=== PATIENT | female | born 1940 | race Caucasian/White ===

== ENCOUNTER 2019-07-31 16:14 | Emergency (ER) | payer MEDICARE, OTHER, SELFPAY ==
[2019-07-31 16:15] VITALS: BP 145/74; PULSE 68; RESP 13; TEMP 36.9; O2SAT 99; BMI 22.2
--- NOTE | 2019-07-31 16:33 | ED.VISSUMM ---
- ER Visit Summary Date of Service: 07/31/19 Chief Complaint: Right ankle injury History of Present Illness: The patient is a 78 F who presents with right ankle injury that occurred today. Patient states she stood up and inverted her ankle. Patient states she felt a snap. Patient states the pain is worse over the lateral aspect of the right ankle. Patient denies any weakness but admits to some tingling in her toes. Patient denies any pain currently. Patient has not tried to ambulate since the fall. Patient admits to some tingling in her toes but denies any weakness. Physical Examination: Vital signs are stable. Patient is afebrile. Patient is in no acute distress. Musculoskeletal exam reveals tenderness, edema, and ecchymosis over the lateral malleolus. There is no bony crepitance or step-off. Range of motion was slightly limited in all motions of the right ankle secondary to pain. There is a strong pedal pulse. Sensation was intact to light touch in all digits. Capillary refill is less than 2 seconds in all digits. There is no tenderness over the fifth metatarsal or proximal fibula. Test Results: Trays of the right ankle were obtained. There is a nondisplaced fracture of the distal fibula below the level of the joint line. This was interpreted by the radiologist and myself. Emergency Department Course and Treatment: Patient declined anything for analgesia. Patient was given a boot orthosis. Patient was given crutches. Patient was instructed to ice and elevate the right ankle. Patient states she has seen Dr. Williamson in the past and wants to follow-up with him. Patient was instructed to follow-up with him in 5 to 7 days. Patient and family understood and were agreeable with the plan. All questions were answered. Disposition: Discharge home Impression: 1. Right distal fibula fracture This note was generated with [employer] dictation software. It may contain incorrect words, spelling, and punctuation that were not noted in review of the chart prior to signing ED Disposition - Plan for ED Patient: Disposition: Home or Assisted Living Diagnosis: Closed fracture of right distal fibula Instructions: FRACTURE, Lower Extremity Referrals: Vangie Arriaga MD [STAFF PHYSICIAN] - 5-7 Days Toni Williamson MD [STAFF PHYSICIAN] - 3-5 Days
--- NOTE | 2019-07-31 16:50 | RAD_ITS ---
STUDY: X-RAY - RIGHT ANKLE REASON FOR EXAM: Female, 78 years old. Pain and swelling TECHNIQUE: 3 view(s) of the ankle. COMPARISON: None. FINDINGS: There is a minimally displaced fracture of the lateral malleolus. There is marked overlying soft tissue swelling. There are no significant degenerative changes. There are no radiodense foreign bodies. RAD/Ankle min 3 Views IMPRESSION: Minimally displaced fracture of the lateral malleolus with marked overlying soft tissue swelling. Electronically Signed: Ayan Zavala, at 17:07 EDT Tel , Service support ,
[2019-07-31 17:40] VITALS: PULSE 72; RESP 16; O2SAT 98
== END 2019-07-31 17:41 | disposition home or self-care (01) ==
PROVIDERS: Emergency Provider Emergency Medicine; Family Provider Student in an Organized Health Care Education/Training Program; PCP Student in an Organized Health Care Education/Training Program
DX: S82.64XA Nondisplaced fracture of lateral malleolus of right fibula, initial encounter for closed fracture (principal); W19.XXXA Unspecified fall, initial encounter; Y93.89 Activity, other specified
CPT/HCPCS: 73610; 99284

== ENCOUNTER 2025-03-16 11:00 | Outpatient (RCR) | payer MEDICARE, OTHER, SELFPAY ==
--- NOTE | 2025-03-03 11:14 | HP.PTEVAL_ITS ---
Patient's Visit Information Visit Information Visit Information: JUAN GERONIMO is a 84 year old F referred to Physical Therapy by Dr. Keith Romero DO with a diagnosis of Balance disorder. Date of Evaluation: 03/03/25 Physical Therapist: George Baxter, REGIT, OCS, CSCS Visit Plan Frequency: 2x /Week Duration: 4-6 Weeks Plan: 2x/week for 2-6 weeks IE HEP given VOR seated H and V 60 sec 3x/day with pics and reviewed balance safety HO Pt has decent balance for age but needs more confidence, please treat with... 1. teach progression of VOR to standing and dynamic as safety allows via HEP 2. weight shift Fw and lateral confidence ex to HEP 3. combination strength /balance ex to I HEP pics and progressions please. All to HEP(4 visits to start) Subjective Subjective: Dr. romero PA sent over. balance is not like it used to be. Fell one time. Has hugged feldman for a long time. Does well next to someone but does not feel secure on own. Home is good. has been ill and she is taking care of him. She needs to take care of herself. Last fall was two weeks ago and face planted on slippery grass and picking up sticks, bent over and did slipped on grass and face planted. Had black eye. Not in any pain. No spinning but has to stand up slowly some times. No neuropathy. Does not use cane or walker. Sleep is OK No regular exercise. Does not like to exercise adn never will Takes care of 3 story house and . Steps have handrails and are no problem and has chairlift for . 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 Enjoys reading and puzzles. Bathtub has bars. Basic ADLs all I at this point. Objective Objective: Walks into PT I without gait deviations. Trasnfer chair without UE 2 attempts but I. Bed trasnfer I. Steps are reciprocal with one rail. Good balance demonstrated on FGA without AD. Fear is noticed when doing tandem walk and ec walk but good balance. Lumbar and LE AROM WFL , some mild tightness in HS and gastroc at -15 90/90 and 0 DF but functional. Hesitant to shift weight with ambulation and out of chair and on steps. strength LE 4-/5 hips and knees and ankles , funcitonal reflexes 2/3 patella adn achilles B . sensation to gross light touch WNL B LE coordination to reciprocal toe and heel tap is good, heel mcdonnell test is good. UE AROM wFL and strength at 4-/5. Balance/Special Test Scores Functional Gait Assessment Score: 26 % Disability: 13.3400 CATSIB Score (Max score 120 seconds): 102 Lower Extremity Functional Score: 47 Goals Goal 1:: I appropriate HEP for weight shifts, vestibular and strength to minimize future problems Goal Time Frame: 4-6 Weeks Goal 2:: Pt feel 75% more confidence in balance and ability to get around and take care of house and . Goal Time Frame: 4-6 Weeks Goal 3:: 20+ sec on foam ec romberg test. Goal Time Frame: 4-6 Weeks Rehabilitation Potential Physical Therapy Diagnosis: Diminshed confidence and weakness vestibular balance system leading to hesitation and fear with ambulation. Rehabilitation Potential: Good Anticipated Interventions Patient/Client Instruction: Educate patient on: Condition and Risk Factors For the Purpose of:: To increase tolerance to activity/condition/position, To improve ability of physical actions for home/community/work/leisure, To improve gait and locomotor functions and To improve safety Therapeutic Exercise to Include: Strength training, Balance training and Coord ination Comment: vestibular ex adn dyanmic balance For the Purpose of:: To improve muscle performance and motor function, To increase tolerance to activity/condition/position, To improve ability of physical actions for home/community/work/leisure, To improve gait and locomotor functions and To improve safety Text: Thank you for the opportunity to evaluate your patient. For Medicare and Medicare HMO plans, please review the plan of care and approve it. It will need to be FAXED BACK to us at [phone] for Medicare purposes. For Medicare only, by signing this I certify the plan of care. Please let me know if there are questions or concerns regarding this plan of care. Physician Signature: Date:
--- NOTE | 2025-04-26 15:33 | HP.PT.NRP ---
Patient Information Patient Information: JUAN GERONIMO was seen in my office for initial evaluation on 03/03/25. The following Plan of Care was established for this patient: POC Established Initial Frequency: 2x /Week Initial Duration: 4-6 Weeks Anticipated Interventions Patient/Client Instruction: Educate patient on: Condition and Risk Factors For the Purpose of:: To increase tolerance to activity/condition/position, To improve ability of physical actions for home/community/work/leisure, To improve gait and locomotor functions and To improve safety Therapeutic Exercise to Include: Strength training, Balance training and Coordination For the Purpose of:: To improve muscle performance and motor function, To increase tolerance to activity/condition/position, To improve ability of physical actions for home/community/work/leisure, To improve gait and locomotor functions and To improve safety Last Seen Last Seen: This patient was last seen in our office 03/16/25. Pertinent comments regarding their Physical therapy will appear below: Pt seen 4 visits of HEP instruct for balance and was to f/u two weeks later but did not schedule or attend. At this point, it has been over 5 weeks and i will discontinue from my care. At this point I will be discontinuing this patient from physical therapy. I would be happy to see this patient again in the future if found appropriate by the physician. Thank you! George Baxter, DPT, OCS, CSCS Balance/Gait/Functional tests Balance/Special Test Scores Functional Gait Assessment Score: 26 % Disability: 13.3400 CATSIB Score (Max score 120 seconds): 102 Lower Extremity Functional Score: 47
== END 2025-03-16 19:00 | disposition home or self-care (01) ==
LOC: PT 11:00
PROVIDERS: PCP Student in an Organized Health Care Education/Training Program; Referring Provider Student in an Organized Health Care Education/Training Program; Visit Provider Student in an Organized Health Care Education/Training Program
DX: R26.89 Other abnormalities of gait and mobility (principal)
CPT/HCPCS: 97110; 97161

== ENCOUNTER 2025-09-12 07:39 | Emergency (ER) | payer MEDICARE, OTHER, SELFPAY ==
[2025-09-12 07:42] VITALS: BP 156/77; PULSE 80; RESP 18; TEMP 36.6; O2SAT 99; BMI 21.8
--- NOTE | 2025-09-12 07:46 | CT_ITS ---
PROCEDURE: SPINE CERVICAL WITHOUT CONTRAS 09/12/2025 REASON FOR EXAM: TRAUMA TECHNIQUE: Procedure Code: CTSPC Modality: CT Procedure: SPINE CERVICAL WITHOUT CONTRAS Coronal and Sagittal reconstruction series were provided. One or more dose reduction techniques were used (e.g., Automated exposure control, adjustment of the mA and/or kV according to patient size, use of iterative reconstruction technique. RADIATION DOSE SUMMARY: CTDlvol: 12.49 mGy DLP: 1055.84 mGycm COMPARISON: None. FINDINGS: Alignment: Anterolisthesis C3 on C4 by 2 mm and C4 on C5 by 2 mm. Vertebrae: No acute bony abnormalities. Soft Tissues: No soft tissue abnormalities. The visualized lungs are clear. Disc levels: Multilevel degenerate changes predominantly for facet joints arthropathy and severe left and moderate right foramina stenosis at C3-C4. No significant canal stenosis. CT/Spine Cervical without Contras IMPRESSION: No acute injury to the cervical spine. Reading Location: [id number]
--- NOTE | 2025-09-12 07:46 | CT_ITS ---
PROCEDURE: BRAIN/HEAD WITHOUT CONTRAST 09/12/2025 REASON FOR EXAM: TRAUMA TECHNIQUE: Procedure Code: CTBR Modality: CT Procedure: BRAIN/HEAD WITHOUT CONTRAST Coronal and Sagittal reconstruction series were provided. One or more dose reduction techniques were used (e.g., Automated exposure control, adjustment of the mA and/or kV according to patient size, use of iterative reconstruction technique. RADIATION DOSE SUMMARY: CTDlvol: N/A mGy DLP: N/A mGycm COMPARISON: None FINDINGS: Brain: Within normal limits for age CSF Spaces: Mild generalized cerebral atrophy Sinuses/Mastoids: Clear at visualized levels Bones: There is no evidence of a fracture. Soft tissues: Brad there is a scalp laceration at the posterior occipital region. CT/Brain/Head without Contrast IMPRESSION: Occipital scalp laceration, no other evidence of an acute process. Reading Location: [id number]
--- NOTE | 2025-09-12 07:58 | ED.VIS.FALL ---
HPI HPI - Fall History of Present Illness Chief Complaint: Fall Narrative Narrative: 85-year-old female past medical history of frequent falls secondary to balance problems for which she has been through physical therapy presents with fall that she sustained this morning prior to arrival. She does not take blood thinners. She states she was in the downstairs half bathroom and bent over to clean the cat box. She lost her balance, spun around and fell and struck her head. She denies any loss of consciousness, no neck pain. She sustained a skin tear to her right forearm, and has dried blood on the left side of her head but complains of pain mainly in the occipital area. She was not wearing her glasses at the time. She denies any nausea or vomiting but states she has a headache and that her head hurts in the back of her skull. No exacerbating or alleviating factors. Unsure of last tetanus immunization. PFSH PFS Medical History no medical history Home Medications Medication Instructions Recorded Last Taken Type alendronate 70 mg tablet 70 mg PO QWEEK 07/31/19 Unknown History estradiol 0.5 mg tablet 0.5 mg PO QODAY 07/31/19 Unknown History Allergy/AdvReac Type Severity Reaction Status Date / Time Latex, Natural Rubber Allergy Rash Verified 07/31/19 16:16 meperidine (From Demerol) Allergy Rash Verified 07/31/19 16:16 amoxicillin AdvReac Nausea/Vom/ Verified 07/31/19 16:16 Diarrhea codeine AdvReac Nausea/Vom/ Verified 07/31/19 16:16 Diarrhea tramadol (From Ultram) AdvReac Nausea/Vom/ Verified 07/31/19 16:16 Diarrhea Social History Smoking Status: Never smoker ROS ROS ED ROS Narrative Review of systems positive for headache and wound to occipital area. Skin tear to right forearm. Denies any neck pain. No loss of consciousness. No nausea or vomiting. Denies other injury. EXAM Physical Exam Narrative Exam Narrative: GCS 15. ABCs intact. HEENT examination does show dried blood with tenderness to palpation in the occipital area. There is small amount of dried blood with questionable abrasion underlying on the left parietal area. PERRL, EOMI. small hematoma noted with less than 1 cm superficial laceration without active bleeding noted on the occiput. Neck soft and supple without vertebral point tenderness or bony step-off. Full range of motion without pain. Cardiovascular examination regular rate and rhythm. Lungs are clear to auscultation bilaterally. The abdomen is soft and nontender with positive bowel sounds. Moves all extremities. Pelvis stable. Right distal forearm wrapped with gauze, not saturated with blood. After unwrapping, she does have a 1.5 cm flap-like skin avulsion/tear without active bleeding. Const Vital Signs: 09/12/25 07:42 09/12/25 07:48 09/12/25 09:13 Temperature 98 F 98 F Temperature Source Oral Pulse Rate 80 74 Respiratory Rate 18 16 Respiratory Effort Normal Blood Pressure 156/77 H 161/88 H Blood Pressure Mean 103 112 Pulse Ox 99 99 Oxygen Delivery Method Room Air MDM MDM MDM Narrative Medical decision making narrative: The differential diagnosis includes but not limited to intracranial hemorrhage versus closed head injury versus occipital laceration versus contusion/abrasion. Her right forearm will be unwrapped to examine probable skin tear. She was given a Boostrix immunization. I do feel that she requires imaging although she does not take blood thinners. CT of the brain and CT of the C-spine will be obtained prior to analgesics. Her family is at the bedside currently. There is concern that the patient is having frequent falls again as she fell 2 days ago as well. I reviewed the radiology report of the CT of the cervical spine and there is no evidence of acute fracture. On review of the CT of the brain radiology report, no acute intracranial hemorrhage or process. She does have the occipital scalp laceration noted. After cleansing, the occipital scalp laceration is approximately 1 cm khan without active bleeding. I do not feel that it requires closure currently. In discussion with the patient and her family, I discussed with them admission versus observation for PT/OT eval, and possible placement in rehab even if temporarily. Patient declined and her family is in agreements with her wishes. She wants to follow-up with her primary care provider tomorrow to see about more intensive physical therapy as an outpatient or home physical therapy. I feel she can be discharged safely home with follow-up. She can take [id number] medications for analgesia. Return instructions to the emergency department were reviewed. Disposition is discharged home in stable condition. History & Record Review Discussion w/independent historian: Patient and Family Radiography Diagnostic Testing: Clinical Impression(s) from Imaging Studies Brain CT 09/12/25 07:46 IMPRESSION: Occipital scalp laceration, no other evidence of an acute process. Reading Location: [id number] Cervical Spine CT 09/12/25 07:46 IMPRESSION: No acute injury to the cervical spine. Reading Location: [facility] Discharge Plan Triage Chief Complaint: Fall ED Provider: Juan Carlos Johns Dx/Rx/DC Orders Clinical Impression: Balance problems, Occipital scalp laceration, Closed head injury, Hematoma of occipital region of scalp, Skin tear of forearm without complication Instructions: ED Scalp Contusion, ED Head Injury (Adult), ED Laceration Superficial No Stitch, ED Skin Tear (Skin Avulsion) Prescriptions: No Action alendronate 70 MG tablet 70 mg PO QWEEK estradiol 0.5 MG tablet 0.5 mg PO QODAY Patient Comments: TAKE 1 TABLET BY MOUTH EVERY OTHER DAY Primary Care Provider: Keith Romero Referrals: Keith Romero DO [Primary Care Provider, Medical] - 1 Day Activity Restrictions/Additional Instructions: Follow-up with your primary care provider tomorrow. Discussed with them physical therapy more frequently for your balance issues versus home physical therapy. Return with new or worsening symptoms. [id number] medications as needed for pain. Print Language: Kyrgyz Disposition Disposition: Home, Self Care
--- OUTSIDE RECORDS SUMMARY | 2025-09-12 08:44 | XMS RPT_ITS | CCD ---
Author Organization [facility] ion Partnership [facility] Care Team Providers Care Overweaver Name Role Phone Keith Romero DO Primary Care Provider Keith Romero DO Primary Care Provider Osbaldo EMPLOYEE'S REPRESENTATIVE.SHAKER REPAIRERJohanan Unavailable Clary EMPLOYEE'S REPRESENTATIVE.Dionne BURNHAM Unavailable Brandy EMPLOYEE'S REPRESENTATIVE.Jerica BURNHAM Unavailable Dr. Keith Romero DO Primary Care Provider Dr. Keith Romero DO Attending Provider Dr. Keith Romero DO Referring Provider Keith Romero Attending Unavailable Keith Romero Referring Unavailable Keith Romero Primary Care Unavailable KEITH ROMERO Primary Care Unavailable NICHOLAS LEONE Attending Unavailable SELF Referring Unavailable KEITH ROMERO Primary Care Unavailable KEITH ROMERO Referring Unavailable KEITH ROMERO Primary Care Unavailable KEITH ROMERO Attending Unavailable KEITH ROMERO Primary Care Unavailable KEITH ROMERO L Referring Unavailable KEITH ROMERO L Primary Care Unavailable BRAXTON LOCKE Referring Unavailable KEITH ROMERO Attending Unavailable KEITH ROMERO Primary Care Unavailable KEITH ROMERO Primary Care Unavailable PARESH NGO Attending Unavailable JOSEE LI Referring Unavailable KEITH ROMERO L Primary Care Unavailable KEITH ROMERO L Primary Care Unavailable Allergies Allergy Classification Reported Allergen(s) Allergy Type Date of Onset Reaction(s) Facility (20 sources) Amoxicillin; Translations: [AMOXICILLIN] Drug Allergy 9 [facility] Work Phone: (20 sources) Codeine; Translations: [CODEINE] Drug Allergy 5 GI Upset [facility] (20 sources) Latex Propensity to adverse reactions 9 [facility] Work Phone: (20 sources) traMADol; Translations: [TRAMADOL HCL] Drug Allergy 9 Intolerance [facility] Work Phone: (20 sources) demoral [Other] Propensity to adverse reactions 5 [facility] (1 source) Meperidine Drug Allergy 9 [facility] (1 source) natural latex rubber Allergy to substance 9 [facility] (1 source) traMADol Drug Allergy 9 Nausea/Vom/Diar anastasiya [facility] (1 source) Amoxicillin Drug Allergy 9 [facility] (1 source) Codeine Drug Allergy 9 [facility] (1 source) Meperidine Drug Allergy 9 [facility] (1 source) natural latex rubber Drug allergy (disorder) 9 [facility] (1 source) traMADol Drug Allergy 9 [facility] Medications Current Medications Medication Drug Class(es) Dates Sig (Normalized) Sig (Original) 8 hr acetaminophen 650 mg extended release oral tablet (20 sources) Start: 02-13-2016 take 1 tablet by mouth every eight hours as needed acetaminophen 650 mg CR tablet Take 1 tablet by mouth every 8 hours as needed. 0 02/13/2016 Active Comment on above: Take 1 tablet by fabien every 8 hours as needed. alendronic acid 70 mg oral tablet (20 sources) Bisphosphonate Start: 07-31-2019 End: 07-01-2024 take 1 tablet by mouth every week alendronate (FOSAMAX) 70 mg tablet Indications: Age-related osteoporosis without current pathological fracture Take 1 tablet by mouth one time a week. Take with a full glass of water, on an empty stomach; do NOT lie down for 30minutes. 12 tablet 3 07/01/2024 Active Comment on above: Take 1 tablet by fabien th one time a week. Take with a full glass of water, on an empty stomach; do NOT lie down for 30minutes. aspirin 81 mg chewable tablet (20 sources) Platelet Aggregation Inhibitor, Nonsteroidal Anti-inflammatory Drug take 1 tablet by mouth once daily aspirin 81 mg chewable tablet Take 81 mg by mouth once daily. Active Comment on above: Take 81 mg by mouth once daily. baclofen 10 mg oral tablet (2 sources) gamma-Aminobutyric Acid-ergic Agonist Start: 07-27-2022 End: 08-26-2022 take 1 tablet by mouth once daily baclofen (LIORESAL) 10 mg tablet Take 1 tablet by mouth once daily. 30 tablet 2 07/27/2022 08/26/2022 Active Comment on above: Take 1 tablet by fabien once daily. Biotin (20 sources) take 1000 ug by mouth once daily BIOTIN ORAL Take 1,000 mcg by mouth once daily. Active take 1000 ug by mouth once daily BIOTIN ORAL Take 1,000 mcg by mouth once daily. 0 Active Comment on above: Take 1,000 mcg by mo [facility] once daily. cholecalciferol 0.025 mg oral capsule (20 sources) Vitamin D Start: 020 take 2 capsules by mouth once daily Cholecalciferol, Vitamin D3, 25 mcg (1,000 unit) cap Take 2 capsules by mouth once daily. 0 04/27/2020 Active Comment on above: Take 2 capsules by [facility] once daily. docusate sodium 100 mg oral capsule (17 sources) Start: End: take 1 capsule by mouth twice daily as needed for constipation docusate sodium (COLACE) 100 mg capsule Indications: Hemorrhoids, unspecified hemorrhoid type Take 1 capsule by mouth two times a day as needed for constipation. 60 capsule 2 07/01/2024 09/29/2024 Active levothyroxine sodium 0.088 mg oral tablet (20 sources) l-Thyroxine Start: 023 End: levothyroxine (LEVOXYL) 88 mcg tablet Indications: Hypothyroidism, acquired Take 1 tablet daily except for Tues and Thurs and Sat take 2 tablets. Take on empty stomach. For Thyroid 130 tablet 3 07/01/2024 Active Start: 02-25-2023 End: 04-02-2023 take 1 tablet by mouth once daily for thyroid dysfunction levothyroxine (LEVOXYL) 75 mcg tablet Indications: Hypothyroidism, acquired Take 1 tablet by mouth once daily. Take on empty stomach. For thyroid. 90 tablet 1 02/25/2023 04/02/2023 Discontinued Start: 06-22-2022 End: 02-25-2023 take 1 tablet by mouth once daily for thyroid dysfunction levothyroxine (LEVOXYL) 50 mcg tablet Indications: Hypothyroidism, acquired Take 1 tablet by mouth once daily. Take on empty stomach. For Thyroid 30 tablet 5 06/22/2022 11/07/2022 Discontinued Start: 04-27-2022 End: 06-22-2022 take 1 tablet by mouth once daily for thyroid dysfunction levothyroxine (LEVOXYL) 25 mcg tablet Indications: Hypothyroidism, acquired Take 1 tablet by mouth once daily. Take on empty stomach. For Thyroid 30 tablet 2 04/27/2022 06/22/2022 Discontinued (Dosage adjustment) Comment on above: Take 1 tablet by fabien th once daily. Take on empty stomach. For Thyroid Take 1 tablet by fabien th once daily. Take on empty stomach. For thyroid. mecobalamin (20 sources) take 1 tablet by mouth once daily mecobalamin (B12 ACTIVE ORAL) Take 1 tablet by mouth once daily. Active take 1 tablet by mouth once [facility] mecobalamin (B12 ACTIVE ORAL) Take 1 tablet by mouth once daily. 0 Active Comment on above: Take 1 tablet by fabien th once daily. 24 hr verapamil hydrochloride 120 mg extended release oral capsule (20 sources) Calcium Channel [place] Start: 03-15-2023 End: 05-19-2025 take 1 capsule by mouth once daily at bedtime verapamil ER (VERELAN) 120 mg 24 hr capsule Indications: SVT (supraventricular tachycardia) (HCC) Take 1 capsule by mouth once daily at bedtime 90 capsule 3 05/19/2025 Active Start: 02-21-2023 take 1 capsule by mo uth once daily at bedtime verapamil ER (VERELAN) 120 mg 24 hr capsule Take 1 capsule by mouth daily at bedtime. 90 capsule 3 02/21/2023 Active Comment on above: Take 1 capsule by mo uth daily at bedtime. Completed/Discontinued Medications Medication Drug Class(es) Dates Sig (Normalized) Sig (Original) estradiol 0.5 mg oral tablet (15 sources) Estrogen Start: 04-24-2022 End: 02-21-2023 take 1 tablet by mouth every other day Estradiol (ESTRACE) 0.5 mg tablet Indications: Postmenopausal symptoms Take 1 tablet by mouth every other day. 45 tablet 3 04/24/2022 02/21/2023 Discontinued Start: 07-31-2019 take 1 tablet by fabien th every other day Estradiol (ESTRACE) 0.5 mg tablet Indications: Postmenopausal symptoms Take 1 tablet by mouth every other day. 45 tablet 3 04/21/2021 Active Comment on above: Take 1 tablet by fabien th every other day. mupirocin 0.02 mg/mg topical ointment (11 sources) RNA Synthetase Inhibitor Antibacterial Start: 07-01-20 End: 03-01-20 mupirocin (BACTROBAN) 2 % ointment Indications: Skin lesion of face Apply to affected area every 12 hours as needed (for skin wound). 30 g 1 07/01/2024 03/01/2025 Discontinued (Course of therapy completed) perflutren lipid microspheres 1.3 mL in NaCl (PF) 0.9% 10 mL injection (DEFINRivalSoft) (9 sources) Start: 04-21-20 End: 07-21-20 perflutren lipid microspheres 1.3 mL in NaCl (PF) 0.9% 10 mL injection (Skycatch) pramoxine hydrochloride 10 mg/ml rectal foam (12 sources) Start: 05-13-20 End: 08-11-20 Pramoxine (PROCTOFOAM) 1 % foam Indications: Hemorrhoids, unspecified hemorrhoid type 1 Applicator by RECTAL route every 2 hours as needed. 15 g 2 05/13/2024 07/01/2024 Discontinued predniSONE 20 mg oral tablet (2 sources) Start: 07-08-20 End: 07-13-20 take 2 tablets by mouth once daily predniSONE (DELTASONE) 20 mg tablet Take 2 tablets by mouth once daily for 5 days. 10 tablet 07/08/2022 07/13/2022 Comment on above: Take 2 tablets by mo ut once daily for 5 days. 125 ml sodium chloride 9 mg/ml prefilled syringe (9 sources) Start: 04-21-20 End: 07-21-20 sodium chloride 0.9 % (flush) 10 mL (BD POSIFLUSH) triamcinolone acetonide 0.46350 mg/mg topical ointment (19 sources) Corticosteroid Start: 04-22-20 End: 04-30-20 triamcinolone (KENALOG) 0.025 % ointment Apply to affected area BID x 6-8 weeks then use weekly for maintenance 30 g 1 04/22/2019 04/30/2023 Discontinued (Course of therapy completed) Comment on above: Apply to affected ar ea BID x 6-8 weeks then use weekly for maintenance Problems Active Problems Problem Classification Problem Date Documented Date Episodic/Chronic Cardiac dysrhythmias (20 sources) Supraventricular tachycardia; Translations: [Supraventricular tachycardia] Onset: 06-22-2021 06-22-2021 Chronic Chronic kidney disease (1 source) Chronic kidney disease stage 3B ; Translations: [Stage 3b chronic kidney disease (HCC)] Chronic Disorders of lipid metabolism (20 sources) Hyperlipidemia; Translations: [Hyperlipidemia, unspecified] Onset: 05-28-2007 Resolved: 02-13-2016 02-13-2016 Chronic Esophageal disorders (20 sources) Gastroesophageal reflux disease; Translations: [Gastro-esophageal reflux disease without esophagitis] Onset: 05-28-2007 10-16-2021 Chronic Fracture of lower limb (1 source) Closed fracture of distal fibula ; Translations: [Other fracture of upper and lower end of right fibula, initial encounter for closed fracture] 08-01-2019 Episodic Hemorrhoids (7 sources) Hemorrhoids; Translations: [Unspecified hemorrhoids] 05-13-2024 Episodic Immunizations and screening for infectious disease (3 sources) Vaccination needed; Translations: [Encounter for immunization] Episodic Menopausal disorders (20 sources) Menopausal and postmenopausal disorders; Translations: [Unspecified menopausal and perimenopausal disorder] Onset: 04-15-2018 04-15-2018 Chronic Nutritional deficiencies (9 sources) Vitamin D deficiency; Translations: [Vitamin D deficiency, unspecified] Onset: 02-23-2025 02-16-2025 Chronic Osteoarthritis (20 sources) Degenerative joint disease involving multiple joints; Translations: [Polyosteoarthritis, unspecified] Onset: 05-28-2007 05-28-2007 Chronic Osteoporosis (20 sources) Senile osteoporosis; Translations: [Age-related osteoporosis without current pathological fracture] Onset: 04-15-2018 04-15-2018 Chronic Other connective tissue disease (1 source) Pain in right hand; Translations: [Pain in right hand] Episodic Other hematologic conditions (1 source) Other abnormality of red blood cells; Translations: [Abnormal RBC] Onset: 08-27-2025 Episodic Other inflammatory condition of skin (20 sources) Psoriasis; Translations: [Other psoriasis] Onset: 05-28-2007 05-28-2007 Chronic Other nutritional; endocrine; and metabolic disorders (1 source) Abnormal weight loss; Translations: [Weight loss] Onset: 08-27-2025 Episodic Other screening for suspected conditions (not mental disorders or infectious disease) (3 sources) Other specified abnormal findings of blood chemistry; Translations: [Encounter for screening mammogram for malignant neoplasm of breast] Onset: 06-15-2025 Episodic Other skin disorders (1 source) Lesion of skin of face; Translations: [Disorder of the skin and subcutaneous tissue, unspecified] 07-01-2024 Episodic Residual codes; unclassified (3 sources) Pain; Translations: [Pain, unspecified] Episodic Spondylosis; intervertebral disc disorders; other back problems (20 sources) Cervical spondylosis; Translations: [Spondylosis without myelopathy or radiculopathy, cervical region] Onset: 07-20-2010 Resolved: 02-09-2015 Chronic Thyroid disorders (20 sources) Acquired hypothyroidism; Translations: [Hypothyroidism, unspecified] Onset: 02-25-2023 Chronic Unclassified (1 source) Patient encounter status 04-20-2025 Unclassified (1 source) Consult Onset: 08-04-2025 Past or Other Problems Problem Classification Problem Date Documented Da te Episodic/Chronic Acute and unspecified renal failure (20 sources) [id number] renal failure; Translations: [Acute kidney failure, unspecified] Onset: 02-25-2023 Episodic Administrative/social admission (20 sources) Patient encounter status; Translations: [Other specified counseling] Onset: 04-24-2022 04-24-2022 Episodic Deficiency and other anemia (20 sources) Anemia; Translations: [Anemia, unspecified] Onset: 02-25-2023 Episodic Deficiency and other anemia (1 source) Anemia, unspecified; Translations: [Anemia, unspecified type] Onset: 02-25-2023 Episodic E Codes: Fall (8 sources) Fall; Translations: [Unspecified fall, initial encounter] Onset: 02-23-2025 02-23-2025 Episodic Nutritional deficiencies (8 sources) Cobalamin deficiency; Translations: [Deficiency of other specified B group vitamins] Onset: 02-23-2025 02-23-2025 Episodic Other bone disease and musculoskeletal deformities (20 sources) Disorder of skeletal system; Translations: [Disorder of bone, unspecified] Onset: 05-28-2007 10-16-2021 Episodic Other circulatory disease (20 sources) Elevated blood-pressure reading without diagnosis of hypertension; Translations: [Elevated blood-pressure reading, without diagnosis of hypertension] Onset: 02-25-2017 02-25-2017 Episodic Other connective tissue disease (20 sources) Spasm of cervical paraspinous muscle; Translations: [Other muscle spasm] Onset: 07-27-2022 Episodic Other connective tissue disease (20 sources) Contracture of palmar fascia; 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]] Onset: 07-13-2008 Resolved: 02-25-2017 02-25-2017 Episodic Other nervous system disorders (8 sources) Impairment of balance; Translations: [Other abnormalities of gait and mobility] Onset: 02-23-2025 02-23-2025 Episodic Other nervous system disorders (1 source) Other abnormalities of gait and mobility; Translations: [Balance disorder] Onset: 02-23-2025 Episodic Spondylosis; intervertebral disc disorders; other back problems (20 sources) Spinal stenosis; Translations: [Spinal stenosis, site unspecified] Onset: 07-20-2010 10-16-2021 Episodic Syncope (20 sources) Syncope; Translations: [Syncope and collapse] Onset: 06-22-2021 06-22-2021 Episodic Results Test Name Value Interpretation Reference Range Facility [facility] 08-31-2025 [facility] Telephone (FAMPWS) -------- JUAN GERONIMO ([id number]) 1940 F Date Time Provider Department 08/31/25 KEITH ROMERO ASHLEY During your visit today, we recorded the following information about you: Keith RomeroDO 08/31/2025 9:39 AM Signed Please let her know that her labs are overall stable Her vitamin D is a little too high. Needs to cut back to every other day for vitamin D supplement Her renal function continues to be mildly abnormal in the chronic kidney disease stage 3 mild range. Very minimal protein in her urine. Continue to avoid NSAIDs and needs to be drinking at least 60 oz of water a day DO Sanju Phipps Linda M, LPN 09/01/2025 9:10 AM Signed Left message to return call. Anh Garcia RN 09/01/2025 9:18 AM Signed Patient notified of results and provider's instructions. Patient verbalizes understanding. Anh Garcia RN Allergies As of Date: 08/31/2025 Noted Allergy Reaction AMOXIL (AMOXICILLIN) 07/13/2009 4 - Hives CODEINE 07/04/2005 8 - GI Upset ULTRAM (TRAMADOL HCL) 07/13/2009 5 - Intolerance Date Reviewed: 08/27/2025 Reviewed by: Fannie Carr LPN - Fully Assessed Reason for Visit: Results [95] Prescriptions as of 09/01/2025 - levothyroxine (LEVOXYL) 88 mcg tablet Take 1 tablet daily except for Tues and Thurs and Sat take 2 tablets. Take on empty stomach. For Thyroid - verapamil ER (VERELAN) 120 mg 24 hr capsule Take 1 capsule by mouth once daily at bedtime - alendronate (FOSAMAX) 70 mg tablet Take 1 tablet by mouth one time a week. Take with a full glass of water, on an empty stomach; do NOT lie down for 30minutes. - mecobalamin (B12 ACTIVE ORAL) Take 1 tablet by mouth once daily. - aspirin 81 mg chewable tablet Take 81 mg by mouth once daily. - BIOTIN ORAL Take 1,000 mcg by mouth once daily. - Cholecalciferol, Vitamin D3, 25 mcg (1,000 unit) cap Take 2 capsules by mouth once daily. - acetaminophen 650 mg CR tablet Take 1 tablet by mouth every 8 hours as needed. 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] 07/13/2008 02/25/2017 Spinal stenosis [M48.00] 07/20/2010 Bulging disc [IVA8132] 07/20/2010 02/09/2015 Hyperlipidemia [E78.5] 02/13/2016 Elevated systolic blood pressure reading withou*02/25/2017 Age-related osteoporosis without current pathol*04/15/2018 Medicare annual wellness visit, subsequent [Z00*04/15/2018 Postmenopausal symptoms [N95.9] 04/15/2018 SVT (supraventricular tachycardia) (HCC), parox*06/22/2021 Syncope [R55] 06/22/2021 Advance care planning [Z71.89] 02/25/2023 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] 07/27/2022 Cervical spondylosis [M47.812] 07/27/2022 Anemia [D64.9] 02/25/2023 Acute renal failure superimposed on stage 3a ch*02/25/2023 Hypothyroidism, acquired [E03.9] 02/25/2023 Hyperlipidemia, mixed [E78.2] 02/25/2023 Balance disorder [R26.89] 02/23/2025 Fall [W19.XXXA] 02/23/2025 Vitamin D deficiency [E55.9] 02/23/2025 Vitamin B12 deficiency [E53.8] 02/23/2025 Weight loss [R63.4] 08/27/2025 Low TSH level [R79.89] 08/27/2025 Encounter Status:Closed by ANH GARCIA on 09/01/25 Normal [facility] 25(OH)D3 Gay-Usha 2024 25-hydroxyvitamin D3 [Mass/Vol] 87.4 ng/mL High 31.0-80.0 [facility] Comment on above: Order Comment: Speci men Type: BLOOD SPECIMENOrdering Facility: [facility] Address: [address] [place] [address] Result Comment: Clas sification of 25 [place] Vitamin D status: Deficiency/Insufficiency: < or = 30 ng/ml. Sufficiency/Optimal Levels: 31-80 ng/mL Toxicity: > 100 ng/mL. Test performed by chemiluminescent immunoassay. Performed By: #### 1 [id number] ####[facility] LABCLIA [id number] [place] [address] [place] ALBUMIN/CREATININE RATIO, UR INEon 08-27-2025 Albumin DL <= 20 mg/L (U) [Mass/Vol] 23.8 mg/L Normal [facility] Comment on above: Order Comment: Speci men Type: URINE SPECIMENOrdering Facility: [facility] Address: [address] [place] [address] Performed By: #### U ACR ####[facility] LABCLIA [id number] [place] [address] [place] Albumin/Creatinine (U) [Mass ratio] 13 mg/g Normal <30 [facility] Comment on above: Order Comment: Speci men Type: URINE SPECIMENOrdering Facility: [facility] Address: [address] [place] [address] Result Comment: Adul t Male and Female Nephrotic Criteria: <30 mg/g is considered normal to mildly increased 30-300 mg/g is considered moderately increased >300 mg/g is considered severely increased KDIGO. (2013). KDIGO 2012 Clinical Practice Guideline for the Evaluation and Management of Chronic Kidney Disease. Official Journal of the International Society of Nephrology, 3(1), 1-150. Performed By: #### U ACR ####[facility] LABCLIA [id number] [place] [address] [place] Creatinine (U) [Mass/Vol] 176.5 mg/dL Normal 20.0-300.0 [facility] Comment on above: Order Comment: Speci men Type: URINE SPECIMENOrdering Facility: [facility] Address: [address] [place] [address] Performed By: #### U ACR ####[facility] LABCLIA [id number] [place] [address] [place] KALYANIOVmichael 08-27-2025 [facility] Office Visit (FAMPWS ) -------- JUAN GERONIMO ([id number]) 1940 F Date Time Provider Department 08/27/25 9:00 AM [facility] your visit today, we recorded the following information about you: Temperature Pulse Respiration Blood pressure 96.2 degrees 60/minute 16/minute 130/70 Weight Height 56.2 kg 1.66 m Keith Romero, 08/27/2025 9:46 AM Signed Juan Mejia Belem is a 84 year old female here for a Medicare Wellness visit. Medicare Health Risk Assessment General Health Good Exercise: Minutes/Day Patient declined Exercise: Days/Week Patient declined Alcohol: Daily Use 2-4 times a month Alcohol: Drinks/Day Patient declined Alcohol: 6 or more drinks Never Feel off balance No Concerns: Teeth/Dentures No Concerns: Sexual function No Troubled by feelings None of the above Frequency: Eating healthy diet More than half the days ADLs requiring help None of the above Safety precautions in home/vehicle Yes Smoke, vape, chews tobacco No Difficulty hearing Yes, I wear a hearing aid Difficulty seeing No Current Providers Specialists: I have reviewed specialist-related care of the patient in the medical record. Medical/Family history review Reviewed and updated problem list, medical/surgical/family/ social history, medications, and allergies. Opioid use review Prescribed: No opioid use on file in the last 90 days Patient-reported: No opioid use on file in the last 90 days Depression screening PHQ-2 Score: 0 PHQ-9 Score: 1 Anxiety screening MALLORIE-2 Score: 0 MALLORIE-7 Score: 0 Cognitive screening Mini Cog Score: 4 Cognitive screening reviewed and No further action needed (score 3-5). Functional Observation Was the patient's Timed Up AND Go test unsteady or >= 12 seconds? No Advance Directives Surrogate decision maker and/or advance care plan documented Measurements BP 130/70 Pulse 60 Temp (!) 35.7 ?C (96.2 ?F) (Right Tympanic) Resp 16 Ht 166 cm (5' 5.35") Wt 56.2 kg (124 lb) BMI 20.41 kg/m? Vision Screening: Follows with optometry/ophthalmology Assessment/Plan Medicare annual wellness visit, subsequent (Z00.00) - Counseled on healthy diet and regular exercise - Fall avoidance information provided - Personalized prevention plan provided DO Nick Phipps Jordan L, DO 08/27/2025 9:46 AM Signed CC: Juan Geronimo is a 84 year old female who presents to the office for follow up HPI: + hair thinning, hair loss Recently with unintentional weight loss as well. She has had a lot of stress with helping her that has recently had a lot of health issues. Is taking her levothyroxine 1 tablet a day and on , and Sat taking 2 tablets. HPL, diet controlled. 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 Follows with [facility] SVT (supraventricular tachycardia) ([facility]) 02/03/2023 Unspecified hemorrhoids without mention of complication PAST SURGICAL HISTORY Procedure Laterality Date APPENDECTOMY COLONOSCOPY FLX DX W/COLLJ SPEC WHEN PFRMD 11/23/2002 Colonoscopy COLONOSCOPY FLX DX W/COLLJ SPEC WHEN PFRMD 05/05/2018 Colonoscopy HEMORRHOIDECTOMY INTERNAL RUBBER BAND LIGATIONS PAST SURGICAL HISTORY OF 1982 hysterectomy for prolapse - ovaries remain PAST SURGICAL HISTORY OF 06/19/1977 vericose vein stripping PAST SURGICAL HISTORY OF 10/2001 Dr. Wheeler [facility] - partial wrist fusion left - ganglion cyst removed at same time PAST SURGICAL HISTORY OF 05/2005 - left hand dupuytren's contracture release. PAST SURGICAL HISTORY OF 05/2006 right hand repair small and ring fingers SIGMOIDOSCOPY FLX DX W/COLLJ SPEC BR/WA IF PFRMD 09/1998 Sigmoidoscopy TONSILLECTOMY AND ADENOIDECTOMY T/A (under age 12 years) Social History: SOCIAL HISTORY[1] FAMILY HISTORY Problem Relation Age of Onset Cancer Mother ovarian and colon Cancer Father prostate - glaucoma Colon Cancer Father Cancer Brother skin - glaucoma Alzheimer's Disease Brother Current Outpatient prescriptions: levothyroxine (LEVOXYL) 88 mcg tablet Take 1 tablet daily except for Tues and Thurs and Sat take 2 tablets. Take on empty stomach. For Thyroid verapamil ER (VERELAN) 120 mg 24 hr capsule Take 1 capsule by mouth once daily at bedtime alendronate (FOSAMAX) 70 mg tablet Take 1 tablet by mouth one time a week. Take with a full glass of water (more content not included)... Normal [facility] Ferritin SerPl-mCncon 2024 Ferritin [Mass/Vol] 82.9 ng/mL Normal 14.7-205.1 [facility] Comment on above: Order Comment: Speci men Type: BLOOD SPECIMENOrdering Facility: [facility] Address: [address] [place] [address] Performed By: #### 2 276-4 ####[facility] [id number] [place] [address] [place] Folate SerPl-ncon 08-27-20 25 Folate [Mass/Vol] 11.2 ng/mL Normal >4.7 [facility] Comment on above: Order Comment: Speci men Type: BLOOD SPECIMENOrdering Facility: [facility] Address: [address] [place] [address] Performed By: #### 1 4338-8, 2885-2, 2132-9, 2284-8 ####[facility] LABCLIA [id number] [place] [address] [place] Iron and Iron binding capaci ty panelon 08-27-2025 Iron [Mass/Vol] 90 ug/dL Normal 41-186 [facility] Comment on above: Order Comment: Speci men Type: BLOOD SPECIMENOrdering Facility: [facility] Address: [address] [place] [address] Performed By: #### 5 0190-8, 25980-3, 3051-0, 3024-7 ####[facility] LABCLIA [id number] [place] [id number] [place] Iron binding capacity [Mass/Vol] 293 ug/dL Normal 232-386 [facility] Comment on above: Order Comment: Speci men Type: BLOOD SPECIMENOrdering Facility: [facility] Address: [address] [place] [address] Performed By: #### 5 0190-8, 94944-0, 3051-0, 3024-7 ####[facility] LABCLIA [id number] [place] [id number] [place] Iron/TIBC [Molar ratio] 30.7 % Normal 15.0-57.0 [facility] Comment on above: Order Comment: Speci men Type: BLOOD SPECIMENOrdering Facility: [facility] Address: [address] [place] [address] Performed By: #### 5 0190-8, 27752-7, 3051-0, 3024-7 ####[facility] LABIA [id number] [place] [id number] [place] PROTEIN ELECTROPHORESIS SERU M (P)on 08-27-2025 Albumin [Mass/Vol] 4.26 g/dL Normal 3.43-5.41 [facility] Comment on above: Order Comment: Speci men Type: BLOOD SPECIMENOrdering Facility: [facility] Address: [address] [place] [address] Performed By: #### L [id number] ####[facility] LABCLIA [id number] [place] [id number] [place] Alpha 1 globulin Elph [Mass/Vol] 0.32 g/dL Normal 0.18-0.43 [facility] Comment on above: Order Comment: Speci men Type: BLOOD SPECIMENOrdering Facility: [facility] Address: [address] [place] [address] Performed By: #### L [id number] ####[facility] LABCLIA [id number] [place] [address] [place] Alpha 2 globulin Elph [Mass/Vol] 0.64 g/dL Normal 0.42-0.98 [facility] Comment on above: Order Comment: Speci men Type: BLOOD SPECIMENOrdering Facility: [facility] Address: [address] [place] [address] Performed By: #### L [id number] ####[facility] LABCLIA [id number] [place] [address] [place] Beta globulin Elph [Mass/Vol] 0.63 g/dL Normal 0.61-1.17 [facility] Comment on above: Order Comment: Speci men Type: BLOOD SPECIMENOrdering Facility: [facility] Address: [address] [place] [address] Performed By: #### L [id number] ####[facility] LABCLIA [id number] [place] [address] [place] Gamma globulin Elph [Mass/Vol] 0.75 g/dL Normal 0.53-1.51 [facility] Comment on above: Order Comment: Speci men Type: BLOOD SPECIMENOrdering Facility: [facility] Address: [address] [place] [address] Performed By: #### L [id number] ####[facility] LABCLIA [id number] [place] [address] [place] M-PROTEIN LOCATION Normal [facility] Comment on above: Order Comment: Speci men Type: BLOOD SPECIMENOrdering Facility: [facility] Address: [address] [place] [address] Result Comment: Not Applicable. Performed By: #### L [id number] ####[facility] LABCLIA [id number] [place] [address] [place] Protein Fractions [Interp] No definitive M protein is identified on protein electrophoresis. Normal No definitive M protein is identified on protein electrophoresi s. [facility] Comment on above: Order Comment: Speci men Type: BLOOD SPECIMENOrdering Facility: [facility] Address: [address] [place] [address] Performed By: #### L [id number] ####[facility] LABCLIA [id number] [place] [address] [place] Protein.monoclonal Elph [Mass/Vol] 0.00 g/dL Normal <=0.00 [facility] Comment on above: Order Comment: Speci men Type: BLOOD SPECIMENOrdering Facility: [facility] Address: [address] [place] [address] Performed By: #### L [id number] ####[facility] LABCLIA [id number] [place] [address] [place] SPE STAFF REVIEW Reviewed by Dr. Luis Carson MD [facility] Comment on above: Order Comment: Speci men Type: BLOOD SPECIMENOrdering Facility: [facility] Address: [address] [place] [address] Performed By: #### L [id number] ####[facility] LABCLIA [id number] [place] [address] [place] Prealb SerPl-mCncon 08-27-20 Prealbumin [Mass/Vol] 18 mg/dL Normal 17-36 [facility] Comment on above: Order Comment: Speci men Type: BLOOD SPECIMENOrdering Facility: [facility] Address: [address] [place] [address] Performed By: #### 1 4338-8, 2885-2, 2132-9, 2284-8 ####[facility] LABCLIA [id number] [place] [address] [place] Prot SerPl-mCncon 08-27-2025 Protein [Mass/Vol] 6.6 g/dL Normal 6.3-8.0 [facility] Comment on above: Order Comment: Speci men Type: BLOOD SPECIMENOrdering Facility: [facility] Address: [address] [place] [address] Performed By: #### 1 4338-8, 2885-2, 2132-9, 2284-8 ####[facility] LABCLIA [id number] [place] [id number] [place] Renal function 2000 panelon 08-27-2025 Albumin [Mass/Vol] 4.3 g/dL Normal 3.9-4.9 [facility] Comment on above: Order Comment: Speci men Type: BLOOD SPECIMENOrdering Facility: [facility] Address: [address] [place] [address] Performed By: #### 5 0190-8, 94826-4, 3051-0, 3024-7 ####[facility] LABCLIA [id number] [place] [address] [place] Anion gap [Moles/Vol] 10 mmol/L Normal 8-15 [facility] Comment on above: Order Comment: Speci men Type: BLOOD SPECIMENOrdering Facility: [facility] Address: [address] [place] [address] Performed By: #### 5 0190-8, 49854-2, 3051-0, 3024-7 ####[facility] LABCLIA [id number] [place] [id number] [place] Calcium [Mass/Vol] 9.9 mg/dL Normal 8.5-10.2 [facility] Comment on above: Order Comment: Speci men Type: BLOOD SPECIMENOrdering Facility: [facility] Address: [address] [place], [place] [address] Performed By: #### 5 0190-8, 60085-9, 3051-0, 3024-7 ####[facility] LABCLIA [id number] [place] [id number] [place] Chloride [Moles/Vol] 107 mmol/L Normal 98-107 [facility] Comment on above: Order Comment: Speci men Type: BLOOD SPECIMENOrdering Facility: [facility] Address: [address] [place] [address] Performed By: #### 5 0190-8, 93485-8, 3051-0, 302-7 ####[facility] LABIA [id number] [place] [address] [place] CO2 [Moles/Vol] 24 mmol/L Normal 22-30 [facility] Comment on above: Order Comment: Speci men Type: BLOOD SPECIMENOrdering Facility: [facility] Address: [address] [place] [address] Performed By: #### 5 0190-8, 65061-8, 3051-0, 302-7 ####[facility] LABIA [id number] [place] [address] [place] Creatinine [Mass/Vol] 1.13 mg/dL High 0.58-0.96 [facility] Comment on above: Order Comment: Speci men Type: BLOOD SPECIMENOrdering Facility: [facility] Address: [address] [place] [address] Performed By: #### 5 0190-8, 19915-1, 305-0, 7 ####[facility] [id number] [place] [address] [place] eGFRcr SerPlBld CKD-EPI 2020 47 mL/min/1.73m??? Low >=60 [facility] Comment on above: Order Comment: Speci men Type: BLOOD SPECIMENOrdering Facility: [facility] Address: [address] [place] [address] Result Comment: Isabell mated Glomerular Filtration Rate (eGFR) is calculated using the 2020 CKD-EPI creatinine equation. This equation utilizes serum creatinine, sex, and age as parameters. The creatinine assay has traceable calibration to isotope dilution-mass spectrometry. Refer to KDIGO guidelines for clinical interpretation. In patients with unstable renal function, e.g. those with acute kidney injury, the eGFR may not accurately reflect actual GFR. Performed By: #### 5 0190-8, 05057-9, 3051-0, 302-7 ####[facility] LABIA [id number] [place] [id number] [place] Glucose [Mass/Vol] 75 mg/dL Normal 74-99 [facility] Comment on above: Order Comment: Speci men Type: BLOOD SPECIMENOrdering Facility: [facility] Address: [address] [place] [address] Result Comment: The [place] Diabetes Association (ADA) provides guidance for cutoff values for fasting glucose and random glucose. The ADA defines fasting as no caloric intake for at least 8 hours. Fasting plasma glucose results between 100 to 125 mg/dL indicate increased risk for diabetes (prediabetes). Fasting plasma glucose results greater than or equal to 126 mg/dL meet the criteria for diagnosis of diabetes. In the absence of unequivocal hyperglycemia, results should be confirmed by repeat testing. In a patient with classic symptoms of hyperglycemia or hyperglycemic crisis, random plasma glucose results greater than or equal to 200 mg/dL meet the criteria for diagnosis of diabetes. Reference: Standards of Medical Care in Diabetes 2016, [place] [employer] Association. Diabetes Care. 2016.39(Suppl 1). Performed By: #### 5 0190-8, 66434-7, 3051-0, 302-7 ####[facility] LABCLIA [id number] [place] [address] [place] Phosphate [Mass/Vol] 3.3 mg/dL Normal 2.7-4.8 [facility] Comment on above: Order Comment: Meagani men Type: BLOOD SPECIMENOrdering Facility: [facility] Address: [address] [place] [address] Performed By: #### 5 0190-8, 01481-0, 3051-0, 7 ####[facility] LABCLIA [id number] [place] [address] [place] Potassium [Moles/Vol] 5.4 mmol/L High 3.7-5.1 [facility] Comment on above: Order Comment: Speci men Type: BLOOD SPECIMENOrdering Facility: [facility] Address: [address] [place] [address] Performed By: #### 5 0190-8, 61136-0, 3051-0, 302-7 ####[facility] LABCLIA [id number] [place] [address] [place] Sodium [Moles/Vol] 141 mmol/L Normal 136-144 [facility] Comment on above: Order Comment: Speci men Type: BLOOD SPECIMENOrdering Facility: [facility] Address: [address] [place] [address] Performed By: #### 5 0190-8, 94815-2, 305-0, 7 ####[facility] LABCLIA [id number] [place] [address] [place] Urea nitrogen [Mass/Vol] 17 mg/dL Normal 7-21 [facility] Comment on above: Order Comment: Speci men Type: BLOOD SPECIMENOrdering Facility: [facility] Address: [address] [place] [address] Performed By: #### 5 0190-8, 59640-0, 305-0, 3024-04 ####[facility] LABCLIA [id number] [place] [id number] [place] T3Free SerPl-mCncon 08-27-20 25 Free T3 [Mass/Vol] 2.8 pg/mL Normal 2.3-4.1 [facility] Comment on above: Order Comment: Speci men Type: BLOOD SPECIMENOrdering Facility: [facility] Address: [address] [place] [address] Performed By: #### 5 0190-8, 11180-9, 3050, 3024-04 ####[facility] LABIA [id number] [place] [id number] [place] T4 Free SerPl-mCncon 025 Free T4 [Mass/Vol] 1.7 ng/dL Normal 0.9-1.7 [facility] Comment on above: Order Comment: Speci men Type: BLOOD SPECIMENOrdering Facility: [facility] Address: [address] [place] [address] Performed By: #### 5 0190-8, 69521-1, 3051-0, 3024-7 ####[facility] LABCLIA [id number] [place] [address] [place] Urinalysis complete panel (U )on 08-27-2025 Bacteria LM.HPF (Urine sed) [#/Area] Negative Normal Negative [facility] Comment on above: Order Comment: Speci men Type: URINE SPECIMENOrdering Facility: [facility] Address: [address] [place] [address] Performed By: #### 2 4356-8 ####[facility] LABCLIA [id number] [place] [address] [place] Bilirubin Ql (U) Negative Normal Negative [facility] Comment on above: Order Comment: Speci men Type: URINE SPECIMENOrdering Facility: [facility] Address: [address] [place] [address] Performed By: #### 2 4356-8 ####[facility] LABCLIA [id number] [place] [address] [place] CALCIUM OXALATE CRYSTALS (UA) Few Abnormal None Seen [facility] Comment on above: Order Comment: Speci men Type: URINE SPECIMENOrdering Facility: [facility] Address: [address] [place] [address] Performed By: #### 2 4356-8 ####[facility] LABCLIA [id number] [place] [address] [place] Clarity (Unsp spec) Clear Normal Clear [facility] Comment on above: Order Comment: Speci men Type: URINE SPECIMENOrdering Facility: [facility] Address: [address] [place] [address] Performed By: #### 2 4356-8 ####[facility] LABCLIA [id number] [place] [address] [place] Color (U) Yellow Normal Yellow [facility] Comment on above: Order Comment: Speci men Type: URINE SPECIMENOrdering Facility: [facility] Address: [address] [place] [address] Performed By: #### 2 4356-8 ####[facility] LABCLIA [id number] [place] [address] [place] Epithelial cells LM.HPF (Urine sed) [#/Area] Few Normal [facility] Comment on above: Order Comment: Speci men Type: URINE SPECIMENOrdering Facility: [facility] Address: [address] [place] [address] Performed By: #### 2 4356-8 ####[facility] LABCLIA [id number] [place] [address] [place] Glucose Test strip (U) [Mass/Vol] Negative Normal Negative [facility] Comment on above: Order Comment: Speci men Type: URINE SPECIMENOrdering Facility: [facility] Address: [address] [place] [address] Performed By: #### 2 4356-8 ####[facility] LABCLIA [id number] [place] [address] [place] Hemoglobin Ql (U) Negative Normal Negative [facility] Comment on above: Order Comment: Speci men Type: URINE SPECIMENOrdering Facility: [facility] Address: [address] [place] [address] Performed By: #### 2 4356-8 ####[facility] LABCLIA [id number] [place] [address] [place] Hyaline casts (Urine sed) [#/Area] 0 /[LPF] Normal 0 /LPF [facility] Comment on above: Order Comment: Speci men Type: URINE SPECIMENOrdering Facility: [facility] Address: [address] [place] [address] Performed By: #### 2 4356-8 ####[facility] LABCLIA [id number] [address] [place] Ketones Ql (U) Negative Normal Negative [facility] Comment on above: Order Comment: Speci men Type: URINE SPECIMENOrdering Facility: [facility] Address: [address] [place] [address] Performed By: #### 2 4356-8 ####[facility] LABCLIA [id number] [place] [address] [place] Leukocyte esterase Test strip Ql (U) Negative Normal Negative [facility] Comment on above: Order Comment: Speci men Type: URINE SPECIMENOrdering Facility: [facility] Address: [address] [place] [address] Performed By: #### 2 4356-8 ####[facility] LABCLIA [id number] [place] [address] [place] Nitrite Ql (U) Negative Normal Negative [facility] Comment on above: Order Comment: Speci men Type: URINE SPECIMENOrdering Facility: [facility] Address: [address] [place] [address] Performed By: #### 2 4356-8 ####[facility] LABCLIA [id number] [place] [address] [place] pH (U) 5.5 [pH] Normal 5.0-8.0 [facility] Comment on above: Order Comment: Speci men Type: URINE SPECIMENOrdering Facility: [facility] Address: [address] [place] [address] Performed By: #### 2 4356-8 ####[facility] LABCLIA [id number] [place] [address] [place] Protein (U) [Mass/Vol] Trace Abnormal Negative [facility] Comment on above: Order Comment: Speci men Type: URINE SPECIMENOrdering Facility: [facility] Address: [address] [place] [address] Performed By: #### 2 4356-8 ####[facility] LABCLIA [id number] [place] [address] [place] RBC LM.HPF (Urine sed) [#/Area] 0-2 /HPF Normal 0-2 /HPF [facility] Comment on above: Order Comment: Speci men Type: URINE SPECIMENOrdering Facility: [facility] Address: [address] [place] [address] Performed By: #### 2 4356-8 ####[facility] LABIA [id number] [place] [address] [place] Specific gravity (U) [Rel density] 1.024 Normal 1.005-1.030 [facility] Comment on above: Order Comment: Speci men Type: URINE SPECIMENOrdering Facility: [facility] Address: [address] [place] [address] Performed By: #### 2 4356-8 ####[facility] LABIA [id number] [place] [address] [place] Urobilinogen Ql (U) 0.2 EU/dL Normal 0.2-1.0 EU/dL [facility] Comment on above: Order Comment: Speci men Type: URINE SPECIMENOrdering Facility: [facility] Address: [address] [place] [address] Performed By: #### 2 4356-8 ####[facility] [id number] [place] [address] [place] WBC LM.HPF (Urine sed) [#/Area] 0-5 /HPF Normal 0-5 /HPF [facility] Comment on above: Order Comment: Speci men Type: URINE SPECIMENOrdering Facility: [facility] Address: [address] [place] [address] Performed By: #### 2 4356-8 ####[facility] [id number] [place] [address] [place] Vit B12 [facility] 025 Cobalamin (Vitamin B12) [Mass/Vol] 1095 pg/mL Normal 232-1245 [facility] Comment on above: Order Comment: Speci men Type: BLOOD SPECIMENOrdering Facility: [facility] Address: [address] [place] [address] Performed By: #### 1 4338-8, 2885-2, 2132-9, 2284-8 ####[facility] LABCLIA [id number] [place] [address] [place] Mar 08-24-2025 CNPN Telephone (FAMPWS) -------- JUAN GERONIMO ([id number]) 1940 F Date Time Provider Department 08/24/25 [facility], we recorded the following information about you: Keith Romero DO 08/24/2025 9:50 AM Signed Please inform patient that her recent labs show that her RBC is slightly low and MCV is slightly high, this can indicate iron or vitamin B12 concerns. Recommend that these levels are tested as ordered with labs Also her serum creatinine remains a little high. Recommend urine albumin and UA testing and repeat renal panel labs DO Yovanny Phipps Susan LPN 08/24/2025 10:36 AM Signed Pt. informed via My Chart. Allergies As of Date: 08/24/2025 Noted Allergy Reaction AMOXIL (AMOXICILLIN) 07/13/2009 4 - Hives CODEINE 07/04/2005 8 - GI Upset ULTRAM (TRAMADOL HCL) 07/13/2009 5 - Intolerance Date Reviewed: 08/04/2025 Reviewed by: William Deutsch, SANGEETHA - Fully Assessed Primary Visit Diagnosis:Abnormal RBC [R71.8] Other Visit Diagnosis:Elevated serum creatinine [R79.89] Order(s):IRON AND TIBC [SQIRON] Order #: [id number] FUTURE VITAMIN B12 [SQB12] Order #: [id number] FUTURE RENAL FUNCTION PANEL [SQRFP] Order #: [id number] FUTURE URINALYSIS, WITH MICROSCOPIC [SQUAWMIC] Order #: [id number] FUTURE ALBUMIN/CREATININE RATIO, URINE [SQUACR] Order #: [id number] FUTURE Prescriptions as of 08/24/2025 - levothyroxine (LEVOXYL) 88 mcg tablet Take 1 tablet daily except for Tues and Thurs and Sat take 2 tablets. Take on empty stomach. For Thyroid - verapamil ER (VERELAN) 120 mg 24 hr capsule Take 1 capsule by mouth once daily at bedtime - alendronate (FOSAMAX) 70 mg tablet Take 1 tablet by mouth one time a week. Take with a full glass of water, on an empty stomach; do NOT lie down for 30minutes. - mecobalamin (B12 ACTIVE ORAL) Take 1 tablet by mouth once daily. - aspirin 81 mg chewable tablet Take 81 mg by mouth once daily. - BIOTIN ORAL Take 1,000 mcg by mouth once daily. - Cholecalciferol, Vitamin D3, 25 mcg (1,000 unit) cap Take 2 capsules by mouth once daily. - acetaminophen 650 mg CR tablet Take 1 tablet by mouth every 8 hours as needed. 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] 07/13/2008 02/25/2017 Spinal stenosis [M48.00] 07/20/2010 Bulging disc [[id number]] 07/20/2010 02/09/2015 Hyperlipidemia [E78.5] 02/13/2016 Elevated systolic blood pressure reading withou*02/25/2017 Age-related osteoporosis without current pathol*04/15/2018 Medicare annual wellness visit, subsequent [Z00*04/15/2018 Postmenopausal symptoms [N95.9] 04/15/2018 SVT (supraventricular tachycardia) (HCC), parox*06/22/2021 Syncope [R55] 06/22/2021 Advance care planning [Z71.89] 02/25/2023 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] 07/27/2022 Cervical spondylosis [M47.812] 07/27/2022 Anemia [D64.9] 02/25/2023 Acute renal failure superimposed on stage 3a ch*02/25/2023 Hypothyroidism, acquired [E03.9] 02/25/2023 Hyperlipidemia, mixed [E78.2] 02/25/2023 Balance disorder [R26.89] 02/23/2025 Fall [W19.XXXA] 02/23/2025 Vitamin D deficiency [E55.9] 02/23/2025 Vitamin B12 deficiency [E53.8] 02/23/2025 Encounter Status:Closed by FANNIE CARR LPN on 08/24/25 Normal [facility] CBC W Auto Differential pane l (Bld)on 08-23-2025 Basophils (Bld) [#/Vol] 10*3/uL Normal <0.11 [facility] Comment on above: Order Comment: Speci men Type: BLOOD SPECIMENOrdering Facility: [facility] Address: [address] [place] [address] Performed By: #### 5 7021-8 ####[facility] LABCLIA [id number] [place] [address] [place] Basophils/100 WBC (Bld) 0.3 % Normal [facility] Comment on above: Order Comment: Speci men Type: BLOOD SPECIMENOrdering Facility: [facility] Address: [address] [place] [address] Performed By: #### 5 7021-8 ####[facility] LABCLIA [id number] [place] [address] [place] Differential cell count method Nom (Bld) Auto Normal [facility] Comment on above: Order Comment: Speci men Type: BLOOD SPECIMENOrdering Facility: [facility] Address: [address] [place] [address] Performed By: #### 5 7021-8 ####[facility] LABCLIA [id number] [place] [address] [place] Eosinophils (Bld) [#/Vol] 0.07 10*3/uL Normal <0.46 [facility] Comment on above: Order Comment: Speci men Type: BLOOD SPECIMENOrdering Facility: [facility] Address: [facility] [place] [address] Performed By: #### 5 7021-8 ####[facility] LABCLIA [id number] [place] [address] [place] Eosinophils/100 WBC (Bld) 1.1 % Normal [facility] Comment on above: Order Comment: Speci men Type: BLOOD SPECIMENOrdering Facility: [facility] Address: [address] [place] [address] Performed By: #### 5 7021-8 ####[facility] LABCLIA [id number] [place] [address] [place] Erythrocyte distribution width (RBC) [Ratio] 13.1 % Normal 11.5-15.0 [facility] Comment on above: Order Comment: Speci men Type: BLOOD SPECIMENOrdering Facility: [facility] Address: [address] [place] [address] Performed By: #### 5 7021-8 ####[facility] LABCLIA [id number] [place] [address] [place] Hematocrit (Bld) [Volume fraction] 38.4 % Normal 36.0-46.0 [facility] Comment on above: Order Comment: Speci men Type: BLOOD SPECIMENOrdering Facility: [facility] Address: [address] [place] [address] Performed By: #### 5 7021-8 ####[facility] LABCLIA [id number] [place] [address] [place] Hemoglobin (Bld) [Mass/Vol] 12.0 g/dL Normal 11.5-15.5 [facility] Comment on above: Order Comment: Speci men Type: BLOOD SPECIMENOrdering Facility: [facility] Address: [address] [place] [address] Performed By: #### 5 7021-8 ####[facility] LABCLIA [id number] [place] [address] [place] Immature granulocytes (Bld) [#/Vol] 10*3/uL Normal <0.10 [facility] Comment on above: Order Comment: Speci men Type: BLOOD SPECIMENOrdering Facility: [facility] Address: [address] [place] [address] Performed By: #### 5 7021-8 ####[facility] LABCLIA [id number] [place] [address] [place] Immature granulocytes/100 WBC (Bld) 0.2 % Normal [facility] Comment on above: Order Comment: Speci men Type: BLOOD SPECIMENOrdering Facility: [facility] Address: [address] [place] [address] Performed By: #### 5 7021-8 ####[facility] LABCLIA [id number] [place] [address] [place] Lymphocytes (Bld) [#/Vol] 1.92 10*3/uL Normal 1.00-4.00 [facility] Comment on above: Order Comment: Speci men Type: BLOOD SPECIMENOrdering Facility: [facility] Address: [address] [place] [address] Performed By: #### 5 7021-8 ####[facility] LABCLIA [id number] [place] [address] [place] Lymphocytes/100 WBC (Bld) 31.5 % Normal [facility] Comment on above: Order Comment: Speci men Type: BLOOD SPECIMENOrdering Facility: [facility] Address: [address] [place] [address] Performed By: #### 5 7021-8 ####[facility] LABCLIA [id number] [place] [address] [place] MCH (RBC) [Entitic mass] 32.4 pg Normal 26.0-34.0 [facility] Comment on above: Order Comment: Speci men Type: BLOOD SPECIMENOrdering Facility: [facility] Address: [address] [place] [address] Performed By: #### 5 7021-8 ####[facility] LABCLIA [id number] [place] [address] [place] MCHC (RBC) [Mass/Vol] 31.3 g/dL Normal 30.5-36.0 [facility] Comment on above: Order Comment: Speci men Type: BLOOD SPECIMENOrdering Facility: [facility] Address: [address] [place] [address] Performed By: #### 5 7021-8 ####[facility] LABCLIA [id number] [place] [address] [place] MCV (RBC) [Entitic vol] 103.8 fL High 80.0-100.0 [facility] Comment on above: Order Comment: Speci men Type: BLOOD SPECIMENOrdering Facility: [facility] Address: [address] [place] [address] Performed By: #### 5 7021-8 ####[facility] LABCLIA [id number] [place] [address] [place] Monocytes (Bld) [#/Vol] 0.57 10*3/uL Normal <0.87 [facility] Comment on above: Order Comment: Speci men Type: BLOOD SPECIMENOrdering Facility: [facility] Address: [address] [place] [address] Performed By: #### 5 7021-8 ####[facility] LABCLIA [id number] [place] [address] [place] Monocytes/100 WBC (Bld) 9.3 % Normal [facility] Comment on above: Order Comment: Speci men Type: BLOOD SPECIMENOrdering Facility: [facility] Address: [address] [place] [address] Performed By: #### 5 7021-8 ####[facility] LABCLIA [id number] [place] [address] [place] Neutrophils (Bld) [#/Vol] 3.51 10*3/uL Normal 1.45-7.50 [facility] Comment on above: Order Comment: Speci men Type: BLOOD SPECIMENOrdering Facility: [facility] Address: [address] [place] [address] Performed By: #### 5 7021-8 ####[facility] LABCLIA [id number] [place] [address] [place] Neutrophils/100 WBC (Bld) 57.6 % Normal [facility] Comment on above: Order Comment: Speci men Type: BLOOD SPECIMENOrdering Facility: [facility] Address: [address] [place] [address] Performed By: #### 5 7021-8 ####[facility] LABCLIA [id number] [place] [address] [place] Nucleated RBC (Bld) [#/Vol] 10*3/uL Normal <0.01 [facility] Comment on above: Order Comment: Speci men Type: BLOOD SPECIMENOrdering Facility: [facility] Address: [address] [place] [address] Performed By: #### 5 7021-8 ####[facility] LABIA [id number] [place] [address] [place] Nucleated RBC/100 WBC (Bld) [Ratio] 0.0 /100 WBC Normal [facility] Comment on above: Order Comment: Speci men Type: BLOOD SPECIMENOrdering Facility: [facility] Address: [address] [place] [address] Performed By: #### 5 7021-8 ####[facility] LABIA [id number] [place] [address] [place] Platelet mean volume (Bld) [Entitic vol] 12.4 fL Normal 9.0-12.7 [facility] Comment on above: Order Comment: Speci men Type: BLOOD SPECIMENOrdering Facility: [facility] Address: [address] [place] [address] Performed By: #### 5 7021-8 ####[facility] LABCLIA [id number] [place] [address] [place] Platelets (Bld) [#/Vol] 278 10*3/uL Normal 150-400 [facility] Comment on above: Order Comment: Speci men Type: BLOOD SPECIMENOrdering Facility: [facility] Address: [address] [place] [address] Performed By: #### 5 7021-8 ####[facility] LABCLIA [id number] [place] [address] [place] RBC (Bld) [#/Vol] 3.70 10*6/uL Low 3.90-5.20 [facility] Comment on above: Order Comment: Speci men Type: BLOOD SPECIMENOrdering Facility: [facility] Address: [address] [place] [address] Performed By: #### 5 7021-8 ####[facility] LABCLIA [id number] [place] [address] [place] WBC (Bld) [#/Vol] 6.10 10*3/uL Normal 3.70-11.00 [facility] Comment on above: Order Comment: Speci men Type: BLOOD SPECIMENOrdering Facility: [facility] Address: [address] [place] [address] Performed By: #### 5 7021-8 ####[facility] LABCLIA [id number] [place] [address] [place] [facility] -------- JUAN GERONIMO ([id number]) 1940 F Date Time Provider Department 08[facility]23[facility] today, we recorded the following information about you: Harriett Prado LPN 08/23/2025 10:28 AM Signed Patient calling she has medicare wellness scheduled for 08/27 with PCP, asking if she needs to have lab work done prior? Patient had labs done 02/18/2025, lipids, thyroids, CMP, CBC. Did not pend any orders. Please advise Johanna Roblero APRN.TEJ 08/23/2025 11:40 AM Signed Repeat TSH, CMP, and CBC reordered due to abnormalities. Have these done a few days prior to upcoming appointment. Additional labs may be ordered based on discussion at visit. Thank you, Johanna Roblero APRN.TEJ RosasBooTaylorFannie Cline MARVIN 08/23/2025 1:35 PM Signed Pt. informed. Allergies As of Date: 08/23/2025 Noted Allergy Reaction AMOXIL (AMOXICILLIN) 07/13/2009 4 - Hives CODEINE 07/04/2005 8 - GI Upset ULTRAM (TRAMADOL HCL) 07/13/2009 5 - Intolerance Date Reviewed: 08/04/2025 Reviewed by: William Deutsch RN - Fully Assessed Reason for Visit: lab work orders [Other] Primary Visit Diagnosis:Hypothyroidism , acquired [E03.9] Other Visit Diagnosis:Hyperlipidemia , unspecified hyperlipidemia type [E78.5] Order(s):THYROID STIMULATING HORMONE [SQTSH] Order #: [id number] FUTURE COMPREHENSIVE METABOLIC PANEL [SQCMP] Order #: [id number] FUTURE COMPLETE BLOOD COUNT AND DIFFERENTIAL [SQCBCDIF] Order #: [id number] FUTURE Prescriptions as of 08/23/2025 - levothyroxine (LEVOXYL) 88 mcg tablet Take 1 tablet daily except for Tues and Thurs and Sat take 2 tablets. Take on empty stomach. For Thyroid - verapamil ER (VERELAN) 120 mg 24 hr capsule Take 1 capsule by mouth once daily at bedtime - alendronate (FOSAMAX) 70 mg tablet Take 1 tablet by mouth one time a week. Take with a full glass of water, on an empty stomach; do NOT lie down for 30minutes. - mecobalamin (B12 ACTIVE ORAL) Take 1 tablet by mouth once daily. - aspirin 81 mg chewable tablet Take 81 mg by mouth once daily. - BIOTIN ORAL Take 1,000 mcg by mouth once daily. - Cholecalciferol, Vitamin D3, 25 mcg (1,000 unit) cap Take 2 capsules by mouth once daily. - acetaminophen 650 mg CR tablet Take 1 tablet by mouth every 8 hours as needed. 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] 07/13/2008 02/25/2017 Spinal stenosis [M48.00] 07/20/2010 Bulging disc [CEB8538] 07/20/2010 02/09/2015 Hyperlipidemia [E78.5] 02/13/2016 Elevated systolic blood pressure reading withou*02/25/2017 Age-related osteoporosis without current pathol*04/15/2018 Medicare annual wellness visit, subsequent [Z00*04/15/2018 Postmenopausal symptoms [N95.9] 04/15/2018 SVT (supraventricular tachycardia) (HCC), parox*06/22/2021 Syncope [R55] 06/22/2021 Advance care planning [Z71.89] 02/25/2023 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] 07/27/2022 Cervical spondylosis [M47.812] 07/27/2022 Anemia [D64.9] 02/25/2023 Acute renal failure superimposed on stage 3a ch*02/25/2023 Hypothyroidism, acquired [E03.9] 02/25/2023 Hyperlipidemia, mixed [E78.2] 02/25/2023 Balance disorder [R26.89] 02/23/2025 Fall [W19.XXXA] 02/23/2025 Vitamin D deficiency [E55.9] 02/23/2025 Vitamin B12 deficiency [E53.8] 02/23/2025 Encounter Status:Closed by FANNIE CARR LPN on 08/23/25 Normal [facility] Comprehensive metabolic 2000 panelon 08-23-2025 Albumin [Mass/Vol] 4.1 g/dL Normal 3.9-4.9 [facility] Comment on above: Order Comment: Speci men Type: BLOOD SPECIMENOrdering Facility: [facility] Address: [address] [place] [address] Performed By: #### 2 4323-8, 6-3 ####[facility] LABCLIA [id number] [place] [address] [place] ALP [Catalytic activity/Vol] 75 U/L Normal 34-123 [facility] Comment on above: Order Comment: Speci men Type: BLOOD SPECIMENOrdering Facility: [facility] Address: [address] [place] [address] Performed By: #### 2 4323-8, 3015-3 ####[facility] LABCLIA [id number] [place] [address] [place] ALT [Catalytic activity/Vol] 6 U/L Low 7-38 [facility] Comment on above: Order Comment: Speci men Type: BLOOD SPECIMENOrdering Facility: [facility] Address: [address] [place] [address] Performed By: #### 2 4323-8, 3015-3 ####[facility] LABCLIA [id number] [place] [address] [place] Anion gap [Moles/Vol] 12 mmol/L Normal 8-15 [facility] Comment on above: Order Comment: Speci men Type: BLOOD SPECIMENOrdering Facility: [facility] Address: [address] [place] [address] Performed By: #### 2 4323-8, 3015-3 ####[facility] LABCLIA [id number] [place] [id number] [place] AST [Catalytic activity/Vol] 22 U/L Normal 13-35 [facility] Comment on above: Order Comment: Speci men Type: BLOOD SPECIMENOrdering Facility: [facility] Address: [address] [place] [address] Performed By: #### 2 4323-8, 6-3 ####[facility] LABCLIA [id number] [place] [address] [place] Bilirubin [Mass/Vol] 0.4 mg/dL Normal 0.2-1.3 [facility] Comment on above: Order Comment: Speci men Type: BLOOD SPECIMENOrdering Facility: [facility] Address: [address] [place] [address] Performed By: #### 2 4323-8, 6-3 ####[facility] LABCLIA [id number] [place] [address] [place] Calcium [Mass/Vol] 9.4 mg/dL Normal 8.5-10.2 [facility] Comment on above: Order Comment: Speci men Type: BLOOD SPECIMENOrdering Facility: [facility] Address: [address] [place] [address] Performed By: #### 2 4323-8, 6-3 ####[facility] LABCLIA [id number] [place] [address] [place] Chloride [Moles/Vol] 108 mmol/L High 98-107 [facility] Comment on above: Order Comment: Speci men Type: BLOOD SPECIMENOrdering Facility: [facility] Address: [address] [place] [address] Performed By: #### 2 4323-8, 6-3 ####[facility] LABCLIA [id number] [place] [address] [place] CO2 [Moles/Vol] 22 mmol/L Normal 22-30 [facility] Comment on above: Order Comment: Speci men Type: BLOOD SPECIMENOrdering Facility: [facility] Address: [address] [place] [address] Performed By: #### 2 4323-8, 6-3 ####[facility] LABCLIA [id number] [place] [id number] [place] Creatinine [Mass/Vol] 1.15 mg/dL High 0.58-0.96 [facility] Comment on above: Order Comment: Speci men Type: BLOOD SPECIMENOrdering Facility: [facility] Address: [address] [place] [address] Performed By: #### 2 4323-8, 3015-3 ####[facility] LABCLIA [id number] [place] [address] [place] eGFRcr SerPlBld CKD-EPI 2020 46 mL/min/1.73m??? Low >=60 [facility] Comment on above: Order Comment: Jaxon moncada Type: BLOOD SPECIMENOrdering Facility: [facility] Address: [address] [place] [address] Result Comment: Isabell mated Glomerular Filtration Rate (eGFR) is calculated using the 2020 CKD-EPI creatinine equation. This equation utilizes serum creatinine, sex, and age as parameters. The creatinine assay has traceable calibration to isotope dilution-mass spectrometry. Refer to KDIGO guidelines for clinical interpretation. In patients with unstable renal function, e.g. those with acute kidney injury, the eGFR may not accurately reflect actual GFR. Performed By: #### 2 4323-8, 3 ####[facility] LABCLIA [id number] [place] [address] [place] Glucose [Mass/Vol] 80 mg/dL Normal 74-99 [facility] Comment on above: Order Comment: Jaxon moncada Type: BLOOD SPECIMENOrdering Facility: [facility] Address: [address] [place] [address] Result Comment: The [place] Diabetes Association (ADA) provides guidance for cutoff values for fasting glucose and random glucose. The ADA defines fasting as no caloric intake for at least 8 hours. Fasting plasma glucose results between 100 to 125 mg/dL indicate increased risk for diabetes (prediabetes). Fasting plasma glucose results greater than or equal to 126 mg/dL meet the criteria for diagnosis of diabetes. In the absence of unequivocal hyperglycemia, results should be confirmed by repeat testing. In a patient with classic symptoms of hyperglycemia or hyperglycemic crisis, random plasma glucose results greater than or equal to 200 mg/dL meet the criteria for diagnosis of diabetes. Reference: Standards of Medical Care in Diabetes 2016, [place] [employer]. Diabetes Care. 2016.39(Suppl 1). Performed By: #### 2 4323-8, 3016-3 ####[facility] LABCLIA [id number] [place] [address] [place] Potassium [Moles/Vol] 4.4 mmol/L Normal 3.7-5.1 [facility] Comment on above: Order Comment: Speci men Type: BLOOD SPECIMENOrdering Facility: [facility] Address: [address] [place] [address] Performed By: #### 2 4323-8, 3 ####[facility] LABCLIA [id number] [place] [address] [place] Protein [Mass/Vol] 6.3 g/dL Normal 6.3-8.0 [facility] Comment on above: Order Comment: Speci men Type: BLOOD SPECIMENOrdering Facility: [facility] Address: [address] [place] [address] Performed By: #### 2 43238, 3 ####[facility] LABCLIA [id number] [place] [address] [place] Sodium [Moles/Vol] 142 mmol/L Normal 136-144 [facility] Comment on above: Order Comment: Speci men Type: BLOOD SPECIMENOrdering Facility: [facility] Address: [address] [place] [address] Performed By: #### 2 4323-8, 3 ####[facility] LABCLIA [id number] [place] [address] [place] Urea nitrogen [Mass/Vol] 19 mg/dL Normal 7-21 [facility] Comment on above: Order Comment: Speci men Type: BLOOD SPECIMENOrdering Facility: [facility] Address: [address] [place] [address] Performed By: #### 2 4323-8, 63 ####[facility] LABCLIA [id number] [place] [id number] [place] TSH SerPl-aCncon 08-23-2025 TSH Qn 0.134 m[IU]/L Low 0.270-4.200 [facility] Comment on above: Order Comment: Speci men Type: BLOOD SPECIMENOrdering Facility: [facility] Address: [address] [place] [address] Performed By: #### 2 4323-8, 3016-3 ####[facility] LABCLIA [id number] [address] CNOVon 08-04-2025 CNOV Office Visit (GENSWS ) -------- JUAN GERONIMO ([id number]) 1940 F Date Time Provider Department 08/04/25 1:15 PM NICHOLAS LEONE GENSWS During your visit today, we recorded the following information about you: Pulse Respiration Blood pressure Weight 90/minute 14/minute 143/87 57 kg Nicholas Leone MD 08/05/2025 7:00 AM Signed FOLLOW UP VISIT - HEMORRHOIDS NAME: Juan Mejia [facility] NO.: [id number] DATE OF SERVICE August 04, 2025 : 1940 REFERRING PHYSICIAN: Keith Romero DO Juan is a patient I am following for symptomatic internal hemorrhoids. I had seen the patient initially and the patient was having some prolapsing of the mixed hemorrhoidal complex which appeared to be more likely than true rectal prolapse. She has been banded 3 times. The last time evaluated her was last fall before she was traveling to [place]. At that time, she still noted some prolapsing tissue but she notes overall improvement in her symptoms of anal discomfort she can now sleep at night. She feels that her perianal irritation is improving I discussed with the patient that she still has some external irritation and there is still the external components which do not seem to have changed appreciably. Since she is planning to leave for [place] for 6 months on August 12 I offered to do an operative hemorrhoidectomy next week expecting this would have taking care of her issues completely and had her recover before leaving for [place]. The patient states she had many things to take care of before leaving to [place] I did not wish to consider that at this time. She wished to continue with banding and if this failed to improve her symptoms completely she would consider operative hemorrhoidectomy when she returns from [place]. She also noted that she has been more or less satisfied about the degree of hemorrhoidal tissue amenable to band she does note overall that her symptoms are improving she denies pain at night and can sleep now. The patient notes that her has had medical issues and has been in the hospital for protracted period of time most recently with what sounds like a percutaneous cholecystostomy tube. She notes this is stressed to her and while she denied irregular bowel activities she noted that she had itching from her hemorrhoids the day previously and then a significant bleeding she has noted no bleeding since that time. VITALS: Blood pressure 143/87, pulse 90, resp. rate 14, weight 57 kg (125 lb 9.6 oz), SpO2 99%. Body mass index is 20.9 kg/m?. On examination, the patient has minimal perianal irritation. She has no prolapsing internal hemorrhoidal today. On digital exam, she still has a very small right anterior internal hemorrhoidal complex and a somewhat larger palpable left lateral complex Assessment IMPRESSION: Status post right posterior interal hemorrhoidal banding PLAN: I again recommended she continue to be careful with her bowel habits maintaining soft normal easily passable bowel movements. If she notes additional bleeding she should return for hemorrhoidal banding. I am seeing her next Saturday. We will discuss at that time if she is having any more bleeding or other symptoms which would likely require banding. Diagnoses: (K64.9) Hemorrhoids, unspecified hemorrhoid type (primary encounter diagnosis) Return to Clinic: The patient is instructed to follow-up with me as noted. ___ Nicholas Leone MD Referring Provider: SELF [200] Allergies As of Date: 08/04/2025 Noted Allergy Reaction AMOXIL (AMOXICILLIN) 07/13/2009 4 - Hives CODEINE 07/04/2005 8 - GI Upset ULTRAM (TRAMADOL HCL) 07/13/2009 5 - Intolerance Date Reviewed: 08/04/2025 Reviewed by: William Deutsch RN - Fully Assessed Reason for Visit: Consult [173] Cmt: hemorrhoids Primary Visit Diagnosis:Hemorrhoids, unspecified hemorrhoid type [K64.9] Prescriptions as of 08/05/2025 - verapamil ER (VERELAN) 120 mg 24 hr capsule Take 1 capsule by mouth once daily at bedtime - alendronate (FOSAMAX) 70 mg tablet Take 1 tablet by mouth one time a week. Take with a full glass of water, on an empty stomach; do NOT lie down for 30minutes. - levothyroxine (LEVOXYL) 88 mcg tablet Take 1 tablet daily except for Tues and Thurs and Sat take 2 tablets. Take on empty stomach. For Thyroid - mecobalamin (B12 ACTIVE ORAL) Take 1 tablet by mouth once daily. - aspirin 81 mg chewable tablet Take 81 mg by mouth once daily. - BIOTIN ORAL Take 1,000 mcg by mouth once daily. - Cholecalciferol, Vitamin D3, 25 mcg (1,000 unit) cap Take 2 capsules by mouth once daily. - acetaminophen 650 mg CR tablet Take 1 tablet by mouth every 8 hours as needed. Problem List As Of Date 08/04/2025 Noted Resolved Esophageal reflux [K21.9] 05/28/2007 GENERAL OSTEOARTHROSIS [M15.9] 05/28/2007 (more content not included)... Normal [facility] DBT Breast - bilateral scree geegon 06-15-2025 IMPRESSION: There is no mammographic evidence of malignancy in either breast. Routine screening mammogram is recommended. Annual mammogram will be due in 1 year. BI-RADS Category 1: Negative Interpreting Radiologist: Josee Heath M.D. Electronically signed on: 06/15/2025 Project Management: LILIA Transcribe Date/Time: Jun 15 2025 9:29A Dictated by: JOSEE HEATH MD This examination was interpreted and the report reviewed and electronically signed by: JOSEE HEATH MD on Jun 15 2025 2:41PM [facility] DIVISION OF RADIOLOGY * * *Final Report* * * DATE OF EXAM: Jun 15 2025 9:59AM [facility] [id number] - [facility] SCREENING W JALEESA / PROCEDURE REASON: Screening mammogram for breast cancer * * * * Physician Interpretation * * * * RESULT: [facility] [address] [place] [address] #[id number] - [facility] [place] HISTORY: 84 year-old patient presents for screening. Patient is asymptomatic in both breasts. Patient states no personal history of breast cancer. The patient has a family history of breast cancer. COMPARISON STUDIES: The present examination has been compared to prior imaging studies dated 06/02/2021 (mammogram), 07/04/2021 (mammogram), 06/06/2022 (mammogram), 06/10/2023 (mammogram) and 06/11/2024 (mammogram). MAMMOGRAM TECHNIQUE: The study was acquired using full field digital technology and interpreted from soft copy. Digital Breast Tomosynthesis (DBT) images were obtained and used to assist in the interpretation of this examination. MAMMOGRAM FINDINGS: There are scattered areas of fibroglandular density. No suspicious masses, calcifications or other abnormalities are seen in either breast. There are no significant interval changes. DIVISION OF RADIOLOGY Provider, [facility] - 06/15/2025 * * *Final Report* * * DATE OF EXAM: Jun 15 2025 9:59AM [facility]82 - [facility] [place] / PROCEDURE REASON: Screening mammogram for breast cancer * * * * Physician Interpretation * * * * RESULT: [facility] [address] [id number] #[id number] - [facility] [place] HISTORY: 84 year-old patient presents for screening. Patient is asymptomatic in both breasts. Patient states no personal history of breast cancer. The patient has a family history of breast cancer. COMPARISON STUDIES: The present examination has been compared to prior imaging studies dated 06/02/2021 (mammogram), 07/04/2021 (mammogram), 06/06/2022 (mammogram), 06/10/2023 (mammogram) and 06/11/2024 (mammogram). MAMMOGRAM TECHNIQUE: The study was acquired using full field digital technology and interpreted from soft copy. Digital Breast Tomosynthesis (DBT) images were obtained and used to assist in the interpretation of this examination. MAMMOGRAM FINDINGS: There are scattered areas of fibroglandular density. No suspicious masses, calcifications or other abnormalities are seen in either breast. There are no significant interval changes. IMPRESSION IMPRESSION: There is no mammographic evidence of malignancy in either breast. Routine screening mammogram is recommended. Annual mammogram will be due in 1 year. BI-RADS Category 1: Negative Interpreting Radiologist: Josee Heath M.D. Electronically signed on: 06/15/2025 Project Management: LILIA Transcribe Date/Time: Jun 15 2025 9:29A Dictated by: JOSEE HEATH MD This examination was interpreted and the report reviewed and electronically signed by: JOSEE HEATH MD on Jun 15 2025 2:41PM EST [facility] Radiology Study observation (narrative) [facility] DBT Breast - bilateral scree ningOrdered By: [facility] Provider on 06-15-2025 [facility] ANTONIO SCREENING W TOMOon 06-15 [facility] SCREENING W JALEESA * * *Final Report* * * DATE OF EXAM: Jun 15 2025 9:59AM [facility] 0582 - [facility] SCREENING W JALEESA / PROCEDURE REASON: Screening mammogram for breast cancer * * * * Physician Interpretation * * * * RESULT: [place] [address] #[id number] - [facility] SCREENING W JALEESA HISTORY: 84 year-old patient presents for screening. Patient is asymptomatic in both breasts. Patient states no personal history of breast cancer. The patient has a family history of breast cancer. COMPARISON STUDIES: The present examination has been compared to prior imaging studies dated 06/02/2021 (mammogram), 07/04/2021 (mammogram), 06/06/2022 (mammogram), 06/10/2023 (mammogram) and 06/11/2024 (mammogram). MAMMOGRAM TECHNIQUE: The study was acquired using full field digital technology and interpreted from soft copy. Digital Breast Tomosynthesis (DBT) images were obtained and used to assist in the interpretation of this examination. MAMMOGRAM FINDINGS: There are scattered areas of fibroglandular density. No suspicious masses, calcifications or other abnormalities are seen in either breast. There are no significant interval changes. IMPRESSION: There is no mammographic evidence of malignancy in either breast. Routine screening mammogram is recommended. Annual mammogram will be due in 1 year. BI-RADS Category 1: Negative Interpreting Radiologist: Josee Heath M.D. Electronically signed on: 06/15/2025 Project Management: LILIA Transcribe Date/Time: Jun 15 2025 9:29A Dictated by: JOSEE HEATH MD This examination was interpreted and the report reviewed and electronically signed by: JOSEE HEATH MD on Jun 15 2025 2:41PM EST [id number] Normal [facility] -------- JUAN GERONIMO ([id number]) 1940 F Date Time Provider Department [facility]/19[facility]25 [facility] During your visit today, we recorded the following information about you: Anh Garcia RN 04/19/2025 3:54 PM Signed Patient calls and states that she just received letter that it is time for yearly mammogram. Please place order so that patient can get this scheduled. SANGEETHA GuerralogJosee funez APRN.CNP 04/20/2025 7:31 AM Signed Order for mammogram placed. Please let patient know she can schedule. SHAZIA Soliman Stephanie 04/20/2025 9:12 AM Signed Patient already scheduled. Allergies As of Date: 04/19/2025 Noted Allergy Reaction AMOXIL (AMOXICILLIN) 07/13/2009 4 - Hives CODEINE 07/04/2005 8 - GI Upset ULTRAM (TRAMADOL HCL) 07/13/2009 5 - Intolerance Date Reviewed: 03/01/2025 Reviewed by: Paresh Ngo MD - Fully Assessed Reason for Visit: Orders [681] Primary Visit Diagnosis:Screening mammogram for breast cancer [Z12.31] Order(s):[facility] [place] [[id number]] Order #: [id number] FUTURE Prescriptions as of 04/20/2025 - alendronate (FOSAMAX) 70 mg tablet Take 1 tablet by mouth one time a week. Take with a full glass of water, on an empty stomach; do NOT lie down for 30minutes. - levothyroxine (LEVOXYL) 88 mcg tablet Take 1 tablet daily except for Tues and Thurs and Sat take 2 tablets. Take on empty stomach. For Thyroid - verapamil ER (VERELAN) 120 mg 24 hr capsule Take 1 capsule by mouth daily at bedtime. - mecobalamin (B12 ACTIVE ORAL) Take 1 tablet by mouth once daily. - aspirin 81 mg chewable tablet Take 81 mg by mouth once daily. - BIOTIN ORAL Take 1,000 mcg by mouth once daily. - Cholecalciferol, Vitamin D3, 25 mcg (1,000 unit) cap Take 2 capsules by mouth once daily. - acetaminophen 650 mg CR tablet Take 1 tablet by mouth every 8 hours as needed. 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] 07/13/2008 02/25/2017 Spinal stenosis [M48.00] 07/20/2010 Bulging disc [CHY1862] 07/20/2010 02/09/2015 Hyperlipidemia [E78.5] 02/13/2016 Elevated systolic blood pressure reading withou*02/25/2017 Age-related osteoporosis without current pathol*04/15/2018 Medicare annual wellness visit, subsequent [Z00*04/15/2018 Postmenopausal symptoms [N95.9] 04/15/2018 SVT (supraventricular tachycardia) (HCC), parox*06/22/2021 Syncope [R55] 06/22/2021 Advance care planning [Z71.89] 02/25/2023 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] 07/27/2022 Cervical spondylosis [M47.812] 07/27/2022 Anemia [D64.9] 02/25/2023 Acute renal failure superimposed on stage 3a ch*02/25/2023 Hypothyroidism, acquired [E03.9] 02/25/2023 Hyperlipidemia, mixed [E78.2] 02/25/2023 Balance disorder [R26.89] 02/23/2025 Fall [W19.XXXA] 02/23/2025 Vitamin D deficiency [E55.9] 02/23/2025 Vitamin B12 deficiency [E53.8] 02/23/2025 Encounter Status:Closed by ANH TUCKER on 04/20/25 Normal [facility] Inital Evaluation (1) - PTon 03-03-2025 Inital Evaluation (1) - PT [facility] [address] [place] [address] [address] [place] [address] / REHABILITATION SERVICES INITIAL EVALUATION MR#: [id number] Acct: [id number] Name: JUAN GERONIMO Rep #: [id number] : 1940 84 From: George Baxter DPT, OCS, CSCS Referring Dr.: Dr. Keith Romero DO Status: REG RCR Insurance: MEDICARE PART A B [facility] Patient's Visit Information Visit Information Visit Information: JUAN GERONIMO is a 84 year old F referred to Physical Therapy by Dr. Keith Romero DO with a diagnosis of Balance disorder. Date of Evaluation: 03/03/25 Physical Therapist: George Baxter DPT, OCS, CSCS Visit Plan Frequency: 2x /Week Duration: 4-6 Weeks Plan: 2x/week for 2-6 weeks IE HEP given VOR seated H and V 60 sec 3x/day with pics and reviewed balance safety HO Pt has decent balance for age but needs more confidence, please treat with... 1. teach progression of VOR to standing and dynamic as safety allows via HEP 2. weight shift Fw and lateral confidence ex to HEP 3. combination strength /balance ex to I HEP pics and progressions please. All to HEP(4 visits to start) Subjective Subjective: Dr. nick PINO sent over. balance is not like it used to be. Fell one time. Has hugged feldman for a long time. Does well next to someone but does not feel secure on own. Home is good. has been ill and she is taking care of him. She needs to take care of herself. Last fall was two weeks ago and face planted on slippery grass and picking up sticks, bent over and did slipped on grass and face planted. Had black eye. Not in any pain. No spinning but has to stand up slowly some times. No neuropathy. Does not use cane or walker. Sleep is OK No regular exercise. Does not like to exercise adn never will Takes care of 3 story house and . Steps have handrails and are no problem and has chairlift for . Outdoor work done by others but likes to peanut picker sticks. Enjoys reading and puzzles. Bathtub has bars. Basic ADLs all I at this point. Objective Objective: Walks into PT I without gait deviations. Trasnfer chair without UE 2 attempts but I. Bed trasnfer I. Steps are reciprocal with one rail. Good balance demonstrated on FGA without AD. Fear is noticed when doing tandem walk and ec walk but good balance. Lumbar and LE AROM WFL , some mild tightness in HS and gastroc at -15 90/90 and 0 DF but functional. Hesitant to shift weight with ambulation and out of chair and on steps. strength LE 4-/5 hips and knees and ankles , funcitonal reflexes 2/3 patella adn achilles B . sensation to gross light touch WNL B LE coordination to reciprocal toe and heel tap is good, heel mcdonnell test is good. UE AROM wFL and strength at 4-/5. Balance/Special Test Scores Functional Gait Assessment Score: 26 % Disability: 13.3400 CATSIB Score (Max score 120 seconds): 102 Lower Extremity Functional Score: 47 Goals Goal 1:: I appropriate HEP for weight shifts, vestibular and strength to minimize future problems Goal Time Frame: 4-6 Weeks Goal 2:: Pt feel 75% more confidence in balance and ability to get around and take care of house and . Goal Time Frame: 4-6 Weeks Goal 3:: 20+ sec on foam ec romberg test. Goal Time Frame: 4-6 Weeks Rehabilitation Potential Physical Therapy Diagnosis: Diminshed confidence and weakness vestibular balance system leading to hesitation and fear with ambulation. Rehabilitation Potential: Good Anticipated Interventions Patient/Client Instruction: Educate patient on: Condition and Risk Factors For the Purpose of:: To increase tolerance to activity/condition/posit ion, To improve ability of physical actions for home/community/work/leis ure, To improve gait and locomotor functions and To improve safety Therapeutic Exercise to Include: Strength training, Balance training and Coordination Comment: vestibular ex adn dyanmic balance For the Purpose of:: To improve muscle performance and motor function, To increase tolerance to activity/condition/posit ion, To improve ability of physical actions for home/community/work/leis ure, To improve gait and locomotor functions and To improve safety Text: Thank you for the opportunity to evaluate your patient. For Medicare and Medicare HMO plans, please review the plan of care and approve it. It will need to be FAXED BACK to us at [phone] for Medicare purposes. For Medicare only, by signing this I certify the plan of care. Please let me know if there are questions or concerns regarding this plan of care. Physician Signature: Date: ____ 03/03/25 1114 CC: Dr. Keith Romero DO EB Signed Normal [facility] CNOVon 03-01-2025 OV Office Visit (CARDWS ) -------- JUAN GERONIMO ([id number]) 1940 F Date Time Provider Department 03/01/25 3:20 PM PARESH NGO During your visit today, we recorded the following information about you: Pulse Respiration Blood pressure Weight 85/minute 12/minute 172/70 60.8 kg Height 1.651 m Paresh Ngo MD 03/01/2025 4:05 PM Signed Paresh Ngo MD Interventional Cardiology [address] [address] [id number] Chief Complaint Patient presents with: Follow Up: one year follow up HISTORY OF PRESENT ILLNESS: Ms. Geronimo is a 84 year old female seen in my office today for assessment and management for follow-up prior history of supraventricular tachycardia and hyperlipidemia maintained on verapamil patient is doing well from the cardiac point of view 2 episodes of short-lived episodes of SVT doing well no angina no signs or symptoms of congestive heart failure Cardiac Risk Factors age (male over 45, female over 55), hypertension, family history of CAD PAST MEDICAL HISTORY Diagnosis Date Advance care planning 02/25/2023 Supa Anemia Disorder of bone and cartilage, unspecified DUPUYTREN'S CONTRACTURE 07/13/2008 Esophageal reflux Generalized osteoarthrosis, unspecified site 05/28/2007 Hyperlipidemia 02/13/2016 Hypothyroidism Osteoarthritis of multiple joints Osteopenia Other psoriasis Pure hypercholesterolemia Spinal stenosis 07/20/20102008 L45 epidural injections. Follows with [facility] SVT (supraventricular tachycardia) (HCC) 02/03/2023 Unspecified hemorrhoids without mention of complication PAST SURGICAL HISTORY Procedure Laterality Date APPENDECTOMY COLONOSCOPY FLX DX W/COLLJ SPEC WHEN PFRMD 11/23/2002 Colonoscopy COLONOSCOPY FLX DX W/COLLJ SPEC WHEN PFRMD 05/05/2018 Colonoscopy HEMORRHOIDECTOMY INTERNAL RUBBER BAND LIGATIONS PAST SURGICAL HISTORY OF 1982 hysterectomy for prolapse - ovaries remain PAST SURGICAL HISTORY OF 06/19/1977 vericose vein stripping PAST SURGICAL HISTORY OF 10/2001 Dr. Wheeler [facility] - partial wrist fusion left - ganglion cyst removed at same time PAST SURGICAL HISTORY OF 05/2005 - left hand dupuytren's contracture release. PAST SURGICAL HISTORY OF 05/2006 right hand repair small and ring fingers SIGMOIDOSCOPY FLX DX W/COLLJ SPEC BR/WA IF PFRMD 09/1998 Sigmoidoscopy TONSILLECTOMY AND ADENOIDECTOMY T/A (under age 12 years) FAMILY HISTORY Problem Relation Age of Onset Cancer Mother ovarian and colon Cancer Father prostate - glaucoma Colon Cancer Father Cancer Brother skin - glaucoma Alzheimer's Disease Brother Social History Tobacco Use Smoking status: Never Smokeless tobacco: Never Vaping Use Vaping status: Never Used Substance Use Topics Alcohol use: Yes Alcohol/week: 3.0 standard drinks of alcohol Types: 2 Standard drinks or equivalent, 1 Glasses of Wine (5oz) per week Comment: few times a week Drug use: No ALLERGIES Allergen Reactions Amoxil [Amoxicillin] Hives Codeine GI Upset Ultram [Tramadol Hc* Intolerance Medications: Current Outpatient Medications Medication Sig Dispense Refill alendronate (FOSAMAX) 70 mg tablet Take 1 tablet by mouth one time a week. Take with a full glass of water, on an empty stomach; do NOT lie down for 30minutes. 12 tablet 3 levothyroxine (LEVOXYL) 88 mcg tablet Take 1 tablet daily except for Tues and Thurs and Sat take 2 tablets. Take on empty stomach. For Thyroid 130 tablet 3 verapamil ER (VERELAN) 120 mg 24 hr capsule Take 1 capsule by mouth daily at bedtime. 90 capsule 3 mecobalamin (B12 ACTIVE ORAL) Take 1 tablet by mouth once daily. aspirin 81 mg chewable tablet Take 81 mg by mouth once daily. BIOTIN ORAL Take 1,000 mcg by mouth once daily. Cholecalciferol, Vitamin D3, 25 mcg (1,000 unit) cap Take 2 capsules by mouth once daily. 0 acetaminophen 650 mg CR tablet Take 1 tablet by mouth every 8 hours as needed. 0 mupirocin (BACTROBAN) 2 % ointment Apply to affected area every 12 hours as needed (for skin wound). 30 g 1 No current facility-administered medications for this visit. Review of Systems Constitutional: Negative for chills, diaphoresis, fever, malaise/fatigue and weight loss. HENT: Negative for congestion, ear discharge, ear pain, hearing loss, nosebleeds, sinus pain, sore throat and tinnitus. Eyes: Negative for blurred vision, double vision, photophobia, pain, discharge and redness. Respiratory: Negative for cough, hemoptysis, sputum production, shortness of breath, wheezing and stridor. Cardiovascular: Positive for palpitations. Negative for chest pain, orthopnea, claudication, leg swelling and PND. Gastrointestinal: Negative for abdominal pain, blood in stool, constipation, diarrhea, heartburn, melena, nausea and vomiting. Genitourinary: (more content not included)... Normal [facility] CNOVon 02-23-2025 CNOV Office Visit (FAMPWS ) -------- JUAN GERONIMO ([id number]) 1940 F Date Time Provider Department 02/23/25 7:40 AM [facility] During your visit today, we recorded the following information about you: Temperature Pulse Respiration Blood pressure 97 degrees 76/minute 16/minute 130/76 Weight 60.8 kg Keith Romero DO 02/23/2025 8:37 AM Signed CC: Juan Geronimo is a 84 year old female who presents to the office for follow up HPI: Overall she is doing okay, she has had a lot of recent stressors with her 's health issues and ICU stay for 1 week after respiratory failure secondary to influenza and pneumonia. She will likely no longer be wintering in [place] as they were previously. HPL, diet controlled, not on statin therapy Osteopenia/osteoporosis. Admits to difficulty with her strength in her legs and hips and is noticing balance issues and concerns. She is concerned for risk of falls. She is willing to consider PHYSICAL THERAPY to help her with this. Did have 1 fall when she slipped on wet grass 1-2 weeks ago. No major injury. 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 Follows with [facility] SVT (supraventricular tachycardia) ([facility]) 02/03/2023 Unspecified hemorrhoids without mention of complication PAST SURGICAL HISTORY Procedure Laterality Date APPENDECTOMY COLONOSCOPY FLX DX W/COLLJ SPEC WHEN PFRMD 11/23/2002 Colonoscopy COLONOSCOPY FLX DX W/COLLJ SPEC WHEN PFRMD 05/05/2018 Colonoscopy HEMORRHOIDECTOMY INTERNAL RUBBER BAND LIGATIONS PAST SURGICAL HISTORY OF 1982 hysterectomy for prolapse - ovaries remain PAST SURGICAL HISTORY OF 06/19/1977 vericose vein stripping PAST SURGICAL HISTORY OF 10/2001 Dr. Wheeler [facility] - partial wrist fusion left - ganglion cyst removed at same time PAST SURGICAL HISTORY OF 05/2005 - left hand dupuytren's contracture release. PAST SURGICAL HISTORY OF 05/2006 right hand repair small and ring fingers SIGMOIDOSCOPY FLX DX W/COLLJ SPEC BR/WA IF PFRMD 09/1998 Sigmoidoscopy TONSILLECTOMY AND ADENOIDECTOMY T/A (under age 12 years) Current Outpatient Medications Medication Sig alendronate (FOSAMAX) 70 mg tablet Take 1 tablet by mouth one time a week. Take with a full glass of water, on an empty stomach; do NOT lie down for 30minutes. levothyroxine (LEVOXYL) 88 mcg tablet Take 1 tablet daily except for Tues and Thurs and Sat take 2 tablets. Take on empty stomach. For Thyroid mupirocin (BACTROBAN) 2 % ointment Apply to affected area every 12 hours as needed (for skin wound). verapamil ER (VERELAN) 120 mg 24 hr capsule Take 1 capsule by mouth daily at bedtime. mecobalamin (B12 ACTIVE ORAL) Take 1 tablet by mouth once daily. aspirin 81 mg chewable tablet Take 81 mg by mouth once daily. BIOTIN ORAL Take 1,000 mcg by mouth once daily. Cholecalciferol, Vitamin D3, 25 mcg (1,000 unit) cap Take 2 capsules by mouth once daily. acetaminophen 650 mg CR tablet Take 1 tablet by mouth every 8 hours as needed. No current facility-administered medications for this visit. ALLERGIES Allergen Reactions Amoxil [Amoxicillin] Hives Codeine GI Upset Ultram [Tramadol Hc* Intolerance , Social History Tobacco Use Smoking status: Never Smokeless tobacco: Never Vaping Use Vaping status: Never Used Substance Use Topics Alcohol use: Yes Alcohol/week: 3.0 standard drinks of alcohol Types: 2 Standard drinks or equivalent, 1 Glasses of Wine (5oz) per week Comment: few times a week Drug use: No ROS: See HPI PE: BP 130/76 Pulse 76 Temp (Src) 97 (Right Tympanic) Resp 16 Wt 134 lb (60.8kg) Gen: AANDOX3, NAD, non-toxic appearing HEENT: PERRLA, wearing glasses, EOMs intact b/l, nares without drainage, pharynx without erythema, exudate, lesions, or drainage. Uvula midline. MMM Neck: No LAD, no thyromegaly, no meningismus. CV: RRR, no murmur, normal s1s2 Lungs: CTA b/l, no wheezing Abd: soft, NT, ND, normal BS, no masses Normal pulses No edema legs Skin: No rashes, lesions, or wounds on exposed skin. Weakness in legs and hip and CORE ASSESSMENT/PLAN: 1. Balance disorder - ICD9: 781.99, ICD10: R26.89 (primary diagnosis) Order for PHYSICAL THERAPY referral for evaluation, weakness of CORE strength and thigh and hip strength, need for fall prevention and balance improvement - (more content not included)... Normal [facility] CBC panel Auto (Bld)on 02-18 Erythrocyte distribution width (RBC) [Ratio] 13.2 % Normal 11.5-15.0 [facility] Comment on above: Order Comment: Speci men Type: BLOOD SPECIMENOrdering Facility: [facility] Address: [address] [place] [address] Performed By: #### 5 8410-2 ####[facility] LABCLIA [id number] [place] [address] [place] Hematocrit (Bld) [Volume fraction] 40.3 % Normal 36.0-46.0 [facility] Comment on above: Order Comment: Speci men Type: BLOOD SPECIMENOrdering Facility: [facility] Address: [address] [place] [address] Performed By: #### 5 8410-2 ####[facility] LABCLIA [id number] [place] [address] [place] Hemoglobin (Bld) [Mass/Vol] 13.1 g/dL Normal 11.5-15.5 [facility] Comment on above: Order Comment: Speci men Type: BLOOD SPECIMENOrdering Facility: [facility] Address: [address] [place] [address] Performed By: #### 5 8410-2 ####[facility] LABIA [id number] [place] [address] [place] MCH (RBC) [Entitic mass] 32.8 pg Normal 26.0-34.0 [facility] Comment on above: Order Comment: Speci men Type: BLOOD SPECIMENOrdering Facility: [facility] Address: [address] [place] [address] Performed By: #### 5 8410-2 ####[facility] LABIA [id number] [place] [address] [place] MCHC (RBC) [Mass/Vol] 32.5 g/dL Normal 30.5-36.0 [facility] Comment on above: Order Comment: Speci men Type: BLOOD SPECIMENOrdering Facility: [facility] Address: [address] [place] [address] Performed By: #### 5 8410-2 ####[facility] LABIA [id number] [place] [address] [place] MCV (RBC) [Entitic vol] 101.0 fL High 80.0-100.0 [facility] Comment on above: Order Comment: Speci men Type: BLOOD SPECIMENOrdering Facility: [facility] Address: [address] [place] [address] Performed By: #### 5 8410-2 ####[facility] LABIA [id number] [place] [address] [place] Nucleated RBC (Bld) [#/Vol] 10*3/uL Normal <0.01 [facility] Comment on above: Order Comment: Speci men Type: BLOOD SPECIMENOrdering Facility: [facility] Address: [address] [place] [address] Performed By: #### 5 8410-2 ####[facility] LABCLIA [id number] [place] [address] [place] Platelet mean volume (Bld) [Entitic vol] 11.9 fL Normal 9.0-12.7 [facility] Comment on above: Order Comment: Speci men Type: BLOOD SPECIMENOrdering Facility: [facility] Address: [address] [place] [address] Performed By: #### 5 8410-2 ####[facility] LABIA [id number] [place] [address] [place] Platelets (Bld) [#/Vol] 250 10*3/uL Normal 150-400 [facility] Comment on above: Order Comment: Speci men Type: BLOOD SPECIMENOrdering Facility: [facility] Address: [address] [place] [address] Performed By: #### 5 8410-2 ####[facility] LABIA [id number] [place] [address] [place] RBC (Bld) [#/Vol] 3.99 10*6/uL Normal 3.90-5.20 [facility] Comment on above: Order Comment: Speci men Type: BLOOD SPECIMENOrdering Facility: [facility] Address: [address] [place] [address] Performed By: #### 5 8410-2 ####[facility] LABCLIA [id number] [place] [id number] [place] WBC (Bld) [#/Vol] 5.78 10*3/uL Normal 3.70-11.00 [facility] Comment on above: Order Comment: Speci men Type: BLOOD SPECIMENOrdering Facility: [facility] Address: [address] [place] [address] Performed By: #### 5 8410-2 ####[facility] LABIA [id number] [address] [address] [place] Comprehensive metabolic 2000 panelon 02-18-2025 Albumin [Mass/Vol] 4.1 g/dL Normal 3.9-4.9 [facility] Comment on above: Order Comment: Speci men Type: BLOOD SPECIMENOrdering Facility: [facility] Address: [address] [place] [address] Performed By: #### 2 4331-1, 93448-8, 3023-7, 6-3 ####[facility] LABIA [id number] [place] [id number] [place] ALP [Catalytic activity/Vol] 84 U/L Normal 34-123 [facility] Comment on above: Order Comment: Speci men Type: BLOOD SPECIMENOrdering Facility: [facility] Address: [address] [place] [address] Performed By: #### 2 4331-1, 21558-8, 3023-7, 3016-3 ####[facility] [id number] [place] [id number] [place] ALT [Catalytic activity/Vol] 7 U/L Normal 7-38 [facility] Comment on above: Order Comment: Speci men Type: BLOOD SPECIMENOrdering Facility: [facility] Address: [address] [place] [address] Performed By: #### 2 4331-1, 24448-8, 3023-7, 3016-3 ####[facility] LABIA [id number] [address] [address] [place] Anion gap [Moles/Vol] 11 mmol/L Normal 8-15 [facility] Comment on above: Order Comment: Speci men Type: BLOOD SPECIMENOrdering Facility: [facility] Address: [address] [place] [address] Performed By: #### 2 4331-1, 76338-1, 302-7, 3016-3 ####[facility] LABCLIA [id number] [address] [address] [place] AST [Catalytic activity/Vol] 21 U/L Normal 13-35 [facility] Comment on above: Order Comment: Speci men Type: BLOOD SPECIMENOrdering Facility: [facility] Address: [address] [place] [address] Performed By: #### 2 4331-1, 11914-5, 3024-04, 3015-3 ####[facility] LABIA [id number] [address] [address] [place] Bilirubin [Mass/Vol] 0.5 mg/dL Normal 0.2-1.3 [facility] Comment on above: Order Comment: Speci men Type: BLOOD SPECIMENOrdering Facility: [facility] Address: [address] [place] [address] Performed By: #### 2 4331-1, 47963-9, 3024-04, 3 ####[facility] [id number] [address] [address] [place] Calcium [Mass/Vol] 9.4 mg/dL Normal 8.5-10.2 [facility] Comment on above: Order Comment: Speci men Type: BLOOD SPECIMENOrdering Facility: [facility] Address: [address] [place], [place] [address] Performed By: #### 2 4331-1, 21289-6, 3024-04, 3 ####[facility] [id number] [address] [address] [place] Chloride [Moles/Vol] 107 mmol/L Normal 98-107 [facility] Comment on above: Order Comment: Speci men Type: BLOOD SPECIMENOrdering Facility: [facility] Address: [address] [place], [place] [address] Performed By: #### 2 4331-1, 08336-2, 3024-04, 3015-3 ####[facility] LABCLIA [id number] [place] [id number] [place] CO2 [Moles/Vol] 24 mmol/L Normal 22-30 [facility] Comment on above: Order Comment: Speci men Type: BLOOD SPECIMENOrdering Facility: [facility] Address: [address] [place] [address] Performed By: #### 2 4331-1, 10941-0, 7, 3015-3 ####[facility] LABCLIA [id number] [place] [id number] [place] Creatinine [Mass/Vol] 1.09 mg/dL High 0.58-0.96 [facility] Comment on above: Order Comment: Speci men Type: BLOOD SPECIMENOrdering Facility: [facility] Address: [address] [place] [address] Performed By: #### 2 4331-1, 88509-9, 3024-04, 3 ####[facility] LABIA [id number] [place] [address] [place] Creatinine and Glomerular filtration rate.predicted panel (S/P/Bld) 50 mL/min/1.73m??? Low >=60 [facility] Comment on above: Order Comment: Speci men Type: BLOOD SPECIMENOrdering Facility: [facility] Address: [address] [place] [address] Result Comment: Isabell mated Glomerular Filtration Rate (eGFR) is calculated using the 2020 CKD-EPI creatinine equation. This equation utilizes serum creatinine, sex, and age as parameters. The creatinine assay has traceable calibration to isotope dilution-mass spectrometry. Refer to KDIGO guidelines for clinical interpretation. In patients with unstable renal function, e.g. those with acute kidney injury, the eGFR may not accurately reflect actual GFR. Performed By: #### 2 4331-1, 70513-7, 3023-7, 6-3 ####[facility] LABCLIA [id number] [place] [id number] [place] Glucose [Mass/Vol] 78 mg/dL Normal 74-99 [facility] Comment on above: Order Comment: Speci men Type: BLOOD SPECIMENOrdering Facility: [facility] Address: [address] [place] [address] Result Comment: The [place] Diabetes Association (ADA) provides guidance for cutoff values for fasting glucose and random glucose. The ADA defines fasting as no caloric intake for at least 8 hours. Fasting plasma glucose results between 100 to 125 mg/dL indicate increased risk for diabetes (prediabetes). Fasting plasma glucose results greater than or equal to 126 mg/dL meet the criteria for diagnosis of diabetes. In the absence of unequivocal hyperglycemia, results should be confirmed by repeat testing. In a patient with classic symptoms of hyperglycemia or hyperglycemic crisis, random plasma glucose results greater than or equal to 200 mg/dL meet the criteria for diagnosis of diabetes. Reference: Standards of Medical Care in Diabetes 2016, [place] Diabetes Association. Diabetes Care. 2016.39(Suppl 1). Performed By: #### 2 4331-1, 98333-5, 3024-7, 3016-3 ####[facility] LABCLIA [id number] [place] [address] [place] Potassium [Moles/Vol] 4.5 mmol/L Normal 3.7-5.1 [facility] Comment on above: Order Comment: Speci men Type: BLOOD SPECIMENOrdering Facility: [facility] Address: [address] [place] [address] Performed By: #### 2 4331-1, 50178-3, 3024-7, 3016-3 ####[facility] LABCLIA [id number] [place] [id number] [place] Protein [Mass/Vol] 6.2 g/dL Low 6.3-8.0 [facility] Comment on above: Order Comment: Speci men Type: BLOOD SPECIMENOrdering Facility: [facility] Address: [address] [place], [place] [address] Performed By: #### 2 4331-1, 62009-8, 302-7, 6-3 ####[facility] LABCLIA [id number] [facility] [address] [address] [place] Sodium [Moles/Vol] 142 mmol/L Normal 136-144 [facility] Comment on above: Order Comment: Speci men Type: BLOOD SPECIMENOrdering Facility: [facility] Address: [address] [place] [address] Performed By: #### 2 4331-1, 78799-4, 3023-7, 6-3 ####[facility] LABCLIA [id number] [address] [address] [place] Urea nitrogen [Mass/Vol] 18 mg/dL Normal 7-21 [facility] Comment on above: Order Comment: Speci men Type: BLOOD SPECIMENOrdering Facility: [facility] Address: [address] [place] [address] Performed By: #### 2 4331-1, 26234-1, 7, 6-3 ####[facility] LABCLIA [id number] [address] [address] [place] Lipid 1996 panelon 5 Cholesterol [Mass/Vol] 216 mg/dL High <200 [facility] Comment on above: Order Comment: Speci men Type: BLOOD SPECIMENOrdering Facility: [facility] Address: [address] [place] [address] Result Comment: <200 mg/dL, Desirable 200-239 mg/dL, Borderline high >239 mg/dL, High Performed By: #### 2 4331-1, 57160-1, 302-7, 3016-3 ####[facility]CLIA [id number] [address] [address] [place] Cholesterol in HDL [Mass/Vol] 74 mg/dL Normal >39 [facility] Comment on above: Order Comment: Speci men Type: BLOOD SPECIMENOrdering Facility: [facility] Address: [address] [place], [place] [address] Result Comment: 40-5 9 mg/dL, Acceptable >59 mg/dL, High: Negative risk factor for coronary heart disease <40 mg/dL, Low: Positive risk factor for coronary heart disease Performed By: #### 2 4331-1, 79007-0, 3023-7, 3015-3 ####[facility] LABCLIA [id number] [place] [id number] [place] Cholesterol in LDL [Mass/Vol] 128 mg/dL High <100 [facility] Comment on above: Order Comment: Speci men Type: BLOOD SPECIMENOrdering Facility: [facility] Address: [address] [place] [address] Result Comment: <100 mg/dL, Optimal 100-129 mg/dL, Near optimal/above optimal 130-159 mg/dL, Borderline high 160-189 mg/dL, High >189 mg/dL, Very high Secondary prevention optimal LDL Cholesterol levels are recommended to be <70 mg/dL LDL cholesterol is calculated using the Alvarez-NIH equation. Performed By: #### 2 4331-1, 72469-7, 7, 3 ####[facility]CL[facility] [id number] [address] [place] Cholesterol in LDL/Cholesterol in HDL [Mass ratio] 1.73 {ratio} Normal <2.54 [facility] Comment on above: Order Comment: Speci men Type: BLOOD SPECIMENOrdering Facility: [facility] Address: [address] [place] [address] Result Comment: Refe rence: 1. National Cholesterol Education Program ATP III Guideline At-A-Glance Quick Desk Reference: National Heart, Lung, and Blood Valders. National Institutes of Health. 2001: NIH Publication No. 01-3305. 2. An International Atherosclerosis Society position paper: global recommendations for the management of dyslipidemia: executive summary, Atherosclerosis. 2014: 232(2):410-413. Performed By: #### 2 4331-1, 05082-4, 3023-7, 6-3 ####[facility] LABCLIA [id number] [address] [address] [place] Cholesterol in VLDL [Mass/Vol] 14 mg/dL Normal <30 [facility] Comment on above: Order Comment: Speci men Type: BLOOD SPECIMENOrdering Facility: [facility] Address: [address] [place], [place] [address] Performed By: #### 2 4331-1, 80032-8, 4-7, 6-3 ####[facility] LABCLIA [id number] [address] [place] [address] [place] Cholesterol non HDL [Mass/Vol] 142 mg/dL High <130 [facility] Comment on above: Order Comment: Speci men Type: BLOOD SPECIMENOrdering Facility: [facility] Address: [address] [place] [address] Result Comment: <130 mg/dL, Optimal 130-159 mg/dL, Near optimal/above optimal 160-189 mg/dL, Borderline high 190-219 mg/dL, High >219 mg/dL, Very high Secondary prevention optimal non HDL Cholesterol levels are recommended to be <100 mg/dL Performed By: #### 2 4331-1, 24249-1, 3023-7, 3016-3 ####[facility]CL[facility] [id number] [address] [address] [place] Cholesterol.total/Ch olesterol in HDL [Mass ratio] 2.92 {ratio} Normal <5.10 [facility] Comment on above: Order Comment: Speci men Type: BLOOD SPECIMENOrdering Facility: [facility] Address: [address] [place] [address] Performed By: #### 2 4331-1, 59647-6, 3023-7, 6-3 ####[facility] LABCLIA [id number] [address] [address] [place] FASTING TIME 12 hrs Normal [facility] Comment on above: Order Comment: Speci men Type: BLOOD SPECIMENOrdering Facility: [facility] Address: [address] [place] [address] Performed By: #### 2 4331-1, 77317-5, 3023-7, 6-3 ####[facility] LABCLIA [id number] [place] [address] [place] Triglyceride [Mass/Vol] 81 mg/dL Normal <150 [facility] Comment on above: Order Comment: Speci men Type: BLOOD SPECIMENOrdering Facility: [facility] Address: [address] [place] [address] Result Comment: <150 mg/dL, Normal 150-199 mg/dL, Borderline high 200-499 mg/dL, High >499 mg/dL, Very high Performed By: #### 2 4331-1, 26296-7, 7, 6-3 ####[facility] LABCLIA [id number] [place] [address] [place] T4 Free SerPl-mCncon 025 Free T4 [Mass/Vol] 1.5 ng/dL Normal 0.9-1.7 [facility] Comment on above: Order Comment: Speci men Type: BLOOD SPECIMENOrdering Facility: [facility] Address: [address] [place] [address] Performed By: #### 2 4331-1, 94440-7, 7, 3015-3 ####[facility]CL[facility] [id number] [place] [address] [place] TSH SerPl-aCncon 02-18-2025 TSH Qn 0.131 m[IU]/L Low 0.270-4.200 [facility] Comment on above: Order Comment: Speci men Type: BLOOD SPECIMENOrdering Facility: [facility] Address: [address] [place] [address] Performed By: #### 2 4331-1, 92995-4, 3023-7, 6-3 ####[facility] LABCLIA [id number] [address] [place] [address] [facility] Mar 02-16-2025 CNPN Telephone (FAMPWS) -------- JUAN GERONIMO ([id number]) 1940 F Date Time Provider Department 02/16[facility] During your visit today, we recorded the following information about you: Anh Garcia RN 02/16/2025 10:52 AM Signed Patient calls and states that she has appointment with provider on 02/23/2025. Patient asking if provider wants patient to get labs done prior to appointment? Please review and advise, SANGEETHA Guerra Bernadette, PA-C 02/16/2025 11:29 AM Signed Fasting labs ordered MILES Jefferson Stephanie, RN 02/16/2025 11:40 AM Signed Patient calls and notified that lab orders were placed. Patient voices understanding. Anh Garcia RN Allergies As of Date: 02/16/2025 Noted Allergy Reaction AMOXIL (AMOXICILLIN) 07/13/2009 4 - Hives CODEINE 07/04/2005 8 - GI Upset ULTRAM (TRAMADOL HCL) 07/13/2009 5 - Intolerance Date Reviewed: 08/05/2024 Reviewed by: Fernanda Kaur RN - Fully Assessed Reason for Visit: Lab Orders [1688] Primary Visit Diagnosis:Hyperlipidemia , unspecified hyperlipidemia type [E78.5] Other Visit Diagnoses:Hypothyroidism , acquired [E03.9] Vitamin D deficiency [E55.9] Order(s):THYROID STIMULATING HORMONE [SQTSH] Order #: [id number] FUTURE T4 FREE/FREE THYROXINE [SQFT4] Order #: [id number] FUTURE COMPREHENSIVE METABOLIC PANEL [SQCMP] Order #: [id number] FUTURE COMPLETE BLOOD COUNT [SQCBC] Order #: [id number] FUTURE LIPID PANEL, FASTING [SQLIPB] Order #: [id number] FUTURE Prescriptions as of 02/16/2025 - alendronate (FOSAMAX) 70 mg tablet Take 1 tablet by mouth one time a week. Take with a full glass of water, on an empty stomach; do NOT lie down for 30minutes. - levothyroxine (LEVOXYL) 88 mcg tablet Take 1 tablet daily except for Tues and Thurs and Sat take 2 tablets. Take on empty stomach. For Thyroid - mupirocin (BACTROBAN) 2 % ointment Apply to affected area every 12 hours as needed (for skin wound). - verapamil ER (VERELAN) 120 mg 24 hr capsule Take 1 capsule by mouth daily at bedtime. - mecobalamin (B12 ACTIVE ORAL) Take 1 tablet by mouth once daily. - aspirin 81 mg chewable tablet Take 81 mg by mouth once daily. - BIOTIN ORAL Take 1,000 mcg by mouth once daily. - Cholecalciferol, Vitamin D3, 25 mcg (1,000 unit) cap Take 2 capsules by mouth once daily. - acetaminophen 650 mg CR tablet Take 1 tablet by mouth every 8 hours as needed. 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] 07/13/2008 02/25/2017 Spinal stenosis [M48.00] 07/20/2010 Bulging disc [NRG5118] 07/20/2010 02/09/2015 Hyperlipidemia [E78.5] 02/13/2016 Elevated systolic blood pressure reading withou*02/25/2017 Age-related osteoporosis without current pathol*04/15/2018 Medicare annual wellness visit, subsequent [Z00*04/15/2018 Postmenopausal symptoms [N95.9] 04/15/2018 SVT (supraventricular tachycardia) (HCC), parox*06/22/2021 Syncope [R55] 06/22/2021 Advance care planning [Z71.89] 02/25/2023 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] 07/27/2022 Cervical spondylosis [M47.812] 07/27/2022 Anemia [D64.9] 02/25/2023 Acute renal failure superimposed on stage 3a ch*02/25/2023 Hypothyroidism, acquired [E03.9] 02/25/2023 Hyperlipidemia, mixed [E78.2] 02/25/2023 Encounter Status:Closed by ANH GARCIA on 02/16/25 [facility] -------- JUAN GERONIMO ([id number]) 1940 F Date Time Provider Department 01/06/25 [facility] During your visit today, we recorded the following information about you: Anh Garcia RN 01/06/2025 4:32 PM Signed Adhesive Bandage Making Operator from "[employer]" calls and states that they received order for back brace. Adhesive Bandage Making Operator requesting that office notes be sent to them. Order was faxed and signed by provider. Called and spoke with patient. Patient states that sales representative graphic art keeps call her about this and she does not and never has requested that "[employer]" get a back brace for her. If sales representative graphic art call back please DO NOT send office notes and let sales representative graphic art know that patient does not want this. SANGEETHA Guerra Linda M, LPN 01/07/2025 10:27 AM Signed Noted. Allergies As of Date: 01/06/2025 Noted Allergy Reaction AMOXIL (AMOXICILLIN) 07/13/2009 4 - Hives CODEINE 07/04/2005 8 - GI Upset ULTRAM (TRAMADOL HCL) 07/13/2009 5 - Intolerance Date Reviewed: 08/05/2024 Reviewed by: Fernanda Kaur RN - Fully Assessed Reason for Visit: Orders [681] Prescriptions as of 01/08/2025 - alendronate (FOSAMAX) 70 mg tablet Take 1 tablet by mouth one time a week. Take with a full glass of water, on an empty stomach; do NOT lie down for 30minutes. - levothyroxine (LEVOXYL) 88 mcg tablet Take 1 tablet daily except for Tues and Thurs and Sat take 2 tablets. Take on empty stomach. For Thyroid - mupirocin (BACTROBAN) 2 % ointment Apply to affected area every 12 hours as needed (for skin wound). - verapamil ER (VERELAN) 120 mg 24 hr capsule Take 1 capsule by mouth daily at bedtime. - mecobalamin (B12 ACTIVE ORAL) Take 1 tablet by mouth once daily. - aspirin 81 mg chewable tablet Take 81 mg by mouth once daily. - BIOTIN ORAL Take 1,000 mcg by mouth once daily. - Cholecalciferol, Vitamin D3, 25 mcg (1,000 unit) cap Take 2 capsules by mouth once daily. - acetaminophen 650 mg CR tablet Take 1 tablet by mouth every 8 hours as needed. 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] 07/13/2008 02/25/2017 Spinal stenosis [M48.00] 07/20/2010 Bulging disc [PNB9070] 07/20/2010 02/09/2015 Hyperlipidemia [E78.5] 02/13/2016 Elevated systolic blood pressure reading withou*02/25/2017 Age-related osteoporosis without current pathol*04/15/2018 Medicare annual wellness visit, subsequent [Z00*04/15/2018 Postmenopausal symptoms [N95.9] 04/15/2018 SVT (supraventricular tachycardia) (HCC), parox*06/22/2021 Syncope [R55] 06/22/2021 Advance care planning [Z71.89] 02/25/2023 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] 07/27/2022 Cervical spondylosis [M47.812] 07/27/2022 Anemia [D64.9] 02/25/2023 Acute renal failure superimposed on stage 3a ch*02/25/2023 Hypothyroidism, acquired [E03.9] 02/25/2023 Hyperlipidemia, mixed [E78.2] 02/25/2023 Encounter Status:Closed by ANH GARCIA on 01/08/25 [facility] [place] SCREENINGon 06-10-2023 [facility] XR HAND GENERAL 3V PA/LAT/OB L RIGHTon 03-25-2023 [facility] No Panel Informationon 07-09 Radiology Study observation (narrative) [facility] XR Cervical spine AP and Lat eral and obliqueon 07-09-2022 IMPRESSION: C4 on C5 anterolisthesis. Cervical spine degenerative changes with multilevel disc space narrowing and right-sided neural foraminal narrowing. Project Management: KATLYN Transcribe Date/Time: Jul 09 2022 8:50A Dictated by : MARNI HERR MD This examination was interpreted and the report reviewed and electronically signed by: MARNI HERR MD on Jul 09 2022 8:55AM [facility] DIVISION OF RADIOLOGY * * *Final Report* * * DATE OF EXAM: Jul 09 2022 8:42AM WOX [id number] - XR CERVICAL 4V AP/LAT/OBL / PROCEDURE REASON: Pain * * * * Physician Interpretation * * * * EXAM TITLE: XR CERVICAL 4V AP/LAT/OBL EXAM DATE/TIME: 07/09/2022 8:42 AM COMPARISON: None CLINICAL INDICATION/HISTORY: Neck pain. TECHNIQUE: AP, lateral, and oblique views of the cervical spine are presented. FINDINGS: No acute fractures demonstrated. There is grade 1 C4 on C5 anterolisthesis. There appears be no significant bony canal stenosis. C3-4, C5-6 and C6-7 disc space narrowing is noted. There is moderate osteophyte formation, with facet arthrosis. Multilevel right-sided neural foraminal narrowing is demonstrated. The prevertebral soft tissues are normal. DIVISION OF RADIOLOGY Provider, Parminder Ahn - 07/09/2022 * * *Final Report* * * DATE OF EXAM: Jul 09 2022 8:42AM WOX [id number] - XR CERVICAL 4V AP/LAT/OBL / PROCEDURE REASON: Pain * * * * Physician Interpretation * * * * EXAM TITLE: XR CERVICAL 4V AP/LAT/OBL EXAM DATE/TIME: 07/09/2022 8:42 AM COMPARISON: None CLINICAL INDICATION/HISTORY: Neck pain. TECHNIQUE: AP, lateral, and oblique views of the cervical spine are presented. FINDINGS: No acute fractures demonstrated. There is grade 1 C4 on C5 anterolisthesis. There appears be no significant bony canal stenosis. C3-4, C5-6 and C6-7 disc space narrowing is noted. There is moderate osteophyte formation, with facet arthrosis. Multilevel right-sided neural foraminal narrowing is demonstrated. The prevertebral soft tissues are normal. IMPRESSION IMPRESSION: C4 on C5 anterolisthesis. Cervical spine degenerative changes with multilevel disc space narrowing and right-sided neural foraminal narrowing. Project Management: [facility] Transcribe Date/Time: Jul 09 2022 8:50A Dictated by : MARNI HERR MD This examination was interpreted and the report reviewed and electronically signed by: MARNI HERR MD on Jul 09 2022 8:55AM EST [facility] XR Cervical spine AP and Lat eral and obliqueOrdered By: [facility] Provider on 07-09-2022 [facility] XR Thoracic spine AP and Lat eralon 07-09-2022 IMPRESSION: Preservation of vertebral body height. Project Management: [facility] Transcribe Date/Time: Jul 09 2022 8:47A Dictated by : DICK GONSALES MD This examination was interpreted and the report reviewed and electronically signed by: DICK GONSALES MD on Jul 09 2022 8:48AM [facility] DIVISION OF RADIOLOGY * * *Final Report* * * DATE OF EXAM: Jul 09 2022 8:42AM WOX [id number] - XR THORACIC 2V AP/LAT / PROCEDURE REASON: Pain * * * * Physician Interpretation * * * * CLINICAL INDICATION: Pain TECHNIQUE: AP and lateral radiographs of the thoracic spine COMPARISON: None FINDINGS: Osseous demineralization. Preservation of vertebral body height. Scattered degenerative changes within the thoracic spine with mild to moderate scattered disc space narrowing. DIVISION OF RADIOLOGY Provider, Cc Po gonzalez Valders - 07/09/2022 * * *Final Report* * * DATE OF EXAM: Jul 09 2022 8:42AM WOX [id number] - XR THORACIC 2V AP/LAT / PROCEDURE REASON: Pain * * * * Physician Interpretation * * * * CLINICAL INDICATION: Pain TECHNIQUE: AP and lateral radiographs of the thoracic spine COMPARISON: None FINDINGS: Osseous demineralization. Preservation of vertebral body height. Scattered degenerative changes within the thoracic spine with mild to moderate scattered disc space narrowing. IMPRESSION IMPRESSION: Preservation of vertebral body height. Project Management: [facility] Transcribe Date/Time: Jul 09 2022 8:47A Dictated by : DICK GONSALES MD This examination was interpreted and the report reviewed and electronically signed by: DICK GONSALES MD on Jul 09 2022 8:48AM EST [facility] SCREENINGon 06-06-2022 [facility] Vital Signs Date Time Vital Sign Value Performing Clinician Hermesi lisette 03-01-2025 15:32-0400 Body height 165.1 cm Paresh Ngo MD Work Phone: [facility] 03-01-2025 15:32-0400 Body mass index (BMI) [Ratio] 22.3 kg/m2 Paresh Ngo MD Work Phone: [facility] 03-01-2025 15:32-0400 Body weight 60.78 kg Paresh Ngo MD Work Phone: [facility] 03-01-2025 15:32-0400 Diastolic blood pressure 70 mm[Hg] Paresh Ngo MD Work Phone: [facility] 03-01-2025 15:32-0400 Heart rate 85 /min Paresh Ngo MD Work Phone: [facility] 03-01-2025 15:32-0400 Respiratory rate 12 /min Paresh Ngo MD Work Phone: [facility] 03-01-2025 15:32-0400 SaO2% (BldA) [Mass fraction] 100 % Paresh Ngo MD Work Phone: [facility] 03-01-2025 15:32-0400 Systolic blood pressure 172 mm[Hg] Paresh Ngo MD Work Phone: [facility] 02-23-2025 07:34-0400 Body mass index (BMI) [Ratio] 22.06 kg/m2 Keith Romero DO Work Phone: [facility] 02-23-2025 07:34-0400 Body temperature 97 [degF] Keith Romero DO Work Phone: [facility] 02-23-2025 07:34-0400 Body weight 60.78 kg Keith Romero DO Work Phone: [facility] 02-23-2025 07:34-0400 Diastolic blood pressure 76 mm[Hg] Keith Romero DO Work Phone: [facility] 02-23-2025 07:34-0400 Heart rate 76 /min Keith Romero DO Work Phone: [facility] 02-23-2025 07:34-0400 Respiratory rate 16 /min Keith Romero DO Work Phone: [facility] 02-23-2025 07:34-0400 Systolic blood pressure 130 mm[Hg] Keith Romero DO Work Phone: [facility] 07-01-2024 16:45-0400 Body mass index (BMI) [Ratio] 22.22 kg/m2 Nicholas Leone MD Work Phone: [facility] 07-01-2024 16:45-0400 Body weight 61.24 kg Nicholas Leone MD Work Phone: [facility] 07-01-2024 16:45-0400 Diastolic blood pressure 72 mm[Hg] Nicholas Leone MD Work Phone: [facility] 07-01-2024 16:45-0400 Heart rate 98 /min Nicholas Leone MD Work Phone: [facility] 07-01-2024 16:45-0400 SaO2% (BldA) [Mass fraction] 100 % Nicholas Leone MD Work Phone: [facility] 07-01-2024 16:45-0400 Systolic blood pressure 128 mm[Hg] Nicholas Leone MD Work Phone: [facility] 07-01-2024 10:44-0400 Body height 166 cm Keith Romero DO Work Phone: [facility] 07-01-2024 10:44-0400 Body mass index (BMI) [Ratio] 22.22 kg/m2 Keith Romero DO Work Phone: [facility] 07-01-2024 10:44-0400 Body temperature 97 [degF] Keith Romero DO Work Phone: [facility] 07-01-2024 10:44-0400 Body weight 61.24 kg Keith Romero DO Work Phone: [facility] 07-01-2024 10:44-0400 Diastolic blood pressure 80 mm[Hg] Keith Romero DO Work Phone: [facility] 07-01-2024 10:44-0400 Heart rate 80 /min Keith Romero DO Work Phone: [facility] 07-01-2024 10:44-0400 Respiratory rate 20 /min Keith Romero DO Work Phone: [facility] 07-01-2024 10:44-0400 Systolic blood pressure 124 mm[Hg] Keith Romero DO Work Phone: [facility] 05-19-2024 14:02-0400 Body height 167.6 cm Nicholas Leone MD Work Phone: [facility] 05-19-2024 14:02-0400 Body mass index (BMI) [Ratio] 22.11 kg/m2 Nicholas Leone MD Work Phone: [facility] 05-19-2024 14:02-0400 Body temperature 96.91 [degF] Nicholas Leone MD Work Phone: [facility] 05-19-2024 14:02-0400 Body weight 62.14 kg Nicholas Leone MD Work Phone: [facility] 05-19-2024 14:02-0400 Heart rate 96 /min Nicholas Leone MD Work Phone: [facility] 05-19-2024 14:02-0400 SaO2% (BldA) [Mass fraction] 99 % Nicholas Leone MD Work Phone: [facility] 05-15-2024 12:07-0400 Body height 167.6 cm Nicholas Leone MD Work Phone: [facility] 05-15-2024 12:07-0400 Body mass index (BMI) [Ratio] 22.02 kg/m2 Nicholas Leone MD Work Phone: [facility] 05-15-2024 12:07-0400 Body temperature 97.59 [degF] Nicholas Leone MD Work Phone: [facility] 05-15-2024 12:07-0400 Body weight 61.87 kg Nicholas Leone MD Work Phone: [facility] 05-15-2024 12:07-0400 Diastolic blood pressure 72 mm[Hg] Nicholas Leone MD Work Phone: [facility] 05-15-2024 12:07-0400 Heart rate 99 /min Nicholas Leone MD Work Phone: [facility] 05-15-2024 12:07-0400 SaO2% (BldA) [Mass fraction] 99 % Nicholas Leone MD Work Phone: [facility] 05-15-2024 12:07-0400 Systolic blood pressure 138 mm[Hg] Nicholas Leone MD Work Phone: [facility] 05-13-2024 12:27-0400 Body mass index (BMI) [Ratio] 22.02 kg/m2 Johanna Roblero APRN.CNP Work Phone: [facility] 05-13-2024 12:27-0400 Body weight 61.87 kg Johanna Roblero EMPLOYEE'S REPRESENTATIVE.SHAKER REPAIRER Work Phone: [facility] 05-13-2024 12:27-0400 Diastolic blood pressure 60 mm[Hg] Johanna Roblero EMPLOYEE'S REPRESENTATIVE.SHAKER REPAIRER Work Phone: [facility] 05-13-2024 12:27-0400 Heart rate 72 /min Johanna Roblero EMPLOYEE'S REPRESENTATIVE.SHAKER REPAIRER Work Phone: [facility] 05-13-2024 12:27-0400 Respiratory rate 14 /min Johanna Roblero EMPLOYEE'S REPRESENTATIVE.SHAKER REPAIRER Work Phone: [facility] 05-13-2024 12:27-0400 Systolic blood pressure 130 mm[Hg] Johanna Roblero EMPLOYEE'S REPRESENTATIVE.SHAKER REPAIRER Work Phone: [facility] 05-11-2024 10:13-0400 Body height 167.6 cm Paresh Ngo MD Work Phone: [facility] 05-11-2024 10:13-0400 Body mass index (BMI) [Ratio] 21.95 kg/m2 Paresh Ngo MD Work Phone: [facility] 05-11-2024 10:13-0400 Body weight 61.69 kg Paresh Ngo MD Work Phone: [facility] 05-11-2024 10:13-0400 Diastolic blood pressure 68 mm[Hg] Paresh Ngo MD Work Phone: [facility] 05-11-2024 10:13-0400 Heart rate 66 /min Paresh Ngo MD Work Phone: [facility] 05-11-2024 10:13-0400 SaO2% (BldA) [Mass fraction] 98 % Paresh Ngo MD Work Phone: [facility] 05-11-2024 10:13-0400 Systolic blood pressure 152 mm[Hg] Paresh Ngo MD Work Phone: [facility] 02-25-2023 07:45-0400 Body temperature 98.01 [degF] Keith Romero DO Work Phone: [facility] 02-25-2023 07:45-0400 Body weight 62.14 kg Keith Romero DO Work Phone: [facility] 02-25-2023 07:45-0400 Diastolic blood pressure 80 mm[Hg] Keith Romero DO Work Phone: [facility] 02-25-2023 07:45-0400 Heart rate 64 /min Keith Romero DO Work Phone: [facility] 02-25-2023 07:45-0400 Respiratory rate 20 /min Keith Romero DO Work Phone: [facility] 02-25-2023 07:45-0400 Systolic blood pressure 150 mm[Hg] Keith Romero DO Work Phone: [facility] 07-27-2022 07:53-0400 Body height 167.6 cm Amadeo Mcdonnell MD Work Phone: [facility] 07-27-2022 07:53-0400 Body weight 62.05 kg Amadeo Mcdonnell MD Work Phone: [facility] 07-27-2022 07:53-0400 Heart rate 94 /min Amadeo Mcdonnell MD Work Phone: [facility] 07-27-2022 07:53-0400 SaO2% (BldA) [Mass fraction] 97 % Amadeo Mcdonnell MD Work Phone: [facility] 07-08-2022 09:33-0400 Body temperature 96.91 [degF] Rachel Alas APRN.SHAKER REPAIRER Work Phone: [facility] 07-08-2022 09:33-0400 Body weight 61.69 kg Rachel Alas APRN.SHAKER REPAIRER Work Phone: [facility] 07-08-2022 09:33-0400 Diastolic blood pressure 82 mm[Hg] Rachel Alas APRN.SHAKER REPAIRER Work Phone: [facility] 07-08-2022 09:33-0400 Heart rate 82 /min Rachel Alas APRN.SHAKER REPAIRER Work Phone: [facility] 07-08-2022 09:33-0400 Respiratory rate 16 /min Rachel Alas APRN.SHAKER REPAIRER Work Phone: [facility] 07-08-2022 09:33-0400 SaO2% (BldA) [Mass fraction] 97 % Rachel Alas APRN.SHAKER REPAIRER Work Phone: [facility] 07-08-2022 09:33-0400 Systolic blood pressure 122 mm[Hg] Rachel Alas APRN.SHAKER REPAIRER Work Phone: [facility] 04-30-2022 09:44-0400 Body weight 61.69 kg Ayan Layne MD Work Phone: [facility] 04-30-2022 09:44-0400 Diastolic blood pressure 80 mm[Hg] Ayan Layne MD Work Phone: [facility] 04-30-2022 09:44-0400 Heart rate 68 /min Ayan Layne MD Work Phone: [facility] 04-30-2022 09:44-0400 Systolic blood pressure 148 mm[Hg] Ayan Layne MD Work Phone: [facility] Encounters Encounter Date Encounter Type Care Provider Facility Start: 08-27-2025 End: 08-27-2025 ambulatory KEITH L ROMERO Facility:[facility] Start: 08-27-2025 End: 08-27-2025 ambulatory KEITH L ROMERO Facility:[facility] Start: 08-23-2025 End: 08-23-2025 ambulatory KEITH L ROMERO Facility:[facility] Start: 08-04-2025 End: 08-04-2025 ambulatory KEITH L ROMERO Facility:[facility] Start: 07-17-2025 End: 07-17-2025 ambulatory KEITH L ROMERO Facility:[facility] Start: 06-15-2025 End: 06-16-2025 Follow-up encounter Josee Li APRN.SHAKER REPAIRER Work Phone: [facility] [place] Comment on above: mamm results Start: 06-15-2025 ambulatory JOSEE PODLOGRAVIN Facility :[facility] Start: 06-15-2025 End: 06-15-2025 Subsequent hospital visit by physician Screen Mammo [facility] Mammogram Start: 05-19-2025 End: 05-19-2025 Refill Paresh Ngo MD Work Phone: Cardiology Comment on above: Refill Request Start: 04-19-2025 End: 04-20-2025 Telephone encounter Keith Romero DO Work Phone: [facility] [place] Comment on above: Orders Start: 03-16-2025 End: 03-16-[address] Keith Romero DO Work Phone: -Physical Therapy Start: 03-16-2025 End: 03-16-[address] Keith Romero DO -Physical Therapy Work Phone: Start: 03-01-2025 End: 03-01-2025 Patient encounter procedure Paresh Ngo MD Work Phone: Cardiology Comment on above: SVT (supraventricula r tachycardia) (HCC), paroxysmal, nonsustained (Primary Dx) Start: 03-01-2025 End: 03-01-2025 ambulatory KEITH ROMERO Facility:[facility] Start: 02-23-2025 End: 02-23-2025 Patient encounter procedure Keith Romero DO Work Phone: [facility] [place] Comment on above: Balance disorder (Pr imary Dx); Fall, initial encounter; Hyperlipidemia, mixed; Age-related osteoporosis without current pathological fracture; Vitamin D deficiency; Hypothyroidism, acquired; Vitamin B12 deficiency Start: 02-23-2025 End: 02-23-2025 ambulatory KEITH ROMERO Facility:[facility] Start: 02-18-2025 End: 02-18-2025 ambulatory KEITH ROMERO Facility:[facility] Start: 02-16-2025 End: 02-16-2025 Telephone encounter Keith Romero DO Work Phone: [facility] [place] Comment on above: Lab Orders Start: 01-06-2025 End: 01-08-2025 Telephone encounter Keith Mata Romero DO Work Phone: [facility] [place] Comment on above: Orders Start: 08-07-2024 End: 08-07-2024 Telephone encounter Keith August Romero DO Work Phone: [facility] [place] Comment on above: Results Start: 08-05-2024 End: 08-05-2024 Patient encounter procedure Nicholas Leone MD Work Phone: General Surgery Comment on above: Hemorrhoids, unspeci fied hemorrhoid type (Primary Dx) Start: 08-04-2024 End: 08-04-2024 Telephone encounter Keith Romero DO Work Phone: [facility] [place] Comment on above: Results Start: 07-17-2024 End: 07-17-2024 Patient encounter procedure Nicholas Leone MD Work Phone: General Surgery Comment on above: Hemorrhoids, unspeci fied hemorrhoid type (Primary Dx) Start: 07-01-2024 End: 07-02-2024 Telephone encounter Keith Rosasrison Work Phone: [facility] [place] Comment on above: Medication Question Start: 07-01-2024 End: 07-01-2024 Patient encounter procedure Keith Rosasrison Work Phone: [facility] [place] Comment on above: Medicare annual well ness visit, subsequent (Primary Dx); Hemorrhoids, unspecified hemorrhoid type; Hypothyroidism, acquired; Age-related osteoporosis without current pathological fracture; Need for pneumococcal 20-valent conjugate vaccination; Skin lesion of face; Hyperlipidemia, mixed; Spinal stenosis of thoracolumbar region Hemorrhoids, unspeci fied hemorrhoid type (Primary Dx) Start: 06-23-2024 End: 06-23-2024 Telephone encounter Keith Tysonon Work Phone: [facility] [place] Comment on above: Lab Orders Start: 06-17-2024 End: 06-18-2024 Telephone encounter Dionne Means APRN.CNP Work Phone: [facility] [place] Comment on above: Results Start: 06-12-2024 End: 06-15-2024 Documentation procedure Mammography Coordinator [facility] Department Start: 06-12-2024 End: 06-15-2024 Letter encounter Mammography Coordinator [facility] Department Start: 06-11-2024 End: 06-11-2024 Subsequent hospital visit by physician Bone Density [facility] Work Phone: Radiology Comment on above: Age-related osteopor osis without current pathological fracture [M81.0] Encounter for screen ing mammogram for malignant neoplasm of breast [Z12.31] Start: 05-19-2024 End: 05-19-2024 Patient encounter procedure Nicholas Leone MD Work Phone: General Surgery Comment on above: Hemorrhoids, unspeci fied hemorrhoid type (Primary Dx) Start: 05-15-2024 End: 05-15-2024 Patient encounter procedure Nicholas Leone MD Work Phone: General Surgery Comment on above: Hemorrhoids, unspeci fied hemorrhoid type Start: 05-13-2024 ambulatory Keith Rosasdiony lau DO Work Phone: [facility] [place] Comment on above: Rectal Problem Start: 05-13-2024 Telephone encounter Johanna lau EMPLOYEE'S REPRESENTATIVE.SHAKER REPAIRER Work Phone: [facility] [place] Comment on above: Medication Problem Start: 05-13-2024 End: 05-13-2024 Patient encounter procedure Johanna Roblero EMPLOYEE'S REPRESENTATIVE.SHAKER REPAIRER Work Phone: [facility] [place] Comment on above: Hemorrhoids, unspeci fied hemorrhoid type (Primary Dx) Start: 05-11-2024 End: 05-11-2024 Patient encounter procedure Paresh Ngo MD Work Phone: Cardiology Comment on above: Screening for ischem ic heart disease (Primary Dx); SVT (supraventricular tachycardia) (HCC); SVT (supraventricular tachycardia) (HCC), paroxysmal, nonsustained Start: 04-08-2024 Telephone encounter Keith knight DO Work Phone: [facility] [place] Start: 04-06-2024 Refill Keith lau DO Work Phone: [facility] [place] Comment on above: Refill Request Start: 03-05-2024 Refill Keith lau DO Work Phone: [facility] [place] Comment on above: Refill Request Start: 02-25-2024 Telephone encounter Keith knight DO Work Phone: [facility] [place] Comment on above: Orders Results Start: 02-18-2024 Telephone encounter Keith knight DO Work Phone: [facility] [place] Comment on above: Lab Orders; Orders ( Mammogram Screening) Start: 09-18-2023 Refill Keith lau DO Work Phone: [facility] [place] Comment on above: Refill Request Start: 07-03-2023 Telephone encounter Keith knight DO Work Phone: [facility] [place] Comment on above: Results Patient Question Start: 06-12-2023 Telephone encounter Keith knight DO Work Phone: [facility] [place] Start: 06-10-2023 Documentation procedure Mammog compa Coordinator [facility] Start: 06-10-2023 Letter encounter Mammography Coordinator [facility] Department Start: 06-10-2023 End: 06-10-2023 Subsequent hospital visit by physician Screen Mammo [facility] Mammogram Comment on above: Encounter for screen ing mammogram for malignant neoplasm of breast [Z12.31] Start: 04-02-2023 Telephone encounter Keith knight DO Work Phone: [facility] [place] Comment on above: Results Start: 03-25-2023 End: 03-25-2023 Patient encounter procedure Adeel Mendez MD Work Phone: Orthopaedics Comment on above: Right hand pain (Brittney aviva Dx) Start: 03-25-2023 End: 03-25-2023 Subsequent hospital visit by physician Jose [facility] [place] Work Phone: Radiology Comment on above: Pain [R52] Start: 02-25-2023 End: 05-08-2023 Patient encounter procedure Keith Romero DO Work Phone: [facility] [place] Comment on above: SVT (supraventricula r tachycardia) (HCC), paroxysmal, nonsustained (Primary Dx); Age-related osteoporosis without current pathological fracture; Hypothyroidism, acquired; Anemia, unspecified type; Acute renal failure superimposed on stage 3a chronic kidney disease, unspecified acute renal failure type (HCC); Hyperlipidemia, mixed; Advance care planning Start: 02-12-2023 Telephone encounter Ayan Lobo MD Work Phone: Cardiology Comment on above: Received Outside Med ical Records Start: 02-06-2023 Telephone encounter Keith Mata knight DO Work Phone: [facility] [place] Comment on above: Patient Update Start: 11-07-2022 Refill Keith lau DO Work Phone: [facility] [place] Comment on above: Refill Request Start: 08-08-2022 ambulatory No Pcp (Historical) Ref erring Physician Start: 07-27-2022 End: 07-27-2022 Patient encounter procedure Amadeo Mcdonnell MD Work Phone: Pain Management Comment on above: Spasm of cervical pa raspinous muscle (Primary Dx); Cervical spondylosis; DDD (degenerative disc disease), cervical Start: 07-23-2022 End: 07-23-2022 Nursing evaluation of patient and report Mi Nurse Work Phone: [facility] [place] Comment on above: Need for vaccination (Primary Dx); Need for influenza vaccination Start: 07-20-2022 Telephone encounter Kassi kemp EMPLOYEE'S REPRESENTATIVE.SHAKER REPAIRER Work Phone: [facility] [place] Comment on above: Results (Labs ) Start: 07-09-2022 End: 07-09-2022 Subsequent hospital visit by physician Jose [facility] [place] Work Phone: Radiology Comment on above: Pain [R52] Start: 07-08-2022 End: 07-08-2022 Patient encounter procedure Rachel Alas APRN.SHAKER REPAIRER Work Phone: [facility] Comment on above: Pain (Primary Dx) Start: 06-22-2022 Telephone encounter Katherine pollard APRN.SHAKER REPAIRER Work Phone: Family [facility] [place] Comment on above: Results Start: 06-06-2022 Documentation procedure Mammog compa Coordinator [facility] Start: 06-06-2022 Letter encounter Mammography Coordinator [facility] Department Start: 06-06-2022 End: 06-06-2022 Subsequent hospital visit by physician Screen Mammo [facility] Comment on above: Visit for screening mammogram [Z12.31] Start: 04-30-2022 End: 04-30-2022 Patient encounter procedure Ayan Layne MD Work Phone: Cardiology Comment on above: SVT (supraventricula r tachycardia) (HCC), paroxysmal, nonsustained (Primary Dx); Syncope, unspecified syncope type Start: 04-27-2022 Telephone encounter Kathernie pollard APRN.SHAKER REPAIRER Work Phone: Family [facility] [place] Comment on above: Results Start: 02-20-2022 Chart abstracting Keith rodriguez DO Work Phone: [facility] [place] Start: 04-15-2018 Patient encounter procedure KEITH ROMERO [facility] Work Phone: Procedures Date Procedure Procedure Detail Performing Clinician Start: 06-15-2025 Screening digital br east tomosynthesis bi Josee Podlogar EMPLOYEE'S REPRESENTATIVE.SHAKER REPAIRER Work Phone: Start: 05-11-2024 Ecg routine ecg w/le ast 12 lds i&r only [facility] Provider Start: 06-10-2023 Screening mammograph y bi 2-view breast inc cad Braxton Locke PA-C Work Phone: Start: 03-25-2023 Radex hand minimum 3 views Adeel Mendez MD Work Phone: Start: 07-23-2022 INFLUENZA SEASONAL QUADRIVALENT HIGH DOSE AGE 65+ Keith Romero DO Work Phone: Start: 07-23-2022 [id number] COVI D-19 BIVALENT BOOSTER VACCINE, AGE 12+ YR Keith Romero DO Work Phone: Start: 07-09-2022 Radex spine cervical 4 or 5 views Rachel Alas APRN.SHAKER REPAIRER Work Phone: Start: 06-06-2022 Screening mammograph y bi 2-view breast inc cad Katherine Ceron MARIAH.TEJ Work Phone: Plan of Treatment Date Care Activity Detail Author Start: 02-19-2028 Diabetes Screening Diabetes Screenid g [facility] Start: 06-24-2027 Diabetes Screening Diabetes Screenid g [facility] Start: 02-18-2027 Diabetes Screening Diabetes Screenid g [facility] Start: 06-11-2026 Screening for osteoporosis Bone Dens ity Screening [facility] Start: 02-25-2026 DIABETES SCREEN DIABETES SCREEN [facility] Start: 02-25-2026 Diabetes Screening Diabetes Screenid g [facility] Start: 02-04-2026 DIABETES SCREEN DIABETES SCREEN [facility] Start: 10-11-2025 End: 10-11-2025 Patient encounter procedure 10/11/2025 9:20 AM EST Office Visit Cardiology [address] [place] [address] Paresh Ngo MD [address], [address] [place], [place] [id number] 6 month follow up Cardiology Comment on above: 6 month follow up Start: 08-30-2025 End: 08-30-2025 Patient encounter procedure 08/30/2025 9:00 AM EST Office Visit Cardiology [address] [place] [address] Paresh Ngo MD [address], [address] [place] [address] 6 month follow up Cardiology Comment on above: 6 month follow up Start: 08-27-2025 End: 08-27-2025 Patient encounter procedure 08/27/2025 9:00 AM EST Office Visit Family [facility] [place] [address] [place], [place] [id number] Keith Romero, [address] [place] [address] Physical Family Medicine [place] Comment on above: Physical Start: 07-01-2025 Medicare Annual Well ness Visit Medicare Annual Wellness Visit [facility] Start: 06-22-2025 DIABETES SCREEN DIABETES SCREEN [facility] Start: 06-21-2025 Influenza vaccination Influenza Vacc ine (#1) [facility] Start: 06-15-2025 End: 06-15-2025 Patient encounter procedure 06/15/2025 9:30 AM EDT Appointment Mammogram [address] [place] [address] Mammogram Start: 04-25-2025 DIABETES SCREEN DIABETES SCREEN [facility] Start: 03-01-2025 End: 03-01-2025 Patient encounter procedure Cardiology Comment on above: 1yr follow up Start: 02-23-2025 End: 02-23-2025 Patient encounter procedure 02/23/2025 7:40 AM EDT Office Visit Family [facility] [place] [address] [place] [address] Keith Romero DO [address] [facility] [place] [address] 6 month follow up [facility] [place] Comment on above: 6 month follow up Start: 02-18-2025 End: 02-18-2025 ambulatory 02/18/2025 7:15 AM EDT Results Only [facility] Station [address] [place] [address] [place] [facility] Start: 02-16-2025 End: 05-18-2025 CBC panel - Blood by Automated count COMPLETE BLOOD COUNT Lab Routine Hypothyroidism, acquired Expected: 02/16/2025, Expires: 05/18/2025 [facility] Comment on above: Expected: 02/16/2025 , Expires: 05/18/2025 Start: 02-16-2025 End: 05-18-2025 Comprehensive metabolic 2000 panel - Serum or Plasma COMPREHENSIVE METABOLIC PANEL Lab Routine Hyperlipidemia, unspecified hyperlipidemia type Expected: 02/16/2025, Expires: 05/18/2025 [facility] Comment on above: Expected: 02/16/2025 , Expires: 05/18/2025 Start: 02-16-2025 End: 05-18-2025 Lipid 1996 panel - Serum or Plasma LIPID PANEL, FASTING Lab Routine Hyperlipidemia, unspecified hyperlipidemia type Expected: 02/16/2025, Expires: 05/18/2025 [facility] Comment on above: Expected: 02/16/2025 , Expires: 05/18/2025 Start: 02-16-2025 End: 05-18-2025 Thyrotropin [Units/volume] in Serum or Plasma THYROID STIMULATING HORMONE Lab Routine Hypothyroidism, acquired Expected: 02/16/2025, Expires: 05/18/2025 [facility] Work Phone: Comment on above: Expected: 02/16/2025 , Expires: 05/18/2025 Start: 02-16-2025 End: 05-18-2025 Thyroxine (T4) free [Mass/volume] in Serum or Plasma T4 FREE/FREE THYROXINE Lab Routine Hypothyroidism, acquired Expected: 02/16/2025, Expires: 05/18/2025 [facility] Comment on above: Expected: 02/16/2025 , Expires: 05/18/2025 Start: 12-26-2024 Covid-19 Vaccine ( season) Covid-19 Vaccine () [facility] Start: 12-26-2024 Covid-19 Vaccine ( season) Covid-19 Vaccine () [facility] Start: 08-05-2024 End: 08-05-2024 Patient encounter procedure 08/05/2024 2:00 PM EDT Office Visit General Surgery [address] [place] [address] Nicholas Leone MD [address] [address] hemorrhoid banding General Surgery Comment on above: hemorrhoid banding Start: 07-31-2024 End: 10-30-2024 Thyrotropin [Units/volume] in Serum or Plasma THYROID STIMULATING HORMONE Lab Routine Hypothyroidism, acquired Expected: 07/31/2024, Expires: 10/30/2024 [facility] Work Phone: Comment on above: Expected: 07/31/2024 , Expires: 10/30/2024 Start: 07-31-2024 End: 10-30-2024 Thyroxine (T4) free [Mass/volume] in Serum or Plasma T4 FREE/FREE THYROXINE Lab Routine Hypothyroidism, acquired Expected: 07/31/2024, Expires: 10/30/2024 [facility] Comment on above: Expected: 07/31/2024 , Expires: 10/30/2024 Start: 07-17-2024 End: 07-17-2024 Patient encounter procedure 07/17/2024 3:15 PM EDT Office Visit General Surgery [address] [place] [address] Nicholas Leone MD [address] [phone] Hemorrhoid banding General Surgery Comment on above: Hemorrhoid banding Start: 07-01-2024 End: 07-01-2024 Patient encounter procedure [facility] [place] Comment on above: Annual Wellness banding follow up Start: 06-23-2024 End: 09-22-2024 25-hydroxyvitamin D3 [Mass/volume] in Serum or Plasma VITAMIN D 25 HYDROXY Lab Routine Age-related osteoporosis without current pathological fracture Expected: 06/23/2024, Expires: 09/22/2024 [facility] Comment on above: Expected: 06/23/2024 , Expires: 09/22/2024 Start: 06-23-2024 End: 09-22-2024 CBC W Auto Differential panel - Blood COMPLETE BLOOD COUNT AND DIFFERENTIAL Lab Routine Anemia, unspecified type Expected: 06/23/2024, Expires: 09/22/2024 [facility] Work Phone: Comment on above: Expected: 06/23/2024 , Expires: 09/22/2024 Start: 06-23-2024 End: 09-22-2024 Cobalamin (Vitamin B12) [Mass/volume] in Serum or Plasma VITAMIN B12 Lab Routine Anemia, unspecified type Expected: 06/23/2024, Expires: 09/22/2024 [facility] Comment on above: Expected: 06/23/2024 , Expires: 09/22/2024 Start: 06-23-2024 End: 09-22-2024 Comprehensive metabolic 2000 panel - Serum or Plasma COMPREHENSIVE METABOLIC PANEL Lab Routine Hyperlipidemia, unspecified hyperlipidemia type Expected: 06/23/2024, Expires: 09/22/2024 [facility] Comment on above: Expected: 06/23/2024 , Expires: 09/22/2024 Start: 06-23-2024 End: 09-22-2024 Lipid 1996 panel - Serum or Plasma LIPID PANEL BASIC Lab Routine Hyperlipidemia, unspecified hyperlipidemia type Expected: 06/23/2024, Expires: 09/22/2024 [facility] Comment on above: Expected: 06/23/2024 , Expires: 09/22/2024 Start: 06-23-2024 End: 09-22-2024 Thyrotropin [Units/volume] in Serum or Plasma THYROID STIMULATING HORMONE Lab Routine Hypothyroidism, acquired Expected: 06/23/2024, Expires: 09/22/2024 [facility] Comment on above: Expected: 06/23/2024 , Expires: 09/22/2024 Start: 06-23-2024 End: 09-22-2024 Thyroxine (T4) free [Mass/volume] in Serum or Plasma T4 FREE/FREE THYROXINE Lab Routine Hypothyroidism, acquired Expected: 06/23/2024, Expires: 09/22/2024 [facility] Comment on above: Expected: 06/23/2024 , Expires: 09/22/2024 Start: 06-23-2024 End: 09-22-2024 Triiodothyronine (T3) Free [Mass/volume] in Serum or Plasma T3, FREE Lab Routine Hypothyroidism, acquired Expected: 06/23/2024, Expires: 09/22/2024 [facility] Comment on above: Expected: 06/23/2024 , Expires: 09/22/2024 Start: 06-21-2024 Influenza vaccination Influenza Vacc ine (#1) [facility] Start: 06-11-2024 End: 06-11-2024 Patient encounter procedure Mammogram Comment on above: ANTONIO SCREENING DXA-AXIAL SKELETON Start: 05-15-2024 End: 05-15-2024 Patient encounter procedure 05/15/2024 12:30 PM EDT Office Visit General Surgery [address] [place] [address] Nicholas Leone MD [address] [id number] Hemorrhoids, unspecified hemorrhoid type [K64.9] General Surgery Comment on above: Hemorrhoids, unspeci fied hemorrhoid type [K64.9] Start: 05-11-2024 End: 05-07-2025 ECG COMPLETE [facility] Work Phone: Comment on above: Expected: 05/11/2024 , Expires: 05/07/2025 Start: 05-11-2024 End: 05-11-2024 Patient encounter procedure 05/11/2024 10:20 AM EDT Office Visit Cardiology [address] [place] [id number] Paresh Ngo MD [address] [facility], [address] [place], [place] [phone] est care Cardiology Comment on above: est care Start: 05-06-2024 Covid-19 Vaccine () Covid-19 Vaccine () [facility] Start: 04-19-2024 DIABETES SCREEN DIABETES SCREEN [facility] Start: 03-27-2024 End: 06-26-2024 Thyroxine (T4) free [Mass/volume] in Serum or Plasma T4 FREE/FREE THYROXINE Lab Routine Hypothyroidism, acquired Expected: 03/27/2024, Expires: 06/26/2024 [facility] Comment on above: Expected: 03/27/2024 , Expires: 06/26/2024 Start: 02-25-2024 End: 05-26-2024 Thyrotropin [Units/volume] in Serum or Plasma THYROID STIMULATING HORMONE Lab Routine Hypothyroidism, acquired Expected: 02/25/2024, Expires: 05/26/2024 [facility] Work Phone: Comment on above: Expected: 02/25/2024 , Expires: 05/26/2024 Start: 02-25-2024 End: 05-26-2024 Triiodothyronine (T3) Free [Mass/volume] in Serum or Plasma T3, FREE Lab Routine Hypothyroidism, acquired Expected: 02/25/2024, Expires: 05/26/2024 [facility] Comment on above: Expected: 02/25/2024 , Expires: 05/26/2024 Start: 02-19-2024 End: 02-19-2024 ambulatory 02/19/2024 8:45 AM EDT Results Only [facility] [address] [place] [address] [place] [facility] Start: 02-18-2024 End: 05-19-2024 25-hydroxyvitamin D3 [Mass/volume] in Serum or Plasma VITAMIN D 25 HYDROXY Lab Routine Age-related osteoporosis without current pathological fracture Expected: 02/18/2024, Expires: 05/19/2024 [facility] Comment on above: Expected: 02/18/2024 , Expires: 05/19/2024 Start: 02-18-2024 End: 05-19-2024 CBC W Auto Differential panel - Blood COMPLETE BLOOD COUNT AND DIFFERENTIAL Lab Routine Anemia, unspecified type Expected: 02/18/2024, Expires: 05/19/2024 [facility] Work Phone: Comment on above: Expected: 02/18/2024 , Expires: 05/19/2024 Start: 02-18-2024 End: 05-19-2024 Cobalamin (Vitamin B12) [Mass/volume] in Serum or Plasma VITAMIN B12 Lab Routine Anemia, unspecified type Expected: 02/18/2024, Expires: 05/19/2024 [facility] Comment on above: Expected: 02/18/2024 , Expires: 05/19/2024 Start: 02-18-2024 End: 05-19-2024 Comprehensive metabolic 2000 panel - Serum or Plasma COMPREHENSIVE METABOLIC PANEL Lab Routine Hyperlipidemia, unspecified hyperlipidemia type Expected: 02/18/2024, Expires: 05/19/2024 [facility] Comment on above: Expected: 02/18/2024 , Expires: 05/19/2024 Start: 02-18-2024 End: 05-19-2024 Lipid 1996 panel - Serum or Plasma LIPID PANEL BASIC Lab Routine Hyperlipidemia, unspecified hyperlipidemia type Expected: 02/18/2024, Expires: 05/19/2024 [facility] Comment on above: Expected: 02/18/2024 , Expires: 05/19/2024 Start: 02-18-2024 End: 05-19-2024 Thyrotropin [Units/volume] in Serum or Plasma THYROID STIMULATING HORMONE Lab Routine Hypothyroidism, acquired Expected: 02/18/2024, Expires: 05/19/2024 [facility] Comment on above: Expected: 02/18/2024 , Expires: 05/19/2024 Start: 02-18-2024 End: 05-19-2024 Thyroxine (T4) free [Mass/volume] in Serum or Plasma T4 FREE/FREE THYROXINE Lab Routine Hypothyroidism, acquired Expected: 02/18/2024, Expires: 05/19/2024 [facility] Comment on above: Expected: 02/18/2024 , Expires: 05/19/2024 Start: 02-18-2024 End: 05-19-2024 Triiodothyronine (T3) Free [Mass/volume] in Serum or Plasma T3, FREE Lab Routine Hypothyroidism, acquired Expected: 02/18/2024, Expires: 05/19/2024 [facility] Comment on above: Expected: 02/18/2024 , Expires: 05/19/2024 Start: 10-21-2023 Behavioral Health Screening Behavioral Health Screening [facility] Start: 07-19-2023 Screening for osteoporosis Bone Dens ity Screening [facility] Start: 06-21-2023 Covid-19 Vaccine () Covid-19 Vaccine () [facility] Start: 06-21-2023 Influenza vaccination C [facility] Start: 06-02-2023 End: 08-02-2023 Thyrotropin [Units/volume] in Serum or Plasma TSH BLD Lab Routine Hypothyroidism, acquired Expected: 06/02/2023, Expires: 08/02/2023 [facility] Work Phone: Comment on above: Expected: 06/02/2023 , Expires: 08/02/2023 Start: 06-02-2023 End: 08-02-2023 Thyroxine (T4) free [Mass/volume] in Serum or Plasma T4 FREE/FREE THYROX Lab Routine Hypothyroidism, acquired Expected: 06/02/2023, Expires: 08/02/2023 [facility] Work Phone: Comment on above: Expected: 06/02/2023 , Expires: 08/02/2023 Start: 03-28-2023 End: 05-28-2023 Thyrotropin [Units/volume] in Serum or Plasma TSH BLD Lab Routine Hypothyroidism, acquired Expected: 03/28/2023, Expires: 05/28/2023 [facility] Work Phone: Comment on above: Expected: 03/28/2023 , Expires: 05/28/2023 Start: 03-28-2023 End: 05-28-2023 Thyroxine (T4) free [Mass/volume] in Serum or Plasma T4 FREE/FREE THYROX Lab Routine Hypothyroidism, acquired Expected: 03/28/2023, Expires: 05/28/2023 [facility] Work Phone: Comment on above: Expected: 03/28/2023 , Expires: 05/28/2023 Start: 02-25-2023 End: 04-27-2023 CBC W Auto Differential panel - Blood [facility] Work Phone: Comment on above: Expected: 02/25/2023 , Expires: 04/27/2023 Start: 02-25-2023 End: 04-27-2023 Cobalamin (Vitamin B12) [Mass/volume] in Serum or Plasma [facility] Work Phone: Comment on above: Expected: 02/25/2023 , Expires: 04/27/2023 Start: 02-25-2023 End: 04-27-2023 Comprehensive metabolic 2000 panel - Serum or Plasma [facility] Work Phone: Comment on above: Expected: 02/25/2023 , Expires: 04/27/2023 Start: 02-25-2023 End: 04-27-2023 Ferritin [Mass/volume] in Serum or Plasma [facility] Work Phone: Comment on above: Expected: 02/25/2023 , Expires: 04/27/2023 Start: 02-25-2023 End: 04-27-2023 Iron and Iron binding capacity panel - Serum or Plasma [facility] Work Phone: Comment on above: Expected: 02/25/2023 , Expires: 04/27/2023 Start: 02-25-2023 End: 04-27-2023 Thyrotropin [Units/volume] in Serum or Plasma [facility] Work Phone: Comment on above: Expected: 02/25/2023 , Expires: 04/27/2023 Start: 02-25-2023 End: 04-27-2023 Thyroxine (T4) free [Mass/volume] in Serum or Plasma [facility] Work Phone: Comment on above: Expected: 02/25/2023 , Expires: 04/27/2023 Start: 11-23-2022 COVID-19 VACCINE (6 - Pfizer series) COVID-19 VACCINE (6 - Pfizer series) [facility] Start: 10-21-2022 ADVANCE DIRECTIVE DISCUSSION ADVANCE DIRECTIVE DISCUSSION [facility] Start: 10-21-2022 DEPRESSION ASSESSMENT DEPRESSION ASS ESSMENT [facility] Start: 08-03-2022 End: 06-22-2023 Thyrotropin [Units/volume] in Serum or Plasma TSH BLD Lab Routine Hypothyroidism, acquired Expected: 08/03/2022, Expires: 06/22/2023 [facility] Work Phone: Comment on above: Expected: 08/03/2022 , Expires: 06/22/2023 Start: 08-03-2022 End: 06-22-2023 Thyroxine (T4) free [Mass/volume] in Serum or Plasma T4 FREE/FREE THYROX Lab Routine Hypothyroidism, acquired Expected: 08/03/2022, Expires: 06/22/2023 [facility] Work Phone: Comment on above: Expected: 08/03/2022 , Expires: 06/22/2023 Start: 07-09-2022 End: 08-07-2023 Radex spine cervical 4 or 5 views XR CERV OTHER 4V AP/LAT/OBL Radiology STAT Pain Expected: 07/09/2022, Expires: 08/07/2023 [facility] Work Phone: Comment on above: Expected: 07/09/2022 , Expires: 08/07/2023 Start: 07-09-2022 End: 08-07-2023 Radex spine thoracic 2 views XR THORACIC LIMITED 2V AP/LAT Radiology STAT Pain Expected: 07/09/2022, Expires: 08/07/2023 [facility] Work Phone: Comment on above: Expected: 07/09/2022 , Expires: 08/07/2023 Start: 06-21-2022 Influenza vaccination INFLUENZA (#1) [facility] Start: 06-08-2022 End: 04-27-2023 Basic metabolic 2000 panel - Serum or Plasma BASIC METABOLIC PNL Lab Routine Stage 3b chronic kidney disease (HCC) Expected: 06/08/2022 (Approximate), Expires: 04/27/2023 [facility] Work Phone: Comment on above: Expected: 06/08/2022 (Approximate), Expires: 04/27/2023 Start: 06-08-2022 End: 04-27-2023 Thyrotropin [Units/volume] in Serum or Plasma TSH BLD Lab Routine Hypothyroidism, acquired Expected: 06/08/2022, Expires: 04/27/2023 [facility] Work Phone: Comment on above: Expected: 06/08/2022 , Expires: 04/27/2023 Start: 06-08-2022 End: 04-27-2023 Thyroxine (T4) free [Mass/volume] in Serum or Plasma T4 FREE/FREE THYROX Lab Routine Hypothyroidism, acquired Expected: 06/08/2022, Expires: 04/27/2023 [facility] Work Phone: Comment on above: Expected: 06/08/2022 , Expires: 04/27/2023 Start: 04-16-2022 COVID-19 VACCINE (5 - Booster for Pfizer series) COVID-19 VACCINE (5 - Booster for Pfizer series) [facility] Start: 10-21-2021 ADVANCE DIRECTIVE DISCUSSION ADVANCE DIRECTIVE DISCUSSION [facility] Start: 10-21-2021 DEPRESSION ASSESSMENT DEPRESSION ASS ESSMENT [facility] Start: 05-21-2021 Urine microalbumin profile [facility] Start: 1998 RSV Vaccine (1 - 1-d ose 60+ series) RSV Vaccine (1 - 1-dose 60+ series) [facility] Start: 1956 Anxiety Screening Anxiety Screening [facility] Start: 1958 Depression Screening Depression Scre ening [facility] End: 03-26-2025 DXA Skeletal system.axial Views for bone density DXA-AXIAL SKELETON Radiology Routine Age-related osteoporosis without current pathological fracture 1 Occurrences starting 02/25/2024 until 03/26/2025 [facility] Work Phone: Comment on above: 1 Occurrences starti ng 02/25/2024 until 03/26/2025 DXA Skeletal system. axial Views for bone density DXA-AXIAL SKELETON Radiology Routine Age-related osteoporosis without current pathological fracture 06/11/2024 9:16 AM EDT [facility] Work Phone: End: 03-19-2025 MG Breast Screening ANTONIO SCREENING Radiology Routine Encounter for screening mammogram for malignant neoplasm of breast 1 Occurrences starting 02/18/2024 until 03/19/2025 [facility] Comment on above: 1 Occurrences starti ng 02/18/2024 until 03/19/2025 MG Breast Screening ANTONIO SCREENIN G Radiology Routine Encounter for screening mammogram for malignant neoplasm of breast 06/11/2024 8:22 AM EDT [facility] Work Phone: End: 05-19-2026 MG Breast Screening ANTONIO SCREENING Radiology Routine Screening mammogram for breast cancer 1 Occurrences starting 04/20/2025 until 05/19/2026 [facility] Work Phone: Comment on above: 1 Occurrences starti ng 04/20/2025 until 05/19/2026 [facility] Immunizations Immunization Date Immunization Notes Care Provider Nuno schwarz 07-01-2024 pneumococcal conjuga te (PCV20) vaccine, 20 valent (PREVNAR 20) Keith Romero DO Work Phone: [facility] 07-01-2024 pneumococcal Conjuga te, unspecified formulation Keith Romero DO Work Phone: [facility] 06-28-2024 COVID-19 vaccine, ag e 12+ yr (MODERNA) Keith Romero DO Work Phone: [facility] 06-28-2024 influenza, high dose seasonal, preservative-free Keith Romero DO Work Phone: [facility] 06-28-2024 influenza virus vacc ine, unspecified formulation Keith Romero DO Work Phone: [facility] 01-05-2024 COVID-19 vaccine, ag e 12+ yr, season ([facility] [employer]) Keith Romero DO Work Phone: [facility] 07-04-2023 influenza (HD-IIV4) vaccine, age 65+ yr, high dose, quadrivalent, PF (FLUZONE HIGH-DOSE) Keith Romero DO Work Phone: [facility] 07-04-2023 respiratory syncytia l virus (RSV) vaccine, adjuvanted (AREXVY) Keith Romero DO Work Phone: [facility] 07-04-2023 influenza virus vacc ine, unspecified formulation Paresh Ngo MD Work Phone: [facility] 07-23-2022 COVID-19 booster vaccine, age 12+ yr, bivalent (PFIZER-BIONTECH) Az Nurse Work Phone: [facility] Work Phone: 07-23-2022 influenza, high-dose , quadrivalent vaccine (FLUZONE HIGH DOSE QUADRIVALENT) Az Nurse Work Phone: [facility] Work Phone: 07-23-2022 influenza virus vacc ine, unspecified formulation Keith Romero DO Work Phone: [facility] 02-19-2022 COVID-19 vaccine, ag e 12+ yr (PFIZER-BIONTECH - LONGO TOP) Keith Romero DO Work Phone: [facility] Work Phone: 07-17-2021 COVID-19 vaccine, ag e 12+ yr (PFIZER-BIONTECH - PURPLE TOP) Keith Romero DO Work Phone: [facility] Work Phone: 06-27-2021 influenza, high dose seasonal, preservative-free Keith Romero DO Work Phone: [facility] Work Phone: 12-14-2020 COVID-19 vaccine, ag e 12+ yr (PFIZER-BIONTECH - PURPLE TOP) Keith Romero DO Work Phone: [facility] 10-29-2020 COVID-19 vaccine, ag e 12+ yr (PFIZER-BIONTECH - PURPLE TOP) Keith Romero DO Work Phone: [facility] 07-20-2020 influenza, high-dose , quadrivalent vaccine (FLUZONE HIGH DOSE QUADRIVALENT) Keith Romero DO Work Phone: [facility] 07-24-2019 influenza, high dose seasonal, preservative-free Keith Romero DO Work Phone: [facility] 07-11-2018 pneumococcal polysaccharide vaccine, 23 valent Keith Romero DO Work Phone: [facility] Work Phone: 07-02-2018 influenza, high dose seasonal, preservative-free Keith Romero DO Work Phone: [facility] 07-02-2018 zoster vaccine recombinant Keith Romero DO Work Phone: [facility] 04-17-2018 zoster vaccine recombinant Keith Romero DO Work Phone: [facility] 07-09-2017 influenza, seasonal, injectable Ekith Romero DO Work Phone: [facility] Work Phone: 07-06-2016 influenza, high dose seasonal, preservative-free Keith Romero DO Work Phone: [facility] Work Phone: 07-11-2015 pneumococcal conjuga te vaccine, 13 valent Keith Romero DO Work Phone: [facility] Work Phone: 07-05-2015 influenza, high dose seasonal, preservative-free Keith Romero DO Work Phone: [facility] 07-19-2013 influenza virus vacc ine, unspecified formulation Keith Romero DO Work Phone: [facility] Work Phone: 07-19-2012 influenza virus vacc ine, unspecified formulation Keith Romero DO Work Phone: [facility] Work Phone: 05-21-2011 tetanus and diphther ia toxoids, not adsorbed, for adult use Keith Romero DO Work Phone: [facility] Work Phone: 07-06-2010 influenza virus vacc ine, unspecified formulation Keith Romero DO Work Phone: [facility] Work Phone: 08-18-2007 influenza virus vacc ine, unspecified formulation Keith Romero DO Work Phone: [facility] Work Phone: 06-19-2006 zoster vaccine, live Keith Romero DO Work Phone: [facility] Work Phone: 06-04-2006 diphtheria, tetanus toxoids and acellular pertussis vaccine Keith Romero DO Work Phone: [facility] 10-21-2004 pneumococcal polysaccharide vaccine, 23 valent Keith Romero DO Work Phone: [facility] Work Phone: Payers Date Payer Category Payer Self-pay 2017 Private Health Insurance [facility] [id number] 2017 Unknown [employer]IC[employer] SUPPLEMENT [id number] 2017-Present [phone] [id number] [place] [id number] Indemnity [id number] 2017 Unknown [employer]IC[employer] SUPPLEMENT [id number] 2017-Present [phone] [id number] [employer] [place], [place] [id number] Indemnity [id number] 2017 Unknown [id number] 2003 Medicare MEDICARE MEDICAR E A AND B [id number] 2003-Present [phone] [place] [address] Medicare [id number] 2003 Medicare [id number] 2003 Medicare [id number] Unknown [id number] Social History Date Type Detail Facility Start: 07-20-2011 End: 07-08-2022 Tobacco smoking status LAIS Never smoked tobacco [facility] Work Phone: Start: 06-22-2021 End: 03-01-2025 Alcohol intake Current drinker of alcohol (finding) [facility] Start: 06-22-2021 End: 02-21-2023 Alcohol intake [facility] Start: 04-19-2021 End: 02-18-2023 History SDOH Alcohol Frequency 4 [facility] Start: 04-19-2021 End: 02-18-2023 History SDOH Alcohol Std Drinks 1 [facility] Start: 05-05-2018 History SDOH Alcohol Comment daily [facility] Start: 04-19-2021 End: 02-18-2023 History SDOH Social Connections Phone 5 [facility] Start: 04-19-2021 End: 02-18-2023 History SDOH Social Connections Get Together 3 [facility] Start: 04-19-2021 History SDOH Social Connections Rastafari 98 [facility] Start: 04-19-2021 End: 02-18-2023 History SDOH Transport Med 2 [facility] Start: 04-19-2021 Education 17 [facility] Start: 1940 Sex Assigned At Female C [facility] Start: 04-20-2022 End: 07-23-2022 Exposure to SARS-CoV-2 (event) Not sure [facility] Start: 07-20-2011 End: 07-08-2022 Tobacco use and exposure Smokeless tobacco non-user [facility] Start: 02-18-2023 History SDOH Physica l Activity DPW 0 [facility] Start: 03-25-2023 Alcohol Comment few times a week [facility] Start: 02-18-2023 End: 02-21-2023 Social connection and isolation panel [facility] Start: 09-21-2012 Active Member of Clu bs or Organizations Not on file [facility] Are you now , , , , never or living with a partner? [facility] How often to you hav e a drink containing alcohol? 2-3 time sa week [facility] How many standard dr inks containing alcohol do you have on a typical day? 1 or 2 [facility] How often do you hav e 6 or more drinks on 1 occasion? Never [facility] Do you feel stress - tense, restless, nervous, or anxious, or unable to sleep at night because your mind is troubled all the time - these days [OSQ] Not at all [facility] (I/We) worried ed er (my/our) food would run out before (I/we) got money to buy more. Never true [facility] In the past 12 month s, was there a time when you were not able to pay the mortgage or rent on time? No [facility] Start: 04-17-2019 Gender identity Identifies as female gender (finding) [facility] Do you belong to any clubs or organizations such as taoist groups, [employer], [employer] or athletic groups, or school groups? Yes [facility] Functional Status Date Assessment Result Facility 02-09-2015 Are you deaf, or do you have serious difficulty hearing No 02/09/2015 8:04 AM EDT Mariana Ceron Cma No [facility] 02-09-2015 Are you blind, or do you have serious difficulty seeing, even when wearing glasses No 02/09/2015 8:04 AM EDT Mariana Ceron Cma No [facility] 02-09-2015 Do you have serious difficulty walking or climbing stairs Yes 02/09/2015 8:04 AM EDT Mariana Ceron Cma Yes [facility] 02-09-2015 Do you have difficul ty dressing or bathing No 02/09/2015 8:04 AM EDT Mariana Creon Cma No [facility] 02-09-2015 Because of a physica l, mental, or emotional condition, do you have difficulty doing errands alone such as visiting a physician's office or shopping No 02/09/2015 8:04 AM EDT Mariana Ceron Cma No [facility] Mental Status Date Assessment Result Facility 02-09-2015 Because of a physica l, mental, or emotional condition, do you have serious difficulty concentrating, remembering, or making decisions No 02/09/2015 8:04 AM EDT Mariana Ceron Cma No [facility] Clinical Notes 07-20-2010 to 08-27-2025 Telephone Encounter - Harriett Prado LPN - 06/16/2025 12:38 PM EDTTelephone Encounter - Harriett Prado LPN - 06/16/2025 12:38 PM Blanca Valle Mammo Tech - 06/15/2025 9:30 AM EDT Note Date & Type Note Facility 08-27-2025 Note HNO ID: [id number] Author: ROMEROKEITH, DO Service: ? Author Type: Physician Type: Progress Notes Filed: 08/27/2025 09:46 Note Text: CC: Juan Geronimo is a 84 year old female who presents to the office for follow up HPI: + hair thinning, hair loss Recently with unintentional weight loss as well. She has had a lot of stress with helping her that has recently had a lot of health issues. Is taking her levothyroxine 1 tablet a day and on , and Sat taking 2 tablets. HPL, diet controlled. 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 Follows with [facility] (supraventricular tachycardia) ([facility]) 02/03/2023 Unspecified hemorrhoids without mention of complication PAST SURGICAL HISTORY Procedure Laterality Date APPENDECTOMY COLONOSCOPY FLX DX W/COLLJ SPEC WHEN PFRMD 11/23/2002 Colonoscopy COLONOSCOPY FLX DX W/COLLJ SPEC WHEN PFRMD 05/05/2018 Colonoscopy HEMORRHOIDECTOMY INTERNAL RUBBER BAND LIGATIONS PAST SURGICAL HISTORY OF 1982 hysterectomy for prolapse - ovaries remain PAST SURGICAL HISTORY OF 06/19/1977 vericose vein stripping PAST SURGICAL HISTORY OF 10/2001 Dr. Wheeler [facility] - partial wrist fusion left - ganglion cyst removed at same time PAST SURGICAL HISTORY OF 05/2005 - left hand dupuytren's contracture release. PAST SURGICAL HISTORY OF 05/2006 right hand repair small and ring fingers SIGMOIDOSCOPY FLX DX W/COLLJ SPEC BR/WA IF PFRMD 09/1998 Sigmoidoscopy TONSILLECTOMY AND ADENOIDECTOMY T/A (under age 12 years) Social History: SOCIAL HISTORY[1] FAMILY HISTORY Problem Relation Age of Onset Cancer Mother ovarian and colon Cancer Father prostate - glaucoma Colon Cancer Father Cancer Brother skin - glaucoma Alzheimer's Disease Brother Current Outpatient prescriptions: levothyroxine (LEVOXYL) 88 mcg tablet Take 1 tablet daily except for Tues and Thurs and Sat take 2 tablets. Take on empty stomach. For Thyroid verapamil ER (VERELAN) 120 mg 24 hr capsule Take 1 capsule by mouth once daily at bedtime alendronate (FOSAMAX) 70 mg tablet Take 1 tablet by mouth one time a week. Take with a full glass of water, on an empty stomach; do NOT lie down for 30minutes. mecobalamin (B12 ACTIVE ORAL) Take 1 tablet by mouth once daily. aspirin 81 mg chewable tablet Take 81 mg by mouth once daily. BIOTIN ORAL Take 1,000 mcg by mouth once daily. Cholecalciferol, Vitamin D3, 25 mcg (1,000 unit) cap Take 2 capsules by mouth once daily. acetaminophen 650 mg CR tablet Take 1 tablet by mouth every 8 hours as needed. Allergies: ALLERGIES Allergen Reactions Amoxil [Amoxicillin] Hives Codeine GI Upset Ultram [Tramadol Hc* Intolerance ROS: See HPI PE: 08/27/25 0841 BP: 130/70 Pulse: 60 Resp: 16 Temp: (!) 35.7 ?C (96.2 ?F) TempSrc: Right Tympanic Weight: 56.2 kg (124 lb) Height: 166 cm (5' 5.35") Gen: AANDO, NAD, non-toxic appearing, Pleasant, cooperative HEENT: NT/AC, PERRLA, EOMs intact b/l, nares clear and patent b/l, pharynx without erythema, exudate or lesions. MMM, Uvula midline. EACs without erythema or debris. TMs pearly longo with intact landmarks b/l. Neck: supple, No cervical LAD, no thyromegaly, no carotid bruits CV: RRR, normal S1 and S2, no murmurs, no gallops, no rubs, Pulses 2+ and symmetric in UE and LE b/l Lungs: normal respiratory effort, CTA b/l, no wheezing or rhonchi or rales Abd: soft, thin, NT, ND, +BS, no hepatosplenomegaly MS: arthritis changes of joints Neuro: CN II-XII intact b/l, strength 5/5 b/l UE and LE, DTRs 2/4 UE and LE, sensation intact. Skin: warm, dry, intact, No rashes or lesions on exposed skin. No edema, normal pulses ASSESSMENT/PLAN: 1. Medicare annual wellness visit, subsequent - ICD9: V70.0, ICD10: Z00.00 (primary diagnosis) - Counseled on healthy diet and regular exercise 2. Anemia, unspecified type - ICD9: 285.9, ICD10: D64.9 Check labs as ordered She has had unintentional weight loss and hair loss - T4 FREE/FREE THYROXINE - T3, FREE - IRON AND TIBC - FERRITIN - VITAMIN B12 - FOLATE, SERUM - PREALBUMIN - PROTEIN ELECTROPHORESIS SERUM W/INTERP 3. Low TSH level - ICD9: 794.5, ICD10: R79.89 Check labs as ordered She has had unintentional weight loss and hair loss - T4 FREE/FREE THYROXINE - T3, FREE 4. Hypothyroidism, acquired - ICD9: 244.9, ICD10: E03.9 Check labs as ordered She has had unintentional weight loss and hair loss Co (more content not included)... [facility] 08-27-2025 Note HNO ID: [id number] Author: KEITH ROMERO, DO Service: ? Author Type: Physician Type: Progress Notes Filed: 08/27/2025 09:46 Note Text: Juan Geronimo is a 84 year old female here for a Medicare Wellness visit. Medicare Health Risk Assessment General Health Good Exercise: Minutes/Day Patient declined Exercise: Days/Week Patient declined Alcohol: Daily Use 2-4 times a month Alcohol: Drinks/Day Patient declined Alcohol: 6 or more drinks Never Feel off balance No Concerns: Teeth/Dentures No Concerns: Sexual function No Troubled by feelings None of the above Frequency: Eating healthy diet More than half the days ADLs requiring help None of the above Safety precautions in home/vehicle Yes Smoke, vape, chews tobacco No Difficulty hearing Yes, I wear a hearing aid Difficulty seeing No Current Providers Specialists: I have reviewed specialist-related care of the patient in the medical record. Medical/Family history review Reviewed and updated problem list, medical/surgical/family/social history, medications, and allergies. Opioid use review Prescribed: No opioid use on file in the last 90 days Patient-reported: No opioid use on file in the last 90 days Depression screening PHQ-2 Score: 0 PHQ-9 Score: 1 Anxiety screening MALLORIE-2 Score: 0 MALLORIE-7 Score: 0 Cognitive screening Mini Cog Score: 4 Cognitive screening reviewed and No further action needed (score 3-5). Functional Observation Was the patient's Timed Up AND Go test unsteady or >= 12 seconds? No Advance Directives Surrogate decision maker and/or advance care plan documented Measurements BP 130/70 Pulse 60 Temp (!) 35.7 ?C (96.2 ?F) (Right Tympanic) Resp 16 Ht 166 cm (5' 5.35") Wt 56.2 kg (124 lb) BMI 20.41 kg/m? Vision Screening: Follows with optometry/ophthalmology Assessment/Plan Medicare annual wellness visit, subsequent (Z00.00) - Counseled on healthy diet and regular exercise - Fall avoidance information provided - Personalized prevention plan provided Keith Romero DO [facility] 08-05-2025 Note HNO ID: [id number] Author: NICHOLAS LEONE MD Service: ? Author Type: Physician Type: Progress Notes Filed: 08/05/2025 07:00 Note Text: FOLLOW UP VISIT - HEMORRHOIDS NAME: Juan Mejia [facility] NO.: [id number] DATE OF SERVICE August 04, 2025 : 1940 REFERRING PHYSICIAN: Keith Romero DO Juan is a patient I am following for symptomatic internal hemorrhoids. I had seen the patient initially and the patient was having some prolapsing of the mixed hemorrhoidal complex which appeared to be more likely than true rectal prolapse. She has been banded 3 times. The last time evaluated her was last fall before she was traveling to [place]. At that time, she still noted some prolapsing tissue but she notes overall improvement in her symptoms of anal discomfort she can now sleep at night. She feels that her perianal irritation is improving I discussed with the patient that she still has some external irritation and there is still the external components which do not seem to have changed appreciably. Since she is planning to leave for [place] for 6 months on August 12 I offered to do an operative hemorrhoidectomy next week expecting this would have taking care of her issues completely and had her recover before leaving for [place]. The patient states she had many things to take care of before leaving to [place] I did not wish to consider that at this time. She wished to continue with banding and if this failed to improve her symptoms completely she would consider operative hemorrhoidectomy when she returns from [place]. She also noted that she has been more or less satisfied about the degree of hemorrhoidal tissue amenable to band she does note overall that her symptoms are improving she denies pain at night and can sleep now. The patient notes that her has had medical issues and has been in the hospital for protracted period of time most recently with what sounds like a percutaneous cholecystostomy tube. She notes this is stressed to her and while she denied irregular bowel activities she noted that she had itching from her hemorrhoids the day previously and then a significant bleeding she has noted no bleeding since that time. VITALS: Blood pressure 143/87, pulse 90, resp. rate 14, weight 57 kg (125 lb 9.6 oz), SpO2 99%. Body mass index is 20.9 kg/m?. On examination, the patient has minimal perianal irritation. She has no prolapsing internal hemorrhoidal today. On digital exam, she still has a very small right anterior internal hemorrhoidal complex and a somewhat larger palpable left lateral complex Assessment IMPRESSION: Status post right posterior interal hemorrhoidal banding PLAN: I again recommended she continue to be careful with her bowel habits maintaining soft normal easily passable bowel movements. If she notes additional bleeding she should return for hemorrhoidal banding. I am seeing her next Saturday. We will discuss at that time if she is having any more bleeding or other symptoms which would likely require banding. Diagnoses: (K64.9) Hemorrhoids, unspecified hemorrhoid type (primary encounter diagnosis) Return to Clinic: The patient is instructed to follow-up with me as noted. Nicholas Leone MD [facility] 06-16-2025 Telephone encounter Note Patient returned call and went over results, notes from Josee Li COST ENGINEER with understanding. [facility] 06-16-2025 Miscellaneous Notes Patient returned call and went over results, notes from Josee Li NP with understanding. There is no mammographic evidence of malignancy in either breast. Routine screening mammogram is recommended. Annual mammogram will be due in 1 year. Josee Li APRN.CNP documented in this encounter [facility] 06-15-2025 Telephone encounter Note There is no mammographic evidence of malignancy in either breast. Routine screening mammogram is recommended. Annual mammogram will be due in 1 year. Josee Li APRN.CNP [facility] Work Phone: 06-15-2025 History of Present illness Narrative Radiology Service Progress Note PATIENT NAME: Juan Geronimo DATE OF SERVICE: June 15, 2025 TIME: 9:59 AM PATIENT IDENTITY VERIFICATION COMPLETED USING TWO (2) IDENTIFIERS: Name and Date of confirmed by patient verbally. FALL SCREENING: Has the patient had 2 falls in the last year or 1 fall with injury or currently using an Ambulatory Assistive Device (Walker, Cane, Wheelchair, Crutches, etc.)? No PATIENT GENDER DATA: Assigned female at . status: : No status: NO. PATIENT RELEVANT IMPLANT DATA REVIEWED: Not Applicable PATIENT PRESENTS WITH AN IMPLANTABLE OR ATTACHED GROUP CARE WORKER: No RADIOLOGY DEPARTMENT: Mammography PERIPHERAL IV DATA: Not applicable SIGNED BY: Ricky Tierney June 15, 2025 9:59 AM documented in this encounter [facility] 06-15-2025 Note HNO ID: [id number] Author: BLANCA ARAMBULA Mammo Tech Service: ? Author Type: Technologist Type: Progress Notes Filed: 06/15/2025 09:59 Note Text: Radiology Service Progress Note PATIENT NAME: Juan Geronimo DATE OF SERVICE: June 15, 2025 TIME: 9:59 AM PATIENT IDENTITY VERIFICATION COMPLETED USING TWO (2) IDENTIFIERS: Name and Date of confirmed by patient verbally. FALL SCREENING: Has the patient had 2 falls in the last year or 1 fall with injury or currently using an Ambulatory Assistive Device (Walker, Cane, Wheelchair, Crutches, etc.)? No PATIENT GENDER DATA: Assigned female at . status: : No status: NO. PATIENT RELEVANT IMPLANT DATA REVIEWED: Not Applicable PATIENT PRESENTS WITH AN IMPLANTABLE OR ATTACHED GROUP CARE WORKER: No RADIOLOGY DEPARTMENT: Mammography PERIPHERAL IV DATA: Not applicable SIGNED BY: Blanca Arambula [email or web address] June 15, 2025 9:59 AM [facility] 05-19-2025 Telephone encounter Note Patient's request for medication is as follows: Requested Prescriptions Pending Prescriptions Disp Refills verapamil ER (VERELAN) 120 mg 24 hr capsule [Pharmacy Med Name: Verapamil HCl ER 120 MG Oral Capsule Extended Release 24 Hour] 90 capsule 0 Sig: Take 1 capsule by mouth once daily at bedtime Last Appointment: 03/01/2025 Next Appointment: 08/30/2025 Prescription(s) as above. Please process accordingly. Jami Lee MA [facility] 05-19-2025 Miscellaneous Notes Patient's request for medication is as follows: Requested Prescriptions Pending Prescriptions Disp Refills verapamil ER (VERELAN) 120 mg 24 hr capsule [Pharmacy Med Name: Verapamil HCl ER 120 MG Oral Capsule Extended Release 24 Hour] 90 capsule 0 Sig: Take 1 capsule by mouth once daily at bedtime Last Appointment: 03/01/2025 Next Appointment: 08/30/2025 Prescription(s) as above. Please process accordingly. Jami Lee MA documented in this encounter [facility] 04-26-2025 Discharge summary Note Date/Time April 26, 2025 3:33p m [facility] [address] [place] [address] [address] [place] [address] / REHABILITATION SERVICES DISCHARGE SUMMARY MR#: [id number] Acct: [id number] Name: JUAN GERONIMO Rep #: [id number] : 1940 84 From: George Baxter DPT, THI, PAYAL Referring Dr.: Dr. Keith Romero, DO Status: REG RCR Insurance: MEDICARE PART A B [facility] Patient Information Patient Information: JUAN GERONIMO was seen in my office for initial evaluation on 03/03/25. The following Plan of Care was established for this patient: POC Established Initial Frequency: 2x /Week Initial Duration: 4-6 Weeks Anticipated Interventions Patient/Client Instruction: Educate patient on: Condition and Risk Factors For the Purpose of:: To increase tolerance to activity/condition/position, To improve ability of physical actions for home/community/work/leisure, To improve gait and locomotor functions and To improve safety Therapeutic Exercise to Include: Strength training, Balance training and Coordination For the Purpose of:: To improve muscle performance and motor function, To increase tolerance to activity/condition/position, To improve ability of physical actions for home/community/work/leisure, To improve gait and locomotor functions and To improve safety Last Seen Last Seen: This patient was last seen in our office 03/16/25. Pertinent comments regardingtheir Physical therapy will appear below: Pt seen 4 visits of HEP instruct for balance and was to f/u two weeks later but did not schedule or attend. At this point, it has been over 5 weeks and i will discontinue from my care. At this point I will be discontinuing this patient from physical therapy. I would be happy to see this patient again in the future if found appropriate by the physician. Thank you! George Baxter, ALCIRA, THI, CSCS Balance/Gait/Functional tests Balance/Special Test Scores Functional Gait Assessment Score: 26 % Disability: 13.3400 CATSIB Score (Max score 120 seconds): 102 Lower Extremity Functional Score: 47 <Electronically signed by THI Diaz DPT, PAYAL> 04/26/25 1533 CC: Dr. Keith Romero, DO ~ EBG Signed [facility] Work Phone: [phone]) 346-414507-07-2025 Discharge summary [facility] Physical Therapy [address] [place] [address] / REHABILITATION SERVICES DISCHARGE SUMMARY MR#: [id number] Acct: [id number] Name: JUAN GERONIMO Rep #: [id number] : 1940 84 From: George Baxter DPT, OCS, CSCS Referring Dr.: Dr. Keith Romero, DO Status: REG RCR Insurance: MEDICARE PART A B [facility] Patient Information Patient Information: JUAN GERONIMO was seen in my office for initial evaluation on 03/03/25. The following Plan of Care was established for this patient: POC Established Initial Frequency: 2x /Week Initial Duration: 4-6 Weeks Anticipated Interventions Patient/Client Instruction: Educate patient on: Condition and Risk Factors For the Purpose of:: To increase tolerance to activity/condition/position, To improve ability of physical actions for home/community/work/leisure, To improve gait and locomotor functions and To improve safety Therapeutic Exercise to Include: Strength training, Balance training and Coordination For the Purpose of:: To improve muscle performance and motor function, To increase tolerance to activity/condition/position, To improve ability of physical actions for home/community/work/leisure, Toimprove gait and locomotor functions and To improve safety Last Seen Last Seen: This patient was last seen in our office 03/16/25. Pertinent comments regardingtheir Physical therapy will appear below: Pt seen 4 visits of HEP instruct for balance and was to f/u two weeks later but did not schedule orattend. At this point, it has been over 5 weeks and i will discontinue from my care. At this point I will be discontinuing this patient from physical therapy. I would be happy to see this patient again in the future if found appropriate by the physician. Thank you! George Baxter, REGIT, OCS, CSCS Balance/Gait/Functional tests Balance/Special Test Scores Functional Gait Assessment Score: 26 % Disability: 13.3400 CATSIB Score (Max score 120 seconds): 102 Lower Extremity Functional Score: 47 04/26/25 1533 CC: Dr. Keith Romero, DO ~ EBG Signed [facility]07-01-2025 Miscellaneous Notes* Telephone Encounter - Constantine, Anh - 04/20/2025 9:12 AM EDT Patient already scheduled. * Telephone Encounter - Josee Li APRN.CNP - 04/20/2025 7:31 AM EDT Order for mammogram placed. Please let patient know she can schedule. Josee Li APRN.CNP * Telephone Encounter - Anh Garcia RN - 04/19/2025 3:52 PM EDT Patient calls and states that she just received letter that it is time for yearly mammogram. Pleaseplace order so that patient can get this scheduled. Anh Garcia RN [facility] Tele[facility] encounter Note * Telephone Encounter - Anh Tucker - 04/20/2025 9:12 AM EDT Patient already scheduled. [facility] Telephone encounter Note* Telephone Encounter - Josee Li APRN.CNP - 04/20/2025 7:31 AM EDT Order for mammogram placed. Please let patient know she can schedule. Josee Li APRN.CNP [facility]06-30-2025 Telephone encounter Note* Telephone Encounter - Anh Garcia RN - 04/19/2025 3:52 PM EDT Patient calls and states that she just received letter that it is time for yearly mammogram. Pleaseplace order so that patient can get this scheduled. Anh Garcia RN [facility]05-12-2025 NoteHNO ID: [id number] Author: PARESH NGO MD Service: ? Author Type: Physician Type: Progress Notes Filed: 03/01/2025 16:05 Note Text: Paresh Ngo MD Interventional Cardiology [address] [place] [address] [phone] Chief Complaint Patient presents with: Follow Up: one year follow up HISTORY OF PRESENT ILLNESS: Ms. Geronimo is a 84 year old female seen in my office today for assessment and management for follow-up prior history of supraventricular tachycardia and hyperlipidemia maintained on verapamil patient is doing well from the cardiac point of view 2 episodes of short-lived episodes of SVT doing well no angina no signs or symptoms of congestive heart failure Cardiac Risk Factors age (male over 45, female over 55), hypertension, family history of CAD PAST MEDICAL HISTORY Diagnosis Date Advance care planning 02/25/2023 Supa Anemia Disorder of bone and cartilage, unspecified DUPUYTREN'S CONTRACTURE 07/13/2008 Esophageal reflux Generalized osteoarthrosis, unspecified site 05/28/2007 Hyperlipidemia 02/13/2016 Hypothyroidism Osteoarthritis of multiple joints Osteopenia Other psoriasis Pure hypercholesterolemia Spinal stenosis 07/20/2010 2009 L45 epidural injections. Follows with [facility] SVT (supraventricular tachycardia) (HCC) 02/03/2023 Unspecified hemorrhoids without mention of complication PAST SURGICAL HISTORY Procedure Laterality Date APPENDECTOMY COLONOSCOPY FLX DX W/COLLJ SPEC WHEN PFRMD 11/23/2002 Colonoscopy COLONOSCOPY FLX DX W/COLLJ SPEC WHEN PFRMD 05/05/2018 Colonoscopy HEMORRHOIDECTOMY INTERNAL RUBBER BAND LIGATIONS PAST SURGICAL HISTORY OF 1982 hysterectomy for prolapse - ovaries remain PAST SURGICAL HISTORY OF 06/19/1977 vericose vein stripping PAST SURGICAL HISTORY OF 10/2001 Dr. Wheeler [facility] - partial wrist fusion left - ganglion cyst removed at same time PAST SURGICAL HISTORY OF 05/2005 - left hand dupuytren's contracture release. PAST SURGICAL HISTORY OF 05/2006 right hand repair small and ring fingers SIGMOIDOSCOPY FLX DX W/COLLJ SPEC BR/WA IF PFRMD 09/1998 Sigmoidoscopy TONSILLECTOMY AND ADENOIDECTOMY T/A (under age 12 years) FAMILY HISTORY Problem Relation Age of Onset Cancer Mother ovarian and colon Cancer Father prostate - glaucoma Colon Cancer Father Cancer Brother skin - glaucoma Alzheimer's Disease Brother Social History Tobacco Use Smoking status: Never Smokeless tobacco: Never Vaping Use Vaping status: Never Used Substance Use Topics Alcohol use: Yes Alcohol/week: 3.0 standard drinks of alcohol Types: 2 Standard drinks or equivalent, 1 Glasses of Wine (5oz) per week Comment: few times a week Drug use: No ALLERGIES Allergen Reactions Amoxil [Amoxicillin] Hives Codeine GI Upset Ultram [Tramadol Hc* Intolerance Medications: Current Outpatient Medications Medication Sig Dispense Refill alendronate (FOSAMAX) 70 mg tablet Take 1 tablet by mouth one time a week. Take with a full glass of water, on an empty stomach; do NOT lie down for 30minutes. 12 tablet 3 levothyroxine (LEVOXYL) 88 mcg tablet Take 1 tablet daily except for Tues and Thurs and Sat take 2 tablets. Take on empty stomach. For Thyroid 130 tablet 3 verapamil ER (VERELAN) 120 mg 24 hr capsule Take 1 capsule by mouth daily at bedtime. 90 capsule 3 mecobalamin (B12 ACTIVE ORAL) Take 1 tablet by mouth once daily. aspirin 81 mg chewable tablet Take 81 mg by mouth once daily. BIOTIN ORAL Take 1,000 mcg by mouth once daily. Cholecalciferol, Vitamin D3, 25 mcg (1,000 unit) cap Take 2 capsules by mouth once daily. 0 acetaminophen 650 mg CR tablet Take 1 tablet by mouth every 8 hours as needed. 0 mupirocin (BACTROBAN) 2 % ointment Apply to affected area every 12 hours as needed (for skin wound). 30 g 1 No current facility-administered medications for this visit. Review of Systems Constitutional: Negative for chills, diaphoresis, fever, malaise/fatigue and weight loss. HENT: Negative for congestion, ear discharge, ear pain, hearing loss, nosebleeds, sinus pain, sore throat and tinnitus. Eyes: Negative for blurred vision, double vision, photophobia, pain, discharge and redness. Respiratory: Negative for cough, hemoptysis, sputum production, shortness of breath, wheezing and stridor. Cardiovascular: Positive for palpitations. Negative for chest pain, orthopnea, claudication, leg swelling and PND. Gastrointestinal: Negative for abdominal pain, blood in stool, constipation, diarrhea, heartburn, melena, nausea and vomiting. Genitourinary: Negative for dysuria, flank pain, frequency, hematuria and urgency. Musculoskeletal: Negative for back pain, falls, joint pain, myalgias and neck pain. Skin: Negative for itching and rash. Neurological: Negative for dizziness, tingling, tremors, sensory change, speech change, focal weakness (more content not included)...[facility] 03-01-2025 History of Present illness Narrative* Paresh Ngo MD - 03/01/2025 3:58 PM EDT Images from the original note were not included. Paresh Ngo MD Interventional Cardiology [address] [place] [address] [phone] Chief Complaint Patient presents with: Follow Up: one year follow up HISTORY OF PRESENT ILLNESS: Ms. 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 Follows with [facility] SVT (supraventricular tachycardia) (HCC) 02/03/2023 Unspecified hemorrhoids without mention of complication PAST SURGICAL HISTORY Procedure Laterality Date APPENDECTOMY COLONOSCOPY FLX DX W/COLLJ SPEC WHEN PFRMD 11/23/2002 Colonoscopy COLONOSCOPY FLX DX W/COLLJ SPEC WHEN PFRMD 05/05/2018 Colonoscopy HEMORRHOIDECTOMY INTERNAL RUBBER BAND LIGATIONS PAST SURGICAL HISTORY OF 1982 hysterectomy for prolapse - ovaries remain PAST SURGICAL HISTORY OF 06/19/1977 vericose vein stripping PAST SURGICAL HISTORY OF 10/2001 Dr. Wheeler [facility] - partial wrist fusion left - ganglion cyst removed at same time PAST SURGICAL HISTORY OF 05/2005 - left hand dupuytren's contracture release. PAST SURGICAL HISTORY OF 05/2006 right hand repair small and ring fingers SIGMOIDOSCOPY FLX DX W/COLLJ SPEC BR/WA IF PFRMD 09/1998 Sigmoidoscopy TONSILLECTOMY & ADENOIDECTOMY <AGE 12 T/A (under age 12 years) FAMILY HISTORY Problem Relation Age of Onset Cancer Mother ovarian and colon Cancer Father prostate - glaucoma Colon Cancer Father Cancer Brother skin - glaucoma Alzheimer's Disease Brother Social History Tobacco Use Smoking status: Never Smokeless tobacco: Never Vaping Use Vaping status: Never Used Substance Use Topics Alcohol use: Yes Alcohol/week: 3.0 standard drinks of alcohol Types: 2 Standard drinks or equivalent, 1 Glasses of Wine (5oz) per week Comment: few times a week Drug use: No ALLERGIES Allergen Reactions Amoxil [Amoxicillin] Hives Codeine GI Upset Ultram [Tramadol Hc* Intolerance Medications: Current Outpatient Medications Medication Sig Dispense Refill alendronate (FOSAMAX) 70 mg tablet Take 1 tablet by mouth one time a week. Take with a full glass of water, on an empty stomach; do NOT lie down for 30minutes. 12 tablet 3 levothyroxine (LEVOXYL) 88 mcg tablet Take 1 tablet daily except for Tues and Thurs and Sat take 2 tablets. Take on empty stomach. For Thyroid 130 tablet 3 verapamil ER (VERELAN) 120 mg 24 hr capsule Take 1 capsule by mouth daily at bedtime. 90 capsule 3 mecobalamin (B12 ACTIVE ORAL) Take 1 tablet by mouth once daily. aspirin 81 mg chewable tablet Take 81 mg by mouth once daily. BIOTIN ORAL Take 1,000 mcg by mouth once daily. Cholecalciferol, Vitamin D3, 25 mcg (1,000 unit) cap Take 2 capsules by mouth once daily. 0 acetaminophen 650 mg CR tablet Take 1 tablet by mouth every 8 hours as needed. 0 mupirocin (BACTROBAN) 2 % ointment Apply to affected area every 12 hours as needed (for skin wound). 30 g 1 No current facility-administered medications for this visit. Review of Systems Constitutional: Negative for chills, diaphoresis, fever, malaise/fatigue and weight loss. HENT: Negative for congestion, ear discharge, ear pain, hearing loss, nosebleeds, sinus pain, sore throat and tinnitus. Eyes: Negative for blurred vision, double vision, photophobia, pain, discharge and redness. Respiratory: Negative for cough, hemoptysis, sputum production, shortness of breath, wheezing and stridor. Cardiovascular: Positive for palpitations. Negative for chest pain, orthopnea, claudication, leg swelling and PND. Gastrointestinal: Negative for abdominal pain, blood in stool, constipation, diarrhea, heartburn, melena, nausea and vomiting. Genitourinary: Negative for dysuria, flank pain, frequency, hematuria and urgency. Musculoskeletal: Negative for back pain, falls, joint pain, myalgias and neck pain. Skin: Negative for itching and rash. Neurological: Negative for dizziness, tingling, tremors, sensory change, speech change, focal weakness, seizures, loss of consciousness, weakness and headaches. Endo/Heme/Allergies: Negative for environmental allergies and polydipsia. Does not bruise/bleed easily. Psychiatric/Behavioral: Negative for depression, hallucinations, memory loss, substance abuse and suicidal ideas. The patient is not nervous/anxious and does not have insomnia. Physical Examination: Vitals:BP 172/70 Pulse 85 Resp 12 Ht 5' 5" (1.65m) Wt 134 lb (60.8kg) SpO2 100% BMI 22.30 kg/(m^2). BP w/Orthostatic Vitals Date and Time Orthostatic BP Orthostatic Pulse BP Pulse BP Position BP Site BP Cuff Size 03/01/25 1532 -- -- 172/70 85 Sitting Right Arm Regular Adult Peak Flow Date and Time PF Resp 03/01/25 1532 -- 12 Last 2 Encounter Wt Readings: Date: Wt: 03/01/2025 60.8 kg (134 lb) 02/23/2025 60.8 kg (134 lb) Physical Exam Constitutional: General: She is not in acute distress. Appearance: She is not diaphoretic. HENT: Head: Normocephalic and atraumatic. Right Ear: External ear normal. Left Ear: External ear normal. Nose: Nose normal. Mouth/Throat: Pharynx: Oropharynx is clear. Eyes: General: Right eye: No discharge. Left eye: No discharge. Conjunctiva/sclera: Conjunctivae normal. Pupils: Pupils are equal, round, and reactive to light. Cardiovascular: Rate and Rhythm: Normal rate and regular rhythm. Heart sounds: Normal heart sounds, S1 normal and S2 normal. No murmur heard. No friction rub. No gallop. No S3 or S4 sounds. Pulmonary: Effort: Pulmonary effort is normal. No respiratory distress. Breath sounds: Normal breath sounds. No wheezing or rales. Chest: Chest wall: No tenderness. Abdominal: General: Abdomen is flat. Musculoskeletal: General: Normal range of motion. Cervical back: Normal range of motion and neck supple. Skin: General: Skin is warm and dry. Neurological: Mental Status: She is alert and oriented to person, place, and time. Psychiatric: Mood and Affect: Mood normal. Pertinent Labs: CBC: Hemoglobin (g/dL) Date Value 02/18/2025 13.1 04/19/2021 12.2 Hematocrit (%) Date Value 02/18/2025 40.3 04/19/2021 38.8 WBC (k/uL) Date Value 02/18/2025 5.78 04/19/2021 4.87 Platelet Count (k/uL) Date Value 02/18/2025 250 04/19/2021 224 BMP: Glucose (mg/dL) Date Value 02/18/2025 78 04/19/2021 74 Potassium (mmol/L) Date Value 02/18/2025 4.5 04/19/2021 4.2 Sodium (mmol/L) Date Value 02/18/2025 142 04/19/2021 144 Chloride (mmol/L) Date Value 02/18/2025 107 04/19/2021 108 CO2 (mmol/L) Date Value 02/18/2025 24 04/19/2021 24 Creatinine (mg/dL) Date Value 02/18/2025 1.09 04/19/2021 1.13 BUN (mg/dL) Date Value 02/18/2025 18 04/19/2021 15 Anion Gap (mmol/L) Date Value 02/18/2025 11 04/19/2021 12 Calcium (mg/dL) Date Value 04/19/2021 9.0 Calcium, Total (mg/dL) Date Value 02/18/2025 9.4 INR: Lipid Profile: Cholesterol, Total Date Value Ref Range Status 02/18/2025 216 (H) <200 mg/dL Final Comment: <200 mg/dL, Desirable 200-239 mg/dL, Borderline high >239 mg/dL, High HDL Cholesterol Date Value Ref Range Status 02/18/2025 74 >39 mg/dL Final Comment: 40-59 mg/dL, Acceptable >59 mg/dL, High: Negative risk factor for coronary heart disease <40 mg/dL, Low: Positive risk factor for coronary heart disease LDL Cholesterol, Calculated Date Value Ref Range Status 02/18/2025 128 (H) <100 mg/dL Final Comment: <100 mg/dL, Optimal 100-129 mg/dL, Near optimal/above optimal 130-159 mg/dL, Borderline high 160-189 mg/dL, High >189 mg/dL, Very high Secondary prevention optimal LDL Cholesterol levels are recommended to be <70 mg/dL LDL cholesterol is calculated using the Alvarez-NIH equation. Triglyceride Date Value Ref Range Status 02/18/2025 81 <150 mg/dL Final Comment: <150 mg/dL, Normal 150-199 mg/dL, Borderline high 200-499 mg/dL, High >499 mg/dL, Very high Hemoglobin A1C: No results found for: "HGBA1C" TSH: No results found for: "TSHREFL" Prior Cardiac Testing none Assessment and Plan: 85 years old female patient with supraventricular tachycardia ASSESSMENT/PLAN: 1. SVT (supraventricular tachycardia) (HCC), paroxysmal, nonsustained - ICD9: 427.89, ICD10: I47.10 Few episode of supraventricular tachycardia continue verapamil therapy Paresh Ngo MD Follow up plannin months Electronically signed by Paresh Ngo MD on March 01, 2025, 3:58 PM The above note was partially created using a dictation recognition software. A reasonable attempt has been made to correct any errors. [facility] NoteHNO ID: [id number] Author: KEITH ROMERO, DO Service: ? Author Type: Physician Type: Progress Notes Filed: 02/23/2025 08:37 Note Text: CC: Juan Geronimo is a 84 year old female who presents to the office for follow up HPI: Overall she is doing okay, she has had a lot of recent stressors with her 's health issues and ICU stay for 1 week after respiratory failure secondary to influenza and pneumonia. She will likely no longer be wintering in [place] as they were previously. HPL, diet controlled, not on statin therapy Osteopenia/osteoporosis. Admits to difficulty with her strength in her legs and hips and is noticing balance issues and concerns. She is concerned for risk of falls. She is willing to consider PHYSICAL THERAPY to help her with this. Did have 1 fall when she slipped on wet grass 1-2 weeks ago. No major injury. 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 Follows with [facility] (supra[facility]ricular tachycardia) ([facility]) 02/03/2023 Unspecified hemorrhoids without mention of complication PAST SURGICAL HISTORY Procedure Laterality Date APPENDECTOMY COLONOSCOPY FLX DX W/COLLJ SPEC WHEN PFRMD 11/23/2002 Colonoscopy COLONOSCOPY FLX DX W/COLLJ SPEC WHEN PFRMD 05/05/2018 Colonoscopy HEMORRHOIDECTOMY INTERNAL RUBBER BAND LIGATIONS PAST SURGICAL HISTORY OF 1982 hysterectomy for prolapse - ovaries remain PAST SURGICAL HISTORY OF 06/19/1977 vericose vein stripping PAST SURGICAL HISTORY OF 10/2001 Dr. Wheeler [facility] - partial wrist fusion left - ganglion cyst removed at same time PAST SURGICAL HISTORY OF 05/2005 - left hand dupuytren's contracture release. PAST SURGICAL HISTORY OF 05/2006 right hand repair small and ring fingers SIGMOIDOSCOPY FLX DX W/COLLJ SPEC BR/WA IF PFRMD 09/1998 Sigmoidoscopy TONSILLECTOMY AND ADENOIDECTOMY T/A (under age 10 years) Current Outpatient Medications Medication Sig alendronate (FOSAMAX) 70 mg tablet Take 1 tablet by mouth one time a week. Take with a full glass of water, on an empty stomach; do NOT lie down for 30minutes. levothyroxine (LEVOXYL) 88 mcg tablet Take 1 tablet daily except for Tues and Thurs and Sat take 2 tablets. Take on empty stomach. For Thyroid mupirocin (BACTROBAN) 2 % ointment Apply to affected area every 12 hours as needed (for skin wound). verapamil ER (VERELAN) 120 mg 24 hr capsule Take 1 capsule by mouth daily at bedtime. mecobalamin (B12 ACTIVE ORAL) Take 1 tablet by mouth once daily. aspirin 81 mg chewable tablet Take 81 mg by mouth once daily. BIOTIN ORAL Take 1,000 mcg by mouth once daily. Cholecalciferol, Vitamin D3, 25 mcg (1,000 unit) cap Take 2 capsules by mouth once daily. acetaminophen 650 mg CR tablet Take 1 tablet by mouth every 8 hours as needed. No current facility-administered medications for this visit. ALLERGIES Allergen Reactions Amoxil [Amoxicillin] Hives Codeine GI Upset Ultram [Tramadol Hc* Intolerance , Social History Tobacco Use Smoking status: Never Smokeless tobacco: Never Vaping Use Vaping status: Never Used Substance Use Topics Alcohol use: Yes Alcohol/week: 3.0 standard drinks of alcohol Types: 2 Standard drinks or equivalent, 1 Glasses of Wine (5oz) per week Comment: few times a week Drug use: No ROS: See HPI PE: BP 130/76 Pulse 76 Temp (Src) 97 (Right Tympanic) Resp 16 Wt 134 lb (60.8kg) Gen: AANDOX3, NAD, non-toxic appearing HEENT: PERRLA, wearing glasses, EOMs intact b/l, nares without drainage, pharynx without erythema, exudate, lesions, or drainage. Uvula midline. MMM Neck: No LAD, no thyromegaly, no meningismus. CV: RRR, no murmur, normal s1s2 Lungs: CTA b/l, no wheezing Abd: soft, NT, ND, normal BS, no masses Normal pulses No edema legs Skin: No rashes, lesions, or wounds on exposed skin. Weakness in legs and hip and CORE ASSESSMENT/PLAN: 1. Balance disorder - ICD9: 781.99, ICD10: R26.89 (primary diagnosis) Order for PHYSICAL THERAPY referral for evaluation, weakness of CORE strength and thigh and hip strength, need for fall prevention and balance improvement - CONSULT TO PHYSICAL THERAPY 2. Fall, initial encounter - ICD9: E888.9, ICD10: W19.XXXA Order for PHYSICAL THERAPY referral for evaluation, weakness of CORE strength and thigh and hip strength, need for fall prevention and balance improvement 3. Hyperlipidemia, mixed - ICD9: 272.2, ICD10: E78.2 (more content not included)...[facility]05-[facility] History of Present illness Narrative* Keith Romero, DO - 02/23/2025 8:10 AM EDT CC: Juan Geronimo is a 84 year old female who presents to the office for follow up HPI: Overall she is doing okay, she has had a lot of recent stressors with her 's health issues and ICU stay for 1 week after respiratory failure secondary to influenza and pneumonia. She will likely no longer be wintering in [place] as they were previously. HPL, diet controlled, not on statin therapy Osteopenia/osteoporosis. Admits to difficulty with her strength in her legs and hips and is noticing balance issues and concerns. She is concerned for risk of falls. She is willing to consider PHYSICAL THERAPY to help her with this. Did have 1 fall when she slipped on wet grass 1-2 weeks ago. No major injury. 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 Follows with [facility]T (supraventricular tachycardia) (HCC) 02/03/2023 Unspecified hemorrhoids without mention of complication PAST SURGICAL HISTORY Procedure Laterality Date APPENDECTOMY COLONOSCOPY FLX DX W/COLLJ SPEC WHEN PFRMD 11/23/2002 Colonoscopy COLONOSCOPY FLX DX W/COLLJ SPEC WHEN PFRMD 05/05/2018 Colonoscopy HEMORRHOIDECTOMY INTERNAL RUBBER BAND LIGATIONS PAST SURGICAL HISTORY OF 1982 hysterectomy for prolapse - ovaries remain PAST SURGICAL HISTORY OF 06/19/1977 vericose vein stripping PAST SURGICAL HISTORY OF 10/2001 Dr. Wheeler [facility] - partial wrist fusion left - ganglion cyst removed at same time PAST SURGICAL HISTORY OF 05/2005 - left hand dupuytren's contracture release. PAST SURGICAL HISTORY OF 05/2006 right hand repair small and ring fingers SIGMOIDOSCOPY FLX DX W/COLLJ SPEC BR/WA IF PFRMD 09/1998 Sigmoidoscopy TONSILLECTOMY & ADENOIDECTOMY <AGE 12 T/A (under age 12 years) Current Outpatient Medications Medication Sig alendronate (FOSAMAX) 70 mg tablet Take 1 tablet by mouth one time a week. Take with a full glass of water, on an empty stomach; do NOT lie down for 30minutes. levothyroxine (LEVOXYL) 88 mcg tablet Take 1 tablet daily except for Tues and Thurs and Sat take 2 tablets. Take on empty stomach. For Thyroid mupirocin (BACTROBAN) 2 % ointment Apply to affected area every 12 hours as needed (for skin wound). verapamil ER (VERELAN) 120 mg 24 hr capsule Take 1 capsule by mouth daily at bedtime. mecobalamin (B12 ACTIVE ORAL) Take 1 tablet by mouth once daily. aspirin 81 mg chewable tablet Take 81 mg by mouth once daily. BIOTIN ORAL Take 1,000 mcg by mouth once daily. Cholecalciferol, Vitamin D3, 25 mcg (1,000 unit) cap Take 2 capsules by mouth once daily. acetaminophen 650 mg CR tablet Take 1 tablet by mouth every 8 hours as needed. No current facility-administered medications for this visit. ALLERGIES Allergen Reactions Amoxil [Amoxicillin] Hives Codeine GI Upset Ultram [Tramadol Hc* Intolerance , Social History Tobacco Use Smoking status: Never Smokeless tobacco: Never Vaping Use Vaping status: Never Used Substance Use Topics Alcohol use: Yes Alcohol/week: 3.0 standard drinks of alcohol Types: 2 Standard drinks or equivalent, 1 Glasses of Wine (5oz) per week Comment: few times a week Drug use: No ROS: See HPI PE: BP 130/76 Pulse 76 Temp (Src) 97 (Right Tympanic) Resp 16 Wt 134 lb (60.8kg) Gen: A&OX3, NAD, non-toxic appearing HEENT: PERRLA, wearing glasses, EOMs intact b/l, nares without drainage, pharynx without erythema, exudate, lesions, or drainage. Uvula midline. MMM Neck: No LAD, no thyromegaly, no meningismus. CV: RRR, no murmur, normal s1s2 Lungs: CTA b/l, no wheezing Abd: soft, NT, ND, normal BS, no masses Normal pulses No edema legs Skin: No rashes, lesions, or wounds on exposed skin. Weakness in legs and hip and CORE ASSESSMENT/PLAN: 1. Balance disorder - ICD9: 781.99, ICD10: R26.89 (primary diagnosis) Order for PHYSICAL THERAPY referral for evaluation, weakness of CORE strength and thigh and hip strength, need for fall prevention and balance improvement - CONSULT TO PHYSICAL THERAPY 2. Fall, initial encounter - ICD9: E888.9, ICD10: W19.XXXA Order for PHYSICAL THERAPY referral for evaluation, weakness of CORE strength and thigh and hip strength, need for fall prevention and balance improvement 3. Hyperlipidemia, mixed - ICD9: 272.2, ICD10: E78.2 - Control undetermined, due for labs - Counseled on healthy diet and regular exercise 4. Age-related osteoporosis without current pathological fracture - ICD9: 733.01, ICD10: M81.0 - Reviewed the need for Calcium and Vitamin D supplements and weight bearing exercise as tolerated 5. Vitamin D deficiency - ICD9: 268.9, ICD10: E55.9 Continue supplement 6. Hypothyroidism, acquired - ICD9: 244.9, ICD10: E03.9 - Instructed patient on importance of taking on an empty stomach either first thing in the morning or at bedtime. - continue current dose of Synthroid 7. Vitamin B12 deficiency - ICD9: 266.2, ICD10: E53.8 Continue B12 supplement Keith Romero DO Return if no improvement. Follow up with Keith Romero DO. To ER if develops chest pain, shortness of breath. Discussed risks, benefits, alternatives, and potential side effects of medications. Patient/Guardian expressed understanding and agreed with the plan. See patient instructions. Keith Romero DO [address] [place] [address] documented in [facility] encounterBu[facility]04-[facility]25 Telephone encounter Note * Telephone Encounter - Anh Garcia RN - 02/16/2025 11:39 AM EDT Patient calls and notified that lab orders were placed. Patient voices understanding. Anh Garcia RN [facility]04-29-2025 Miscellaneous Notes* Telephone Encounter - Anh Garcia RN - 02/16/2025 11:39 AM EDT Patient calls and notified that lab orders were placed. Patient voices understanding. Anh Garcia RN * Telephone Encounter - Braxton Locke PA-C - 02/16/2025 11:29 AM EDT Fasting labs ordered Braxton Locke PA-C * Telephone Encounter - Anh Garcia RN - 02/16/2025 10:51 AM EDT Patient calls and states that she has appointment with provider on 02/23/2025. Patient asking if provider wants patient to get labs done prior to appointment? Please review and advise, Anh Garcia RN documented in this encounterBucyrus [facility]04-29-2025 Telephone encounter Note * Telephone Encounter - Braxton Locke PA-C - 02/16/2025 11:29 AM EDT Fasting labs ordered Braxton Locke PA-C [id number] Telephone encounter Note* Telephone Encounter - Anh Garcia RN - 02/16/2025 10:51 AM EDT Patient calls and states that she has appointment with provider on 02/23/2025. Patient asking if provider wants patient to get labs done prior to appointment? Please review and advise, Anh Garcia RN [facility]03-20-2025 Telephone encounter Note* Telephone Encounter - Sabiha Bills LPN - 01/07/2025 10:27 AM EDT Noted. [facility]03-20-2025 Miscellaneous Notes* Telephone Encounter - Sabiha Bills LPN - 01/07/2025 10:27 AM EDT Noted. * Telephone Encounter - Anh Garcia RN - 01/06/2025 4:25 PM EDT Adhesive Bandage Making Operator from "[employer]" calls and states that they received order for back brace. Adhesive Bandage Making Operator requesting that office notes be sent to them. Order was faxed and signed by provider. Called and spoke with patient. Patient states that sales representative graphic art keeps call her about this and shedoes not and never has requested that "[facility]" get a back brace for her. If sales representative graphic art call back please DO NOT send office notes and let sales representative graphic art know that patient does not want this. Anh Garcia RN documented in this encounterBucyrus [facility]03-19-2025 Telephone encounter Note * Telephone Encounter - Anh Garcia RN - 01/06/2025 4:25 PM EDT Adhesive Bandage Making Operator from "[facility]" calls and states that they received order for back brace. Adhesive Bandage Making Operator requesting that office notes be sent to them. Order was faxed and signed by provider. Called and spoke with patient. Patient states that sales representative graphic art keeps call her about this and shedoes not and never has requested that "[facility]" get a back brace for her. If sales representative graphic art call back please DO NOT send office notes and let sales representative graphic art know that patient does not want this. Anh Garcia RN [facility]10-18-2024 Telephone encounter Note* Telephone Encounter - Anh Garcia RN - 08/07/2024 12:56 PM EDT Patient calls and is asking about lab results. Patient notified: Juan, Thyroid labs are stable. Thank you, Keith Romero DO. Patient voiced understanding. Anh Garcia RN [facility]10-18-2024 Miscellaneous Notes* Telephone Encounter - Anh Garcia RN - 08/07/2024 12:56 PM EDT Patient calls and is asking about lab results. Patient notified: Juan, Thyroid labs are stable. Thank you, Keith Romero DO. Patient voiced understanding. Anh Garcia RN documented in this encounterBucyrus [facility] Hospital10-17-2024 History of Present illness Narrative* Nicholas Leone MD - 08/06/2024 6:29 AM EDT FOLLOW UP VISIT - HEMORRHOID BANDING NAME: Juan Mejia [facility] NO.: [id number] DATE OF SERVICE August 05, 2024 : 1940 REFERRING PHYSICIAN: Keith Romero DO Juan is a patient I am following for symptomatic internal hemorrhoids. I had seen the patient initially and the patient was having some prolapsing of the mixed hemorrhoidal complex which appeared jeana more likely than true rectal prolapse. Has been banded 3 times. She still notes some prolapsing tissue but she notes overall improvement in her symptoms of anal discomfort she can now sleep at night. She feels that her perianal irritationis improving The patient returns for hemorrhoidal banding. She has not take aspirin or other blood thinners for over 7 days. At her last visit, I discussed with the patient that she still has some external irritation and there is still the external components which do not seem to have changed appreciably. Since she is planning to leave for [place] for 6 months on August 12 I offered to do an operative hemorrhoidectomy next week expecting this would have taking care of her issues completely and had her recover before leaving for [place]. The patient states she had many things to take care [place] at this time. She wished to continue with banding and if this failed to improve her symptoms completely she would consider operative hemorrhoidectomy when she returns from [place]. She also noted that wall I have been less than satisfied about the degree of hemorrhoidal tissue amenable to band she does note overall that her symptoms are improving she denies pain atnight and can sleep now. VITALS: There were no vitals taken for this visit. There is no height or weight on file to calculate BMI. On examination, the patient still has some perianal and intergluteal irritation but this is vastly from her initial presentation. She has no prolapsing internal hemorrhoidal today. She has a right external hemorrhoid/tag component which is now less irritated and nontender. On digital exam, she still has a very small right anterior internal hemorrhoidal complex and a somewhat larger palpable left lateral complex PROCEDURE: HEMORRHOIDAL BANDING The risks, benefits and anticipated outcomes of the procedure, the risks and benefits of the alternatives to the procedure, and the roles and tasks of the personnel to be involved, were discussed with the patient, and the patient consents to the procedure and agrees to proceed. After consent was obtained and the site, person, and procedure verified, the patient was positioned. A digital rectal exam was performed demonstrating internal hemorrhoids in the left lateral position is smaller than when previously banded and wall the external component of the right anterior hemorr hoidal group seemed to be the most protuberant, An anoscope was introduced demonstrating symptomatic internal hemorrhoids. The hemorrhoidal complex in the right anterior aspect was grasped but failedto have significant tissue the left lateral component was still the largest internal component thiswas grasped and a single band was deployed over the complex. The amount of tissue purchased was a relatively small amount of internal hemorrhoidal tissue. the patient remained asymptomatic. The anoscope was removed. The patient tolerated the procedure well. Assessment IMPRESSION: Status post right posterior interal hemorrhoidal banding PLAN: If the patient notes any problems or pain, they should contact me immediately. The patient was informed that- A small amount of bleeding is common when the hemorrhoid sloughs at 3-5 days. Do not thataspirin for the next week. If you have significant bleeding or other problems, contact our office. The patient is traveling to [place] in the next few weeks for the next 6 months. At this time she feels her symptoms have improved enough that she is comfortable she will do well in [place] and if needs additional treatment she will follow-up with me when she returns in the spring. Diagnoses: (K64.9) Hemorrhoids, unspecified hemorrhoid type (primary encounter diagnosis) Return to Clinic: The patient is instructed to follow-up with me as needed when she returns from [place] in the spring. Nicholas Leone MD * Fernanda Kaur RN - 08/05/2024 2:23 PM EDT UNIVERSAL PROTOCOL / SAFETY CHECKLIST Procedure to be Performed: Anoscopy and hemorrhoidal banding Sign In: A Moment of CARE was completed. Personnel directly involved with the procedure wore the appropriate PPE (Personal Protective Equipment). Special equipment: Anoscopy and hemorrhoidal banding equipment. Patient/Surrogate Stated/Verified: PATIENT VERIFIED(optional for EMERGENT procedures): Patient name, Date of , Relevant allergies, and The intended procedure Time Out Communication: Intended patient and procedure match the source documents. Consent documented and matches the intended procedure. No relevant labs, photos, and/or imaging studies were applicable for review. Correct side/site marked and visible. No medications required for procedure. No fire risk assessment and interventions applicable. Implant(s) inserted: Correct implant(s) confirmed including size and side., Expiration date(s) reviewed., and hemorrhoid bands. Sign Out: SIGN OUT (optional for EMERGENT procedures): No specimen collected. No instruments, equipment or retained foreign bodies applicable. Post-procedure follow-up management communicated and Plan of Care Visit completed when applicable. Fernanda Kaur RN documented in this encounterBucyrus [facility]10-16-2024 Instructions* Patient Instructions* Fernanda Kaur RN - 08/05/2024 2:28 PM EDT The following instructions are important for you related to your office visit today with the [facility] Sur[facility]. Instructions After HEMORRHOIDAL BANDING If you note worsening anal pain, fever or significant anal redness or swellingcontact the office immediately. Minor bleeding from the anus is common. If there is continued bleeding, you should contact our office immediately. The banded hemorrhoidal complex will slough off in 4-5 days on average. Bleeding or some tissue with a black rubber band may be seen in the toilet bowl. You may require multiple bandings to correct your internal hemorrhoidal symptoms. Please make an appointment to return to our office in 6 weeks for possible repeat banding if your symptoms have not resolved. If you note any additional difficulties, questions, or concerns, you should contact our office immediately @ [phone] and ask to be transferred to the General Surgery department. documented in this encounterBucyrus [facility]10-15-2024 Telephone encounter Note * Telephone Encounter - Alina Gutiérrez MA - 08/04/2024 10:39 AM EDT Patient active MyChart. Patient notified via [employer] message. Alina Gutiérrez MA [facility]10-15-2024 Miscellaneous Notes* Telephone Encounter - Alina Gutiérrez MA - 08/04/2024 10:39 AM EDT Patient active MyChart. Patient notified via [employer] message. Alina Gutiérrez MA * Telephone Encounter - Keith Romero DO - 08/04/2024 9:41 AM EDT Please inform patient that her thyroid labs are stable Keith Romero DO documented in this encounterBucyrus [facility] Hospital10-15-2024 Telephone encounter Note * Telephone Encounter - Keith Romero DO - 08/04/2024 9:41 AM EDT Please inform patient that her thyroid labs are stable Keith Romero DO [facility]09-27-2024 Procedure note* Tayler Centeno RN - 07/17/2024 5:01 PM EDT UNIVERSAL PROTOCOL / SAFETY CHECKLIST Procedure to be Performed: Anoscopy and banding Sign In: A Moment of CARE was completed. Personnel directly involved with the procedure wore the appropriate PPE (Personal Protective Equipment). No special equipment needed. Patient/Surrogate Stated/Verified: PATIENT VERIFIED(optional for EMERGENT procedures): Patient name, Date of , Relevant allergies, and The intended procedure Time Out Communication: Intended patient and procedure match the source documents. Consent documented and matches the intended procedure. No relevant labs, photos, and/or imaging studies were applicable for review. No correct side/site applicable for marking and visibility. No medications required for procedure. No fire risk assessment and interventions applicable. No implant(s) inserted. Sign Out: SIGN OUT (optional for EMERGENT procedures): No specimen collected. All instruments, equipment, possible retained foreign bodies accounted for. Post-procedure follow-up management communicated and Plan of Care Visit completed when applicable. Tayler Centeno RN [facility]09-27-2024 Procedure note* Tayler Centeno RN - 07/17/2024 5:01 PM EDT UNIVERSAL PROTOCOL / SAFETY CHECKLIST Procedure to be Performed: Anoscopy and banding Sign In: A Moment of CARE was completed. Personnel directly involved with the procedure wore the appropriate PPE (Personal Protective Equipment). No special equipment needed. Patient/Surrogate Stated/Verified: PATIENT VERIFIED(optional for EMERGENT procedures): Patient name, Date of , Relevant allergies, and The intended procedure Time Out Communication: Intended patient and procedure match the source documents. Consent documented and matches the intended procedure. No relevant labs, photos, and/or imaging studies were applicable for review. No correct side/site applicable for marking and visibility. No medications required for procedure. No fire risk assessment and interventions applicable. No implant(s) inserted. Sign Out: SIGN OUT (optional for EMERGENT procedures): No specimen collected. All instruments, equipment, possible retained foreign bodies accounted for. Post-procedure follow-up management communicated and Plan of Care Visit completed when applicable. Tayler Centeno RN documented in this encounterBucyrus [facility]09-27-2024 History of Present illness Narrative* Nicholas Leone MD - 07/17/2024 4:32 PM EDT FOLLOW UP VISIT - HEMORRHOID BANDING NAME: Juan Mejia [facility] NO.: [id number] DATE OF SERVICE: July 17, 2024 : 1940 REFERRING PHYSICIAN: Keith Romero DO Juan is a patient I am following for symptomatic internal hemorrhoids. I had seen the patient initially and the patient was having some prolapsing of the mixed hemorrhoidal complex which appeared jeana more likely than true rectal prolapse. Has been banded twice. She still notes some prolapsing tissue but she notes overall improvement in her symptoms of anal discomfort she can now sleep at night. And feels that her perianal irritation is improving The patient returns for hemorrhoidal banding. She has not take aspirin or other blood thinners for over 7 days. I discussed with the patient that she still has some external irritation and there is still the external components which do not seem to have changed appreciably. Since she is planning to leave for [place] for 6 months on August 12 I offered to do an operative hemorrhoidectomy next week expecting this would have taking care of her issues completely and had her recover before leaving for [place].The patient states she had many things to take care of before leaving to [place] I did not wish to consider that at this time. She wished to continue with banding and if this failed to improve her symptoms completely she would consider operative hemorrhoidectomy when she returns from [place]. VITALS: There were no vitals taken for this visit. There is no height or weight on file to calculate BMI. On examination, the patient still has perianal and intergluteal irritation. She has no prolapsing material today. She still has a larger right anterior complex and her left lateral complex PROCEDURE: HEMORRHOIDAL BANDING The risks, benefits and anticipated outcomes of the procedure, the risks and benefits of the alternatives to the procedure, and the roles and tasks of the personnel to be involved, were discussed with the patient, and the patient consents to the procedure and agrees to proceed. After consent was obtained and the site, person, and procedure verified, the patient was positioned. A digital rectal exam was performed demonstrating internal hemorrhoids in the left lateral position is smaller than when previously banded and wall the external component of the right anterior hemorr hoidal group seemed to be the most protuberant, An anoscope was introduced demonstrating symptomatic internal hemorrhoids. The hemorrhoidal complex in the right anterior aspect was grasped but failedto have significant tissue the left lateral component was still the largest internal component thiswas grasped and a single band was deployed over the complex. The patient remained asymptomatic. Theanoscope was removed. The patient tolerated the procedure well. Assessment IMPRESSION: Status post right posterior interal hemorrhoidal banding PLAN: If the patient notes any problems or pain, they should contact me immediately. The patient was informed that- A small amount of bleeding is common when the hemorrhoid sloughs at 3-5 days. Do not thataspirin for the next week. If you have significant bleeding or other problems, contact our office. The patient is planning to travel in July/asked her to return in just over 2 weeks to attempt additional banding of the right anterior location both with this improves her bleeding symptoms. Diagnoses: (K64.9) Hemorrhoids, unspecified hemorrhoid type (primary encounter diagnosis) Return to Clinic: The patient is instructed to follow-up with me for additional banding as needed every few weeks. Nicholas Leone MD * Tayler Centeno RN - 07/17/2024 4:09 PM EDT UNIVERSAL PROTOCOL / SAFETY CHECKLIST Procedure to be Performed: Anoscopy and banding Sign In: A Moment of CARE was completed. Personnel directly involved with the procedure wore the appropriate PPE (Personal Protective Equipment). No special equipment needed. Patient/Surrogate Stated/Verified: PATIENT VERIFIED(optional for EMERGENT procedures): Patient name, Date of , Relevant allergies, and The intended procedure Time Out Communication: Intended patient and procedure match the source documents. Consent documented and matches the intended procedure. No relevant labs, photos, and/or imaging studies were applicable for review. No correct side/site applicable for marking and visibility. No medications required for procedure. No fire risk assessment and interventions applicable. No implant(s) inserted. Sign Out: SIGN OUT (optional for EMERGENT procedures): No specimen collected. No instruments, equipment or retained foreign bodies applicable. Post-procedure follow-up management communicated and Plan of Care Visit completed when applicable. Tayler Centeno RN documented in this encounterBu[facility]09-12-2024 Telephone encounter Note * Telephone Encounter - Aria Giordano MA - 07/02/2024 10:32 AM EDT Pt notified and voiced understanding. Aria Giordano MA [facility]09-12-2024 Miscellaneous Notes* Telephone Encounter - Aria Giordano MA - 07/02/2024 10:32 AM EDT Pt notified and voiced understanding. Aria Giordano MA * Telephone Encounter - Dionne Means APRN.CNP - 07/01/2024 7:22 PM EDT She can cut back the B12 to 1000 mcg daily. Ok for the vitamin D3 dose. Dionne Means APRN.CNP * Telephone Encounter - Kalyani Green RN - 07/01/2024 1:00 PM EDT Patient calling to clarify B 12 and Vitamin D 3 medication instructions. - She says she has been taking 5000 mcg B12 every other day. - She says she has been taking 5000 international unit(s) Vitamin D3 daily. Are these the correct doses? -She is not using Pramoxine (Proctofoam). She did not fill the original script. Kalyani Green RN documented in this encounterBucyrus Community Hospital09-12-2024 History of Present illness Narrative* Nicholas Leone MD - 07/02/2024 4:18 AM EDT FOLLOW UP VISIT - HEMORRHOID BANDING NAME: Juan Mejia [facility] NO.: [id number] DATE OF SERVICE: July 01, 2024 : 1940 REFERRING PHYSICIAN: Keith Romero DO Juan is a patient I am following for symptomatic internal hemorrhoids. I had seen the patient lastweek and the patient was having some prolapsing of the mixed hemorrhoidal complex which appeared jeana more likely than true rectal prolapse. She states the tissue has still been prolapsing over the weekend. The patient returns for hemorrhoidal banding. They have not take aspirin or other blood thinners for over 7 days. VITALS: Blood pressure 128/72, pulse 98, weight 61.2 kg (135 lb), SpO2 100%. Body mass index is 22.22 kg/m . On examination, the patient has prolapsing interal hemorrhoidal at the left lateral and right anterior components. Patient was asked to strain and no rectal prolapse was noted. PROCEDURE: HEMORRHOIDAL BANDING The risks, benefits and anticipated outcomes of the procedure, the risks and benefits of the alternatives to the procedure, and the roles and tasks of the personnel to be involved, were discussed with the patient, and the patient consents to the procedure and agrees to proceed. After consent was obtained and the site, person, and procedure verified, the patient was positioned. A digital rectal exam was performed demonstrating internal hemorrhoids in the left lateral position is smaller than when previously banded and wall the external component of the right anterior hemorr hoidal group seemed to be the most protuberant, the right posterior aspect seem to be the largest on palpation without other abnormalities. An anoscope was introduced demonstrating symptomatic internal hemorrhoids. The hemorrhoidal complex in the right anterior aspect was grasped but failed to havesignificant tissue at the level high enough to the dentate line to not cause discomfort. Therefore the right posterior complex was grasped with an forceps without causing discomfort to the patient. Asingle band was deployed over the complex. The patient remained asymptomatic. The anoscope was removed. The patient tolerated the procedure well. Assessment IMPRESSION: Status post right posterior interal hemorrhoidal banding PLAN: If the patient notes any problems or pain, they should contact me immediately. The patient was informed that- A small amount of bleeding is common when the hemorrhoid sloughs at 3-5 days. Do not thataspirin for the next week. If you have significant bleeding or other problems, contact our office. The patient is planning to travel in July/asked her to return in just over 2 weeks to attempt additional banding of the right anterior location both with this improves her bleeding symptoms. Diagnoses: (K64.9) Hemorrhoids, unspecified hemorrhoid type (primary encounter diagnosis) Return to Clinic: The patient is instructed to follow-up with me for additional banding as needed every few weeks. Nicholas Leone MD * Nicholas Leone MD - 07/01/2024 5:16 PM EDT UNIVERSAL PROTOCOL / SAFETY CHECKLIST Procedure to be Performed: Anoscopy and hemorrhoidal banding Sign In: A Moment of CARE was completed. Personnel directly involved with the procedure wore the appropriate PPE (Personal Protective Equipment). Patient/Surrogate Stated/Verified: PATIENT VERIFIED(optional for EMERGENT procedures): Patient name, Date of , Relevant allergies, and The intended procedure Time Out Communication: Intended patient and procedure match the source documents. Consent documented and matches the intended procedure. Sign Out: SIGN OUT (optional for EMERGENT procedures): No specimen collected. Tayler Centeno RN [facility] Telephone encounter Note * Telephone Encounter - Dionne Means APRN.CNP - 07/01/2024 7:22 PM EDT She can cut back the B12 to 1000 mcg daily. Ok for the vitamin D3 dose. Dionne Means APRN.TEJ [facility] Work Phone: 1(520) 210-840309-11-2024 Telephone encounter Note* Telephone Encounter - Kalyani Green RN - 07/01/2024 1:00 PM EDT Patient calling to clarify B 12 and Vitamin D 3 medication instructions. - She says she has been taking 5000 mcg B12 every other day. - She says she has been taking 5000 international unit(s) Vitamin D3 daily. Are these the correct doses? -She is not using Pramoxine (Proctofoam). She did not fill the original script. Kalyani Green RN [facility]09-11-2024 History of Present illness Narrative* Keith Romero DO - 07/01/2024 12:19 PM EDT CC: Juan Geronimo is a 83 year old female who presents to the office for follow up HPI: Hypothyroidism, taking her levothyroxine as prescribed, tolerates well without SE to medication. Isnoticing that her hair is thinning and brittle and some fatigue symptoms TSH Date Value Ref Range Status 06/24/2024 2.800 0.270 - 4.200 mIU/L Final Free T4 Date Value Ref Range Status 06/24/2024 1.3 0.9 - 1.7 ng/dL Final Free T3 2.6 06/24/2024 OA, stable, has chronic balance issues but no recent falls HPL, diet controlled. No new changes in symptoms. 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 Follows with Justin Haynes 02/03/2023: SVT (supraventricular tachycardia) (HCC) No date: Unspecified hemorrhoids without mention of complication PAST SURGICAL HISTORY No date: APPENDECTOMY 11/23/2002: COLONOSCOPY FLX DX W/COLLJ SPEC WHEN PFRMD Comment: Colonoscopy 05/05/2018: COLONOSCOPY FLX DX W/COLLJ SPEC WHEN PFRMD Comment: Colonoscopy No date: HEMORRHOIDECTOMY INTERNAL RUBBER BAND LIGATIONS 1982: PAST SURGICAL HISTORY OF Comment: hysterectomy for prolapse - ovaries remain 06/19/1977: PAST SURGICAL HISTORY OF Comment: vericose vein stripping 10/2001: PAST SURGICAL HISTORY OF Comment: Dr. Wheeler [facility] - partial wrist fusion left - ganglion cyst removed at same time 05/2005: PAST SURGICAL HISTORY OF Comment: - left hand dupuytren's contracture release. 05/2006: PAST SURGICAL HISTORY OF Comment: right hand repair small and ring fingers 09/1998: SIGMOIDOSCOPY FLX DX W/COLLJ SPEC BR/WA IF PFRMD Comment: Sigmoidoscopy No date: TONSILLECTOMY & ADENOIDECTOMY <AGE 12 Comment: T/A (under age 12 years) Current Outpatient Medications Medication Sig docusate sodium (COLACE) 100 mg capsule Take 1 capsule by mouth two times a day as needed for constipation. alendronate (FOSAMAX) 70 mg tablet Take 1 tablet by mouth one time a week. Take with a full glass of water, on an empty stomach; do NOT lie down for 30minutes. levothyroxine (LEVOXYL) 88 mcg tablet Take 1 tablet daily except for Tues and Thurs and Sat take 2 tablets. Take on empty stomach. For Thyroid mupirocin (BACTROBAN) 2 % ointment Apply to affected area every 12 hours as needed (for skin wound). Pramoxine (PROCTOFOAM) 1 % foam 1 Applicator by RECTAL route every 2 hours as needed. verapamil ER (VERELAN) 120 mg 24 hr capsule Take 1 capsule by mouth daily at bedtime. mecobalamin (B12 ACTIVE ORAL) Take 1 tablet by mouth once daily. aspirin 81 mg chewable tablet Take 81 mg by mouth once daily. BIOTIN ORAL Take 1,000 mcg by mouth once daily. Cholecalciferol, Vitamin D3, 25 mcg (1,000 unit) cap Take 2 capsules by mouth once daily. acetaminophen 650 mg CR tablet Take 1 tablet by mouth every 8 hours as needed. No current facility-administered medications for this visit. ALLERGIES No Known Allergies Social History Tobacco Use Smoking status: Never Smokeless tobacco: Never Vaping Use Vaping status: Never Used Substance Use Topics Alcohol use: Yes Alcohol/week: 3.0 standard drinks of alcohol Types: 2 Standard drinks or equivalent, 1 Glasses of Wine (5oz) per week Comment: few times a week Drug use: No ROS: See HPI PE: BP 124/80 Pulse 80 Temp (Src) 97 (Left Tympanic) Resp 20 Ht 5' 5.354" (1.66m) Wt 135 lb (61.2kg) BMI 22.22 kg/(m^2). Gen: A&OX3, NAD, non-toxic appearing HEENT: PERRLA, EOMs intact b/l, nares without drainage, pharynx without erythema, exudate, lesions,or drainage. Uvula midline. MMM, EAC and TM wnl Neck: No LAD, no thyromegaly, no meningismus. CV: RRR, no murmur Lungs: CTA b/l, no wheezing Skin: abrasion with impetigo below nose No edema, normal pulses Abd: soft,NT, ND, normal BS, no masses ASSESSMENT/PLAN: 1. Medicare annual wellness visit, subsequent - ICD9: V70.0, ICD10: Z00.00 (primary diagnosis) - Counseled on healthy diet and regular exercise 2. Hemorrhoids, unspecified hemorrhoid type - ICD9: 455.6, ICD10: K64.9 F/u with DR. Leone - DOCUSATE SODIUM 100 MG CAPSULE 3. Hypothyroidism, acquired - ICD9: 244.9, ICD10: E03.9 - Instructed patient on importance of taking on an empty stomach either first thing in the morning or at bedtime. - Increase Synthroid dose - LEVOTHYROXINE 88 MCG TABLET - LEVOTHYROXINE 88 MCG TABLET - THYROID STIMULATING HORMONE - T4 FREE/FREE THYROXINE 4. Age-related osteoporosis without current pathological fracture - ICD9: 733.01, ICD10: M81.0 - Reviewed the need for Calcium and Vitamin D supplements and weight bearing exercise as tolerated - ALENDRONATE 70 MG TABLET 5. Need for pneumococcal 20-valent conjugate vaccination - ICD9: V03.82, ICD10: Z23 - PNEUMOCOCCAL VACCINE, 20 VALENT (PREVNAR 20) 6. Skin lesion of face - ICD9: 709.9, ICD10: L98.9 rx as below - MUPIROCIN 2 % TOPICAL OINTMENT 7. Hyperlipidemia, mixed - ICD9: 272.2, ICD10: E78.2 - Controlled - Counseled on healthy diet and regular exercise 8. Spinal stenosis of thoracolumbar region - ICD9: 724.01, ICD10: M48.05 Stable Chronic No falls Keith Romero DO Return if no improvement. Follow up with Keith Romero DO. To ER if develops chest pain, shortness of breath. Discussed risks, benefits, alternatives, and potential side effects of medications. Patient/Guardian expressed understanding and agreed with the plan. See patient instructions. Keith Romero DO [address] [place] [address] * Keith Romero DO - 07/01/2024 11:59 AM EDT Images from the original note were not included. Juan Geronimo is a 83 year old female here for a Medicare wellness visit. Medicare Health Risk Assessment General Health Good Exercise: Minutes/Day 0 min Exercise: Days/Week 0 days Alcohol: Daily Use 2-3 times a week Alcohol: Drinks/Day 1 or 2 Alcohol: 6 or more drinks Never Feel off balance No Concerns: Teeth/Dentures No Concerns: Sexual function No Troubled by feelings None of the above Frequency: Eating healthy diet Nearly every day ADLs requiring help None of the above Safety precautions in home/vehicle Yes Smoke, vape, chews tobacco No Difficulty hearing No Difficulty seeing No Current Providers Specialists: I have reviewed specialist-related care of the patient in the medical record. Medical/Family history review Reviewed and updated problem list, medical/surgical/family/social history, medications, and allergies. Opioid use review Opioid Medications (last 90 days) No data to display Anxiety/Depression screening PHQ-9 Score: 0. MALLORIE-2 Score: 0 (Lower risk for anxiety) Recommendation: no further intervention at this time Cognitive screening Mini Cog Score: 4 Cognitive screening reviewed and No further action needed (score 3-5). Functional Observation Was the patient's Timed Up & Go test unsteady or ? 12 seconds? No Advance Care Planning Surrogate decision maker and/or advance care plan documented Measurements BP 124/80 Pulse 80 Temp 36.1 C (97 F) (Left Tympanic) Resp 20 Ht 166 cm (5' 5.35") Wt 61.2 kg (135 lb) BMI 22.22 kg/m Vision Screening: Follows with optometry/ophthalmology Assessment/Plan Medicare annual wellness visit, subsequent (Z00.00) - Counseled on healthy diet and regular exercise - Fall avoidance information provided - Personalized prevention plan provided Keith Romero DO [facility]24 Telephone encounter Note * Telephone Encounter - Anh Garcia RN - 06/23/2024 10:21 AM EDT Patient called and notified that lab orders placed. Patient voices understanding. Anh Garcia RN [facility]09-03-2024 Miscellaneous Notes* Telephone Encounter - Anh Garcia RN - 06/23/2024 10:21 AM EDT Patient called and notified that lab orders placed. Patient voices understanding. Anh Garcia RN * Telephone Encounter - Braxton Locke PA-C - 06/23/2024 10:13 AM EDT Ordered Braxton Locke PA-C * Telephone Encounter - Anh Garcia RN - 06/23/2024 9:05 AM EDT Patient calls and states that she has annual wellness scheduled with Dr. Romero on 07/01/2024. Patient asking if lab orders can be placed so that patient can get these done prior to appointment? Patient asking for call back when orders are placed. Please review and advise, Anh Garcia RN documented in this encounterBu[facility]09-03-2024 Telephone encounter Note * Telephone Encounter - Braxton Locke PA-C - 06/23/2024 10:13 AM EDT Ordered Braxton Locke PA-C [facility]09-03-2024 Telephone encounter Note* Telephone Encounter - Anh Garcia RN - 06/23/2024 9:05 AM EDT Patient calls and states that she has annual wellness scheduled with Dr. Romero on 07/01/2024. Patient asking if lab orders can be placed so that patient can get these done prior to appointment? Patient asking for call back when orders are placed. Please review and advise, Anh Garcia RN [facility]08-29-2024 Telephone encounter Note* Telephone Encounter - Fabiana Bee RN - 06/18/2024 9:26 AM EDT Pt called and is notified of providers results and instructions. Pt voices understanding, but states she already takes Fosamax, calcium, and Vit D3 and has for years. Pt states she will talk with Dr Romero about this when she sees her in a few weeks. Fabiana Bee RN [facility]08-29-2024 Miscellaneous Notes* Telephone Encounter - Fabiana Bee RN - 06/18/2024 9:26 AM EDT Pt called and is notified of providers results and instructions. Pt voices understanding, but states she already takes Fosamax, calcium, and Vit D3 and has for years. Pt states she will talk with Dr Romero about this when she sees her in a few weeks. Fabiana Bee RN * Telephone Encounter - Dionne Means APRN.CNP - 06/17/2024 5:14 PM EDT Please let patient know that bone scan results show osteopenia. They need to be taking a daily calcium and Vitamin D3 supplement. *1200 mg - 1500 mg calcium per day *800 - 1000 International Units of vitamin D3 per day Dionne Means APRN.CNP\\ documented in this encounterBucy[facility]08-28-2024 Telephone encounter Note * Telephone Encounter - Dionne Means APRN.CNP - 06/17/2024 5:14 PM EDT Please let patient know that bone scan results show osteopenia. They need to be taking a daily calcium and Vitamin D3 supplement. *1200 mg - 1500 mg calcium per day *800 - 1000 International Units of vitamin D3 per day Dionne Means APRN.SHAKER REPAIRER\\ [facility] Work Phone: 1(817) 747-103008-23-2024 Note* Letter - Coordinator, Mammography - 06/12/2024 8:14 AM EDT June 15, 2024 PID: [id number] Juan Geronimo [address] [place] [address] Dear Ms. Geronimo, We are pleased to inform you that the results of your recent breast imaging exam on 06/11/2024 are normal. Breast tissue can be either dense or not dense. Dense tissue makes it harder to find breast cancer on a mammogram and also raises the risk of developing breast cancer. Your breast tissue is dense. Insome people with dense tissue, other imaging tests in addition to a mammogram may help find cancers. Talk to your healthcare provider about breast density, risks for breast cancer, and your individual situation. Early detection of cancer is very important. We also understand recommendations regarding breast cancer screening are controversial. Please discuss with your primary care provider which strategy is best for you and whether a mammogram is right for you. Your imaging studies and report will be kept on file at [facility] as part of your permanent medical record and are available for your continuing care. Thank you for allowing us to help in meeting your health care needs. Sincerely, Dr. Gómez Interpreting Radiologist [facility] [place] (Normal over 40) [facility]08-23-2024 Miscellaneous Notes* Letter - Coordinator, Mammography - 06/12/2024 8:14 AM EDT June 15, 2024 PID: [id number] Juan Geronimo [address] [place] [address] Dear Ms. Geronimo, We are pleased to inform you that the results of your recent breast imaging exam on 06/11/2024 are normal. Breast tissue can be either dense or not dense. Dense tissue makes it harder to find breast cancer on a mammogram and also raises the risk of developing breast cancer. Your breast tissue is dense. Insome people with dense tissue, other imaging tests in addition to a mammogram may help find cancers. Talk to your healthcare provider about breast density, risks for breast cancer, and your individual situation. Early detection of cancer is very important. We also understand recommendations regarding breast cancer screening are controversial. Please discuss with your primary care provider which strategy is best for you and whether a mammogram is right for you. Your imaging studies and report will be kept on [facility] at [facility] as part of your permanent medical record and are available for your continuing care. Thank you for allowing us to help in meeting your health care needs. Sincerely, Dr. Gómez Interpreting Radiologist [facility] (Normal over 40) documented in this encounterBucyrus [facility] Hospital08-22-2024 History of Present illness Narrative* Tobin Young RT(R) - 06/11/2024 8:55 AM EDT Radiology Service Progress Note PATIENT NAME: Juan Geronimo DATE OF SERVICE: June 11, 2024 TIME: 8:54 AM PATIENT IDENTITY VERIFICATION COMPLETED USING TWO (2) IDENTIFIERS: Name and Date of confirmedby patient verbally. FALL SCREENING: Has the patient had 2 falls in the last year or 1 fall with injury or currently using an Ambulatory Assistive Device (Walker, Cane, Wheelchair, Crutches, etc.)? No PATIENT GENDER DATA: Female. status: : No status: NO. PATIENT RELEVANT IMPLANT DATA REVIEWED: Not Applicable PATIENT PRESENTS WITH AN IMPLANTABLE OR ATTACHED GROUP CARE WORKER: No RADIOLOGY DEPARTMENT: Bone Density PERIPHERAL IV DATA: Not applicable SIGNED BY: RT Ryan(R) June 11, 2024 8:54 AM documented in this encounterBucyrus [facility] Hospital08-22-2024 History of Present illness Narrative* Marybeth Alberts RT(R) - 06/11/2024 8:10 AM EDT Radiology Service Progress Note PATIENT NAME: Juan Geronimo DATE OF SERVICE: June 11, 2024 TIME: 8:05 AM PATIENT IDENTITY VERIFICATION COMPLETED USING TWO (2) IDENTIFIERS: Name and Date of confirmedby patient verbally. FALL SCREENING: Has the patient had 2 falls in the last year or 1 fall with injury or currently using an Ambulatory Assistive Device (Walker, Cane, Wheelchair, Crutches, etc.)? No PATIENT GENDER DATA: Female. status: : No status: NO. PATIENT RELEVANT IMPLANT DATA REVIEWED: Not Applicable PATIENT PRESENTS WITH AN IMPLANTABLE OR ATTACHED GROUP CARE WORKER: No RADIOLOGY DEPARTMENT: Mammography PERIPHERAL IV DATA: Not applicable SIGNED BY: RT Coni(R) June 11, 2024 8:05 AM documented in this encounterBucyrus [facility] Hospital07-31-2024 History of Present illness Narrative* Nicholas Leone MD - 05/20/2024 5:49 PM EDT FOLLOW UP VISIT - HEMORRHOID BANDING NAME: Juan Mejia [facility] NO.: [id number] DATE OF SERVICE: 05/19/2024 : 1940 REFERRING PHYSICIAN: Keith Romero DO Juan is a patient I am following for symptomatic internal hemorrhoids. I had seen the patient lastweek and the patient was having some prolapsing of the mixed hemorrhoidal complex which appeared jeana more likely than true rectal prolapse. She states the tissues been prolapsing over the weekend. The patient returns for hemorrhoidal banding. They have not take aspirin or other blood thinners forover 7 days. VITALS: Pulse 96, temperature 36.1 C (96.9 F), height 167.6 cm (5' 6"), weight 62.1 kg (137 lb), SpO2 99%. Body mass index is 22.11 kg/m . On examination, the patient has prolapsing interal hemorrhoidal at the left lateral and right anterior components. PROCEDURE: HEMORRHOIDAL BANDING The risks, benefits and anticipated outcomes of the procedure, the risks and benefits of the alternatives to the procedure, and the roles and tasks of the personnel to be involved, were discussed with the patient, and the patient consents to the procedure and agrees to proceed. After consent was obtained and the site, person, and procedure verified, the patient was positioned. A digital rectal exam was performed demonstrating internal hemorrhoids in the left lateral position without other abnormalities. An anoscope was introduced demonstrating symptomatic internal hemorrhoid. The hemorrhoidal complex was grasped with an forceps without causing discomfort to the patient.A single band was deployed over the complex. The patient remained asymptomatic. The anoscope was removed. The patient tolerated the procedure well. Assessment IMPRESSION: Status post left lateral interal hemorrhoidal banding PLAN: If the patient notes any problems or pain, they should contact me immediately. The patient was informed that- A small amount of bleeding is common when the hemorrhoid sloughs at 3-5 days. Do not thataspirin for the next week. If you have significant bleeding or other problems, contact our office. Diagnoses: (K64.9) Hemorrhoids, unspecified hemorrhoid type (primary encounter diagnosis) Return to Clinic: The patient is instructed to follow-up with me for additional banding as needed every few weeks. Nicholas Leone MD documented in this encounterBu[facility]07-30-2024 Instructions* Patient Instructions* Luh Fenton LPN - 05/19/2024 3:02 PM EDT Instructions After HEMORRHODIAL BANDING If you note worsening anal pain, fever or significant anal redness or swellingcontact the office immediately. Minor bleeding from the anus is common. If there is continued bleeding, you should contact our office immediately. The banded hemorrhoidal complex will slough off in 4-5 days on average. Bleeding or some tissue with a black rubber band may be seen in the toilet bowl. You may require multiple bandings to correct your internal hemorrhoidal symptoms. Please make an appointment to return to our office in 4 weeks for possible repeat banding if your symptoms have not resolved. documented in this encounterBucyrus [facility] Hospital07-30-2024 Nurse Note* Luh Fenton LPN - 05/19/2024 2:48 PM EDT UNIVERSAL PROTOCOL / SAFETY CHECKLIST Procedure to be Performed: Anoscopy and banding Sign In: A Moment of CARE was completed. Personnel directly involved with the procedure wore the appropriate PPE (Personal Protective Equipment). No special equipment needed. Patient/Surrogate Stated/Verified: PATIENT VERIFIED(optional for EMERGENT procedures): Patient name, Date of , Relevant allergies, and The intended procedure Time Out Communication: Intended patient and procedure match the source documents. Consent documented and matches the intended procedure. Relevant labs, photos, and/or imaging studies have been reviewed. Correct side/site marked and visible. No medications required for procedure. No fire risk assessment and interventions applicable. No implant(s) inserted. Sign Out: SIGN OUT (optional for EMERGENT procedures): No specimen collected. No instruments, equipment or retained foreign bodies applicable. Post-procedure follow-up management communicated and Plan of Care Visit completed when applicable. Luh Fenton LPN [facility]07-30-2024 Nurse Note* Luh Fenton LPN - 05/19/2024 2:48 PM EDT UNIVERSAL PROTOCOL / SAFETY CHECKLIST Procedure to be Performed: Anoscopy and banding Sign In: A Moment of CARE was completed. Personnel directly involved with the procedure wore the appropriate PPE (Personal Protective Equipment). No special equipment needed. Patient/Surrogate Stated/Verified: PATIENT VERIFIED(optional for EMERGENT procedures): Patient name, Date of , Relevant allergies, and The intended procedure Time Out Communication: Intended patient and procedure match the source documents. Consent documented and matches the intended procedure. Relevant labs, photos, and/or imaging studies have been reviewed. Correct side/site marked and visible. No medications required for procedure. No fire risk assessment and interventions applicable. No implant(s) inserted. Sign Out: SIGN OUT (optional for EMERGENT procedures): No specimen collected. No instruments, equipment or retained foreign bodies applicable. Post-procedure follow-up management communicated and Plan of Care Visit completed when applicable. Luh Fenton LPN * Luh Fenton LPN - 05/19/2024 1:55 PM EDT REVIEW OF SYSTEMS: General: The patient denies fatigue, denies weight loss, denies weight gain, NOTES feeling hot, andNOTES feelings of cold. Eyes: The patient denies glaucoma, denies eye injury/surgery, does not wear glasses or contacts. Ear/Nose/Throat: The patient NOTES allergies, NOTES hayfever, denies ear infections, and denies bloody noses. Cardiovascular: The patient denies chest pain, denies heart disease, NOTES high blood pressure,denies cardiac stent, denies prior heart attack, denies irregular heart beat, NOTES high cholesterol, denies poor circulation, denies heart failure, other cardiac issues, denies claudication, denies cold feet, denies peripheral arterial stent. Respiratory: The patient denies tuberculosis, denies pneumonia, denies frequent cough, denies pulmonary embolism, denies shortness of breath, and denies coughing up blood. Gastrointestinal: The patient denies difficulty swallowing, NOTES acid reflux, denies ulcers, denies vomiting, denies jaundice/hepatitis, denies gallbladder problems, denies black or tarry stools, NOTES hemorrhoids, NOTES bleeding from rectum, denies diverticulitis, denies constipation, denies diarrhea, denies loss of stool control, and denies hernias. Kidney/Bladder: The patient denies kidney stones, denies urine infections, and denies bloody urine. Skin: The patient denies a history of skin cancer, denies bleeding/changing moles, and NOTES a history of skin rash. Neurologic: The patient denies a history of epilepsy/convulsions, denies headaches, denies head/spinal injuries, and denies stroke/TIA. Psychiatric: The patient denies psychiatric medications, denies depression, and denies voices, denies substance abuse. Endocrine: The patient NOTES thyroid disorders, denies diabetes, and denies hormonal problems. Hematologic: The patient denies a history of bruising, denies bleeding, and NOTES anemia, denies blood clots. Infections: The patient denies a history of measles and mumps, denies rheumatic fever, and denies sexually transmitted diseases. Musculoskeletal: The patient denies back pain/injury, denies back problems, denies sciatica, deniesknee/foot trouble, denies arthritis, or denies gout. When was patient's last Mammogram screening? 2022 Last Colonoscopy: 2017 Luh Fenton LPN [facility]* Luh Fenton LPN - 05/19/2024 1:55 PM EDT REVIEW OF SYSTEMS: General: The patient denies fatigue, denies weight loss, denies weight gain, NOTES feeling hot, andNOTES feelings of cold. Eyes: The patient denies glaucoma, denies eye injury/surgery, does not wear glasses or contacts. Ear/Nose/Throat: The patient NOTES allergies, NOTES hayfever, denies ear infections, and denies bloody noses. Cardiovascular: The patient denies chest pain, denies heart disease, NOTES high blood pressure,denies cardiac stent, denies prior heart attack, denies irregular heart beat, NOTES high cholesterol, denies poor circulation, denies heart failure, other cardiac issues, denies claudication, denies cold feet, denies peripheral arterial stent. Respiratory: The patient denies tuberculosis, denies pneumonia, denies frequent cough, denies pulmonary embolism, denies shortness of breath, and denies coughing up blood. Gastrointestinal: The patient denies difficulty swallowing, NOTES acid reflux, denies ulcers, denies vomiting, denies jaundice/hepatitis, denies gallbladder problems, denies black or tarry stools, NOTES hemorrhoids, NOTES bleeding from rectum, denies diverticulitis, denies constipation, denies diarrhea, denies loss of stool control, and denies hernias. Kidney/Bladder: The patient denies kidney stones, denies urine infections, and denies bloody urine. Skin: The patient denies a history of skin cancer, denies bleeding/changing moles, and NOTES a history of skin rash. Neurologic: The patient denies a history of epilepsy/convulsions, denies headaches, denies head/spinal injuries, and denies stroke/TIA. Psychiatric: The patient denies psychiatric medications, denies depression, and denies voices, denies substance abuse. Endocrine: The patient NOTES thyroid disorders, denies diabetes, and denies hormonal problems. Hematologic: The patient denies a history of bruising, denies bleeding, and NOTES anemia, denies blood clots. Infections: The patient denies a history of measles and mumps, denies rheumatic fever, and denies sexually transmitted diseases. Musculoskeletal: The patient denies back pain/injury, denies back problems, denies sciatica, deniesknee/foot trouble, denies arthritis, or denies gout. When was patient's last Mammogram screening? 2022 Last Colonoscopy: 2017 Luh Fenton LPN [facility] History of Present illness Narrative* Nicholas Leone MD - 05/17/2024 8:27 AM EDT HISTORY AND PHYSICAL Juan Geronimo 1940 REFERRING PHYSICIAN: Johanna Roblero APRN.SHAKER REPAIRER CHIEF COMPLAINT: Consult (Internal and external hemorrhoids. ) HPI: The patient is a 83 year old female with a complaint of prolapsing anal tissue which the patient believes is internal hemorrhoids. The patient notes she has had issues with prolapsing hemorrhoids ever since the of her children. She states she has had problems with occasional rectal bleeding and prolapse for the past 45 years.She has noted itching in the past. She has tried topical agents when she has had these itching issues. She was seen in family medicine who noted the following: Rectal pain -- Hemorrhoids (internal and external) ever since of first child. Bleeding intermittent. Off andon straining with BM. Pt denies constipation. Reports hemorrhoids are very itchy which then causes raw, dry skin around rectum and on buttock. Using Desitin for this with some relief. Has used OTC and medicated ointments, witch radha cream/pads, teresita butter, etc without any relief. Normally able tomanage these on her own but the pain is becoming constant and to the point where she is unable to sit for long periods of time without discomfort. Reports having banding down a few years back which did help a lot -- reports this was with GI doctor outside of [facility], unknown name or clinic. She underwent colonoscopy in 2018 which demonstrated a 5 mm polyp. Pathology returned as a small adenomatous polyp. It was recommended she have follow-up colonoscopy in 5 years. In discussion she states she has not had bleeding for a few weeks. She states that really is not somuch pain but notes a fullness and pressure in the area. She does relate that in the past hemorrhoidal banding did cause her symptoms to improve significantly. The patient is being seen by me today at the request of Johanna Roblero APRN.SHAKER REPAIRER my opinion and advice regarding symptomatic hemorrhoids versus prolapse. 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 Follows with Justin [facility]nes [facility] (supraventricular tachycardia) ([facility]) 02/03/2023 Unspecified hemorrhoids without mention of complication PAST SURGICAL HISTORY Procedure Laterality Date APPENDECTOMY COLONOSCOPY FLX DX W/COLLJ SPEC WHEN PFRMD 11/23/2002 Colonoscopy COLONOSCOPY FLX DX W/COLLJ SPEC WHEN PFRMD 05/05/2018 Colonoscopy HEMORRHOIDECTOMY INTERNAL RUBBER BAND LIGATIONS PAST SURGICAL HISTORY OF 1982 hysterectomy for prolapse - ovaries remain PAST SURGICAL HISTORY OF 06/19/1977 vericose vein stripping PAST SURGICAL HISTORY OF 10/2001 Dr. Wheeler [facility] - partial wrist fusion left - ganglion cyst removed at same time PAST SURGICAL HISTORY OF 05/2005 - left hand dupuytren's contracture release. PAST SURGICAL HISTORY OF 05/2006 right hand repair small and ring fingers SIGMOIDOSCOPY FLX DX W/COLLJ SPEC BR/WA IF PFRMD 09/1998 Sigmoidoscopy TONSILLECTOMY & ADENOIDECTOMY <AGE 12 T/A (under age 12 years) Current Outpatient Medications Medication Sig docusate sodium (COLACE) 100 mg capsule Take 1 capsule by mouth two times a day as needed for constipation. Pramoxine (PROCTOFOAM) 1 % foam 1 Applicator by RECTAL route every 2 hours as needed. verapamil ER (VERELAN) 120 mg 24 hr capsule Take 1 capsule by mouth daily at bedtime. alendronate (FOSAMAX) 70 mg tablet Take 1 tablet by mouth one time a week. Take with a full glass of water, on an empty stomach; do NOT lie down for 30minutes. levothyroxine (LEVOXYL) 88 mcg tablet Take 1 tablet daily except for Tues and Thurs takes 2 tablets. Take on empty stomach. For Thyroid mecobalamin (B12 ACTIVE ORAL) Take 1 tablet by mouth once daily. aspirin 81 mg chewable tablet Take 81 mg by mouth once daily. BIOTIN ORAL Take 1,000 mcg by mouth once daily. Cholecalciferol, Vitamin D3, 25 mcg (1,000 unit) cap Take 2 capsules by mouth once daily. acetaminophen 650 mg CR tablet Take 1 tablet by mouth every 8 hours as needed. No current facility-administered medications for this visit. ALLERGIES: Patient has no known allergies. PERSONAL HISTORY: Social History Tobacco Use Smoking status: Never Smokeless tobacco: Never Vaping Use Vaping Use: Never used Substance Use Topics Alcohol use: Yes Alcohol/week: 3.0 standard drinks of alcohol Types: 2 Standard drinks or equivalent, 1 Glasses of Wine (5oz) per week Comment: few times a week Drug use: No FAMILY HISTORY: FAMILY HISTORY Problem Relation Age of Onset Cancer Mother ovarian and colon Cancer Father prostate - glaucoma Colon Cancer Father Cancer Brother skin - glaucoma Alzheimer's Disease Brother REVIEW OF SYMPTOMS: The review of systems data was entered by the nurse and reviewed by sc Nursing Notes: Fernanda Kaur RN 05/15/2024 1:33 PM Signed REVIEW OF SYSTEMS: General: The patient denies fatigue, denies weight loss, denies weight gain, denies feeling hot, and denies feelings of cold. Eyes: The patient denies glaucoma, NOTES eye injury/surgery, wears glasses or contacts. Ear/Nose/Throat: The patient denies allergies, denies hayfever, denies ear infections, and denies bloody noses. Cardiovascular: The patient denies chest pain, NOTES heart disease, denies high blood pressure,denies cardiac stent, denies prior heart attack, NOTES irregular heart beat, NOTES high cholesterol, denies poor circulation, denies heart failure, other cardiac issues, denies claudication, denies cold feet, denies peripheral arterial stent. Respiratory: The patient denies tuberculosis, denies pneumonia, denies frequent cough, denies pulmonary embolism, denies shortness of breath, and denies coughing up blood. Gastrointestinal: The patient denies difficulty swallowing, NOTES acid reflux, denies ulcers, denies vomiting, denies jaundice/hepatitis, denies gallbladder problems, denies black or tarry stools, NOTES hemorrhoids, NOTES bleeding from rectum, denies diverticulitis, denies constipation, denies diarrhea, denies loss of stool control, and denies hernias. Kidney/Bladder: The patient denies kidney stones, denies urine infections, and denies bloody urine. Skin: The patient denies a history of skin cancer, denies bleeding/changing moles, and denies a history of skin rash. Neurologic: The patient denies a history of epilepsy/convulsions, denies headaches, denies head/spinal injuries, and denies stroke/TIA. Psychiatric: The patient denies psychiatric medications, denies depression, and denies voices, denies substance abuse. Endocrine: The patient NOTES thyroid disorders, denies diabetes, and denies hormonal problems. Hematologic: The patient denies a history of bruising, denies bleeding, and denies anemia, denies blood clots. Infections: The patient denies a history of measles and mumps, denies rheumatic fever, and denies sexually transmitted diseases. Musculoskeletal: The patient denies back pain/injury, NOTES back problems, denies sciatica, denies knee/foot trouble, NOTES arthritis, or denies gout. When was patient's last Mammogram screening? 06/10/2023 Last Colonoscopy: 05/05/2018; patient states she had one in 2021, but I am unable to locate the results. Fernanda Kaur RN PHYSICAL EXAMINATION: General: The patient is 83 year old female, well nourished, well hydrated in no acute distress. Thepatient is oriented to time, place, and person. VITALS: Blood pressure 138/72, pulse 99, temperature 36.4 C (97.6 F), height 167.6 cm (5' 6"), weight 61.9 kg (136 lb 6.4 oz), SpO2 99%. HEENT: Normal cephalic, ataumatic, pupils are equally round, sclera are anicteric, mucous membranesare moist, oropharynx is clear. Neck has no masses, asymmetry or lymphadenopathy. Thyroid is unremarkable. Respiratory: Clear to auscultation and percussion. Normal respiratory excursion and pattern. Cardiac: Examination is regular rate and rhythm. Abdominal exam: Soft, nontender, with no palpable masses. No hepatosplenomegaly. No palpable hernias. Rectal exam: Significant hemorrhoids, grade 2 located in the in all 3 quadrants, otherwise no additional abnormalities or masses. Digital rectal exam - normal tone, internal hemorrhoids without otherabnormalities. The patient was nontender and did not have signs of a fissure. I had her go to the bathroom and with pressure she was able to prolapse a small amount of tissue that did not appear to be hemorrhoids and not true rectal prolapse. Extremities: no clubbing, cyanosis or edema. No adenopathy. Other: LABORATORY VALUES: As Noted RADIOLOGIC STUDIES: As Noted Assessment IMPRESSION: Likely hemorrhoidal prolapse PLAN: We discussed banding. The patient most likely will want banding. I have asked her to contact the office and return when she has bleeding so we can assess the area band the most significant hemorrhoidal complex and assure that this is not truly prolapse. If the patient has further prolapse at home I asked if it is possible to try to take a picture before she reduces this. I do feel she should have follow-up colonoscopy since she had an adenomatous polyp. I would like toimprove her anal symptoms prior to bowel prep and colonoscopy. Diagnoses: (K64.9) Hemorrhoids, unspecified hemorrhoid type My findings have been communicated to Dr. Keith Romero DO via shared medical record. This note will be forwarded to Dr. Keith Romero DO. Return to Clinic: The patient is instructed to follow-up with me in a few weeks when actively bleeding. Nicholas Leone MD [facility] Nurse Note* Fernanda Kaur RN - 05/15/2024 1:31 PM EDT REVIEW OF SYSTEMS: General: The patient denies fatigue, denies weight loss, denies weight gain, denies feeling hot, and denies feelings of cold. Eyes: The patient denies glaucoma, NOTES eye injury/surgery, wears glasses or contacts. Ear/Nose/Throat: The patient denies allergies, denies hayfever, denies ear infections, and denies bloody noses. Cardiovascular: The patient denies chest pain, NOTES heart disease, denies high blood pressure,denies cardiac stent, denies prior heart attack, NOTES irregular heart beat, NOTES high cholesterol, denies poor circulation, denies heart failure, other cardiac issues, denies claudication, denies cold feet, denies peripheral arterial stent. Respiratory: The patient denies tuberculosis, denies pneumonia, denies frequent cough, denies pulmonary embolism, denies shortness of breath, and denies coughing up blood. Gastrointestinal: The patient denies difficulty swallowing, NOTES acid reflux, denies ulcers, denies vomiting, denies jaundice/hepatitis, denies gallbladder problems, denies black or tarry stools, NOTES hemorrhoids, NOTES bleeding from rectum, denies diverticulitis, denies constipation, denies diarrhea, denies loss of stool control, and denies hernias. Kidney/Bladder: The patient denies kidney stones, denies urine infections, and denies bloody urine. Skin: The patient denies a history of skin cancer, denies bleeding/changing moles, and denies a history of skin rash. Neurologic: The patient denies a history of epilepsy/convulsions, denies headaches, denies head/spinal injuries, and denies stroke/TIA. Psychiatric: The patient denies psychiatric medications, denies depression, and denies voices, denies substance abuse. Endocrine: The patient NOTES thyroid disorders, denies diabetes, and denies hormonal problems. Hematologic: The patient denies a history of bruising, denies bleeding, and denies anemia, denies blood clots. Infections: The patient denies a history of measles and mumps, denies rheumatic fever, and denies sexually transmitted diseases. Musculoskeletal: The patient denies back pain/injury, NOTES back problems, denies sciatica, denies knee/foot trouble, NOTES arthritis, or denies gout. When was patient's last Mammogram screening? 06/10/2023 Last Colonoscopy: 05/05/2018; patient states she had one in 2021, but I am unable to locate the results. Fernanda Kaur RN [facility]07-[facility] Nurse Note* Fernanda Kaur RN - 05/15/2024 1:31 PM EDT REVIEW OF SYSTEMS: General: The patient denies fatigue, denies weight loss, denies weight gain, denies feeling hot, and denies feelings of cold. Eyes: The patient denies glaucoma, NOTES eye injury/surgery, wears glasses or contacts. Ear/Nose/Throat: The patient denies allergies, denies hayfever, denies ear infections, and denies bloody noses. Cardiovascular: The patient denies chest pain, NOTES heart disease, denies high blood pressure,denies cardiac stent, denies prior heart attack, NOTES irregular heart beat, NOTES high cholesterol, denies poor circulation, denies heart failure, other cardiac issues, denies claudication, denies cold feet, denies peripheral arterial stent. Respiratory: The patient denies tuberculosis, denies pneumonia, denies frequent cough, denies pulmonary embolism, denies shortness of breath, and denies coughing up blood. Gastrointestinal: The patient denies difficulty swallowing, NOTES acid reflux, denies ulcers, denies vomiting, denies jaundice/hepatitis, denies gallbladder problems, denies black or tarry stools, NOTES hemorrhoids, NOTES bleeding from rectum, denies diverticulitis, denies constipation, denies diarrhea, denies loss of stool control, and denies hernias. Kidney/Bladder: The patient denies kidney stones, denies urine infections, and denies bloody urine. Skin: The patient denies a history of skin cancer, denies bleeding/changing moles, and denies a history of skin rash. Neurologic: The patient denies a history of epilepsy/convulsions, denies headaches, denies head/spinal injuries, and denies stroke/TIA. Psychiatric: The patient denies psychiatric medications, denies depression, and denies voices, denies substance abuse. Endocrine: The patient NOTES thyroid disorders, denies diabetes, and denies hormonal problems. Hematologic: The patient denies a history of bruising, denies bleeding, and denies anemia, denies blood clots. Infections: The patient denies a history of measles and mumps, denies rheumatic fever, and denies sexually transmitted diseases. Musculoskeletal: The patient denies back pain/injury, NOTES back problems, denies sciatica, denies knee/foot trouble, NOTES arthritis, or denies gout. When was patient's last Mammogram screening? 06/10/2023 Last Colonoscopy: 05/05/2018; patient states she had one in 2021, but I am unable to locate the results. Fernanda Kaur RN [facility] Telephone encounter Note * Telephone Encounter - Harriett Prado LPN - 05/13/2024 2:55 PM EDT Phoned [facility] and spoke to Mindy went over notes below from Johanna Roblero COST ENGINEER withunderstanding. [facility]07-[facility] Miscellaneous Notes* Telephone Encounter - Harriett Prado LPN - 05/13/2024 2:55 PM EDT [facility] spoke [facility] Mindy went over notes below from Johanna Roblero COST ENGINEER withunderstanding. * Telephone Encounter - Johanna Roblero APRN.CNP - 05/13/2024 2:18 PM EDT No alternative. Pt can continue regimens she has at home until she gets in with GI. Thank you, Johanna Roblero APRN.CNP * Telephone Encounter - Brianna Cuellar RN - 05/13/2024 1:51 PM EDT Mindy pharmacist from [facility] and states that Proctofoam is not covered under pt's insurance. Would there be an alternative? documented in this encounter[address]24-2024 Telephone encounter Note * Telephone Encounter - Johanna Roblero APRN.CNP - 05/13/2024 2:18 PM EDT No alternative. Pt can continue regimens she has at home until she gets in with GI. Thank you, Johanna Roblero APRN.CNP [facility] Telephone encounter Note* Telephone Encounter - Brianna Cuellar RN - 05/13/2024 1:51 PM EDT Mindy pharmacist from [facility] and states that Proctofoam is not covered under pt's insurance. Would there be an alternative? [address]24-2024 Instructions* Patient Instructions* Johanna Roblero APRN.CNP - 05/13/2024 12:49 PM EDT [employer] documented [place] [id number] History of Present illness Narrative* Johanna Roblero APRN.CNP - 05/13/2024 12:07 PM EDT Chief Complaint Patient presents with: Rectal Problem: Pt states has had hemorrhoids for 450 years has always been able to tend to them but now there is pain all the time used everything on market with no relief HPI Juan Geronimo is a 83 year old female who presents here today for Above Complaints. Juan is an established patient of Dr. Nick Do. She is a new patient to me today. Concerns today.. Rectal pain -- Hemorrhoids (internal and external) ever since of first child. Bleeding intermittent. Off andon straining with BM. Pt denies constipation. Reports hemorrhoids are very itchy which then causes raw, dry skin around rectum and on buttock. Using Desitin for this with some relief. Has used OTC and medicated ointments, witch radha cream/pads, teresita butter, etc without any relief. Normally able tomanage these on her own but the pain is becoming constant and to the point where she is unable to sit for long periods of time without discomfort. Reports having banding down a few years back which did help a lot -- reports this was with GI doctor outside of [facility], unknown name or clinic. Past medical history, appointments, medications, allergies reviewed. 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 Follows with [facility] (supraventricular tachycardia) ([facility]) 02/03/2023 Unspecified hemorrhoids without mention of complication Previous Surgical History PAST SURGICAL HISTORY Procedure Laterality Date APPENDECTOMY COLONOSCOPY FLX DX W/COLLJ SPEC WHEN PFRMD 11/23/2002 Colonoscopy COLONOSCOPY FLX DX W/COLLJ SPEC WHEN PFRMD 05/05/2018 Colonoscopy HEMORRHOIDECTOMY INTERNAL RUBBER BAND LIGATIONS PAST SURGICAL HISTORY OF 1982 hysterectomy for prolapse - ovaries remain PAST SURGICAL HISTORY OF 06/19/1977 vericose vein stripping PAST SURGICAL HISTORY OF 10/2001 Dr. [facility] [facility] - ganglion cyst removed at same time PAST SURGICAL HISTORY OF 05/2005 - left hand dupuytren's contracture release. PAST SURGICAL HISTORY OF 05/2006 right hand repair small and ring fingers SIGMOIDOSCOPY FLX DX W/COLLJ SPEC BR/WA IF PFRMD 09/1998 Sigmoidoscopy TONSILLECTOMY & ADENOIDECTOMY <AGE 12 T/A (under age 10 years) Family History FAMILY HISTORY Problem Relation Age of Onset Cancer Mother ovarian and colon Cancer Father prostate - glaucoma Colon Cancer Father Cancer Brother skin - glaucoma Alzheimer's Disease Brother Patient Allergies ALLERGIES No Active Allergies Current Medications Current Outpatient Medications on File Prior to Visit Medication Sig verapamil ER (VERELAN) 120 mg 24 hr capsule Take 1 capsule by mouth daily at bedtime. alendronate (FOSAMAX) 70 mg tablet Take 1 tablet by mouth one time a week. Take with a full glass of water, on an empty stomach; do NOT lie down for 30minutes. levothyroxine (LEVOXYL) 88 mcg tablet Take 1 tablet daily except for Tues and Thurs takes 2 tablets. Take on empty stomach. For Thyroid mecobalamin (B12 ACTIVE ORAL) Take 1 tablet by mouth once daily. aspirin 81 mg chewable tablet Take 81 mg by mouth once daily. BIOTIN ORAL Take 1,000 mcg by mouth once daily. Cholecalciferol, Vitamin D3, 25 mcg (1,000 unit) cap Take 2 capsules by mouth once daily. acetaminophen 650 mg CR tablet Take 1 tablet by mouth every 8 hours as needed. No current facility-administered medications on file prior to visit. Social History Social History Tobacco Use Smoking status: Never Smokeless tobacco: Never Vaping Use Vaping Use: Never used Substance Use Topics Alcohol use: Yes Alcohol/week: 3.0 standard drinks of alcohol Types: 2 Standard drinks or equivalent, 1 Glasses of Wine (5oz) per week Comment: few times a week Drug use: No REVIEW OF SYSTEMS: as above Reviewed relevant PMHx, PSHx, Social Hx, current medications and allergies. Review of Symptoms REVIEW OF SYSTEMS See HPI. EXAM: BP 130/60 (BP Site: Left Arm, BP Position: Sitting, BP Cuff Size: Regular Adult) Pulse 72 Resp 14 Wt 61.9 kg (136 lb 6.4 oz) BMI 22.02 kg/m General Appearance: Well appearing, alert, in no acute distress, well-hydrated, well nourished.. Skin: Skin color, texture, turgor normal, no suspicious rashes or lesions. Rectal: Positive findings: rectal external hemorrhoids x 2 noted. Health Maintenance List Depression Screening Never done Anxiety Screening Never done DTaP,Tdap,Td Vaccine(3 - Tdap) due on 05/21/2021 Bone Density Screening due on 07/19/2023 Influenza Vaccine(1) due on 06/21/2024 Diabetes Screening due on 02/18/2027 RSV Vaccine Completed Shingrix Vaccine Completed Covid-19 Vaccine Completed Pneumococcal Vaccine: 65+ Completed Advance Directive Discussion Discontinued ASSESSMENT/PLAN: 1. Hemorrhoids, unspecified hemorrhoid type - ICD9: 455.6, ICD10: K64.9 Increase fiber in diet and start daily stool softener to prevent straining. Trial proctofoam. Consult to GI about possible hemorrhoid banding or other interventions. - DOCUSATE SODIUM 100 MG CAPSULE - PRAMOXINE 1 % TOPICAL FOAM - CONSULT TO GASTROENTEROLOGY RTO as needed. Prescription instructions reviewed with patient as applicable. Potential red flag symptoms discussed with the patient. Reviewed appropriate action plan to take if red flag symptoms occur. Patient agreeable to treatment plan. Johanna Cotton APRN.[employer] [id number] [place] [address] documented in this encounterBu[facility]07-[facility]24 Telephone encounter Note * Telephone Encounter - Anh Garcia RN - 05/13/2024 10:12 AM EDT Patient call in for rectal pain and itching. Patient states that she has history of hemorrhoids. Patient has tried preparation H and other medication but has not helped. Nurse Triage assessment completed with protocol recommending for disposition of See PCP in 4 hours.Patient scheduled today with Johanna. Reason for Disposition SEVERE rectal pain (e.g., excruciating, unable to have a bowel movement) Answer Assessment - Initial Assessment Questions 1. SYMPTOM: Pain and Itching 2. ONSET: Several months. 3. RECTAL PAIN: Patient states that she is constantly aware of pain, patient is learning to just deal with it. 4. RECTAL ITCHING: Patient states that itching is bad.. 5. CONSTIPATION: denies 6. CAUSE: Hemorrhoids 7. OTHER SYMPTOMS: Denies other symptoms Protocols used: Rectal [id number] [facility]07-24-[facility] Miscellaneous Notes* Telephone Encounter - Anh Garcia RN - 05/13/2024 10:12 AM EDT Patient call in for rectal pain and itching. Patient states that she has history of hemorrhoids. Patient has tried preparation H and other medication but has not helped. Nurse Triage assessment completed with protocol recommending for disposition of See PCP in 4 hours.Patient scheduled today with Johanna. Reason for Disposition SEVERE rectal pain (e.g., excruciating, unable to have a bowel movement) Answer Assessment - Initial Assessment Questions 1. SYMPTOM: Pain and Itching 2. ONSET: Several months. 3. RECTAL PAIN: Patient states that she is constantly aware of pain, patient is learning to just deal with it. 4. RECTAL ITCHING: Patient states that itching is bad.. 5. CONSTIPATION: denies 6. CAUSE: Hemorrhoids 7. OTHER SYMPTOMS: Denies other symptoms Protocols used: Rectal [id number] documented in this encounterBucyrus [facility]07-22-2024 History of Present illness Narrative* Paresh Ngo MD - 05/11/2024 10:56 AM EDT Images from the original note were not included. Paresh Ngo MD Interventional Cardiology [address] [place] [address] [phone] Chief Complaint Patient presents with: New Patient HISTORY OF PRESENT ILLNESS: Ms. Geronimo is a 83 year old female seen my office today to establish care patient had prior history of supraventricular tachycardia and hyperlipidemia first episode happened while she was in [place] when she started having a sudden onset rapid heartbeat she was considered for ablation procedure patient did not feel comfortable with the procedure she was started on verapamil since then she has been doing very well Holter monitor a year ago shows a 40 short-lived episodes of SVT no recurrent episodes of significant supraventricular tachycardia patient is doing well from the cardiac point of view Cardiac Risk Factors age (male over 45, female over 55), hyperlipidemia, hypertension, family history of CAD PAST MEDICAL HISTORY Diagnosis Date Advance care planning 02/25/2023 Supa Disorder of bone and cartilage, unspecified 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 Follows with Justin Haynes SVT (supraventricular tachycardia) ([facility]) 02/03/2023 Unspecified hemorrhoids without mention of complication PAST SURGICAL HISTORY Procedure Laterality Date APPENDECTOMY COLONOSCOPY FLX DX W/COLLJ SPEC WHEN PFRMD 11/23/2002 Colonoscopy COLONOSCOPY FLX DX W/COLLJ SPEC WHEN PFRMD 05/05/2018 Colonoscopy HEMORRHOIDECTOMY INTERNAL RUBBER BAND LIGATIONS PAST SURGICAL HISTORY OF 1982 hysterectomy for prolapse - ovaries remain PAST SURGICAL HISTORY OF 06/19/1977 vericose vein stripping PAST SURGICAL HISTORY OF 10/2001 Dr. Wheeler [facility] - partial wrist fusion left - ganglion cyst removed at same time PAST SURGICAL HISTORY OF 05/2005 - left hand dupuytren's contracture release. PAST SURGICAL HISTORY OF 05/2006 right hand repair small and ring fingers SIGMOIDOSCOPY FLX DX W/COLLJ SPEC BR/WA IF PFRMD 09/1998 Sigmoidoscopy TONSILLECTOMY & ADENOIDECTOMY <AGE 12 T/A (under age 10 years) FAMILY HISTORY Problem Relation Age of Onset Cancer Mother ovarian and colon Cancer Father prostate - glaucoma Colon Cancer Father Cancer Brother skin - glaucoma Alzheimer's Disease Brother Social History Tobacco Use Smoking status: Never Smokeless tobacco: Never Vaping Use Vaping Use: Never used Substance Use Topics Alcohol use: Yes Alcohol/week: 3.0 standard drinks of alcohol Types: 2 Standard drinks or equivalent, 1 Glasses of Wine (5oz) per week Comment: few times a week Drug use: No ALLERGIES No Active Allergies Medications: Current Outpatient Medications Medication Sig Dispense Refill alendronate (FOSAMAX) 70 mg tablet Take 1 tablet by mouth one time a week. Take with a full glass of water, on an empty stomach; do NOT lie down for 30minutes. 12 tablet 3 levothyroxine (LEVOXYL) 88 mcg tablet Take 1 tablet daily except for Tues and Thurs takes 2 tablets. Take on empty stomach. For Thyroid 114 tablet 1 mecobalamin (B12 ACTIVE ORAL) Take 1 tablet by mouth once daily. aspirin 81 mg chewable tablet Take 81 mg by mouth once daily. BIOTIN ORAL Take 1,000 mcg by mouth once daily. Cholecalciferol, Vitamin D3, 25 mcg (1,000 unit) cap Take 2 capsules by mouth once daily. 0 acetaminophen 650 mg CR tablet Take 1 tablet by mouth every 8 hours as needed. 0 verapamil ER (VERELAN) 120 mg 24 hr capsule Take 1 capsule by mouth daily at bedtime. 90 capsule 3 No current facility-administered medications for this visit. Review of Systems Constitutional: Negative for chills, diaphoresis, fever, malaise/fatigue and weight loss. HENT: Negative for congestion, ear discharge, ear pain, hearing loss, nosebleeds, sinus pain, sore throat and tinnitus. Eyes: Negative for blurred vision, double vision, photophobia, pain, discharge and redness. Respiratory: Negative for cough, hemoptysis, sputum production, shortness of breath, wheezing and stridor. Cardiovascular: Negative for chest pain, palpitations, orthopnea, claudication, leg swelling and PND. Gastrointestinal: Negative for abdominal pain, blood in stool, constipation, diarrhea, heartburn, melena, nausea and vomiting. Genitourinary: Negative for dysuria, flank pain, frequency, hematuria and urgency. Musculoskeletal: Negative for back pain, falls, joint pain, myalgias and neck pain. Skin: Negative for itching and rash. Neurological: Negative for dizziness, tingling, tremors, sensory change, speech change, focal weakness, seizures, loss of consciousness, weakness and headaches. Endo/Heme/Allergies: Negative for environmental allergies and polydipsia. Does not bruise/bleed easily. Psychiatric/Behavioral: Negative for depression, hallucinations, memory loss, substance abuse and suicidal ideas. The patient is not nervous/anxious and does not have insomnia. Physical Examination: Vitals:BP 152/68 Pulse 66 Ht 5' 6" (1.68m) Wt 136 lb (61.7kg) SpO2 98% BMI 21.96 kg/(m^2). BP w/Orthostatic Vitals Date and Time Orthostatic BP Orthostatic Pulse BP Pulse BP Position BP Site BP Cuff Size 05/11/24 1013 -- -- 152/68 66 -- -- -- Last 2 Encounter Wt Readings: Date: Wt: 05/11/2024 61.7 kg (136 lb) 04/30/2023 61.2 kg (135 lb) Physical Exam Constitutional: General: She is not in acute distress. Appearance: She is not diaphoretic. HENT: Head: Normocephalic and atraumatic. Right Ear: External ear normal. Left Ear: External ear normal. Nose: Nose normal. Mouth/Throat: Pharynx: Oropharynx is clear. Eyes: General: Right eye: No discharge. Left eye: No discharge. Conjunctiva/sclera: Conjunctivae normal. Pupils: Pupils are equal, round, and reactive to light. Cardiovascular: Rate and Rhythm: Normal rate and regular rhythm. Heart sounds: Normal heart sounds, S1 normal and S2 normal. No murmur heard. No friction rub. No gallop. No S3 or S4 sounds. Pulmonary: Effort: Pulmonary effort is normal. No respiratory distress. Breath sounds: Normal breath sounds. No wheezing or rales. Chest: Chest wall: No tenderness. Musculoskeletal: General: Normal range of motion. Cervical back: Normal range of motion and neck supple. Skin: General: Skin is warm and dry. Neurological: Mental Status: She is alert and oriented to person, place, and time. Psychiatric: Mood and Affect: Mood normal. Thought Content: Thought content normal. Judgment: Judgment normal. Pertinent Labs: CBC: Hemoglobin (g/dL) Date Value 02/19/2024 12.7 04/19/2021 12.2 Hematocrit (%) Date Value 02/19/2024 40.0 04/19/2021 38.8 WBC (k/uL) Date Value 02/19/2024 6.79 04/19/2021 4.87 Platelet Count (k/uL) Date Value 02/19/2024 291 04/19/2021 224 BMP: Glucose (mg/dL) Date Value 02/19/2024 78 04/19/2021 74 Potassium (mmol/L) Date Value 02/19/2024 5.2 04/19/2021 4.2 Sodium (mmol/L) Date Value 02/19/2024 144 04/19/2021 144 Chloride (mmol/L) Date Value 02/19/2024 108 04/19/2021 108 CO2 (mmol/L) Date Value 02/19/2024 26 04/19/2021 24 Creatinine (mg/dL) Date Value 02/19/2024 1.20 04/19/2021 1.13 BUN (mg/dL) Date Value 02/19/2024 19 04/19/2021 15 Anion Gap (mmol/L) Date Value 02/19/2024 10 04/19/2021 12 Calcium (mg/dL) Date Value 04/19/2021 9.0 Calcium, Total (mg/dL) Date Value 02/19/2024 9.8 INR: Lipid Profile: Cholesterol, Total Date Value Ref Range Status 02/19/2024 230 (H) <200 mg/dL Final Comment: <200 mg/dL, Desirable 200-239 mg/dL, Borderline high >239 mg/dL, High HDL Cholesterol Date Value Ref Range Status 02/19/2024 89 >39 mg/dL Final Comment: 40-59 mg/dL, Acceptable >59 mg/dL, High: Negative risk factor for coronary heart disease <40 mg/dL, Low: Positive risk factor for coronary heart disease LDL Cholesterol Date Value Ref Range Status 02/19/2024 128 (H) <100 mg/dL Final Comment: <100 mg/dL, Optimal 100-129 mg/dL, Near optimal/above optimal 130-159 mg/dL, Borderline high 160-189 mg/dL, High >189 mg/dL, Very high Secondary prevention optimal LDL Cholesterol levels are recommended to be < 70 mg/dL Triglyceride Date Value Ref Range Status 02/19/2024 67 <150 mg/dL Final Comment: <150 mg/dL, Normal 150-199 mg/dL, Borderline high 200-499 mg/dL, High >499 mg/dL, Very high Hemoglobin A1C: No results found for: "HGBA1C" TSH: No results found for: "TSHREFL" Prior Cardiac Testing EKG Assessment and Plan: 83 years old female patient with prior history of supraventricular tachycardia ASSESSMENT/PLAN: 1. Screening for ischemic heart disease - ICD9: V81.0, ICD10: Z13.6 (primary diagnosis) Stable cardiac condition with no evidence of ischemic heart disease - ECG COMPLETE 2. SVT (supraventricular tachycardia) (HCC), paroxysmal, nonsustained - ICD9: 427.89, ICD10: I47.10 Stable supraventricular tachycardia controlled with medication - VERAPAMIL ER 120 MG 24 HR CAPSULE,EXTENDED RELEASE Paresh Ngo MD Follow up planning: ONE YEAR Electronically signed by Paresh Ngo MD on May 11, 2024, 10:56 AM The above note was partially created using a dictation recognition software. A reasonable attempt has been made to correct any errors. documented in this encounterBu[facility]06-20-2024 Telephone encounter Note * Telephone Encounter - Cara Sher MA - 04/09/2024 9:38 AM EDT Pt informed, verbalized understanding Cara Sher MA [facility]06-20-2024 Miscellaneous Notes* Telephone Encounter - Cara Sher MA - 04/09/2024 9:38 AM EDT Pt informed, verbalized understanding Cara Sher MA * Telephone Encounter - Keith Romero DO - 04/08/2024 10:19 PM EDT Please inform patient that her thyroid labs are all stable Keith Romero DO documented in this encounterBucyrus [facility] Hospital06-19-2024 Telephone encounter Note * Telephone Encounter - Keith Romero DO - 04/08/2024 10:19 PM EDT Please inform patient that her thyroid labs are all stable Keith Romero DO [facility]06-17-20[facility] Telephone encounter Note* Telephone Encounter - Anh Garcia RN - 04/06/2024 9:11 AM EDT The patient has been identified by name and date of : Yes Caregiver verified no other encounters exist for this prescription request: Yes Caregiver confirmed with patient/requestor that no other refills are due, in the near future, with this provider at this time: Yes The last office visit in the department: 02/25/2023 Does the patient have a future office visit with this provider/department: Yes 07/01/2024- Annual Wellness Requested Prescriptions Pending Prescriptions Disp Refills alendronate (FOSAMAX) 70 mg tablet 12 tablet 3 Sig: Take 1 tablet by mouth one time a week. Take with a full glass of water, on an empty stomach; do NOT lie down for 30minutes. Anh Garcia RN April 06, 2024 9:11 AM [facility]06-17-[facility] Miscellaneous Notes* Telephone Encounter - Anh Garcia RN - 04/06/2024 9:11 AM EDT The patient has been identified by name and date of : Yes Caregiver verified no other encounters exist for this prescription request: Yes Caregiver confirmed with patient/requestor that no other refills are due, in the near future, with this provider at this time: Yes The last office visit in the department: 02/25/2023 Does the patient have a future office visit with this provider/department: Yes 07/01/2024- Annual Wellness Requested Prescriptions Pending Prescriptions Disp Refills alendronate (FOSAMAX) 70 mg tablet 12 tablet 3 Sig: Take 1 tablet by mouth one time a week. Take with a full glass of water, on an empty stomach; do NOT lie down for 30minutes. Anh Garcia RN April 06, 2024 9:11 AM documented in this encounterBucyrus [facility] Hospital05-16-2024 Telephone encounter Note * Telephone Encounter - Liliana Meléndez LPN - 03/05/2024 1:55 PM EDT Pt called for a refill and wanted to make sure the new rx has the new instructions on it. Pt takes 1 daily except for and urs she takes 2. Make susan enough for a 90 day supply with refills. Patient has been identified by name and date of : Yes, Provider Date 03/05/24 Time 2 pm Patient phones for refill(s): Requested Prescriptions Pending Prescriptions Disp Refills levothyroxine (LEVOXYL) 88 mcg tablet 114 tablet 1 Sig: Take 1 tablet daily except for Tues and Thurs takes 2 tablets. Take on empty stomach. For Thyroid Date of last office visit in primary care: 02/25/2023 Date of next office visit in primary care: 07/01/2024 Thank you. Liliana Meléndez LPN. [facility]05-16-20[facility] Miscellaneous Notes* Telephone Encounter - Liliana Meléndez LPN - 03/05/2024 1:55 PM EDT Pt called for a refill and wanted to make sure the new rx has the new instructions on it. Pt takes 1 daily except for Tues and Thurs she takes 2. Make susan enough for a 90 day supply with refills. Patient has been identified by name and date of : Yes, Provider Date 03/05/24 Time 2 pm Patient phones for refill(s): Requested Prescriptions Pending Prescriptions Disp Refills levothyroxine (LEVOXYL) 88 mcg tablet 114 tablet 1 Sig: Take 1 tablet daily except for Tues and Thurs takes 2 tablets. Take on empty stomach. For Thyroid Date of last office visit in primary care: 02/25/2023 Date of next office visit in primary care: 07/01/2024 Thank you. Liliana Meléndez LPN. documented in this encounterBucyrus [facility] Hospital05-07-2024 Telephone encounter Note * Telephone Encounter - Harriett Prado LPN - 02/25/2024 3:08 PM EDT Phoned patient and aware order in computer and she will call back to schedule when she is ready to later. [facility] Miscellaneous Notes* Telephone Encounter - Harriett Prado LPN - 02/25/2024 3:08 PM EDT Phoned patient and aware order in computer and she will call back to schedule when she is ready to later. * Telephone Encounter - Braxton Locke PA-C - 02/25/2024 2:37 PM EDT Ordered Braxton Locke PA-C * Telephone Encounter - Harriett Prado LPN - 02/25/2024 1:30 PM EDT Patient calling can see in my chart that she is over due for her bone density to be done. Last one was done 07/19/2021. Pending order needs diagnosis. Please advice documented in this encounterBucyrus Community Hospital05-07-2024 Telephone encounter Note * Telephone Encounter - Braxton Locke PA-C - 02/25/2024 2:37 PM EDT Ordered Braxton Locke PA-C [facility] Work Phone: [phone]) 801-774205-07-2024 Instructions* Patient Instructions* Harriett Prado LPN - 02/25/2024 1:34 PM EDT BONE MINERAL DENSITY PATIENT INSTRUCTIONS Bone mineral density testing measures the amount of calcium in certain parts of your bones. This information determines how strong your bones are. The test is used to detect osteoporosis, a disease in which the bone's mineral content and density are low, increasing a person's risk of fractures. Thelumbar spine (lower back) and the hip are the skeletal sites usually examined. For the test, remember that: 1. You cannot take this test if you are . 2. Eat a normal diet on the day of the test. 3. Take your medications as you normally would. 4. DO NOT take calcium supplements (such as Tums) for 24 hours before the test. 5. On the day of the test, leave valuables (jewelry or credit cards) at home. 6. The test should be performed prior to oral, rectal or IV contrast studies, or at least 7 days after any of these studies. For the test, you may be asked to wear a hospital gown. You will lie on your back, on a padded table, in a comfortable position. Generally, you can resume your usual activities immediately. documented in this encounterBucyrus [facility] Hospital05-07-2024 Telephone encounter Note * Telephone Encounter - Harriett Prado LPN - 02/25/2024 1:30 PM EDT Patient calling can see in my chart that she is over due for her bone density to be done. Last one was done 07/19/2021. Pending order needs diagnosis. Please advice [facility] Telephone encounter Note* Telephone Encounter - Harriett Prado LPN - 02/25/2024 12:54 PM EDT Patient returned call and went over results, notes from Braxton PINO with understanding. Patient takes her thyroid medication on empty stomach with nothing else and has not missed any doses. She does not need new rx as yet either. [facility]-07-[facility] Miscellaneous Notes* Telephone Encounter - Harriett Prado LPN - 02/25/2024 12:54 PM EDT Patient returned call and went over results, notes from Braxton PINO with understanding. Patient takes her thyroid medication on empty stomach with nothing else and has not missed any doses. She does not need new rx as yet either. * Telephone Encounter - Ines Moreland OCCA - 02/25/2024 11:46 AM EDT TC no answer. Left VM to return call. NADER Osorio * Telephone Encounter - Braxton Locke PA-C - 02/25/2024 9:43 AM EDT Please check with patient to see if she is taking her thyroid medication- levothyroxine 88 mcg dailyand on an empty stomach Not with her vitamin supplements. Has she missed any doses? If no, I would have her increase her levothyroxine 88 mcg to 1 tablet 5 days a week, and 2 tablets 2 days a week (Saturday/). Repeat labs in 6-8 weeks. Her Vitamin B12 was slightly high, can reduce to taking her Vitamin B12 supplement every other day. Thank you, Braxton Locke PA-C 02/25/2024 * Telephone Encounter - Anh Garcia RN - 02/25/2024 8:11 AM EDT Patient calling and asking about lab results. Patient is currently taking levothyroxine 88 mcg daily. Latest Ref Rng 02/19/2024 TSH 0.270 - 4.200 mIU/L 8.180 (H) Latest Ref Rng 02/19/2024 Free T3 2.3 - 4.1 pg/mL 2.1 (L) Latest Ref Rng 02/19/2024 Free T4 0.9 - 1.7 ng/dL 1.2 Patient currently takes vitamin B12 5000 mcg daily. Latest Ref Rng 02/19/2024 Vitamin B12 232 - 1,245 pg/mL 1,838 (H) Patient also asking if bone density testing can be ordered so that she can have this scheduled? Please review and advise, Anh Garcia RN documented in this encounterBucyrus [facility] Hospital05-07-2024 Telephone encounter Note * Telephone Encounter - Ines Moreland OCCA - 02/25/2024 11:46 AM EDT TC no answer. Left VM to return call. NADER Osorio [facility]05-07-20[facility] Telephone encounter Note* Telephone Encounter - Braxton Locke PA-C - 02/25/2024 9:43 AM EDT Please check with patient to see if she is taking her thyroid medication- levothyroxine 88 mcg dailyand on an empty stomach Not with her vitamin supplements. Has she missed any doses? If no, I would have her increase her levothyroxine 88 mcg to 1 tablet 5 days a week, and 2 tablets 2 days a week (Saturday/). Repeat labs in 6-8 weeks. Her Vitamin B12 was slightly high, can reduce to taking her Vitamin B12 supplement every other day. Thank you, Braxton Locke PA-C 02/25/2024 [facility] Telephone encounter Note* Telephone Encounter - Anh Garcia RN - 02/25/2024 8:11 AM EDT Patient calling and asking about lab results. Patient is currently taking levothyroxine 88 mcg daily. Latest Ref Rng 02/19/2024 TSH 0.270 - 4.200 mIU/L 8.180 (H) Latest Ref Rng 02/19/2024 Free T3 2.3 - 4.1 pg/mL 2.1 (L) Latest Ref Rng 02/19/2024 Free T4 0.9 - 1.7 ng/dL 1.2 Patient currently takes vitamin B12 5000 mcg daily. Latest Ref Rng 02/19/2024 Vitamin B12 232 - 1,245 pg/mL 1,838 (H) Patient also asking if bone density testing can be ordered so that she can have this scheduled? Please review and advise, Anh Garcia RN [facility]04-30-2024 Telephone encounter Note* Telephone Encounter - Gwen Hayden LPN - 02/18/2024 10:55 AM EDT Patient notified and will set up appts. Gwen Hayden LPN [facility] Work Phone: 1(996) 919-479004-30-2024 Miscellaneous Notes* Telephone Encounter - Gwen Hayden LPN - 02/18/2024 10:55 AM EDT Patient notified and will set up appts. Gwen Hayden LPN * Telephone Encounter - Braxton Locke PA-C - 02/18/2024 10:51 AM EDT Please let patient know that I have ordered lab work and a screening mammogram. Braxton Locke PA-C 02/18/2024 * Telephone Encounter - Kassi Dalal - 02/18/2024 8:51 AM EDT Patient is requesting routine lab orders for upcoming wellness exam with PCP on 07/01/24. Patient is also wanting to know if she is to have an annual mammogram screening. Please submit orders into patient's chart then notify patient. documented in this encounterBu[facility]04-30-2024 Telephone encounter Note * Telephone Encounter - Braxton Locke PA-C - 02/18/2024 10:51 AM EDT Please let patient know that I have ordered lab work and a screening mammogram. Braxton Locke PA-C 02/18/2024 [facility]04-30-2024 Telephone encounter Note* Telephone Encounter - Kassi Dalal - 02/18/2024 8:51 AM EDT Patient is requesting routine lab orders for upcoming wellness exam with PCP on 07/01/24. Patient is also wanting to know if she is to have an annual mammogram screening. Please submit orders into patient's chart then notify patient. [facility]11-30-2023 Miscellaneous Notes* Telephone Encounter - Sabiha Bills LPN - 09/19/2023 10:15 AM EST Sona--02/25/23 Nov--nothing scheduled Last refill--04/02/23 90 with 1 refill Last labs--07/01/23 * Telephone Encounter - Elizabeth Caceres - 09/18/2023 4:36 PM EST Patient has been identified by name and date of : Yes Requested Prescriptions Pending Prescriptions Disp Refills levothyroxine (LEVOXYL) 88 mcg tablet 90 tablet 1 Sig: Take 1 tablet by mouth once daily. Take on empty stomach. For Thyroid RX INSTRUCTIONS: patient is in [place] for 6 months please send to the [facility] in [facility] Patient aware RX will be sent to pharmacy. No need to notify patient. Elizabeth Villalba documented in this encounterBucyrus [facility] Hospital09-13-2023 Miscellaneous Notes* Telephone Encounter - Cholo Roque LPN - 07/03/2023 11:05 AM EDT Pt notified of Dr Romero's recommendations. Pt verbalizes understanding. Cholo Roque LPN * Telephone Encounter - Keith Romero DO - 07/03/2023 9:29 AM EDT Okay to get all 3 vaccines but would recommend RSV 1st then two weeks later COVId 19 vaccine and then 2 weeks later Flu vaccine if able to separate out Keith Romero DO * Telephone Encounter - Harriett Prado LPN - 07/03/2023 9:01 AM EDT Patient calling asking if she should get the RSV vaccine? She is planning to leave for [place] for the winter on August 21. Patient asking if she should get the flu vaccine and COVID vaccine at the same time? Please advise documented in this encounterBucyrus [facility] Hospital09-13-2023 Miscellaneous Notes* Telephone Encounter - Harriett Prado LPN - 07/03/2023 8:54 AM EDT Phoned patient and went over results from Dr Romero with understanding. * Telephone Encounter - Keith Romero DO - 07/03/2023 8:31 AM EDT Please inform patient that her thyroid labs are all stable /Keith Romero DO documented in this encounterBucyrus Community Hospital08-24-2023 Miscellaneous Notes* Telephone Encounter - Liz Lambert Ma - 06/13/2023 9:11 AM EDT Patient was notified Liz Lambert Ma * Telephone Encounter - Keith Romero DO - 06/12/2023 10:14 PM EDT Please inform patient that her mammogram is normal/negative. She will need routine screening mammogram in 1 year. Thanks Keith Romero DO' documented in this encounterBucyrus Community Hospital08-21-2023 Miscellaneous Notes* Letter - Coordinator, Mammography - 06/10/2023 3:33 PM EDT June 11, 2023 PID: [id number] Juan Geronimo [address] [place] [address] Dear Ms. Geronimo, We are pleased to inform you that the results of your recent breast imaging exam on 06/10/2023 are normal. Your mammogram demonstrates that you have dense breast tissue, which could hide abnormalities. Dense breast tissue, in and of itself, is a relatively common condition. Therefore, this information is not provided to cause undue concern; rather, it is to raise your awareness and promote discussion with your health care provider regarding the presence of dense breast tissue in addition to other riskfactors. Early detection of cancer is very important. We also understand recommendations regarding breast cancer screening are controversial. Please discuss with your primary care provider which strategy is best for you and whether a mammogram is right for you. Your imaging studies and report will be kept on file at [facility] as part of your permanent medical record and are available for your continuing care. Thank you for allowing us to help in meeting your health care needs. Sincerely, Dr. Pemberton Interpreting Radiologist [facility] (Normal over 40) documented in this encounterBucyrus Community Hospital08-21-2023 History of Present illness Narrative* Brianna Mcneill RT(R) - 06/10/2023 7:30 AM EDT Radiology Service Progress Note PATIENT NAME: Juan Geronimo DATE OF SERVICE: June 10, 2023 TIME: 7:22 AM PATIENT IDENTITY VERIFICATION COMPLETED USING TWO (2) IDENTIFIERS: Name and Date of confirmedby patient verbally. FALL SCREENING: Has the patient had 2 falls in the last year or 1 fall with injury or currently using an Ambulatory Assistive Device (Walker, Cane, Wheelchair, Crutches, etc.)? No PATIENT GENDER DATA: Female. status: : No status: NO. PATIENT RELEVANT IMPLANT DATA REVIEWED: Not Applicable RADIOLOGY DEPARTMENT: Mammography PERIPHERAL IV DATA: Not applicable SIGNED BY: RT May(R) June 10, 2023 7:22 AM documented in this encounterBucyrus Community Hospital08-21-2023 Miscellaneous Notes* Result Encounter Note - Braxton Locke PA-C - 06/10/2023 7:30 AM EDT Patient notified via mychart documented in this encounterBucyrus Community Hospital06-14-2023 Miscellaneous Notes* Telephone Encounter - Sabiha Bills LPN - 04/03/2023 11:33 AM EDT Spoke with pt gave information provided. Pt voices understanding. * Telephone Encounter - Keith Romero DO - 04/02/2023 4:50 PM EDT Please have her increase to 88 mcg levothyroxine daily and recheck labs in 6-8 weeks Keith Rmoero DO The following approved medication requests have been transmitted electronically. Requested Prescriptions Signed Prescriptions Disp Refills levothyroxine (LEVOXYL) 88 mcg tablet 90 tablet 1 Sig: Take 1 tablet by mouth once daily. Take on empty stomach. For Thyroid Authorizing Provider: KEITH ROMERO DO * Telephone Encounter - Nazanin Jones RN - 04/02/2023 10:31 AM EDT Patient asking pcp to advise on recent thyroid labs: Component Latest Ref Rng & Units 02/25/2023 03/26/2023 TSH 0.270 - 4.200 mIU/L 26.300 (H) 8.460 (H) Free T4 0.9 - 1.7 ng/dL 1.5 Free T3 2.3 - 4.1 pg/mL 2.4 Reports she is taking levothyroxine 75 mcg daily on an empty stomach, with no missed doses. 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 Patient usually sees Dr. Shine for her hand problems, but it is becoming difficult to drive the distance to his office. She is wanting to become established with Dr. Mendez. 3 weeks ago patient began to have some swelling and itching. Patient has doing heat, ice, and epsom salt at home. Swelling has gone down since then. AMB ROOMING INTAKE FLOWSHEET DATA Pain Pain Level: 6 Pain Location: Hand-Right Description: Aching, Sharp Duration Units: Minutes Frequency: Intermittent Comments: When swollen..ice,heat finally,Epson salts soaks ASSESSMENT: M79.641 Right hand pain (primary encounter diagnosis) PLAN: It sounds like she may have just had some sort of an exacerbation or inflammatory response in the hand. It seems like it is doing much better. Her prior fusion site peers to be very appropriate at least based on her exam and plain films. I did recommend some Voltaren if she should have been having a nother flare such as this. She can certainly follow-up as needed. FOLLOW UP INSTRUCTIONS: As above Ms. Juan Geronimo was advised as to contrast therapies and/or to take analgesics/anti-inflammatories as needed and all contraindications were reviewed. OBJECTIVE: Ms. Juan Geronimo is a pleasant 82 year old in no apparent distress. Gen:There were no vitals taken for this visit. nl development, thin-appearing, no deformities ENT: Normocephalic, normal hearing, moist mucosa CV: Pulses:Radial= 2+ and symmetric, capillary refill < 2 secs, no peripheral edema/varicosities Skin: no rash, bruising or lesions. Good turgor. Psych: cooperative and appropriate, alert and oriented x 3, good mood and affect. Musculoskeletal: Prior surgical scar noted on the radial dorsal side of the hand. No swelling on the dorsum of the hand or wrist at this time. Good range of motion. No tenderness. 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 Follows with [facility] SVT (supraventricular tachycardia) (HCC) 02/03/2023 Unspecified hemorrhoids without mention of complication Past Surgical History: PAST SURGICAL HISTORY Procedure Laterality Date APPENDECTOMY COLONOSCOPY FLX DX W/COLLJ SPEC WHEN PFRMD 11/23/2002 Colonoscopy COLONOSCOPY FLX DX W/COLLJ SPEC WHEN PFRMD 05/05/2018 Colonoscopy HEMORRHOIDECTOMY INTERNAL RUBBER BAND LIGATIONS PAST SURGICAL HISTORY OF 1982 hysterectomy for prolapse - ovaries remain PAST SURGICAL HISTORY OF 06/19/1977 vericose vein stripping PAST SURGICAL HISTORY OF 10/2001 Dr. Wheeler [facility] - partial wrist fusion left - ganglion cyst removed at same time PAST SURGICAL HISTORY OF 05/2005 - left hand dupuytren's contracture release. PAST SURGICAL HISTORY OF 05/2006 right hand repair small and ring fingers SIGMOIDOSCOPY FLX DX W/COLLJ SPEC BR/WA IF PFRMD 09/1998 Sigmoidoscopy TONSILLECTOMY & ADENOIDECTOMY <AGE 12 T/A (under age 10 years) Family History: FAMILY HISTORY Problem Relation Age of Onset Cancer Mother ovarian and colon Cancer Father prostate - glaucoma Colon Cancer Father Cancer Brother skin - glaucoma Alzheimer's Disease Brother Social History: Social History Tobacco Use Smoking status: Never Smokeless tobacco: Never Vaping Use Vaping Use: Never used Substance Use Topics Alcohol use: Yes Alcohol/week: 2.5 standard drinks Types: 2 Standard drinks or equivalent, 1 Glasses of Wine (5oz) per week Comment: few times a week Drug use: No Medications: Current Outpatient Medications Medication Sig mecobalamin (B12 ACTIVE ORAL) Take 1 tablet by mouth once daily. verapamil ER (VERELAN) 120 mg 24 hr capsule Take 1 capsule by mouth daily at bedtime. alendronate (FOSAMAX) 70 mg tablet Take 1 tablet by mouth one time a week. Take with a full glass of water, on an empty stomach; do NOT lie down for 30minutes. aspirin 81 mg chewable tablet Take 81 mg by mouth once daily. levothyroxine (LEVOXYL) 75 mcg tablet Take 1 tablet by mouth once daily. Take on empty stomach. Forthyroid. BIOTIN ORAL Take 1,000 mcg by mouth once daily. Cholecalciferol, Vitamin D3, 25 mcg (1,000 unit) cap Take 2 capsules by mouth once daily. acetaminophen 650 mg CR tablet Take 1 tablet by mouth every 8 hours as needed. triamcinolone (KENALOG) 0.025 % ointment Apply to affected area BID x 6-8 weeks then use weekly formaintenance (Patient not taking: Reported on 03/25/2023) No current facility-administered medications for this visit. Allergies: Amoxil [Amoxicillin], Codeine, Demoral [Other], Latex, and Ultram [Tramadol Hcl] ROS: General (negative for fatigue, malaise, weight loss/gain) HEENT (negative for headache, earache, recent vision changes, sinus pain, sore throat) Respiratory (no recent shortness of breath, hemoptysis) CV (negative for chest tightness, palpitations) Musculoskeletal (see HPI) Psych (no depression, anxiety) REFERRING PHYSICIAN: Consultation requested by Dr. Romero for an opinion regarding right hand pain. My final recommendations will be communicated back to the requesting physician by way of shared Medical record or letter to requesting physician via US mail. Keith Romero DO [address] [facility] [address] Adeel Mendez MD documented in this encounterBucyrus [facility] Hospital06-05-2023 History of Present illness Narrative* Lilia Pizano RT(R) - 03/25/2023 8:10 AM EDT Radiology Service Progress Note PATIENT NAME: Juan Geronimo DATE OF SERVICE: March 25, 2023 TIME: 8:41 AM PATIENT IDENTITY VERIFICATION COMPLETED USING TWO (2) IDENTIFIERS: Name and Date of confirmedby patient verbally. FALL SCREENING: Has the patient had 2 falls in the last year or 1 fall with injury or currently using an Ambulatory Assistive Device (Walker, Cane, Wheelchair, Crutches, etc.)? No PATIENT GENDER DATA: Female. status: : No status: NO. PATIENT RELEVANT IMPLANT DATA REVIEWED: Not Applicable RADIOLOGY DEPARTMENT: General X-ray: Exam(s) Completed: Upper Extremity X- Ray(s): Hand, right PERIPHERAL IV DATA: Not applicable SIGNED BY: RT Alvin(R) March 25, 2023 8:41 AM documented in this encounterBucyrus Community Hospital05-08-2023 Instructions* Patient Instructions* Keith Romero DO - 02/25/2023 8:09 AM EDT Rechecking labs today to see if kidney function is back to improved/baseline and labs for mild anemia and rechecking of thyroid labs. Increase your thyroid medication to 75 mcg of Levothyroxine. Recheck thyroid labs- these will be ordered already in your chart, the day or two PRIOR to your right eye cataract surgery (March 26-) documented in this encounterBucyrus Community Hospital05-08-2023 History of Present illness Narrative* Keith Romero DO - 02/25/2023 7:54 AM EDT CC: Juan Geronimo is a 82 year old female who presents to the office for follow up HPI: Recently was staying in [place] for the winter and had an episode of palpitations and heart racing.She went to hospital. Taken by her Supa. She was found to have elevated troponin levels slightly, no signs of acute AR but had SVT changes. She also had an elevated TSH in the 20s, as wellas a slightly elevated serum creatinine at 1.5-1.6 and mild anemia of 11.9 hemoglobin, otherwise normal WBC count and platelets, normal liver function testing. She was started on ASA 81 mg a day as well as Verapamil 120 mg a day. She has been taking these medications. She had follow up with Dr. Layne's partner, FRANCISCO Rendon, whom placed a ZIO monitor on her. She is scheduled to have cataract surgery by Dr. Hanna on 03/28 right eye and April 10 on left eye. She denies any other symptoms. 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 Follows with [facility] Unspecified hemorrhoids without mention of complication PAST SURGICAL HISTORY Procedure Laterality Date APPENDECTOMY COLONOSCOPY FLX DX W/COLLJ SPEC WHEN PFRMD 11/23/2002 Colonoscopy COLONOSCOPY FLX DX W/COLLJ SPEC WHEN PFRMD 05/05/2018 Colonoscopy HEMORRHOIDECTOMY INTERNAL RUBBER BAND LIGATIONS PAST SURGICAL HISTORY OF 1982 hysterectomy for prolapse - ovaries remain PAST SURGICAL HISTORY OF 06/19/1977 vericose vein stripping PAST SURGICAL HISTORY OF 10/2001 Dr. Wheeler [facility] - partial wrist fusion left - ganglion cyst removed at same time PAST SURGICAL HISTORY OF 05/2005 - left hand dupuytren's contracture release. PAST SURGICAL HISTORY OF 05/2006 right hand repair small and ring fingers SIGMOIDOSCOPY FLX DX W/COLLJ SPEC BR/WA IF PFRMD 09/1998 Sigmoidoscopy TONSILLECTOMY & ADENOIDECTOMY <AGE 10 T/A (under age 10 years) Social History: Social History Tobacco Use Smoking status: Never Smokeless tobacco: Never Substance Use Topics Alcohol use: Yes Alcohol/week: 2.5 standard drinks Types: 1 Glasses of Wine (5oz) per week Comment: daily Drug use: No FAMILY HISTORY Problem Relation Age of Onset Cancer Mother ovarian and colon Cancer Father prostate - glaucoma Colon Cancer Father Cancer Brother skin - glaucoma Alzheimer's Disease Brother Current Outpatient prescriptions: verapamil ER (VERELAN) 120 mg 24 hr capsule Take 1 capsule by mouth daily at bedtime. levothyroxine (LEVOXYL) 50 mcg tablet Take 1 tablet by mouth once daily. Take on empty stomach. ForThyroid BIOTIN ORAL Take 1,000 mcg by mouth once daily. Cholecalciferol, Vitamin D3, 25 mcg (1,000 unit) cap Take 2 capsules by mouth once daily. triamcinolone (KENALOG) 0.025 % ointment Apply to affected area BID x 6-8 weeks then use weekly formaintenance acetaminophen 650 mg CR tablet Take 1 tablet by mouth every 8 hours as needed. alendronate (FOSAMAX) 70 mg tablet Take 1 tablet by mouth one time a week. Take with a full glass of water, on an empty stomach; do NOT lie down for 30minutes. Allergies: ALLERGIES Allergen Reactions Amoxil [Amoxicillin] Codeine Demoral [Other] Latex Ultram [Tramadol Hc* ROS: See HPI PE: 02/25/23 0745 BP: 150/80 Pulse: 64 Resp: 20 Temp: 36.7 C (98 F) TempSrc: Right Tympanic Weight: 62.1 kg (137 lb) Gen: A&O, NAD, non-toxic appearing, Pleasant, cooperative HEENT: NT/AC, wearing glasses, PERRLA, EOMs intact b/l, nares clear and patent b/l, pharynx withouterythema, exudate or lesions. Uvula midline. EACs without erythema or debris. TMs pearly longo with intact landmarks b/l. Neck: supple, No cervical LAD, no thyromegaly, no carotid bruits CV: RRR, normal S1 and S2, no murmurs, no gallops, no rubs, Pulses 2+ and symmetric in UE and LE b/l ZIO monitor in place on left chest wall Lungs: normal respiratory effort, CTA b/l, no wheezing or rhonchi or rales Abd: soft, NT, ND, +BS, no hepatosplenomegaly MS: arthritis changes hands and wrist on right and spine Neuro: CN II-XII intact b/l, strength 5/5 b/l UE and LE, DTRs 2/4 UE and LE, sensation intact. Skin: warm, dry, intact, No rashes or lesions on exposed skin. No edema, normal pulses ASSESSMENT/PLAN: 1. SVT (supraventricular tachycardia) (HCC), paroxysmal, nonsustained - ICD9: 427.89, ICD10: I47.1 (primary diagnosis) - follow up with [facility], continue Verapamil and ASA 81 mg a day 2. Age-related osteoporosis without current pathological fracture - ICD9: 733.01, ICD10: M81.0 - Reviewed the need for Calcium and Vitamin D supplements and weight bearing exercise as tolerated - ALENDRONATE 70 MG TABLET 3. Hypothyroidism, acquired - ICD9: 244.9, ICD10: E03.9 - Instructed patient on importance of taking on an empty stomach either first thing in the morning or at bedtime. Stable - Behavioral intervention and - Pharmacological intervention Increase dose of levothyroxine to 75 mcg a day and recheck labs in 4-6 weeks as ordered. - TSH BLD - T4 FREE/FREE THYROX - LEVOTHYROXINE 75 MCG TABLET - T4 FREE/FREE THYROX - TSH BLD 4. Anemia, unspecified type - ICD9: 285.9, ICD10: D64.9 Recheck labs as ordered. Unsure of cause. - CBC + DIFF - IRON + TIBC - VITAMIN B12 BLOOD - FERRITIN BLD 5. Acute renal failure superimposed on stage 3a chronic kidney disease, unspecified acute renal failure type (HCC) - ICD9: 584.9, 585.3, ICD10: N17.9, N18.31 - eGFR: Worsening - Counseled on avoiding regular use of NSAIDs, adequate hydration, potential risk of IV dye - Recommend maintaining blood pressure under 130/80 - Counseled on renal diet (low sodium/low potassium/low phosphorus) - COMP METABOLIC PANEL 6. Hyperlipidemia, mixed - ICD9: 272.2, ICD10: E78.2 - good control - Encouraged following a low fat, low cholesterol diet. - Discussed the benefits of regular aerobic exercise and weight loss. 7. Advance care planning - ICD9: V65.49, ICD10: Z71.89 Supa to help if needed in future Keith Romero DO To ER if develops chest pain, shortness of breath, or severe worsening of symptoms. Discussed risks, benefits, alternatives, and potential side effects of medications. Patient expressed understanding and agreed with the plan. Keith Romero DO [address] [place] [address] documented in this encounterBucyrus [facility] Hospital05-04-2023 Miscellaneous Notes* Telephone Encounter - Carola Mcbride RN - 02/21/2023 12:50 PM EDT Outside records sent for scanning * Telephone Encounter - Nadeen Garcia Ma - 02/12/2023 9:35 AM EDT Patient has appointment with Julieta on 02/21/2023. Placed in office for review/scanning. * Telephone Encounter - Fannie REMY - 02/12/2023 8:32 AM EDT Patient has been identified by name and date of : Yes Type of form: [facility] Form received via: Fax When form is completed, contact scan into [employer]. Form has been forwarded to: ANA REMY documented in this encounterBucyrus Community Hospital04-20-2023 Miscellaneous Notes* Telephone Encounter - Liz Lambert Ma - 02/07/2023 12:51 PM EDT Patient was notified and will stay with current cardio provider Liz Lambert Ma * Telephone Encounter - Keith Romero DO - 02/06/2023 10:21 PM EDT Please call and clarify with patient. There are no local electrophysiologists in the [facility]. She would need to be willing to travel Keith Romero DO * Telephone Encounter - Anh Garcia RN - 02/06/2023 10:37 AM EDT Patient called and states that she was having high heart rate issues and was taken to [facility] in [facility]. Patient was admitted into hospital. Patient has been discharged from hospital and she needs to see a lining stamper due to needing a catheter ablation. Patient is wanting to do this when she gets home in February within the [facility]. Patient states that she signed a release form so that hospital faxes can be sent to Dr. Romero's office. Patient is going to be home from [place] on February 17. Patient already had appointment with Dr. Romero scheduled on 02/25/2023. 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 Patient already sees Dr. Layne who is in [place] which patient says that it is too far to travel there. Patient asking for lab orders to be placed prior to her appointment on 02/25/2023. Please review and advise, Anh Garcia RN documented in this encounterBucyrus Community Hospital01-18-2023 Miscellaneous Notes* Telephone Encounter - Harriett Prado LPN - 11/07/2022 2:18 PM EST Patient has been identified by name and date of : Patient phones for refill(s): Requested Prescriptions Pending Prescriptions Disp Refills levothyroxine (LEVOXYL) 50 mcg tablet 90 tablet 1 Sig: Take 1 tablet by mouth once daily. Take on empty stomach. For Thyroid Date of last office visit in primary care: 04/24/2022, has appt 02/25/2023 Last 2 Encounter Wt Readings: Date: Wt: 07/27/2022 62.1 kg (136 lb 12.8 oz) 07/08/2022 61.7 kg (136 lb) Previous labs/tests for medication: Thyroid: TSH (mIU/L) Date Value 07/19/2022 3.960 Please advise. Thank you. Harriett Prado LPN Patient is in [place] until February 2023 asking for 90 day rx documented in this encounterBu[facility]10-[facility]22 History of Present illness Narrative* Erasmo Javier - 08/08/2022 11:06 AM EDT POPULATION HEALTH NAVIGATION OUTREACH Action/FYI Left VM to schedule RUDY consult Pt identified by name and : YES, via [employer] Outreach Outcome/Action Unable to reach patient: Left message Did you use a PCP flex slot to schedule this appointment? Reason for Outreach Care Gap or Scheduling/Wellness visits Payer: Payor: MEDICARE / Plan: MEDICARE A AND B / Product Type: Medicare / Care Gap Reviewed:: RUDY Reminder: Reminder note to check Health Maintenance for items below Health Maintenance items due: DTAP,TDAP,TD(3 - Tdap) due on 05/21/2021 DEPRESSION ASSESSMENT Never done Message Sent to Practice: No Navigation Signature: Erasmo Javier August 08, 2022 11:07 AM documented in this encounterBucy[facility]10-07-2022 History of Present illness Narrative* Amadeo Mcdonnell MD - 07/27/2022 7:42 AM EDT [facility] Date: July 27, 2022 - 7:42 AM Juan Geronimo is self referred. Chief Complaint: neck pain SUBJECTIVE: Juan Geronimo, is a 81 year old female who presents with neck pain. The pain started several months ago, with no known injury or trauma. The pain onset was gradual. The patient states that the current pain is persistent. Her pain is located in the right posterior cervical region and does not radiate.. // The pain is described as pinching. The pain intensity is rated 4. The pain is exacerbated by turning her head to the left and relieved by sitting. Symptoms interfere with physical activity, sleeping,and lifting. 0% pain in spine vs 100% (radiating) pain in the extremity. Litigation: No. Worker's Compensation: No. Prior pain treatment has included: Medications: Prednisone with substantial relief and tylenol withpartial relief. ALLERGIES Allergen Reactions Amoxil [Amoxicillin] Codeine Demoral [Other] Latex Ultram [Tramadol Hc* Current Medications: Pain medications reviewed and reconciled in the medication list: Yes. Current Outpatient Medications Medication Sig levothyroxine (LEVOXYL) 50 mcg tablet Take 1 tablet by mouth once daily. Take on empty stomach. ForThyroid alendronate (FOSAMAX) 70 mg tablet Take 1 tablet by mouth one time a week. Take with a full glass of water, on an empty stomach; do NOT lie down for 30minutes. Estradiol (ESTRACE) 0.5 mg tablet Take 1 tablet by mouth every other day. BIOTIN ORAL Take 1,000 mcg by mouth once daily. Cholecalciferol, Vitamin D3, 25 mcg (1,000 unit) cap Take 2 capsules by mouth once daily. triamcinolone (KENALOG) 0.025 % ointment Apply to affected area BID x 6-8 weeks then use weekly formaintenance acetaminophen 650 mg CR tablet Take 1 tablet by mouth every 8 hours as needed. No current facility-administered medications for this visit. 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 Follows with Justin Haynes Unspecified hemorrhoids without mention of complication PAST SURGICAL HISTORY Procedure Laterality Date APPENDECTOMY COLONOSCOPY FLX DX W/COLLJ SPEC WHEN PFRMD 11/23/2002 Colonoscopy COLONOSCOPY FLX DX W/COLLJ SPEC WHEN PFRMD 05/05/2018 Colonoscopy HEMORRHOIDECTOMY INTERNAL RUBBER BAND LIGATIONS PAST SURGICAL HISTORY OF 1982 hysterectomy for prolapse - ovaries remain PAST SURGICAL HISTORY OF 06/19/1977 vericose vein stripping PAST SURGICAL HISTORY OF 10/2001 Dr. Wheeler [facility] - partial wrist fusion left - ganglion cyst removed at same time PAST SURGICAL HISTORY OF 05/2005 - left hand dupuytren's contracture release. 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) Years Of Education Completed: Not specified Marital Status: with 3 children REVIEW OF SYSTEMS: Constitutional: (-) Fever (-) Night Sweats (-) Weight Gain (-) Weight Loss (-) Fatigue Cardiovascular: (-) Chest Pain (-) Palpitations (-) Lightheadedness (-) Swelling of Ankles (-) Hx Heart Surgery Respiratory: (-) Shortness of Breath (-) Cough (-) Wheezing (-) Snoring Gastrointestinal: (-) Incontinence (-) Abdominal Pain (-) Diarrhea (-) Constipation (-) Nausea/Vomiting (-) Heart Burn Endocrine: (+) Thyroid Disorder (-) Diabetes Hematologic: (+) Prolonged Bleeding (+) Easy Bruising Genitourinary: (-) Incontinence (-) Frequency (-) Urinary Urgency Skin: (-) Rashes (-) Itching (-) Other Lesions Neurologic: (-) Headache (-) Double Vision (-) Confusion (-) Paralysis (-) Vertigo (-) Syncope Psychiatric: (-) Depression (-) Anxiety (-) Delusions (-) Hallucinations (-) Suicidal Thoughts OARRS Report reviewed: Yes Narcotic Agreement reviewed and signed?: N/A Baseline Urine Toxicology obtained: N/A Urine Panel: No results found for: UQCANN, UQBNZL, CZN3ZMZ, UQAMPH, UQMAMP, UQBUPRE, UQNORBUP, UQMTHD, UQEDDP, UQTRAM, UQDTRM, UQFNTL, UQNFTL, UQCODE, UQMORP, UQDCDN, UQHCOD, UQOXYC, UQHMOR, UQOXYM, UQCREA, UQPH,UQSPGR, UQOXID, UQSPQ The pain panel was N/A OBJECTIVE: Performed in conjunction with observation. The patient was alert and oriented x3. The patient was in no acute distress. Lungs: Clear, negative for dyspnea or distress. CVR: Negative for SOB or peripheral edema. Neck: Supple. The range of motion was intact. Right paracervical tenderness over the cervical thoracic junction. Left lateral rotation reproduces concordant neck pain Cervical facet loading: negative Spurling's: negative Back: Range of motion of the trunk was intact. SLR: negative Facet Loading: negative with axial loading and extension. Extremities: no reported edema or erythema. Motor: negative focal deficits. Sensory: intact to light touch and sharp throughout the upper extremities. Gait: WNL. Medical record and diagnostic tests reviewed for today's visit: The [facility] EMR was reviewed during thevisit IMAGING STUDIES: No new imaging studies were reviewed during this office visit. ASSESSMENT: (M62.838) Spasm of cervical paraspinous muscle (primary encounter diagnosis) (M47.812) Cervical spondylosis (M50.30) DDD (degenerative disc disease), cervical Discussion: A discussion was entertained regarding multicomponent back pain source. Discussed conservative options and focus on improvement of function and the concerns of ongoing chronic pain. Discussed the rationale behind interventional approach and how it can facilitate improvement of pain but also diagnostic information that procedures provide. 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 PLAN: 1. X-ray of the cervical spine was reviewed with the patient. Patient has grade 1 anterolisthesis at C4 and C5 and degenerative disc changes at C5-C6 and C6-C7 levels. Her neck pain is more consistent with myofascial pain. Recommend a conservative course but if not improving consider MRI evaluationof the cervical spine. 2. No interventional procedures indicated 3. Requested Prescriptions Signed Prescriptions Disp Refills baclofen (LIORESAL) 10 mg tablet 30 tablet 2 Sig: Take 1 tablet by mouth once daily. Also recommended [id number] Voltaren gel up to 4 g 3-4 times a day apply to the affected areaof the right cervical thoracic region. 4. Counseled patient regarding the importance of activity modification and exercise. 5. Follow up:2 weeks for possible trigger point injection if not improving. The above plan and management options were discussed with patient. The patient is in agreement withthe above and verbalized understanding. I have discussed and confirmed the above treatment plan with the patient and I have reviewed the nurses notes and I am aware of the family/social history. I have confirmed ROS findings. Amadeo Mcdonnell MD July 27, 2022 cc: NO PCP Phone: N/A Fax: Results of consultation to be transmitted via electronic medical record for those providers who practice within [facility] or with access to [facility] via MD Connect, or via letter. documented in this encounterBu[facility]10-03-2022 History of Present illness Narrative* Ashley Haynes LPN - 07/23/2022 9:25 AM EDT Patient presents for COVID booster and flu vaccine. Denies any problems at this time. Tolerated injections well. Ashley Haynes LPN documented in this encounterBu[facility]rus [facility]09-30-2022 Miscellaneous Notes* Telephone Encounter - Brianna Hills LPN - 07/20/2022 2:08 PM EDT Patient notified of results, verbalizes understanding of instructions. Brianna Hills LPN * Telephone Encounter - Kassi Sandy APRN.TEJ - 07/20/2022 1:56 PM EDT Can you please call the patient and let her know that her thyroid labs came back normal. I would continue current dose of levothyroxine. No further testing is needed at this time. Please let me know if she has any questions. Thank you. Kassi Sandy APRN.SHAKER REPAIRER documented in this encounterBucyrus [facility] Hospital09-19-2022 History of Present illness Narrative* Ashanti Perez RT(R) - 07/09/2022 8:20 AM EDT Radiology Service Progress Note PATIENT NAME: Juan Geronimo DATE OF SERVICE: July 09, 2022 TIME: 8:32 AM PATIENT IDENTITY VERIFICATION COMPLETED USING TWO (2) IDENTIFIERS: Name and Date of confirmedby patient verbally. FALL SCREENING: Has the patient had 2 falls in the last year or 1 fall with injury or currently using an Ambulatory Assistive Device (Walker, Cane, Wheelchair, Crutches, etc.)? No PATIENT GENDER DATA: Female. status: : No status: NO. PATIENT RELEVANT IMPLANT DATA REVIEWED: Yes RADIOLOGY DEPARTMENT: General X-ray: Exam(s) Completed: Spine X-Ray(s): Cervical AP / LAT / OBL andThoracic PERIPHERAL IV DATA: Not applicable SIGNED BY: RT Bryanna(R) July 09, 2022 8:32 AM documented in this encounterBucyrus [facility] Hospital09-18-2022 History of Present illness Narrative* Rachel Alas APRN.TEJ - 07/08/2022 9:51 AM EDT Images from the original note were not included. Subjective Patient came in with complaints of right-sided neck pain that goes down into her back. Patient saysshe has had about 5 days patient tried Tylenol warm baths heating pads with no relief says it is just when she moves it gets like a sharp pain. Patient denies any injury to the area and denies numbness tingling or loss of sensation. The history is provided by the patient. No ware cleaner was used. Pain (Shoulder Pain) Review of Systems Constitutional: Negative. Skin: Negative. Objective Physical Exam Constitutional: Appearance: Normal appearance. Pulmonary: Effort: Pulmonary effort is normal. Musculoskeletal: Arms: Comments: Patient's pain is in the area marked above and pain. Patient is only tender there if she moves wrong. Not tender on palpation. Neurological: Mental Status: She is alert. 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 Follows with [facility] Unspecified hemorrhoids without mention of complication PAST SURGICAL HISTORY Procedure Laterality Date APPENDECTOMY COLONOSCOPY FLX DX W/COLLJ SPEC WHEN PFRMD 11/23/2002 Colonoscopy COLONOSCOPY FLX DX W/COLLJ SPEC WHEN PFRMD 05/05/2018 Colonoscopy HEMORRHOIDECTOMY INTERNAL RUBBER BAND LIGATIONS PAST SURGICAL HISTORY OF 1982 hysterectomy for prolapse - ovaries remain PAST SURGICAL HISTORY OF 06/19/1977 vericose vein stripping PAST SURGICAL HISTORY OF 10/2001 Dr. Wheeler [facility] - partial wrist fusion left - ganglion cyst removed at same time PAST SURGICAL HISTORY OF 05/2005 - left hand dupuytren's contracture release. PAST SURGICAL HISTORY OF 05/2006 right hand repair small and ring fingers SIGMOIDOSCOPY FLX DX W/COLLJ SPEC BR/WA IF PFRMD 09/1998 Sigmoidoscopy TONSILLECTOMY & ADENOIDECTOMY <AGE 12 T/A (under age 10 years) ALLERGIES Amoxil [Amoxicillin], Codeine, Demoral [Other], Latex, and Ultram [Tramadol Hcl] MEDICATIONS levothyroxine (LEVOXYL) 50 mcg tablet^Take 1 tablet by mouth once daily. Take on empty stomach. ForThyroid^Disp: 30 tablet^Rfl: 5 alendronate (FOSAMAX) 70 mg tablet^Take 1 tablet by mouth one time a week. Take with a full glass of water, on an empty stomach; do NOT lie down for 30minutes.^Disp: 12 tablet^Rfl: 3 Estradiol (ESTRACE) 0.5 mg tablet^Take 1 tablet by mouth every other day.^Disp: 45 tablet^Rfl: 3 BIOTIN ORAL^Take 1,000 mcg by mouth once daily.^Disp: ^Rfl: Cholecalciferol, Vitamin D3, 25 mcg (1,000 unit) cap^Take 2 capsules by mouth once daily.^Disp: ^Rfl: 0 triamcinolone (KENALOG) 0.025 % ointment^Apply to affected area BID x 6-8 weeks then use weekly formaintenance^Disp: 30 g^Rfl: 1 acetaminophen 650 mg CR tablet^Take 1 tablet by mouth every 8 hours as needed.^Disp: ^Rfl: 0 predniSONE (DELTASONE) 20 mg tablet^Take 2 tablets by mouth once daily for 5 days.^Disp: 10 tablet^Rfl: 0 FAMILY HISTORY Problem Relation Age of Onset Cancer Mother ovarian and colon Cancer Father prostate - glaucoma Colon Cancer Father Cancer Brother skin - glaucoma Alzheimer's Disease Brother Social History Tobacco Use Smoking status: Never Smokeless tobacco: Never Substance Use Topics Alcohol use: Yes Alcohol/week: 2.5 standard drinks Types: 1 Glasses of Wine (5oz) per week Comment: daily Drug use: No ASSESSMENT/PLAN: 1. Pain - ICD9: 780.96, ICD10: R52 - XR CERV OTHER 4V AP/LAT/OBL - XR THORACIC LIMITED 2V AP/LAT Patient will get x-rays Saturday morning. Patient was prescribed prednisone daily for 5 days to see if this would alleviate some of the symptoms. Patient was okay with this care plan we will call patient tomorrow with x-ray results and further treatment plan. Rachel Alas APRN.TEJ documented in this encounterBucyrus [facility] Hospital09-06-2022 Miscellaneous Notes* Telephone Encounter - Fabiana Bee RN - 06/26/2022 9:59 AM EDT Pt called and is notified of providers results and instructions. Pt voices understanding. Fabiana Bee RN * Telephone Encounter - Katherine Ceron APRN.CNP - 06/22/2022 5:02 PM EDT Can please let patient know that I received her thyroid labwork. It shows that she is not getting enough medication. I sent a new dose of thyroid medication into the pharmacy. She can use 2 of her current tablets until she picks up the new prescription. She should repeat the lab work in 6 to 8 weeks. The orders are in. Katherine Ceron APRN.CNP documented in this encounterBucyrus [facility] Hospital08-17-2022 Miscellaneous Notes* Letter - Mammography Coordinator - 06/06/2022 4:11 PM EDT June 06, 2022 PID: [id number] Juan Geronimo [address] [place] [address] Dear Ms. Geronimo, We are pleased to inform you that the results of your recent breast imaging exam on 06/06/2022 are normal. Your mammogram demonstrates that you have dense breast tissue, which could hide abnormalities. Dense breast tissue, in and of itself, is a relatively common condition. Therefore, this information is not provided to cause undue concern; rather, it is to raise your awareness and promote discussion with your health care provider regarding the presence of dense breast tissue in addition to other riskfactors. Early detection of cancer is very important. We also understand recommendations regarding breast cancer screening are controversial. Please discuss with your primary care provider which strategy is best for you and whether a mammogram is right for you. Your imaging studies and report will be kept on file at [facility] as part of your permanent medical record and are available for your continuing care. Thank you for allowing us to help in meeting your health care needs. Sincerely, Dr. Gómez Interpreting Radiologist [facility] (Normal over 40) documented in this encounterBucyrus Community Hospital08-17-2022 History of Present illness Narrative* RT Coni(R) - 06/06/2022 7:30 AM EDT Radiology Service Progress Note PATIENT NAME: Juan Geronimo DATE OF SERVICE: June 06, 2022 TIME: 7:34 AM PATIENT IDENTITY VERIFICATION COMPLETED USING TWO (2) IDENTIFIERS: Name and Date of confirmedby patient verbally. FALL SCREENING: Has the patient had 2 falls in the last year or 1 fall with injury or currently using an Ambulatory Assistive Device (Walker, Cane, Wheelchair, Crutches, etc.)? No PATIENT GENDER DATA: Female. status: : No status: NO. PATIENT RELEVANT IMPLANT DATA REVIEWED: Not Applicable RADIOLOGY DEPARTMENT: Mammography PERIPHERAL IV DATA: Not applicable SIGNED BY: RT Coni(R) June 06, 2022 7:34 AM documented in this encounterBucyrus Community Hospital07-11-2022 History of Present illness Narrative* Ayan Layne MD - 04/30/2022 9:54 AM EDT Images from the original note were not included. [facility] [facility] Veloz Department of Cardiovascular Medicine OUTPATIENT VISIT DATE 04/30/22 OUTPATIENT VISIT TYPE ESTABLISHED PRIMARY CARE PHYSICIAN: Keith Romero DO [address] [facility] [id number] CHIEF COMPLAINT: Patient presents with: Cardiology Follow Up HISTORY OF PRESENT ILLNESS: Juan Geronimo is a 81 year old female. 06/22/21 Consultation requested by TEJ Ceron for an opinion regarding SVT. My final recommendationswill be communicated back to the requesting provider by way of shared Medical record or letter to requesting provider via US mail. Patient had a syncopal episode on 02/01/21 after turning her head. This resulted in a head injury and fractured tailbone. She was in [place] at the time. She was evaluated in the ER and head CT was reportedly negative. She saw TEJ Ceron in April and reported that she had had no further syncopal episodes. Her ECHO showed no significant abnormalities. Jose patch monitor noted 28 brief runs of SVT. Ana hubbard was referred to Cardiology for further evaluation and to establish longitudinal cardiac care. Today, she states that she has had no further syncopal episodes. She had one other syncopal episodea couple years ago. She was in [place] at that time as well. She went to the ER and was told that she was dehydrated. She has been trying to stay hydrated. She notes that when she turns too quickly, she can become slightly lightheaded. She is careful not to move or turn her head too quickly. She did not feel any of the SVT episodes noted on her monitor. She denies any chest discomfort, shortness of breath, or syncopal episodes. She denies any edema. BP and HR are good today. Weight is good. Sheand her go to [place] every winter. They will be leaving at the end of June and will return to [place] in February. 04/30/22 Patient presents today for a follow-up visit. She is doing well. She denies any further syncopal episodes. She denies any chest pain, shortness of breath, palpitations or near syncope. She denies anyedema, orthopnea or paroxysmal nocturnal dyspnea. She is not currently on any cardiac medications. She is trying hard not to turn her head too quickly to the left secondary to the possibility of carotid hypersensitivity syndrome. She is also trying to increase her fluid intake. She does state that she does not like drinking water. 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 Follows with [facility] Unspecified hemorrhoids without mention of complication PAST SURGICAL HISTORY Procedure Laterality Date APPENDECTOMY COLONOSCOPY FLX DX W/COLLJ SPEC WHEN PFRMD 11/23/2002 Colonoscopy COLONOSCOPY FLX DX W/COLLJ SPEC WHEN PFRMD 05/05/2018 Colonoscopy HEMORRHOIDECTOMY INTERNAL RUBBER BAND LIGATIONS PAST SURGICAL HISTORY OF 1982 hysterectomy for prolapse - ovaries remain PAST SURGICAL HISTORY OF 06/19/1977 vericose vein stripping PAST SURGICAL HISTORY OF 10/2001 Dr. Wheeler [facility] - partial wrist fusion left - ganglion cyst removed at same time PAST SURGICAL HISTORY OF 05/2005 - left hand dupuytren's contracture release. PAST SURGICAL HISTORY OF 05/2006 right hand repair small and ring fingers SIGMOIDOSCOPY FLX DX W/COLLJ SPEC BR/WA IF PFRMD 09/1998 Sigmoidoscopy TONSILLECTOMY & ADENOIDECTOMY <AGE 10 T/A (under age 10 years) Social History Tobacco Use Smoking status: Never Smoker Smokeless tobacco: Never Used Substance Use Topics Alcohol use: Yes Alcohol/week: 2.5 standard drinks Types: 1 Glasses of Wine (5oz) per week Comment: daily Drug use: No FAMILY HISTORY Problem Relation Age of Onset Cancer Mother ovarian and colon Cancer Father prostate - glaucoma Colon Cancer Father Cancer Brother skin - glaucoma Alzheimer's Disease Brother ALLERGIES: ALLERGIES Allergen Reactions Amoxil [Amoxicillin] Codeine Demoral [Other] Latex Ultram [Tramadol Hc* MEDICATIONS: levothyroxine (LEVOXYL) 25 mcg tablet Take 1 tablet by mouth once daily. Take on empty stomach. ForThyroid alendronate (FOSAMAX) 70 mg tablet Take 1 tablet by mouth one time a week. Take with a full glass of water, on an empty stomach; do NOT lie down for 30minutes. Estradiol (ESTRACE) 0.5 mg tablet Take 1 tablet by mouth every other day. BIOTIN ORAL Take 1,000 mcg by mouth once daily. Cholecalciferol, Vitamin D3, 25 mcg (1,000 unit) cap Take 2 capsules by mouth once daily. triamcinolone (KENALOG) 0.025 % ointment Apply to affected area BID x 6-8 weeks then use weekly formaintenance acetaminophen (ARTHRITIS PAIN RELIEF) 650 mg CR tablet Take 1 tablet by mouth every 8 hours as needed. REVIEW OF SYSTEMS: A complete review of systems was obtained and is remarkable for that noted above. The remaining systems are unremarkable. I personally interviewed, confirmed and edited the above information if obtained by others. PHYSICAL EXAMINATION: BP 148/80 (BP Site: Right Arm, BP Position: Sitting, BP Cuff Size: Regular Adult) Pulse 68 Wt 61.7 kg (136 lb) BMI 21.99 kg/m General: Well appearing, in no acute distress. Eyes: Conjunctiva normal, sclera normal Neck: No jugular venous distention, no palpable thyromegaly. Heart: Regular rhythm, S1, S2 normal, no S3, no S4. No murmur. No carotid bruits. Respiratory: Clear to auscultation bilaterally. Good respiratory effort. GI: Soft, nontender, bowel sounds normal, no palpable hepatosplenomegaly Extremities: Normal pulses in distal lower extremities. Absent lower extremity edema Neuro: Alert, cooperative with no focal deficit. Psych: Pleasant and cooperative. Skin: No rashes or wounds. CARDIOVASCULAR MEDICINE TESTING: Zio Patch Monitor, 05/18/21 Patient had a min HR of 44 bpm, max HR of 182 bpm, and avg HR of 65 bpm. Predominant underlying rhythm was Sinus Rhythm. 28 Supraventricular Tachycardia runs occurred, the run with the fastest interval lasting 7 beats with a max rate of 182 bpm, the longest lasting 8.4 secs with an avg rate of 156 bpm. Isolated SVEs were rare (<1.0%), SVE Couplets were rare (<1.0%), and SVE Triplets were rare (<1.0%). Isolated VEs were rare (<1.0%), VE Couplets were rare (<1.0%), and no VE Triplets were present. Carotid Ultrasound, 04/28/21 IMPRESSION RIGHT SIDE Common carotid artery: Plaque visualized without evidence of hemodynamically significant stenosis. Internal carotid artery: 20-39% stenosis. Vertebral artery: Patent and antegrade flow noted. Subclavian artery: Plaque visualized without evidence of hemodynamically significant stenosis. LEFT SIDE Common carotid artery: Plaque visualized without evidence of hemodynamically significant stenosis. Internal carotid artery: 20-39% stenosis. Vertebral artery: Patent and antegrade flow noted. ECHO, 04/25/21 CONCLUSIONS: - Technically difficult exam due to suboptimal positioning and body habitus. - Exam indication: Syncope - The left ventricle is normal in size. There is mild upper septal left ventricular hypertrophy. Left ventricular systolic function is normal. EF = 56 5% (2D 4-ch.) Grade I left ventricular diastolic dysfunction. - The right ventricle is normal in size. Right ventricular systolic function is normal. - AV sclerosis. - The patient has not had a prior CC echocardiographic exam for comparison. ECG, 04/21/21 SINUS BRADYCARDIA, 59 BPM OTHERWISE NORMAL ECG LV Ejection Fraction (%) Date Value 04/25/2021 56 LABS: Sodium (mmol/L) Date Value 04/25/2022 142 04/19/2021 144 04/19/2020 142 Potassium (mmol/L) Date Value 04/25/2022 4.3 04/19/2021 4.2 04/19/2020 4.5 BUN (mg/dL) Date Value 04/25/2022 20 04/19/2021 15 04/19/2020 16 04/17/2019 16 02/21/2017 10 Creatinine (mg/dL) Date Value 04/25/2022 1.30 04/19/2021 1.13 04/19/2020 1.18 04/17/2019 1.12 02/21/2017 1.06 No results found for: MG Hemoglobin (g/dL) Date Value 04/25/2022 13.0 04/19/2021 12.2 04/19/2020 12.9 No results found for: PROBNP No results found for: HSTNT Cholesterol, Total (mg/dL) Date Value 04/25/2022 225 04/19/2021 218 HDL Cholesterol (mg/dL) Date Value 04/25/2022 78 04/19/2021 71 Triglyceride (mg/dL) Date Value 04/25/2022 76 04/19/2021 67 LDL Cholesterol (mg/dL) Date Value 04/25/2022 132 04/19/2021 134 TSH (mIU/L) Date Value 04/25/2022 19.900 IMPRESSION: 1. SVT (supraventricular tachycardia) (HCC), paroxysmal, nonsustained - ICD9: 427.89, ICD10: I47.1 (primary diagnosis), 28 brief runs on Zio patch monitor. Patient did not feel these. Discussed B. Frederick therapy at last visit. No treatment necessary at this time. 2. Syncope, unspecified syncope type - ICD9: 780.2, ICD10: R55, one episode in January, no recurrence. Patient reports a similar episode a couple years ago due to dehydration. Consider carotid sinus hypersensitivity, did not do carotid compression with underlying plaque present. Recommended that patient stay hydrated and avoid turning her head too quickly. No further episodes. PLAN: Continue current medical regimen. Low cholesterol, low fat diet, Mediterranean type diet. Stay hydrated. Avoid turning the head too quickly. Regular aerobic exercise as able. Monitor for any new symptoms. Follow up with us in 1 year or sooner if necessary. Medical Decision Making: Problems: Moderate: 2+ stable chronic illnesses Data: Unique test result(s) reviewed: 1 Risk: Low: Low risk from testing/treatment Medical Decision Making Level: 3 - Low A copy of this consultation note will be provided to the requesting physician by way of shared medical record or to the requesting physician via U.S. Mail. Thank you for allowing us to participate in the care of this very pleasant patient. Please free to contact us if we can be of any further assistance. Ayan Layne MD, [facility] and [facility] Department of Cardiovascular Medicine Heart and Vascular [place] [id number] [facility] Miscellaneous Notes* Telephone Encounter - Alina Gutiérrez MA - 04/27/2022 3:19 PM EDT Patient is taking Calcium with D3. D3 strength 500 international unit(s). Spoke to FRANCISCO Murphy. Katherine advised patient to take 1 Calcium + D with 2 Vitamin D3 1000 units. Patient verbalized understanding of instructions. Alina Gutiérrez MA * Telephone Encounter - Katherine Ceron APRN.CNP - 04/27/2022 2:47 PM EDT According to her medlist, she is taking 2000 units daily (please verify). If that is the case, I would increase to 3000 units daily. * Telephone Encounter - Liz Lambert Ma - 04/27/2022 2:08 PM EDT Patient was notified and will start medication an recheck labs. Patient is taking vitamin D daily no missed doses, what would you like to increase it to? Liz Lambert Ma * Telephone Encounter - Katherine Ceron APRN.CNP - 04/27/2022 1:21 PM EDT Can please let patient know that I received her lab results. I did thyroid labwork with her last tests. It does show that her thyroid is underactive. I went ahead and sent thyroid replacement medication to the pharmacy for her to start. It is one pill by mouthdaily -- usually on an empty stomach, 30-60 minutes before the first meal of the day. She should repeat labs in 6-8 weeks to see if we need to adjust the dosage of the medication. The orders are in (non-fasting). Her vitamin D level was just a little low. Has she been taking he vitamin D? If so, we may want to increase this a little bit. Her kidney function was just a little worse. I put in an order to repeat this when she returns to get her thyroid labs repeated. She should return well- hydrated for this. Everything else looks pretty normal/stable. Katherine Ceron APRN.TEJ [facility] History of Past illness Narrative* Problem Noted Date Resolved Date Bulging disc 07/20/2010 02/09/2015 Last Assessment & Plan: Continues with exercises daily; leaving in 2 days for [place]- follows with physicians there. DUPSELENA'S CONTRACTURE 07/13/2008 02/26/20 17 Other and unspecified hyperlipidemia 05/28/2007 02/13/2016 Last Assessment & Plan: Reviewed lipids; TC and LDLs remain elevated, however offset with excellent HDLs and Trig. PT stays active, walks 2miles per day. documented as of this encounter (statuses as of 02/20/2022) [facility] of Past illness Narrative* Problem Noted Date Resolved Date Bulging disc 07/20/2010 02/09/2015 Last Assessment & Plan: Continues with exercises daily; leaving in 2 days for [place]- follows with physicians there. 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 PT stays active, walks 2miles per day. documented as of this encounter (statuses as of 04/27/2022) [facility] of Past illness Narrative* Problem Noted Date Resolved Date Bulging disc 07/20/2010 02/09/2015 Last Assessment & Plan: Continues with exercises daily; leaving in 2 days for [place]- follows with physicians there. 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 PT stays active, walks 2miles per day. documented as of this encounter (statuses as of 04/30/2022) [facility] of Past illness Narrative* Problem Noted Date Resolved Date Bulging disc 07/20/2010 02/09/2015 Last Assessment & Plan: Continues with exercises daily; leaving in 2 days for [place]- follows with physicians there. 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 PT stays active, walks 2miles per day. documented as of this encounter (statuses as of 06/07/2022) [facility] Narrative* Problem Noted Date Resolved Date Bulging disc 07/20/2010 02/09/2015 Last Assessment & Plan: Continues with exercises daily; leaving in 2 days for [place]- follows with physicians there. 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 PT stays active, walks 2miles per day. documented as of this encounter (statuses as of 06/08/2022) [facility] Narrative* Problem Noted Date Resolved Date Bulging disc 07/20/2010 02/09/2015 Last Assessment & Plan: Continues with exercises daily; leaving in 2 days for [place]- follows with physicians there. 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 PT stays active, walks 2miles per day. documented as of this encounter (statuses as of 06/26/2022) [facility] Narrative* Problem Noted Date Resolved Date Bulging disc 07/20/2010 02/09/2015 Last Assessment & Plan: Continues with exercises daily; leaving in 2 days for [place]- follows with physicians there. 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 PT stays active, walks 2miles per day. documented as of this encounter (statuses as of 07/08/2022) [facility] Narrative* Problem Noted Date Resolved Date Bulging disc 07/20/2010 02/09/2015 Last Assessment & Plan: Continues with exercises daily; leaving in 2 days for [place]- follows with physicians there. 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 PT stays active, walks 2miles per day. documented as of this encounter (statuses as of 07/20/2022) [facility] Narrative* Problem Noted Date Resolved Date Bulging disc 07/20/2010 02/09/2015 Last Assessment & Plan: Continues with exercises daily; leaving in 2 days for [place]- follows with physicians there. 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 PT stays active, walks 2miles per day. documented as of this encounter (statuses as of 07/23/2022) [facility] Narrative* Problem Noted Date Resolved Date Bulging disc 07/20/2010 02/09/2015 Last Assessment & Plan: Continues with exercises daily; leaving in 2 days for [place]- follows with physicians there. 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 PT stays active, walks 2miles per day. documented as of this encounter (statuses as of 07/27/2022) [facility] Narrative* Problem Noted Date Resolved Date Bulging disc 07/20/2010 02/09/2015 Last Assessment & Plan: Continues with exercises daily; leaving in 2 days for [place]- follows with physicians there. 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 PT stays active, walks 2miles per day. documented as of this encounter (statuses as of 08/08/2022) [facility] Narrative* Problem Noted Date Resolved Date Bulging disc 07/20/2010 02/09/2015 Last Assessment & Plan: Continues with exercises daily; leaving in 2 days for [place]- follows with physicians there. 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 PT stays active, walks 2miles per day. documented as of this encounter (statuses as of 11/08/2022) [facility] Narrative* Problem Noted Date Resolved Date Bulging disc 07/20/2010 02/09/2015 Last Assessment & Plan: Continues with exercises daily; leaving in 2 days for [place]- follows with physicians there. 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 PT stays active, walks 2miles per day. documented as of this encounter (statuses as of 02/08/2023) [facility] Narrative* Problem Noted Date Resolved Date Bulging disc 07/20/2010 02/09/2015 Last Assessment & Plan: Continues with exercises daily; leaving in 2 days for [place]- follows with physicians there. 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 PT stays active, walks 2miles per day. documented as of this encounter (statuses as of 02/21/2023) [facility] Narrative* Problem Noted Date Resolved Date Bulging disc 07/20/2010 02/09/2015 Last Assessment & Plan: Continues with exercises daily; leaving in 2 days for [place]- follows with physicians there. 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 PT stays active, walks 2miles per day. documented as of this encounter (statuses as of 02/25/2023) [facility] Narrative* Problem Noted Date Resolved Date Bulging disc 07/20/2010 02/09/2015 Last Assessment & Plan: Continues with exercises daily; leaving in 2 days for [place]- follows with physicians there. 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 PT stays active, walks 2miles per day. documented as of this encounter (statuses as of 03/25/2023) [facility] Narrative* Problem Noted Date Resolved Date Bulging disc 07/20/2010 02/09/2015 Last Assessment & Plan: Continues with exercises daily; leaving in 2 days for [place]- follows with physicians there. 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 PT stays active, walks 2miles per day. documented as of this encounter (statuses as of 04/03/2023) [facility] Narrative* Problem Noted Date Diagnosed Date Resolved Date Bulging disc 07/20/2010 02/09/2015 Last Assessment & Plan: Continues with exercises daily; leaving in 2 days for [place]- follows with physicians there. DUPUYTREN'S CONTRACTURE 07/13/20080 05/2017 Other and unspecified hyperlipidemia 05/28/2007 02/13/2016 Last Assessment & Plan: Reviewed lipids; TC and LDLs remain elevated, however offset with excellent HDLs and Trig. PT stays active, walks 2miles per day. documented as of this encounter (statuses as of 06/12/2023) [facility] Narrative* Problem Noted Date Diagnosed Date Resolved Date Bulging disc 07/20/2010 02/09/2015 Last Assessment & Plan: Continues with exercises daily; leaving in 2 days for [place]- follows with physicians there. DUPUYTREN'S CONTRACTURE 07/13/20080 05/2017 Other and unspecified hyperlipidemia 05/28/2007 02/13/2016 Last Assessment & Plan: Reviewed lipids; TC and LDLs remain elevated, however offset with excellent HDLs and Trig. PT stays active, walks 2miles per day. documented as of this encounter (statuses as of 06/13/2023) [facility] Narrative* Problem Noted Date Diagnosed Date Resolved Date Bulging disc 07/20/2010 02/09/2015 Last Assessment & Plan: Continues with exercises daily; leaving in 2 days for [place]- follows with physicians there. DUPUYTREN'S CONTRACTURE 07/13/20080 05/2017 Other and unspecified hyperlipidemia 05/28/2007 02/13/2016 Last Assessment & Plan: Reviewed lipids; TC and LDLs remain elevated, however offset with excellent HDLs and Trig. PT stays active, walks 2miles per day. documented as of this encounter (statuses as of 07/03/2023) [facility] Narrative* Problem Noted Date Diagnosed Date Resolved Date Bulging disc 07/20/2010 02/09/2015 Last Assessment & Plan: Continues with exercises daily; leaving in 2 days for [place]- follows with physicians there. DUPUYTREN'S CONTRACTURE 07/13/200805/2017 Other and unspecified hyperlipidemia 05/28/2007 02/13/2016 Last Assessment & Plan: Reviewed lipids; TC and LDLs remain elevated, however offset with excellent HDLs and Trig. PT stays active, walks 2miles per day. documented as of this encounter (statuses as of 08/23/2023) [facility] Narrative* Problem Noted Date Diagnosed Date Resolved Date Bulging disc 07/20/2010 02/09/2015 Last Assessment & Plan: Continues with exercises daily; leaving in 2 days for [place]- follows with physicians there. DUPRACHELTREN'S CONTRACTURE 07/13/200805/2017 Other and unspecified hyperlipidemia 05/28/2007 02/13/2016 Last Assessment & Plan: Reviewed lipids; TC and LDLs remain elevated, however offset with excellent HDLs and Trig. PT stays active, walks 2miles per day. documented as of this encounter (statuses as of 09/19/2023) [facility] Diagnosis Hypothyroidism, acquired- Primary Unspecified hypothyroidism Stage 3b chronic kidney disease (HCC) [facility] Diagnosis SVT (supraventricular tachycardia) (HCC), paroxysmal, nonsustained- Primary Other specified cardiac dysrhythmias Syncope, unspecified syncope type [facility] Diagnosis Visit for screening mammogram Other screening mammogram [facility] Diagnosis Hypothyroidism, acquired- Primary Unspecified hypothyroidism documented in this encounter [facility]* Diagnosis Pain- Primary Generalized pain documented in this encounter [facility] note* Diagnosis Need for vaccination- Primary Need for prophylactic vaccination and inoculation against unspecified single disease Need for influenza vaccination Need for prophylactic vaccination and inoculation against influenza documented in this encounter [facility] note* Diagnosis Spasm of cervical paraspinous muscle- Primary Spasm of muscle Cervical spondylosis Cervical spondylosis without myelopathy DDD (degenerative disc disease), cervical Degeneration of cervical intervertebral disc documented in this encounter [facility] note* Diagnosis Hypothyroidism, acquired Unspecified hypothyroidism documented in this encounter [facility] note* Diagnosis SVT (supraventricular tachycardia) (HCC), paroxysmal, nonsustained- Primary Other specified cardiac dysrhythmias Age-related osteoporosis without current pathological fracture Senile osteoporosis Hypothyroidism, acquired Unspecified hypothyroidism Anemia, unspecified type Acute renal failure superimposed on stage 3a chronic kidney disease, unspecified acute renal failure type (HCC) Hyperlipidemia, mixed Mixed hyperlipidemia Advance care planning Other specified counseling documented in this encounter [facility] note* Diagnosis Right hand pain- Primary Pain in limb documented in this encounter [facility] note* Diagnosis Hypothyroidism, acquired- Primary Unspecified hypothyroidism documented in this encounter [facility] note* Diagnosis Pain Generalized pain documented in this encounter [facility] note* Diagnosis Encounter for screening mammogram for malignant neoplasm of breast Other screening mammogram documented in this encounter [facility] note* Diagnosis Hypothyroidism, acquired Unspecified hypothyroidism documented in this encounter [facility] note* Diagnosis Hyperlipidemia, unspecified hyperlipidemia type- Primary Hypothyroidism, acquired Unspecified hypothyroidism Age-related osteoporosis without current pathological fracture Senile osteoporosis Anemia, unspecified type Encounter for screening mammogram for malignant neoplasm of breast Other screening mammogram [facility] Diagnosis Age-related osteoporosis without current pathological fracture- Primary Senile osteoporosis documented in this encounter [facility] note* Diagnosis Hypothyroidism, acquired- Primary Unspecified hypothyroidism documented in this encounter [facility] note* Diagnosis Hypothyroidism, acquired Unspecified hypothyroidism documented in this encounter [facility] note* Diagnosis Age-related osteoporosis without current pathological fracture Senile osteoporosis documented in this encounter [facility] note* Diagnosis Screening for ischemic heart disease- Primary SVT (supraventricular tachycardia) (HCC), paroxysmal, nonsustained Other specified cardiac dysrhythmias [facility]* Diagnosis Hemorrhoids, unspecified hemorrhoid type- Primary [facility] Diagnosis Hemorrhoids, unspecified hemorrhoid type [facility] Diagnosis Hemorrhoids, unspecified hemorrhoid type- Primary [facility]* Diagnosis Routine medical exam- Primary Routine general medical examination at a health care facility Esophageal reflux Spinal stenosis Spinal stenosis, unspecified region other than cervical Bulging disc Displacement of intervertebral disc, site unspecified, without myelopathy OSTEOPENIA Disorder of bone and cartilage, unspecified HYPERLIPIDEMIA NEC/NOS Other and unspecified hyperlipidemia Left sided sciatica Sciatica Age-related osteoporosis without current pathological fracture Senile osteoporosis [facility]* Diagnosis Routine medical exam- Primary Routine general medical examination at a [facility] Esophageal reflux Spinal stenosis Spinal stenosis, unspecified region other than cervical Bulging disc Displacement of intervertebral disc, site unspecified, without myelopathy OSTEOPENIA Disorder of bone and cartilage, unspecified HYPERLIPIDEMIA NEC/NOS Other and unspecified hyperlipidemia Left sided sciatica Sciatica Encounter for screening mammogram for malignant neoplasm of breast Other screening mammogram [facility] Diagnosis Routine medical exam- Primary Routine general medical examination at a [facility] Esophageal reflux Spinal stenosis Spinal stenosis, unspecified region other than cervical Bulging disc Displacement of intervertebral disc, site unspecified, without myelopathy OSTEOPENIA Disorder of bone and cartilage, unspecified HYPERLIPIDEMIA NEC/NOS Other and unspecified hyperlipidemia Left sided sciatica Sciatica Hypothyroidism, acquired- Primary Unspecified hypothyroidism Anemia, unspecified type Age-related osteoporosis without current pathological fracture Senile osteoporosis Hyperlipidemia, unspecified hyperlipidemia type [facility] Diagnosis Routine medical exam- Primary Routine general medical examination at a [facility] Esophageal reflux Spinal stenosis Spinal stenosis, unspecified region other than cervical Bulging disc Displacement of intervertebral disc, site unspecified, without myelopathy OSTEOPENIA Disorder of bone and cartilage, unspecified HYPERLIPIDEMIA NEC/NOS Other and unspecified hyperlipidemia Left sided sciatica Sciatica Medicare annual wellness visit, subsequent- Primary Routine general medical examination at a health care facility Hemorrhoids, unspecified hemorrhoid type Hypothyroidism, acquired Unspecified hypothyroidism Age-related osteoporosis without current pathological fracture Senile osteoporosis Need for pneumococcal 20-valent conjugate vaccination Skin lesion of face Unspecified disorder of skin and subcutaneous tissue Hyperlipidemia, mixed Mixed hyperlipidemia Spinal stenosis of thoracolumbar region Spinal stenosis of thoracic region [facility] Diagnosis Routine medical exam- Primary Routine general medical examination at a [facility] facility Esophageal reflux Spinal stenosis Spinal stenosis, unspecified region other than cervical Bulging disc Displacement of intervertebral disc, site unspecified, without myelopathy OSTEOPENIA Disorder of bone and cartilage, unspecified HYPERLIPIDEMIA NEC/NOS Other and unspecified hyperlipidemia Left sided sciatica Sciatica Hemorrhoids, unspecified hemorrhoid type- Primary [facility] Diagnosis Routine medical exam- Primary Routine general medical examination at a [facility] facility Esophageal reflux Spinal stenosis Spinal stenosis, unspecified region other than cervical Bulging disc Displacement of intervertebral disc, site unspecified, without myelopathy OSTEOPENIA Disorder of bone and cartilage, unspecified HYPERLIPIDEMIA NEC/NOS Other and unspecified hyperlipidemia Left sided sciatica Sciatica Pain Generalized pain [facility] Diagnosis Routine medical exam- Primary Routine general medical examination at a [facility] facility Esophageal reflux Spinal stenosis Spinal stenosis, unspecified region other than cervical Bulging disc Displacement of intervertebral disc, site unspecified, without myelopathy OSTEOPENIA Disorder of bone and cartilage, unspecified HYPERLIPIDEMIA NEC/NOS Other and unspecified hyperlipidemia Left sided sciatica Sciatica Hemorrhoids, unspecified hemorrhoid type- Primary [facility] Diagnosis Routine medical exam- Primary Routine general medical examination at a [facility] Esophageal reflux Spinal stenosis Spinal stenosis, unspecified region other than cervical Bulging disc Displacement of intervertebral disc, site unspecified, without myelopathy OSTEOPENIA Disorder of bone and cartilage, unspecified HYPERLIPIDEMIA NEC/NOS Other and unspecified hyperlipidemia Left sided sciatica Sciatica Hemorrhoids, unspecified hemorrhoid type- Primary [facility] Diagnosis Routine medical exam- Primary Routine general medical examination at a [facility] Esophageal reflux Spinal stenosis Spinal stenosis, unspecified region other than cervical Bulging disc Displacement of intervertebral disc, site unspecified, without myelopathy OSTEOPENIA Disorder of bone and cartilage, unspecified HYPERLIPIDEMIA NEC/NOS Other and unspecified hyperlipidemia Left sided sciatica Sciatica Hyperlipidemia, unspecified hyperlipidemia type- Primary Hypothyroidism, acquired Unspecified hypothyroidism Vitamin D deficiency Unspecified vitamin D deficiency [facility] Diagnosis Routine medical exam- Primary Routine general medical examination at a [facility] Esophageal reflux Spinal stenosis Spinal stenosis, unspecified region other than cervical Bulging disc Displacement of intervertebral disc, site unspecified, without myelopathy OSTEOPENIA Disorder of bone and cartilage, unspecified HYPERLIPIDEMIA NEC/NOS Other and unspecified hyperlipidemia Left sided sciatica Sciatica Balance disorder- Primary Other symptoms involving nervous and musculoskeletal systems Fall, initial encounter Hyperlipidemia, mixed Mixed hyperlipidemia Age-related osteoporosis without current pathological fracture Senile osteoporosis Vitamin D deficiency Unspecified vitamin D deficiency Hypothyroidism, acquired Unspecified hypothyroidism Vitamin B12 deficiency Other B-complex deficiencies [facility] Diagnosis Routine medical exam- Primary Routine general medical examination at a [facility] Esophageal reflux Spinal stenosis Spinal stenosis, unspecified region other than cervical Bulging disc Displacement of intervertebral disc, site unspecified, without myelopathy OSTEOPENIA Disorder of bone and cartilage, unspecified HYPERLIPIDEMIA NEC/NOS Other and unspecified hyperlipidemia Left sided sciatica Sciatica SVT (supraventricular tachycardia) (HCC), paroxysmal, nonsustained- Primary Other specified cardiac dysrhythmias [facility] Diagnosis Routine medical exam- Primary Routine general medical examination at a [facility] Esophageal reflux Spinal stenosis Spinal stenosis, unspecified region other than cervical Bulging disc Displacement of intervertebral disc, site unspecified, without myelopathy OSTEOPENIA Disorder of bone and cartilage, unspecified HYPERLIPIDEMIA NEC/NOS Other and unspecified hyperlipidemia Left sided sciatica Sciatica Screening mammogram for breast cancer- Primary [facility] noteNo assessment information availableWUniversity [facility] Work Phone: Evaluation note* Diagnosis Routine medical exam- Primary Routine general medical examination at a [facility] Esophageal reflux Spinal stenosis Spinal stenosis, unspecified region other than cervical Bulging disc Displacement of intervertebral disc, site unspecified, without myelopathy OSTEOPENIA Disorder of bone and cartilage, unspecified HYPERLIPIDEMIA NEC/NOS Other and unspecified hyperlipidemia Left sided sciatica Sciatica SVT (supraventricular tachycardia) (HCC), paroxysmal, nonsustained Other specified cardiac dysrhythmias [facility]* Diagnosis Routine medical exam- Primary Routine general medical examination at a [facility] Esophageal reflux Spinal stenosis Spinal stenosis, unspecified region other than cervical Bulging disc Displacement of intervertebral disc, site unspecified, without myelopathy OSTEOPENIA Disorder of bone and cartilage, unspecified HYPERLIPIDEMIA NEC/NOS Other and unspecified hyperlipidemia Left sided sciatica Sciatica Screening mammogram for breast cancer documented in this encounter [facility] for referral (narrative)* Diagnostic Procedure Only (Routine) - Closed Specialty Diagnoses / Procedures Referred By Contac t Referred To Contact [facility] Diagnoses Visit for screening mammogram Procedures ANTONIO SCREENING SCREENING MAMMOGRAPHY BI 2-VIEW BREAST INC CAD Katherine Ceron APRN.SHAKER REPAIRER [address] [place] [address] [facility] [address] [place] [address] Referral ID Status Reason Start Date Expiration Date V isits Requested Visits Authorized [id number] Closed Auto-Generate d Referral 06/03/2022 05/24/2023 1 1 [facility] for referral (narrative)* Diagnostic Procedure Only (Urgent) - Pending Review Specialty Diagnoses / Procedures Referred By Contac t Referred To Contact XR IMAGING Diagnoses Pain Procedures XR THORACIC LIMITED 2V AP/LAT RADEX SPINE THORACIC 2 VIEWS Rachel Alas APRN.SHAKER REPAIRER [address] [place] [address] X[facility] Imaging Referral ID Status Reason Start Date Expiration Date Visits Requested Visits Authorized [id number] Pending Review Auto-Generat ed Referral 07/09/2022 08/07/2023 1 1 * Diagnostic Procedure Only (Urgent) - Pending Review Specialty Diagnoses / Procedures Referred By Contac t Referred To Contact XR IMAGING Diagnoses Pain Procedures XR CERV OTHER 4V AP/LAT/OBL RADEX SPINE CERVICAL 4 OR 5 VIEWS Rachel Alas APRN.SHAKER REPAIRER [address] [place] [address] X[facility] Imaging Referral ID Status Reason Start Date Expiration Date Visits Requested Visits Authorized [id number] Pending Review Auto-Generat ed Referral 07/09/2022 08/07/2023 1 1 [facility] for referral (narrative)* Diagnostic Procedure Only (Routine) - Closed Specialty Diagnoses / Procedures Referred By Contac t Referred To Contact XR IMAGING Diagnoses Pain Procedures XR HAND GENERAL 3V PA/LAT/OBL RIGHT RADEX HAND MINIMUM 3 VIEWS Adeel Mendez MD [address] [place] [address] [place] [address] Referral ID Status Reason Start Date Expiration Date V isits Requested Visits Authorized [id number] Closed Auto-Generate d Referral 02/28/2023 03/29/2024 1 1 [facility] for referral (narrative)* Diagnostic Procedure Only (Routine) - Closed Specialty Diagnoses / Procedures Referred By Contac t Referred To Contact [facility] Diagnoses Encounter for screening mammogram for malignant neoplasm of breast Procedures ANTONIO SCREENING SCREENING MAMMOGRAPHY BI 2-VIEW BREAST INC CAD Braxton Locke PA-C [address] [place] [address] [facility] [address] [place] [address] Referral ID Status Reason Start Date Expiration Date V isits Requested Visits Authorized [id number] Closed Auto-Generate d Referral 05/13/2023 06/11/2024 1 1 [facility] for referral (narrative)* Diagnostic Procedure Only (Routine) - Pending Review Specialty Diagnoses / Procedures Referred By Contac t Referred To Contact [facility] Diagnoses Encounter for screening mammogram for malignant neoplasm of breast Procedures ANTONIO SCREENING SCREENING MAMMOGRAPHY BI 2-VIEW BREAST INC Braxton Benson PA-C [address] [place] [address] [facility] [address] [place] [address] Referral ID Status Reason Start Date Expiration Date Visits Requested Visits Authorized [id number] Pending Review Auto-Generat ed Referral 02/18/2024 03/19/2025 1 1 [facility] for referral (narrative)* Diagnostic Procedure Only (Routine) - Authorized Specialty Diagnoses / Procedures Referred By Contac t Referred To Contact XR IMAGING Diagnoses Age-related osteoporosis without current pathological fracture Procedures DXA-AXIAL SKELETON Braxton Locke PA-C [address] [place] [address] [place] [address] Referral ID Status Reason Start Date Expiration Date Visits Requested Visits Authorized [id number] Authorized Auto-Generat ed Referral 02/25/2024 03/26/2025 1 1 [facility] for referral (narrative)* Outpatient Procedure (Routine) - New Request Specialty Diagnoses / Procedures Referred By Contac t Referred To Contact [facility] Diagnoses Screening for ischemic heart disease Procedures ECG COMPLETE ECG ROUTINE ECG W/LEAST 12 LDS W/I&R Paresh Ngo MD [address], [address] [place] [address] [facility] [address] [place] [address] Referral ID Status Reason Start Date Expiration Date Visits Requested Visits Authorized [id number] New Request Auto-Generat ed Referral 05/11/2024 05/07/2025 1 1 [facility] for referral (narrative)* Diagnostic Procedure Only (Urgent) - Closed Specialty Diagnoses / Procedures Referred By Contac t Referred To Contact XR IMAGING Diagnoses Pain Procedures XR THORACIC LIMITED 2V AP/LAT RADEX SPINE THORACIC 2 VIEWS Rachel Alas APRN.SHAKER REPAIRER [address] [place] [address] [place] [address] Referral ID Status Reason Start Date Expiration Date V isits Requested Visits Authorized [id number] Closed Auto-Generate d Referral 07/09/2022 08/07/2023 1 1 * Diagnostic Procedure Only (Urgent) - Closed Specialty Diagnoses / Procedures Referred By Contac t Referred To Contact XR IMAGING Diagnoses Pain Procedures XR CERV OTHER 4V AP/LAT/OBL RADEX SPINE CERVICAL 4 OR 5 VIEWS Rachel Alas APRN.SHAKER REPAIRER [address] [place] [address] [place] [address] Referral ID Status Reason Start Date Expiration Date V isits Requested Visits Authorized [id number] Closed Auto-Generate d Referral 07/09/2022 08/07/2023 1 1 [facility] for referral (narrative)No reason for referral information availableWUniversity [facility] Work Phone: Reason for visit Narrative* Diagnostic Procedure Only (Routine) - Closed Specialty Diagnoses / Procedures Referred By Contac t Referred To Contact [facility] Diagnoses Visit for screening mammogram Procedures ANTONIO SCREENING SCREENING MAMMOGRAPHY BI 2-VIEW BREAST INC Katherine Rider APRN.SHAKER REPAIRER [address] [place] [address] [facility] [address] [place] [address] Referral ID Status Reason Start Date Expiration Date V isits Requested Visits Authorized [id number] Closed Auto-Generate d Referral 06/03/2022 05/24/2023 1 1 [facility] for visit Narrative* Diagnostic Procedure Only (Routine) - Closed Specialty Diagnoses / Procedures Referred By Contac t Referred To Contact XR IMAGING Diagnoses Pain Procedures XR HAND GENERAL 3V PA/LAT/OBL RIGHT RADEX HAND MINIMUM 3 VIEWS Adeel Mendez MD [address] [place] [address] [place] [address] Referral ID Status Reason Start Date Expiration Date V isits Requested Visits Authorized [id number] Closed Auto-Generate d Referral 02/28/2023 03/29/2024 1 1 [facility] for visit Narrative* Diagnostic Procedure Only (Routine) - Closed Specialty Diagnoses / Procedures Referred By Contlynette t Referred To Contact [facility] Diagnoses Encounter for screening mammogram for malignant neoplasm of breast Procedures ANTONIO SCREENING SCREENING MAMMOGRAPHY BI 2-VIEW BREAST INC CAD Braxton Locke PA-C [address] [place] [address] [facility] [address] [place] [address] Referral ID Status Reason Start Date Expiration Date V isits Requested Visits Authorized [id number] Closed Auto-Generate d Referral 05/13/2023 06/11/2024 1 1 [facility] for visit Narrative* Diagnostic Procedure Only (Routine) - Closed Specialty Diagnoses / Procedures Referred By Melissa t Referred To Contact XR IMAGING Diagnoses Age-related osteoporosis without current pathological fracture Procedures DXA-AXIAL SKELETON Braxton Locke PA-C [address] [place] [address] [place] [address] Referral ID Status Reason Start Date Expiration Date V isits Requested Visits Authorized [id number] Closed Auto-Generate d Referral 02/25/2024 03/26/2025 1 1 [facility] for visit Narrative* Diagnostic Procedure Only (Routine) - Closed Specialty Diagnoses / Procedures Referred By Contac t Referred To Contact [facility] Diagnoses Encounter for screening mammogram for malignant neoplasm of breast Procedures ANTONIO SCREENING SCREENING MAMMOGRAPHY BI 2-VIEW BREAST INC CAD Braxton Locke PA-C [address] [place] [address] [facility] [address] [place] [address] Referral ID Status Reason Start Date Expiration Date V isits Requested Visits Authorized [id number] Closed Auto-Generate d Referral 02/18/2024 03/19/2025 1 1 [facility] for visit Narrative* Diagnostic Procedure Only (Urgent) - Closed Specialty Diagnoses / Procedures Referred By Contac t Referred To Contact XR IMAGING Diagnoses Pain Procedures XR THORACIC LIMITED 2V AP/LAT RADEX SPINE THORACIC 2 VIEWS Rachel Alas APRN.SHAKER REPAIRER [address] [place] [address] [place] [address] Referral ID Status Reason Start Date Expiration Date V isits Requested Visits Authorized [id number] Closed Auto-Generate d Referral 07/09/2022 08/07/2023 1 1 [facility] Diagnostic Procedure Only (Routine) - Closed Specialty Diagnoses / Procedures Referred By Contac t Referred To Contact [facility] Diagnoses Screening mammogram for breast cancer Procedures ANTONIO SCREENING SCREENING MAMMOGRAPHY BI 2-VIEW BREAST INC CAD Josee Li EMPLOYEE'S REPRESENTATIVE.SHAKER REPAIRER [address] [place] [address] Phone: tel: fax: [facility] [address] [place] [address] Referral ID Status Reason Start Date Expiration Date V isits Requested Visits Authorized [id number] Closed Auto-Generate d Referral 04/20/2025 05/19/2026 1 1 [facility] Advance Directives No Advanced Directives Records FoundDocuments on File Type Date Recorded 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 Advance Directive(s) 05/05/2018 12:25 PM Documents on File Type Date Recorded 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 Advance Directive(s) 05/27/2025 5:31 PM Advance Directive(s) 05/26/2025 8:52 AM Documents on File Type Date Recorded 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 Advance Directive(s) 05/27/2025 5:31 PM Advance Directive(s) 05/26/2025 8:52 AM Reason for Referral Specialty Diagnoses / Procedures Referred By Contac t Referred To Contact Gastroenterology Diagnoses Hemorrhoids, unspecified hemorrhoid type Procedures CONSULT TO GASTROENTEROLOGY OFFICE/OUTPATIENT [facility] 60 MINUTES Johanna Roblero, EMPLOYEE'S REPRESENTATIVE.SHAKER REPAIRER [address] [place] [address] Referral ID Status Reason Start Date Expiration Date Visits Requested Visits Authorized [id number] Authorized PCP Requested Referral 05/13/2024 05/13/2025 1 1 Chief Complaint and Reason for Visit Chief Complaint Admit Date BALANCE. ORDER TO BE FAXED. March 16 11:00am Summary Purpose Family History No Family History Records FoundNo Family History Records Found Additional Source Comments Source Comments (unrecognize d section and content) In the event this informatio n is protected by the Federal Confidentiality of Alcohol and Drug Abuse Patient Records regulations: The Federal rules restrict any use of the information to criminally investigate or prosecute any alcohol or drug abuse patient.[facility] this information is protected by the Federal Confidentiality of Alcohol and Drug Abuse Patient Records regulations: The Federal rules restrict any use of the information to criminally investigate or prosecute any alcohol or drug abuse patient.[facility] the event this information is protected by the Federal Confidentiality of Alcohol and Drug Abuse Patient Records regulations: The Federal rules restrict any use of the information to criminally investigate or prosecute any alcohol or drug abuse patient.[facility] the event this information is protected by the Federal Confidentiality of Alcohol and Drug Abuse Patient Records regulations: The Federal rules restrict any use of the information to criminally investigate or prosecute any alcohol or drug abuse patient.[facility] the event this information is protected by the Federal Confidentiality of Alcohol and Drug Abuse Patient Records regulations: The Federal rules restrict any use of the information to criminally investigate or prosecute any alcohol or drug abuse patient.[facility] the event this information is protected by the Federal Confidentiality of Alcohol and Drug Abuse Patient Records regulations: The Federal rules restrict any use of the information to criminally investigate or prosecute any alcohol or drug abuse patient.[facility] the event this information is protected by the Federal Confidentiality of Alcohol and Drug Abuse Patient Records regulations: The Federal rules restrict any use of the information to criminally investigate or prosecute any alcohol or drug abuse patient.[facility] the event this information is protected by the Federal Confidentiality of Alcohol and Drug Abuse Patient Records regulations: The Federal rules restrict any use of the information to criminally investigate or prosecute any alcohol or drug abuse patient.[facility] the event this information is protected by the Federal Confidentiality of Alcohol and Drug Abuse Patient Records regulations: The Federal rules restrict any use of the information to criminally investigate or prosecute any alcohol or drug abuse patient.[facility] the event this information is protected by the Federal Confidentiality of Alcohol and Drug Abuse Patient Records regulations: The Federal rules restrict any use of the information to criminally investigate or prosecute any alcohol or drug abuse patient.[facility] the event this information is protected by the Federal Confidentiality of Alcohol and Drug Abuse Patient Records regulations: The Federal rules restrict any use of the information to criminally investigate or prosecute any alcohol or drug abuse patient.[facility] the event this information is protected by the Federal Confidentiality of Alcohol and Drug Abuse Patient Records regulations: The Federal rules restrict any use of the information to criminally investigate or prosecute any alcohol or drug abuse patient.[facility] the event this information is protected by the Federal Confidentiality of Alcohol and Drug Abuse Patient Records regulations: The Federal rules restrict any use of the information to criminally investigate or prosecute any alcohol or drug abuse patient.[facility] the event this information is protected by the Federal Confidentiality of Alcohol and Drug Abuse Patient Records regulations: The Federal rules restrict any use of the information to criminally investigate or prosecute any alcohol or drug abuse patient.[facility] the event this information is protected by the Federal Confidentiality of Alcohol and Drug Abuse Patient Records regulations: The Federal rules restrict any use of the information to criminally investigate or prosecute any alcohol or drug abuse patient.[facility] the event this information is protected by the Federal Confidentiality of Alcohol and Drug Abuse Patient Records regulations: The Federal rules restrict any use of the information to criminally investigate or prosecute any alcohol or drug abuse patient.[facility] the event this information is protected by the Federal Confidentiality of Alcohol and Drug Abuse Patient Records regulations: The Federal rules restrict any use of the information to criminally investigate or prosecute any alcohol or drug abuse patient.[facility] the event this information is protected by the Federal Confidentiality of Alcohol and Drug Abuse Patient Records regulations: The Federal rules restrict any use of the information to criminally investigate or prosecute any alcohol or drug abuse patient.[facility] the event this information is protected by the Federal Confidentiality of Alcohol and Drug Abuse Patient Records regulations: The Federal rules restrict any use of the information to criminally investigate or prosecute any alcohol or drug abuse patient.[facility] the event this information is protected by the Federal Confidentiality of Alcohol and Drug Abuse Patient Records regulations: The Federal rules restrict any use of the information to criminally investigate or prosecute any alcohol or drug abuse patient.[facility] the event this information is protected by the Federal Confidentiality of Alcohol and Drug Abuse Patient Records regulations: The Federal rules restrict any use of the information to criminally investigate or prosecute any alcohol or drug abuse patient.[facility] HospitalIn the event this information is protected by the Federal Confidentiality of Alcohol and Drug Abuse Patient Records regulations: The Federal rules restrict any use of the information to criminally investigate or prosecute any alcohol or drug abuse patient.[facility] HospitalIn the event this information is protected by the Federal Confidentiality of Alcohol and Drug Abuse Patient Records regulations: The Federal rules restrict any use of the information to criminally investigate or prosecute any alcohol or drug abuse patient.[facility] HospitalIn the event this information is protected by the Federal Confidentiality of Alcohol and Drug Abuse Patient Records regulations: The Federal rules restrict any use of the information to criminally investigate or prosecute any alcohol or drug abuse patient.[facility] HospitalIn the event this information is protected by the Federal Confidentiality of Alcohol and Drug Abuse Patient Records regulations: The Federal rules restrict any use of the information to criminally investigate or prosecute any alcohol or drug abuse patient.[facility] HospitalIn the event this information is protected by the Federal Confidentiality of Alcohol and Drug Abuse Patient Records regulations: The Federal rules restrict any use of the information to criminally investigate or prosecute any alcohol or drug abuse patient.[facility] HospitalIn the event this information is protected by the Federal Confidentiality of Alcohol and Drug Abuse Patient Records regulations: The Federal rules restrict any use of the information to criminally investigate or prosecute any alcohol or drug abuse patient.[facility] HospitalIn the event this information is protected by the Federal Confidentiality of Alcohol and Drug Abuse Patient Records regulations: The Federal rules restrict any use of the information to criminally investigate or prosecute any alcohol or drug abuse patient.[facility] HospitalIn the event this information is protected by the Federal Confidentiality of Alcohol and Drug Abuse Patient Records regulations: The Federal rules restrict any use of the information to criminally investigate or prosecute any alcohol or drug abuse patient.[facility] HospitalIn the event this information is protected by the Federal Confidentiality of Alcohol and Drug Abuse Patient Records regulations: The Federal rules restrict any use of the information to criminally investigate or prosecute any alcohol or drug abuse patient.[facility] HospitalIn the event this information is protected by the Federal Confidentiality of Alcohol and Drug Abuse Patient Records regulations: The Federal rules restrict any use of the information to criminally investigate or prosecute any alcohol or drug abuse patient.[facility] HospitalIn the event this information is protected by the Federal Confidentiality of Alcohol and Drug Abuse Patient Records regulations: The Federal rules restrict any use of the information to criminally investigate or prosecute any alcohol or drug abuse patient.[facility] HospitalIn the event this information is protected by the Federal Confidentiality of Alcohol and Drug Abuse Patient Records regulations: The Federal rules restrict any use of the information to criminally investigate or prosecute any alcohol or drug abuse patient.[facility] HospitalIn the event this information is protected by the Federal Confidentiality of Alcohol and Drug Abuse Patient Records regulations: The Federal rules restrict any use of the information to criminally investigate or prosecute any alcohol or drug abuse patient.[facility] HospitalIn the event this information is protected by the Federal Confidentiality of Alcohol and Drug Abuse Patient Records regulations: The Federal rules restrict any use of the information to criminally investigate or prosecute any alcohol or drug abuse patient.[facility] HospitalIn the event this information is protected by the Federal Confidentiality of Alcohol and Drug Abuse Patient Records regulations: The Federal rules restrict any use of the information to criminally investigate or prosecute any alcohol or drug abuse patient.[facility] HospitalIn the event this information is protected by the Federal Confidentiality of Alcohol and Drug Abuse Patient Records regulations: The Federal rules restrict any use of the information to criminally investigate or prosecute any alcohol or drug abuse patient.[facility] HospitalIn the event this information is protected by the Federal Confidentiality of Alcohol and Drug Abuse Patient Records regulations: The Federal rules restrict any use of the information to criminally investigate or prosecute any alcohol or drug abuse patient.[facility] HospitalIn the event this information is protected by the Federal Confidentiality of Alcohol and Drug Abuse Patient Records regulations: The Federal rules restrict any use of the information to criminally investigate or prosecute any alcohol or drug abuse patient.[facility] HospitalIn the event this information is protected by the Federal Confidentiality of Alcohol and Drug Abuse Patient Records regulations: The Federal rules restrict any use of the information to criminally investigate or prosecute any alcohol or drug abuse patient.[facility] HospitalIn the event this information is protected by the Federal Confidentiality of Alcohol and Drug Abuse Patient Records regulations: The Federal rules restrict any use of the information to criminally investigate or prosecute any alcohol or drug abuse patient.[facility] HospitalIn the event this information is protected by the Federal Confidentiality of Alcohol and Drug Abuse Patient Records regulations: The Federal rules restrict any use of the information to criminally investigate or prosecute any alcohol or drug abuse patient.[facility] HospitalIn the event this information is protected by the Federal Confidentiality of Alcohol and Drug Abuse Patient Records regulations: The Federal rules restrict any use of the information to criminally investigate or prosecute any alcohol or drug abuse patient.[facility] HospitalIn the event this information is protected by the Federal Confidentiality of Alcohol and Drug Abuse Patient Records regulations: The Federal rules restrict any use of the information to criminally investigate or prosecute any alcohol or drug abuse patient.[facility] HospitalIn the event this information is protected by the Federal Confidentiality of Alcohol and Drug Abuse Patient Records regulations: The Federal rules restrict any use of the information to criminally investigate or prosecute any alcohol or drug abuse patient.[facility] HospitalIn the event this information is protected by the Federal Confidentiality of Alcohol and Drug Abuse Patient Records regulations: The Federal rules restrict any use of the information to criminally investigate or prosecute any alcohol or drug abuse patient.[facility] HospitalIn the event this information is protected by the Federal Confidentiality of Alcohol and Drug Abuse Patient Records regulations: The Federal rules restrict any use of the information to criminally investigate or prosecute any alcohol or drug abuse patient.[facility] HospitalIn the event this information is protected by the Federal Confidentiality of Alcohol and Drug Abuse Patient Records regulations: The Federal rules restrict any use of the information to criminally investigate or prosecute any alcohol or drug abuse patient.[facility] HospitalIn the event this information is protected by the Federal Confidentiality of Alcohol and Drug Abuse Patient Records regulations: The Federal rules restrict any use of the information to criminally investigate or prosecute any alcohol or drug abuse patient.[facility] HospitalIn the event this information is protected by the Federal Confidentiality of Alcohol and Drug Abuse Patient Records regulations: The Federal rules restrict any use of the information to criminally investigate or prosecute any alcohol or drug abuse patient.[facility] HospitalIn the event this information is protected by the Federal Confidentiality of Alcohol and Drug Abuse Patient Records regulations: The Federal rules restrict any use of the information to criminally investigate or prosecute any alcohol or drug abuse patient.[facility] HospitalIn the event this information is protected by the Federal Confidentiality of Alcohol and Drug Abuse Patient Records regulations: The Federal rules restrict any use of the information to criminally investigate or prosecute any alcohol or drug abuse patient.[facility] HospitalIn the event this information is protected by the Federal Confidentiality of Alcohol and Drug Abuse Patient Records regulations: The Federal rules restrict any use of the information to criminally investigate or prosecute any alcohol or drug abuse patient.[facility] HospitalIn the event this information is protected by the Federal Confidentiality of Alcohol and Drug Abuse Patient Records regulations: The Federal rules restrict any use of the information to criminally investigate or prosecute any alcohol or drug abuse patient.[facility] HospitalIn the event this information is protected by the Federal Confidentiality of Alcohol and Drug Abuse Patient Records regulations: The Federal rules restrict any use of the information to criminally investigate or prosecute any alcohol or drug abuse patient.[facility] HospitalIn the event this information is protected by the Federal Confidentiality of Alcohol and Drug Abuse Patient Records regulations: The Federal rules restrict any use of the information to criminally investigate or prosecute any alcohol or drug abuse patient.[facility] HospitalIn the event this information is protected by the Federal Confidentiality of Alcohol and Drug Abuse Patient Records regulations: The Federal rules restrict any use of the information to criminally investigate or prosecute any alcohol or drug abuse patient.[facility] Care Teams (unrecognized sec tion and content) Overweaver Relationship Specialty Start Date End Date Keith Romero DO [address] [place] [address] PCP - General Family Practice 04/15/18 Overweaver Relationship Specialty Start Date End Date Keith Romero DO [address] [place] [address] PCP - General Family Practice 04/15/18 Overweaver Relationship Specialty Start Date End Date Keith Romero, DO [address] [place] [address] PCP - General Family Practice 04/15/18 Overweaver Relationship Specialty Start Date End Date Keith Romero, DO [address] [facility] [place] [address] PCP - General Family Practice 04/15/18 Overweaver Relationship Specialty Start Date End Date Keith Romero, DO [address] [facility] [place] [address] PCP - General Family Practice 04/15/18 Overweaver Relationship Specialty Start Date End Date Keith Romero, DO [address] [facility] [place] [address] PCP - General Family Practice 04/15/18 Overweaver Relationship Specialty Start Date End Date Keith Romero, DO [address] [facility] [place] [address] PCP - General Family Medicine 04/15/18 Overweaver Relationship Specialty Start Date End Date Keith Romero, DO [address] [facility] [place] [address] PCP - General Family Medicine 04/15/18 Overweaver Relationship Specialty Start Date End Date Keith Romero, DO [address] [place] [address] PCP - General Family Medicine 04/15/18 Overweaver Relationship Specialty Start Date End Date Keith Romero, DO [address] [place] [address] PCP - General Family Medicine 04/15/18 Overweaver Relationship Specialty Start Date End Date Keith Romero, DO [address] [facility] [place] [address] PCP - General Family Medicine 04/15/18 Overweaver Relationship Specialty Start Date End Date Keith Romero DO [address] [facility] [place] [address] PCP - General Family Medicine 04/15/18 Overweaver Relationship Specialty Start Date End Date Keith Romero DO [address] [facility] [place] [address] PCP - General Family Medicine 04/15/18 Overweaver Relationship Specialty Start Date End Date Keith Romero DO [address] [facility] [place] [address] PCP - General Family Medicine 04/15/18 Overweaver Relationship Specialty Start Date End Date Keith Romero DO [address] [facility] [place] [address] PCP - General Family Medicine 04/15/18 Overweaver Relationship Specialty Start Date End Date Keith Romero DO [address] [place] [place] [address] PCP - General Family Medicine 04/15/18 Overweaver Relationship Specialty Start Date End Date Keith Romero DO [address] [place] [place] [address] PCP - General Family Medicine 04/15/18 Overweaver Relationship Specialty Start Date End Date Keith Romero DO [address] [place] [place] [address] PCP - General Family Medicine 04/15/18 Overweaver Relationship Specialty Start Date End Date Keith Romero DO [address] [facility] [place] [address] PCP - General Family Medicine 04/15/18 Overweaver Relationship Specialty Start Date End Date Keith Romero DO [address] [facility] [place] [address] PCP - General Family Medicine 04/15/18 Overweaver Relationship Specialty Start Date End Date Keith Romero DO [address] [facility] [place] [address] PCP - General Family Medicine 04/15/18 Overweaver Relationship Specialty Start Date End Date Keith Romero DO [address] [facility] [place] [address] PCP - General Family Medicine 04/15/18 Overweaver Relationship Specialty Start Date End Date Keith Romero DO [address] [facility] [place] [address] PCP - General Family Medicine 04/15/18 Overweaver Relationship Specialty Start Date End Date Keith Romero DO [address] [facility] [place] [address] PCP - General Family Medicine 04/15/18 Overweaver Relationship Specialty Start Date End Date Keith Romero DO [address] [facility] [place] [address] PCP - General Family Medicine 04/15/18 Overweaver Relationship Specialty Start Date End Date Keith Romero DO [address] [facility] [place] [address] PCP - General Family Medicine 04/15/18 Overweaver Relationship Specialty Start Date End Date Keith Romero DO [address] [facility] [place] [address] PCP - General Family Medicine 04/15/18 Overweaver Relationship Specialty Start Date End Date Keith Romero DO [address] [facility] [place] [address] PCP - General Family Medicine 04/15/18 Overweaver Relationship Specialty Start Date End Date Keith Romero, [address] [facility] [place] [address] PCP - General Family Medicine 04/15/18 Overweaver Relationship Specialty Start Date End Date Keith Romero DO [address] [facility] [place] [address] PCP - General Family Medicine 04/15/18 Overweaver Relationship Specialty Start Date End Date Keith Romero, [address] [facility] [place] [address] PCP - General Family Medicine 04/15/18 Overweaver Relationship Specialty Start Date End Date Keith Romero, [address] [facility] [place] [address] PCP - General Family Medicine 04/15/18 Overweaver Relationship Specialty Start Date End Date Keith Romero DO [address] [facility] [place] [address] PCP - General Family Medicine 04/15/18 Overweaver Relationship Specialty Start Date End Date Keith Romero DO [address] [facility] [place] [address] PCP - General Family Medicine 04/15/18 Overweaver Relationship Specialty Start Date End Date Keith Romero DO [address] [facility] [place] [address] PCP - General Family Medicine 04/15/18 Overweaver Relationship Specialty Start Date End Date Keith Romero DO [address] [facility] [place] [address] PCP - General Family Medicine 04/15/18 Overweaver Relationship Specialty Start Date End Date Keith Romero DO [address] [facility] [place] [address] PCP - General Family Medicine 04/15/18 Overweaver Relationship Specialty Start Date End Date Keith Romero DO [address] [facility] [place] [address] PCP - General Family Medicine 04/15/18 Overweaver Relationship Specialty Start Date End Date Keith Romero DO [address] [place] [place] [address] PCP - General Family Medicine 04/15/18 Overweaver Relationship Specialty Start Date End Date Keith Romero DO [address] [place] [place] [address] PCP - General Family Medicine 04/15/18 Johanna Roblero, EMPLOYEE'S REPRESENTATIVE.SHAKER REPAIRER [address] [place] [place] [address] [employer] Family Medicine 09/27/24 Dionne Means, MARIAH.SHAKER REPAIRER [address] [facility] [place] [address] [employer] Family Medicine 09/27/24 Overweaver Relationship Specialty Start Date End Date Keith Romero DO [address] [facility] [place] [address] PCP - General Family Medicine 04/15/18 Dionne Means, EMPLOYEE'S REPRESENTATIVE.SHAKER REPAIRER [address] [facility] [place] [address] Garden Mach[employer] Mechan[employer] [facility] 09/27/24 Overweaver Relationship Specialty Start Date End Date Keith Romero DO [address] [facility] [place] [address] PCP - General Family Medicine 04/15/18 Dionne Means, EMPLOYEE'S REPRESENTATIVE.SHAKER REPAIRER [address] [facility] [place] [address] [facility] Overweaver Relationship Specialty Start Date End Date Keith Romero DO [address] [facility] [place] [address] PCP - General Family Medicine 04/15/18 Dionne Means, EMPLOYEE'S REPRESENTATIVE.SHAKER REPAIRER [address] [facility] [place] [address] [facility] 09/27/24 Overweaver Relationship Specialty Start Date End Date Keith Romero DO [address] [facility] [place] [address] PCP - General Family Medicine 04/15/18 ClaryDionne, EMPLOYEE'S REPRESENTATIVE.SHAKER REPAIRER [address] [facility] [place] [address] [employer] Family [facility] 09/27/24 Jerica Nava, EMPLOYEE'S REPRESENTATIVE.SHAKER REPAIRER [address] [place], [place] [address] [employer] Family Medicine 04/05/25 Team Status: Active Member Role/Relationship Status Dates Dr. Keith Romero DO Primary Care Provider Active Team Status: Inactive Member Role/Relationship Status Dates Dr. Keith Romero DO Primary Care Provider Active Start: March 16, 2025 End: March 16, 2025 Dr. Keith Romero DO Attending Provider Active Start: March 16, 2025 End: March 16, 2025 Dr. Keith Romero DO Referring Provider Active Start: March 16, 2025 End: March 16, 2025 Overweaver Relationship Specialty Start Date End Date Keith Romero DO [address] [place] [address] PCP - General Family Medicine 04/15/18 Dionne Means APRN.SHAKER REPAIRER [address] [place] [address] [employer] Family Medicine 09/27/24 Jerica Nava APRN.SHAKER REPAIRER [address] [place] [address] [employer] Mechan[employer] Family Medicine 04/05/25 Overweaver Relationship Specialty Start Date End Date Keith Romero DO [address] [facility] [place] [address] PCP - General Family Medicine 04/15/18 Dionne Means APRN.SHAKER REPAIRER [address] [facility] [place] [address] [employer] Family Medicine 09/27/24 Jerica Nava APRN.SHAKER REPAIRER [address] [place], [place] [id number] [facility] Family [facility] 04/05/25 Overweaver Relationship Specialty Start Date End Date Keith Romero DO [address] [place], [place] [address] PCP - General Family Medicine 04/15/18 Dionne Means, EMPLOYEE'S REPRESENTATIVE.SHAKER REPAIRER [address] [place], [place] [address] [employer] Family [facility] 09/27/24 Jerica Nava, EMPLOYEE'S REPRESENTATIVE.SHAKER REPAIRER [address] [place], [place] [address] [facility] 04/05/25 Reason for Visit (unrecogniz ed section and content) Reason Comments Results Reason Comments Cardiology Follow Up Specialty Diagnoses / Procedures Referred By Melissa galo Referred To Contact Cardiology Diagnoses SVT (supraventricular tachycardia) (HCC) Procedures CONSULT TO CARDIOLOGY NEW PATIENT VISIT LEVEL 5 Katherine Ceron, EMPLOYEE'S REPRESENTATIVE.SHAKER REPAIRER [address] [place] [address] Referral ID Status Reason Start Date Expiration Date V isits Requested Visits Authorized [id number] Closed PCP Requested Referral 05/19/2021 05/19/2022 1 1 Reason Comments Pain (Shoulder Pain) right shoulder, upp er back pain x 5 days Reason Comments Results Labs Reason Onset Date Comments Imm/Inj Immunizations 07/23/2022 Flu vaccination Reason Comments Neck Pain Reason Onset Date Comments Refill Request 11/07/2022 Reason Comments Patient Update Reason Comments Received Outside Medical Records Reason Comments Yearly Exam Reason Comments New Pain Reason Comments Patient Question Reason Comments Refill Request Reason Comments Lab Orders Orders Mammogram Screening Reason Comments Orders Reason Onset Date Comments Refill Request 03/05/2024 Reason Onset Date Comments Refill Request 04/06/2024 Reason Comments New Patient Reason Comments Rectal Problem Reason Comments Medication Problem Reason Comments Rectal Problem Pt states has had he morrhoids for 450 years has always been able to tend to them but now there is pain all the time used everything on market with no relief Reason Comments Consult Internal and externa l hemorrhoids. Specialty Diagnoses / Procedures Referred By Contlynette t Referred To Contact Gastroenterology Diagnoses Hemorrhoids, unspecified hemorrhoid type Procedures CONSULT TO GASTROENTEROLOGY OFFICE/OUTPATIENT [facility] HIGH MDM 60 MINUTES Johanna Roblero APRN.SHAKER REPAIRER [address] [facility] [place] [address] Referral ID Status Reason Start Date Expiration Date V isits Requested Visits Authorized [id number] Closed PCP Requested Referral 05/13/2024 05/13/2025 1 1 Reason Comments Consult Prolapse hemorrhoid Procedure Hemorrhoidal banding Reason Comments Lab Orders Reason Comments Medicare Wellness Exam Reason Comments Hemorrhoids Reason Comments Medication Question Reason Comments Procedure Hemmorhoid banding Reason Comments Procedure Anoscopy and hemorrh oidal banding Reason Comments Orders Reason Comments 6 Month Exam Reason Comments Follow Up one year follow up Reason Onset Date Comments mamm results 06/15/2025 Goals (unrecognized section and content) Goals may be documented in a n alternate section INFORMATION SOURCE (unrecogn ized section and content) DATE CREATED AUTHOR 05/03/2025 [facility] DATE CREATED AUTHOR AUTHOR'S ORGANIZ ATION 09/01/2025 [facility] FOR RECORDS PERTAINING TO PATIENTS WHO ARE OR HAVE BEEN ENROLLED IN A CHEMICAL DEPENDENCY/SUBSTANCEABUSE PROGRAM, SOME INFORMATION MAY BE OMITTED. This clinical summary was aggregated from multiple sources. Caution should be exercised in using it in the provision of clinical care. This summary normalizes information from multiple sources, and as a consequence, information in this document may materially change the coding, format and clinical context of patient data. In addition, data may be omitted in some cases. CLINICAL DECISIONS SHOULD BE BASED ON THE PRIMARY CLINICAL RECORDS. [employer] provides no warranty or guarantee of the accuracy or completeness of information in this document.
[2025-09-12 09:13] VITALS: BP 161/88; PULSE 74; RESP 16; TEMP 36.6; O2SAT 99
== END 2025-09-12 09:19 | disposition home or self-care (01) ==
PROVIDERS: Emergency Provider Emergency Medicine; PCP Student in an Organized Health Care Education/Training Program; Visit Provider Emergency Medicine
DX: S01.01XA Laceration without foreign body of scalp, initial encounter (principal); S51.811A Laceration without foreign body of right forearm, initial encounter; R29.6 Repeated falls; Z91.81 History of falling; W19.XXXA Unspecified fall, initial encounter; R26.9 Unspecified abnormalities of gait and mobility; Z23 Encounter for immunization
CPT/HCPCS: 70450; 72125; 90715; 99283